=== PATIENT | male | born 1975 | race Caucasian/White ===

== ENCOUNTER 2022-02-09 14:11 | Outpatient (CLI) | payer OTHER, SELFPAY ==
[2022-02-09 11:20] LABS: Albumin* 4.3 g/dL (3.3-5.0); Chloride* 101 mmol/L (96-114)
[2022-02-09 11:21] LABS: Potassium* 4.8 mmol/L (3.6-5.1); Sodium* 135 mmol/L (135-149)
[2022-02-09 11:23] LABS: Alkaline Phosphatase* 75 U/L (40-150); Aspartate Amino Transferase* 30 U/L (12-35); Bilirubin Total* 1.2 mg/dL (0.1-1.5); Blood Urea Nitrogen* 16 mg/dL (5-24); Carbon Dioxide* 27 mmol/L (20-32); Cholesterol* 175 mg/dL (90-199); Creatinine* 1.1 mg/dL (0.5-1.5); Estimated Glomerular Filt Rate 83 ml/min; Glucose* 92 mg/dL (60-115); Total Protein* 7.2 g/dL (6.0-8.3); Triglycerides* 161 mg/dL (40-149)
[2022-02-09 11:24] LABS: Alanine Aminotransferase* 29 U/L (4-50); Calcium* 9.2 mg/dL (8.4-10.6); HDL Cholesterol* 65 mg/dL (>=40); LDL Cholesterol Calculated 78 mg/dL (<100)
== END 2022-02-09 14:12 | disposition home or self-care (01) ==
PROVIDERS: PCP Family Medicine; Visit Provider Family Medicine
DX: E78.5 Hyperlipidemia, unspecified (principal)
CPT/HCPCS: 80053; 80061

== ENCOUNTER 2022-03-20 14:24 | Outpatient (CLI) | payer OTHER, SELFPAY ==
--- OUTSIDE RECORDS SUMMARY | 2022-03-20 14:28 | XMS_ITS | Encounter Summary ---
:1975 Author Organization [facility] Address [address] [place] [address]. [place] [address] Care Team Providers Name Role Phone No Ref-Primary, Physician Primary Care Provider [phone] Reason for Visit Reason Comments Physical fasting labs Encounter Details Date Type Department Care Team Description 04/10/2016 Office Visit [facility] Leeanna Farmer MD Encounter for routine adult medical exam with abnormal findings (Primary Dx); Clinic [address] Tobacco use; [address] [place] [address] Need for prophylactic vaccin ation and inoculation [place] [phone] Social History Tobacco Use Types Packs/Day Years Used Date Current Some Day Smoker Cigarettes 16 Smokeless Tobacco: Never Used Alcohol Use Standard Drinks/Week Comments Yes 0 (1 standard drink = 0.6 oz pure alcoho l) 2 beers a day Sex Assigned at Date Recorded Not on file documented as of this encounter Last Filed Vital Signs Vital Sign Reading Time Taken Comments Blood Pressure 132/85 04/10/2016 8:30 AM CDT Pulse 89 04/10/2016 8:30 AM CDT Temperature 36.7 ??C (98 ??F) 04/10/2016 8:30 AM CDT Respiratory Rate 16 04/10/2016 8:30 AM CDT Oxygen Saturation 98% 04/10/2016 8:30 AM CDT Inhaled Oxygen Concentration - - Weight 107 kg (236 lb) 04/10/2016 8:30 AM CDT Height 185.4 cm (6' 1) 04/10/2016 8:30 AM CDT Body Mass Index 31.14 04/10/2016 8:30 AM CDT documented in this encounter Patient Instructions Patient InstructionsBean Donohue CMA - 04/10/2016 8:23 AM CDT Preventive Health Recommendations Male Ages 40 to 49 Yearly exam: ?? See your health care provider every year in order to o Review health changes. o Discuss preventive care. o Review your medicines if your doctor has prescribed any. ??? You should be tested each year for STDs (sexually transmitted diseases) if you???re at risk. ??? Have a cholesterol test every 5 years. ??? Have a colonoscopy (test for colon cancer) if someone in your family has had colon cancer or polyps before age 50. ??? After age 45, have a diabetes test (fasting glucose). If you are at risk for diabetes, you should have this test every 3 years. ??? Talk with your health care provider about whether or not a prostate cancer screening test (PSA) is right for you. Shots: Get a flu shot each year. Get a tetanus shot every 10 years. Nutrition: ??? Eat at least 5 servings of fruits and vegetables daily. ??? Eat whole-grain bread, whole-wheat pasta and brown rice instead of white grains and rice. ??? Talk to your provider about Calcium and Vitamin D. Lifestyle ??? Exercise for at least 150 minutes a week (30 minutes a day, 5 days a week). This will help you control your weight and prevent disease. ??? Limit alcohol to one drink per day. ??? No smoking. ??? Wear sunscreen to prevent skin cancer. ??? See your dentist every six months for an exam and cleaning. documented in this encounter Progress Notes Bean Donohue CMA - 04/10/2016 10:52 AM CDT Injectable Influenza Immunization Documentation 1. Is the person to be vaccinated sick today? No 2. Does the person to be vaccinated have an allergy to eggs or to a component of the vaccine? No 3. Has the person to be vaccinated today ever had a serious reaction to influenza vaccine in the past? No 4. Has the person to be vaccinated ever had Guillain-Davenport syndrome? No Form completed by Bean Donohue CMA Leeanna Farmer MD - 04/10/2016 8:23 AM CDT SUBJECTIVE: CC: Antelmo Farias is an 40 year old male who presents for preventative health visit. Healthy Habits: Answers for HPI/ROS submitted by the patient on 04/04/2016 Annual Exam: Getting at least 3 servings of Calcium per day:: Yes Bi-annual eye exam:: Yes Dental care twice a year:: NO Sleep apnea or symptoms of sleep apnea:: Sleep apnea Diet:: Regular (no restrictions) Frequency of exercise:: 2-3 days/week Duration of exercise:: Less than 15 minutes Taking medications regularly:: Yes Medication side effects:: Not applicable Additional concerns today:: No PHQ-2 Depressed: Not at all, Not at all PHQ-2 Score: 0 Other concerns to address: Staying focused Today's PHQ-2 Score: 0 PHQ-2 (??1999 Pfizer) 04/04/2016 07/15/2014 Q1: Little interest or pleasure in doing things - 0 Q2: Feeling down, depressed or hopeless - 0 PHQ-2 Score - 0 Little interest or pleasure in doing things Not at all - Feeling down, depressed or hopeless Not at all - PHQ-2 Score 0 - Abuse: Current or Past(Physical, Sexual or Emotional)- No Do you feel safe in your environment - Yes Social History Substance Use Topics ??? Smoking status: Current Some Day Smoker -- 25.00 packs/day for 16 years Types: Cigarettes ??? Smokeless tobacco: Current User ??? Alcohol Use: Yes Comment: 2 beers a day Standardized Alcohol Screening Questionnaire AUDIT Questions 0 1 2 3 4 Score 1. How often do you have a drink containing alcohol? Never Monthly or less 2 to 4 times a month 2 to 3 times a week 4 or more times a week 3 2. How many drinks containing alcohol do you have on a typical day when you are drinking? 1 or 2 3 or 4 5 or 6 7 to 9 10 or more 2 3. How often do you have more than five or more drinks on one occasion? Never Less than monthly Monthly Weekly Daily or almost daily 3 4. How often during the last year have you found that you were not able to stop drinking once you had started? Never Less than monthly Monthly Weekly Daily or almost daily 0 5. How often during the last year have you failed to do what was normally expected of you because of drinking? Never Less than monthly Monthly Weekly Daily or almost daily 0 6. How often during the last year have you needed a first drink in the morning to get yourself going after a heavy drinking session? Never Less than monthly Monthly Weekly Daily or almost daily 0 7. How often during the last year have you had a feeling of guilt or remorse after drinking? Never Less than monthly Monthly Weekly Daily or almost daily 0 8. How often during the last year have you been unable to remember what happened the night before because of your drinking? Never Less than monthly Monthly Weekly Daily or almost daily 0 9. Have you or someone else been injured because of your drinking? No Yes, but not in the last year Yes, during the last year 0 10. Has a relative, friend, doctor or other health care worker been concerned about your drinking orsuggested you cut down? No Yes, but not in the last year Yes, during the last year 0 Total 8 Scoring: A score of 7 for adult men is an indication of hazardous drinking (risk for physical or physiological harm); a score of 8 or more is an indication of an alcohol use disorder. A score of 5 or more for adult women is an indication of hazardous drinking or an alcohol use disorder. Last PSA: PSA Date Value Ref Range Status 09/01/2008 0.63 0 - 4 ug/L Final Recent Labs Lab Test 01/20/13 0920 12/27/11 0858 CHOL 161 152 HDL 40 41 LDL 91 87 TRIG 156* 119 CHOLHDLRATIO 4.1 3.7 Reviewed orders with patient. Reviewed health maintenance and updated orders accordingly - Yes All Histories reviewed and updated in [facility]. Past Medical History Diagnosis Date ??? ANGELIKA (obstructive sleep apnea) 2005 CPAP at 5cm ??? Family hx-GI disorders 02/07/2011 oldest daughter dx with celiac sprue Past Surgical History Procedure Laterality Date ??? Hc explor maxill sinus,intranasal 04/2002 Dr. Shea ??? Laminectomy lumbar posterior microscopic one level 07/07/2013 Procedure: LAMINECTOMY LUMBAR POSTERIOR MICROSCOPIC ONE LEVEL; RIGHT L5-S1 MICRODISCECTOMY ; Surgeon: Jefferson Michelle MD; Location: [facility] OR Feeling pain in the triceps while he was working out, and the pain is getting better, mild burning in the Lt triceps said that he is having time focusing, easily distracted, and goes from thought to another, and wakes up with rushing thoughts in the head. He declined worrying about things in general, and does not feel depressed or down. ROS: C: NEGATIVE for fever, chills, change in weight INTEGUMENTARY/SKIN: mole on the flank area. E: NEGATIVE for vision changes or irritation ENT: NEGATIVE for ear, mouth and throat problems R: NEGATIVE for significant cough or SOB CV: NEGATIVE for chest pain, palpitations or peripheral edema GI: NEGATIVE for nausea, abdominal pain, heartburn, or change in bowel habits male: negative for dysuria, hematuria, decreased urinary stream, erectile dysfunction, urethral discharge M: NEGATIVE for significant arthralgias or myalgia N: NEGATIVE for weakness, dizziness or paresthesias P: NEGATIVE for changes in mood or affect Problem list, Medication list, Allergies, and Medical/Social/Surgical histories reviewed in [facility] andupdated as appropriate. Labs reviewed in [facility] OBJECTIVE: There were no vitals taken for this visit. EXAM: GENERAL: healthy, alert and no distress EYES: Eyes grossly normal to inspection, PERRL and conjunctivae and sclerae normal HENT: ear canals and TM's normal, nose and mouth without ulcers or lesions NECK: no adenopathy, no asymmetry, masses, or scars and thyroid normal to palpation RESP: lungs clear to auscultation - no rales, rhonchi or wheezes CV: regular rate and rhythm, normal S1 S2, no S3 or S4, no murmur, click or rub, no peripheral edemaand peripheral pulses strong ABDOMEN: soft, nontender, no hepatosplenomegaly, no masses and bowel sounds normal (male): normal male genitalia without lesions or urethral discharge, no hernia MS: no gross musculoskeletal defects noted, no edema SKIN: mole on the Lt upper thigh. NEURO: Normal strength and tone, mentation intact and speech normal PSYCH: mentation appears normal, affect normal/bright ASSESSMENT/PLAN: 1. Encounter for routine adult medical exam with abnormal findings - GLUCOSE - LIPID REFLEX TO DIRECT LDL PANEL - Hemoglobin A1c 2. Tobacco use Talked about smoking cessation - albuterol (PROAIR HFA, PROVENTIL HFA, VENTOLIN HFA) 108 (90 BASE) MCG/ACT inhaler; Inhale 2 puffs into the lungs every 4 hours as needed Dispense: 1 Inhaler; Refill: 3 COUNSELING: Reviewed preventive health counseling, as reflected in patient instructions Regular exercise Healthy diet/nutrition reports that he has been smoking Cigarettes. He has a 400 pack-year smoking history. He uses smokeless tobacco. Tobacco Cessation Action Plan: Information offered: Patient not interested at this time Estimated body mass index is 31.27 kg/(m^2) as calculated from the following: Height as of 05/06/14: 6' 0.99 (1.854 m). Weight as of 07/15/14: 237 lb (107.502 kg). Weight management plan: Discussed healthy diet and exercise guidelines and patient will follow up in12 months in clinic to re-evaluate. Counseling Resources: ATP IV Guidelines Pooled Cohorts Equation Calculator FRAX Risk Assessment ICSI Preventive Guidelines Dietary Guidelines for Americans, 2009 [employer] My[employer]ate ASA Prophylaxis Lung CA Screening Leeanna Farmer MD [facility] documented in this encounter Nursing Notes Bean Donohue CMA - 04/10/2016 8:32 AM CDT Chief Complaint Patient presents with ??? Physical fasting labs Initial BP 132/85 mmHg Pulse 89 Temp(Src) 98 ??F (36.7 ??C) (Oral) Resp 16 Ht 6' 1 (1.854 m) Wt 236 lb (107.049 kg) BMI 31.14 kg/m2 SpO2 98% Estimated body mass index is 31.14 kg/(m^2) as calculated from the following: Height as of this encounter: 6' 1 (1.854 m). Weight as of this encounter: 236 lb (107.049 kg).. BP completed using cuff size large Last Td:04/10/16 Last Colonoscopy:n/a Last PSA 09/01/08 - normal Bean Donohue CMA documented in this encounter Miscellaneous Notes Addendum Note - Bean Donohue CMA - 04/10/2016 10:54 AM CDT Addended by: BEAN DONOHUE on: 04/10/2016 10:54 AM Modules accepted: Orders, SmartSet documented in this encounter Plan of Treatment Not on filedocumented as of this encounter Procedures Procedure Name Priority Date/Time Associated Comments Diagnosis LIPID REFLEX TO Routine 04/10/2016 9:11 AM Encounter for Resul ts for this DIRECT LDL PANEL CDT routine adult procedure are in medical exam with the result s abnormal findings section. HEMOGLOBIN A1C Routine 04/10/2016 9:11 AM Encounter for Result s for this CDT routine adult procedure are in medical exam with the result s abnormal findings section. GLUCOSE Routine 04/10/2016 9:11 AM Encounter for Results for this CDT routine adult procedure are in medical exam with the result s abnormal findings section. documented in this encounter Results Hemoglobin A1c (04/10/2016 9:11 AM CDT) athologist Signature Hemoglobin A1C 5.1 4.3 - 6.0 [facility] Specimen Anatomical Collection Method Collection Time Receive d Time (Source) Location / / Volume Laterality Blood specimen 04/10/2016 9:11 AM 016 9:12 (specimen) CDT AM CDT Leeanna Farmer MD LAB - BLOOD ORDERABLES Performing Organization Address City/State/ZIP Code Phon e Number [facility] [address] [place] [address] (ABNORMAL) LIPID REFLEX TO DIRECT LDL PANEL (04/10/2016 9:11 AM CDT) Analysis Performed At Patho logist Time Signature Cholesterol 185 <200 mg/dL [facility] Triglycerides 200 (H) <150 mg/dL [facility] Comment: Borderline high: ??150-199 mg/dl High: ? 200-499 mg/dl Very high: ? >499 mg/dl Fasting specimen HDL Cholesterol 47 >39 mg/dL [facility] LDL Cholesterol Calculated 98 <100 mg/dL [facility] Comment: Desirable: <100 mg/dl Non HDL Cholesterol 138 (H) <130 mg/dL [facility] Comment: Above Desirable: ??130-159 mg/dl Borderline high: ??160-189 mg/dl High: ? 190-219 mg/dl Very high: ? >219 mg/dl Specimen Anatomical Collection Method Collection Time Receive d Time (Source) Location / / Volume Laterality Blood specimen 04/10/2016 9:11 AM 016 9:12 (specimen) CDT AM CDT Leeanna Farmer MD LAB - BLOOD ORDERABLES Performing Organization Address City/[facility]/ZIP Code Phon e Number [facility] [address] [place] [phone] (ABNORMAL) GLUCOSE (04/10/2016 9:11 AM CDT) athologist Signature Glucose 102 (H) 70 - 99 [facility] mg/dL [facility] Specimen Anatomical Collection Method Collection Time Receive d Time (Source) Location / / Volume Laterality Blood specimen 04/10/2016 9:11 AM 016 9:12 (specimen) CDT AM CDT Leeanna Farmer MD LAB - BLOOD ORDERABLES Performing Organization Address City/[facility]/ZIP Code Phon e Number 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
--- OUTSIDE RECORDS SUMMARY | 2022-03-20 14:28 | XMS_ITS | Encounter Summary ---
:1975 Author Organization [facility] Address [address] [place] [address]. [place] [address] Care Team Providers Name Role Phone Sloan Chen MD Primary Care Provider + Reason for Visit Reason Comments Sleep Apnea Encounter Details Date Type Department Care Team Description 05/10/2014 Care Coordination [facility] Edenilson Pitts MD [facility] [place] [address] [facility] [address] [address] [address] [place] [address] [place] [id number] [phone] Social History Tobacco Use Types Packs/Day Years Used Date Current Some Day Smoker Cigarettes 25 16 Smokeless Tobacco: Never Used Alcohol Use Standard Drinks/Week Comments Yes 0 (1 standard drink = 0.6 oz pure alcoho l) 2 beers a day Sex Assigned at Date Recorded Not on file documented as of this encounter Progress Notes Mojgan Irvin RRT - 05/10/2014 8:33 AM CST Faxed RX for new auto CPAP 715 to [facility] per pt request STRY ADVISER documented in this encounter Plan of Treatment Not on filedocumented as of this encounter Visit Diagnoses Not on filedocumented in this encounter 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
--- OUTSIDE RECORDS SUMMARY | 2022-03-20 14:28 | XMS_ITS | Encounter Summary ---
:1975 Author Organization [place] Address Formerly [facility]0 [facility] [place] [address] Care Team Providers Name Role Phone No Ref-Primary, Physician Primary Care Provider [phone] Encounter Details Date Type Department Care Team Description 02/07/2015 Hospital Encounter [facility] Geo Torres [facility] MD [facility] [address] [facility] [address] [facility] [address] [place] [address] [place] [phone] Social History Tobacco Use Types Packs/Day Years Used Date Current Some Day Smoker Cigarettes 25 16 Smokeless Tobacco: Current User Alcohol Use Standard Drinks/Week Comments Yes 0 (1 standard drink = 0.6 oz pure alcoho l) 2 beers a day Sex Assigned at Date Recorded Not on file documented as of this encounter Medications at Time of Discharge Medication Sig Dispensed Refills Start Date End Date albuterol (ALBUTEROL) 108 Inhale 1-2 puffs 1 Inhaler 3 05/1704/10/2016 (90 BASE) MCG/ACT into the lungs every inhalerIndications: 6 hours as needed Dyspnea for shortness of breath / dyspnea or wheezing zolpidem (AMBIEN) 10 MG Take 0.5-1 tablets 30 tablet 0 07/1904/10/2016 tabletIndications: Lumbar (5-10 mg) by mouth radiculopathy nightly as needed for sleep documented as of this encounter Progress Notes Emma Nugent - 02/08/2015 7:11 AM CDT Calcium score results sent to patient by certified mail. Patient does not have a PCP listed in [facility].Emma Nugent CV Construction Mgr documented in this encounter Plan of Treatment Not on filedocumented as of this encounter Procedures Procedure Name Priority Date/Time Associated Comments Diagnosis RADIOLOGIST CONSULT Routine 02/07/2015 9:18 AM Screening Re sults for this FOR CARDIOLOGY CDT procedure are in the results section. CT CALCIUM SCREENING Routine 02/07/2015 9:18 AM Screening R esults for this CDT procedure are i n the results section. documented in this encounter Results Radiologist Consult For Cardiology (02/07/2015 9:18 AM CDT) Anatomical Region Laterality Modality Computed Tomography Specimen (Source) Anatomical Location Collection Method / Collectio n Time Received Time / Laterality Volume Narrative 02/07/2015 9:48 AM CDT RADIOLOGIST CONSULT FOR CARDIOLOGY February 07, 2015 at 0918 hours HISTORY: 39-year-old male with screening examination. COMPARISON: March 09, 2013. TECHNIQUE: Axial and coronal noncontrast CT images obtained through the heart. FINDINGS: This report will focus only on soft tissue findings. Please see separate report for all cardiac and vascular findings. No abnormally enlarged mediastinal lymph nodes. The visible solid organs in the upper abdomen are unremark able. No acute osseous abnormality. No pulmonary masses. MAKSIM CONTRERAS MD Procedure Note Maksim Contreras MD - 02/07/2015 RADIOLOGIST CONSULT FOR CARDIOLOGY 2014 at 0918 hours HISTORY: 39-year-old male with screening examination. COMPARISON: March 09, 2013. TECHNIQUE: Axial and coronal noncontrast CT images obtained through the heart. FINDINGS: This report will focus only on soft tissue findings. Please see separate report for all cardiac and vascular findings. No abnormally enlarged mediastinal lymph nodes. The visible solid organs in the upper abdomen are unremark able. No acute osseous abnormality. No pulmonary masses. MAKSIM CONTRERAS MD Radiology Non-Fv Credentialed Provider IMG DIAGNOSTIC IMAGING ORDERABLES CT Coronary Calcium Scan (02/07/2015 9:18 AM CDT) Anatomical Region Laterality Modality Chest, SUBRAD IR PROCEDURE, UMP CT CTA C omputed Tomography Specimen (Source) Anatomical Location Collection Method / Collectio n Time Received Time / Laterality Volume Narrative 02/07/2015 2:09 PM CDT Procedure: CT CALCIUM SCREENING Examination Date: 02/07/2015 9:18 AM Clinical Information: Screening for unsp ecified condition Ordering Provider: Self PROCEDURE: High-resolution, ECG synchron ized multi-slice computed tomography was performed with a Siemens Dual Source Flash scanner without incident. Coronary calcification was analyzed using [employer] calcium scoring software. Scan protocol was optimized to minimize radiation exposure. The total radiation exposure was calculated to be 33 DLP and 0.5 mSv. FINDINGS: Overall quality of the study: Good. CORONARY ARTERY CALCIUM SCORES: Left main coronary artery: 0 Left anterior descending coronary artery : 0 Circumflex coronary artery: 0 Right coronary artery: 0 TOTAL CALCIUM SCORE: 0 The total Agatston calcium score is 0. Impressions No evidence of coronary artery calcifica tion. Please review Radiology report for incid ental noncardiac findings that will follow separately CALCIUM SCORE OF ZERO: A calcium score o f zero places this individual in the lowest quartile when compared to an age and gender matched control group. If the patient has more t nguyen one cardiac risk factor then the risk of coronary heart disease, or myocardial infarction is less than 0.4% per year (G socorro P. et al. JACC, 2007; 49:378-402). GENERAL RECOMMENDATIONS: Adoption and ma intenance of a healthy lifestyle is recommended for all people. This should include regular, appropriate exercise and observance of a proper diet, to ensure balanced nutrition and weight control. T obacco use should be avoided. Cholesterol has been linked to coronary atherosclerosis, and we strongly encourage adhering to the recom mendations of the National Cholesterol Education Panel (NCEP). For primary prevention, these include a target goal for total choleste rol of less than 200 mg/dl, HDL cholesterol of greater than 40 mg/dl , triglycerides of less than 150 mg/dl, and LDL cholesterol of less t nguyen 130 mg/dl. However note that these are general recommendations o nly, and as with all such matters, the personal physician should b e consulted regarding recommendations appropriate for the john vidual. GEO TORRES MD Procedure Note Geo Torres MD - 02/07/2015For matting of this note might be different from the original. Procedure: CT CALCIUM SCREENING Examination Date: 02/07/2015 9:18 AM Clinical Information: Screening for unsp ecified condition Ordering Provider: Self PROCEDURE: High-resolution, ECG synchron ized multi-slice computed tomography was performed with a Siemens Dual Source Flash scanner without incident. Coronary calcification was analyzed using [employer] calcium scoring software. Scan protocol was optimized to minimize radiation exposure. The total radiation exposure was calculated to be 33 DLP and 0.5 mSv. FINDINGS: Overall quality of the study: Good. CORONARY ARTERY CALCIUM SCORES: Left main coronary artery: 0 Left anterior descending coronary artery : 0 Circumflex coronary artery: 0 Right coronary artery: 0 TOTAL CALCIUM SCORE: 0 The total Agatston calcium score is 0. Impressions No evidence of coronary artery calcifica tion. Please review Radiology report for incid ental noncardiac findings that will follow separately CALCIUM SCORE OF ZERO: A calcium score o f zero places this individual in the lowest quartile when compared to an age and gender matched control group. If the patient has more t nguyen one cardiac risk factor then the risk of coronary heart disease, or myocardial infarction is less than 0.4% per year (Félix quintanilla P. et al. [facility], 2007; 49:378-402). GENERAL RECOMMENDATIONS: Adoption and ma intenance of a healthy lifestyle is recommended for all people. This should include regular, appropriate exercise and observance of a proper diet, to ensure balanced nutrition and weight control. T obacco use should be avoided. Cholesterol has been linked to coronary atherosclerosis, and we strongly encourage adhering to the recom mendations of the National Cholesterol Education Panel (NCEP). For primary prevention, these include a target goal for total choleste rol of less than 200 mg/dl, HDL cholesterol of greater than 40 mg/dl , triglycerides of less than 150 mg/dl, and LDL cholesterol of less t nguyen 130 mg/dl. However note that these are general recommendations o nly, and as with all such matters, the personal physician should b e consulted regarding recommendations appropriate for the john vidual. GEO TORRES MD Radiology Non-Fv Credentialed Provider IMG CT ORDERABL ES documented in this encounter Visit Diagnoses Diagnosis Screening Screening for unspecified condition documented in this encounter Care Teams Economics Faculty Member Relationship Specialty Start Date End Date No Ref-Primary, Physician PCP - General 02/01/15 documented as of this encounter
--- OUTSIDE RECORDS SUMMARY | 2022-03-20 14:28 | XMS_ITS | Encounter Summary ---
:1975 Author Organization [place] Address [address] [place] [address] Care Team Providers Name Role Phone [facility] Primary Care Provid er Sloan Chen MD Primary Care Provider + Encounter Details Date Type Department Care Team Description 03/09/2014 Orders Only [facility] [place] Herniate d nucleus Neurosurgery MD Eddie pulposus, lumbar 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
--- OUTSIDE RECORDS SUMMARY | 2022-03-20 14:28 | XMS_ITS | Encounter Summary ---
:1975 Author Organization [place] Address [address] [place] [address] Care Team Providers Name Role Phone No Ref-Primary, Physician Primary Care Provider Reason for Visit Reason Onset Date Comments Refill Request 04/03/2016 refills Encounter Details Date Type Department Care Team Description 04/03/2016 MyC Refill [facility] Sloan Chen efill Request [facility] Jono Paulino MD (refills) [id number] [place] [address] [place] [address] [address] [phone] [place], [place] [address] (Wo rk) Social History Tobacco Use Types Packs/Day Years Used Date Current Some Day Smoker Cigarettes 25 16 Smokeless Tobacco: Current User Alcohol Use Standard Drinks/Week Comments Yes 0 (1 standard drink = 0.6 oz pure alcoho l) 2 beers a day Sex Assigned at Date Recorded Not on file documented as of this encounter Miscellaneous Notes Telephone Encounter - Hyacinth Santiago RN - 04/04/2016 7:47 AM CDT Needs appointment, sent mychart response Hyacinth Santiago RN, BSN Message handled by Nurse Triage. documented in this encounter Plan of Treatment Not on filedocumented as of this encounter Visit Diagnoses Not on filedocumented in this encounter Care Teams Line Repairer Tower Relationship Specialty Start Date End Date No Ref-Primary, Physician PCP - General 02/01/15 documented as of this encounter
--- OUTSIDE RECORDS SUMMARY | 2022-03-20 14:28 | XMS_ITS | Encounter Summary ---
:1975 Author Organization [place] Address [address] [place] [address] Care Team Providers Name Role Phone Harvinder Michelle MD Primary Care Provider Encounter Details Date Type Department Care Team Description 10/15/[address] [facility] Ju Chen in joint [facility] involving ankle [place] MD [facility] and foot, left [id number] [place] [address] [place] [id number] [address] [phone] [place] [address] (Wo rk) Social History Tobacco Use Types [...] encounter Procedures Procedure Name Priority Date/Time Associated Diagnosis Comme nts XR ANKLE LEFT G/E 3 Routine 10/15/2013 8:13 AM Pain in joint R esults for this VIEWS CDT involving ankle and procedur e are in foot, left the results section. documented in this encounter Results XR Ankle Left G/E 3 Views (10/15/2013 8:13 AM CDT) Anatomical Region Laterality Modality Leg, Ankle, Foot Left Computed Radiography Specimen (Source) Anatomical Location Collection Method / Collectio n Time Received Time / Laterality Volume Narrative 10/15/2013 9:55 AM CDT LEFT ANKLE THREE OR MORE VIEWS 10/15/2013, 8:13 AM HISTORY: ??Left ankle pain. FINDINGS: Small posterior and plantar ca lcaneal spurs. Left ankle otherwise negative. BENEDICTO GANDARA MD Procedure Note Benedicto Gandara MD - 10/15/2013Formatti ng of this note might be different from the original. LEFT ANKLE THREE OR MORE VIEWS 10/15/2013, 8:13 AM HISTORY: Left ankle pain. FINDINGS: Small posterior and plantar ca lcaneal spurs. Left ankle otherwise negative. BENEDICTO GANDARA MD Sloan Chen MD IMG DIAGNOSTIC KOLE GING ORDERABLES documented in this encounter Visit Diagnoses Diagnosis Pain in joint involving ankle and foot, left documented in this encounter Care Teams Clinical Staff Rn Relationship Specialty Start Date End Date Harvinder Michelle MD PCP - General 12/26/01 11/16/13 [address] [address] documented as of this encounter
--- OUTSIDE RECORDS SUMMARY | 2022-03-20 14:28 | XMS_ITS | Encounter Summary ---
:1975 Author Organization [place] Address [address] [place] [address]. [place] [address] Care Team Providers Name Role Phone Sloan Chen MD Primary Care Provider + Reason for Visit Reason Comments Sleep Problem Rubens, would like a cpap machi ne - Closed Specialty Diagnoses / Procedures Referred By Contact Refer red To Contact Diagnoses RUBENS (obstructive sleep apnea) Sloan Chen MD [facility] [address] [place] [address] Referral ID Status Reason Start Date Expiration Date Visits Requ ested Visits Authorized [id number] Closed 04/22/2014 10/19/2014 1 1 Encounter Details Date Type Department Care Team Description 05/06/2014 Office Visit [facility] Brando Chen MD [facility] [address] [place], [place] [address] RUBENS (obstructive Sleep [facility] Edenilson Chang MD [address] [id number] sleep apnea) [address] [address] Social History Tobacco Use Types Packs/Day Years [...] Sign Reading Time Taken Comments Blood Pressure 130/92 05/06/2014 10:00 AM HELICOPTER ENGINEER R arm Pulse 57 05/06/2014 10:00 AM HELICOPTER ENGINEER Temperature - - Respiratory Rate 16 05/06/2014 10:00 AM HELICOPTER ENGINEER Oxygen Saturation 98% 05/06/2014 10:00 AM HELICOPTER ENGINEER Inhaled Oxygen Concentration - - Weight 108 kg (238 lb) 05/06/2014 10:00 AM HELICOPTER ENGINEER Height 185.4 cm (6' 0.99) 05/06/2014 10:00 AM HELICOPTER ENGINEER Body Mass Index 31.41 05/06/2014 10:00 AM HELICOPTER ENGINEER documented in this encounter Patient Instructions Patient InstructionsEdenilson Ruiz MD - 05/06/2014 11:21 AM CST Your BMI is Body mass index is 31.41 kg/(m^2). Weight management plan: Current exercise routine: bicycling, walking and weightlifting. Body mass index (BMI) is one way to tell whether you are at a healthy weight, overweight, or obese. It measures your weight in relation to your height. A BMI of 18.5 to 24.9 is in the healthy range. A person with a BMI of 25 to 29.9 is considered overweight, and someone with a BMI of 30 or greater is considered obese. Another way to find out if you are at risk for health problems caused by overweight and obesity is to measure your waist. If you are awoman and your waist is more than 35 inches, or if you are a man and your waist is more than 40 inches, your risk of disease may be higher. More than two-thirds of Turkmen adults are considered overweight or obese. Being overweight or obese increases the risk for further weight gain. Excess weight may lead to heart disease and diabetes. Creating and following plans for healthy eating and physical activity may help you improve your health. Methods for maintaining or losing weight. Weight control is part of healthy lifestyle and includes exercise, emotional health, and healthy eating habits. Careful eating habits lifelong is the mainstay of weight control. Though there are significant health benefits from weight loss, long-term weight loss with diet alone may be very difficult to achieve- studies show long-term success with dietary management in less than 10% of people. Attaining a healthy weight may be especially difficult to achieve in those with severe obesity. In some cases, medications, devices and surgical management might be considered. What can you do? If you are overweight or obese and are interested in methods for weight loss, you should discuss this with your provider. In addition, we recommend that you review healthy life styles and methods for weight loss available through the National Institutes of Health patient information sites: http://win.niddk.nih.gov/publications/index.htm COPTER ENGINEER documented in this encounter Progress Notes Edenilson Ruiz MD - 05/06/2014 11:50 AM CST [facility] CONSULTATION REFERRING PHYSICIAN: Sloan Chen MD REASON FOR REFERRAL: Management of obstructive sleep apnea. HISTORY OF PRESENT ILLNESS: Mr. Leatha Baker is currently on CPAP therapy for treatment of his obstructive sleep apnea. His diagnostic polysomnogram was performed on 07/16/2005 and showed mild obstructivesleep apnea. His apnea- hypopnea index was 11.5 per hour and RDI was 12.2 per hour. Minimum oxygen sat uration was 87%. The patient weighed 98 kilograms at the time of his sleep study. This was a split-night PSG and during the subsequent CPAP titration, CPAP at a pressure of 9 cm of water adequately treated his sleep apnea. His symptoms leading up to the sleep study were excessive daytime sleepiness. He was prescribed CPAP therapy, which effectively treated his sleep apnea and also improved his daytime alertness. He has since been on regular CPAP therapy. The patient did not bring his CPAP machine today. He has had some weight gain since his sleep study.He currently weighs 108 kilograms. He still has symptoms of snoring and sleepiness if he were to skip CPAP therapy. He usually sleeps from 10:00 p.m. and spontaneously wakes up around 5:00 a.m. feelingrefreshed if he has used CPAP. There is no history of restless legs. He rarely awakens during the night. There is no history of dream enactment behavior or other parasomnias. In the daytime, he has adequate alertness and rated his Mermentau Sleepiness Scale Score as 6/24. There is no history of drowsiness while driving. PAST MEDICAL HISTORY: 1. Back surgery. 2. Nasal turbinate reduction. FAMILY HISTORY: His father had symptoms of sleep apnea and at age 49 from a heart attack. 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 He has a 25-ggeb-deda history of smoking and has recently converted to e- cigarettes. He drinks about 2 or 3 alcoholic drinks aday. He has 2 cups of coffee daily. REVIEW OF SYSTEMS: A 10-point review of systems was negative except for shortness of breath with activity. PHYSICAL EXAMINATION: CONSTITUTIONAL: Awake, alert, cooperative, in no apparent distress. Mood is euthymic with a congruent affect. Attention and concentration are normal. EYES: No icterus. ENT: Oropharynx is Reyes class IV with narrow diameters. Overbite present. Mild nasal turbinate hypertrophy seen. CARDIOVASCULAR: Regular S1 and S2. PULMONARY: Chest symmetric. Lungs clear bilaterally. EXTREMITIES: No pedal edema. Gait normal. NEUROLOGIC: Alert and oriented x3. No focal neurological deficit. Cranial nerves are grossly normal. IMPRESSION: Obstructive sleep apnea. The patient has had therapeutic success with CPAP therapy for treatment of his sleep apnea. His machine, which is about 8 years old, is currently malfunctioning. Also, he has had about a 10 kilogram weight gain since his initial sleep study. I think converting to an auto-titrating CPAP device will be useful to account for any changes in pressure requirements. I have provided him a prescription for auto PAP therapy with the pressure range of 7-15 cm of water. Alternatives to CPAP therapy were discussed with the patient, but considering his success with CPAP therapy, I do not see any reason to change treatment modality. He has been counseled regarding weightloss. TREATMENT PLAN: 1. To obtain a new PAP device with auto-titrating settings from pressure range of 7-15 cm of water. 2. Follow up in a month to review progress. A total of 30 minutes were spent with this patient, with more than 50% counseling. EDENILSON RUIZ MD MT: carl Name: LEATHA BAKER Account: [id number] : 1975 Visit Date: 05/06/2014 Document: [id number] cc: Sloan Chen MD COPTER ENGINEER documented in this encounter Plan of Treatment Not on filedocumented as of this encounter Procedures Procedure Name Priority Date/Time Associated Diagnosis Comme nts OXIMETRY - HIM SCAN 06/27/2014 12:00 AM HELICOPTER ENGINEER documented in this encounter Results OXIMETRY - HIM SCAN (06/27/2014 12:00 AM HELICOPTER ENGINEER) Specimen (Source) Anatomical Location Collection Method / Collectio n Time Received Time / Laterality Volume 06/27/2014 Narrative This result has an attachment that is no t available. Provider Scan PFT ORDERABLES documented in this encounter Visit Diagnoses Diagnosis RUBENS (obstructive sleep apnea) Obstructive sleep apnea (adult) (pediatr ic) documented in this encounter Care Teams Tinner Automatic Relationship Specialty Start Date End Date Sloan Chen PCP - General Family Practice 01/31/15 documented as of this encounter
--- OUTSIDE RECORDS SUMMARY | 2022-03-20 14:28 | XMS_ITS | Encounter Summary ---
:1975 Author Organization [facility] Address [address] [place] [address] Care Team Providers Name Role Phone Sloan Chen MD Primary Care Provider + Reason for Referral - Closed Specialty Diagnoses / Procedures Referred By Contact Refer red To Contact Diagnoses Obesity (BMI 30-39.9) ANGELIKA (obstructive sleep apnea) Edenilson Ruiz MD [id number] Who@ [address] [place] [address] Referral ID Status Reason Start Date Expiration Date Visits Requ ested Visits Authorized [id number] Closed 07/15/2014 01/11/2015 1 1 Scheduling Instructions Your provider is recommending you to enr oll in CAN DO. There are five tracks to choose from to best meet your needs: 1) Manage Your Weight 2) Manage Your Stress, Build Resiliency 3) Explore Healthier Living 4) Living Well With A Chronic Condition 5) Become Tobacco Free, Reduce Stress Our CAN DO team will contact you regardi ng scheduling. If you have any questions in the meantime please call us at [phone]. We look forward to working with you! onsultation - Closed Specialty Diagnoses / Procedures Referred By Contact Refer red To Contact Diagnoses ANGELIKA (obstructive sleep apnea) Edenilson Ruiz MD [id number] Who@ [address] [place] [address] Referral ID Status Reason Start Date Expiration Date Visits Requ ested Visits Authorized [id number] Closed 07/15/2014 01/11/2015 1 1 H ASSEMBLER Reason for Visit Reason Comments RECHECK Encounter Details Date Type Department Care Team Description 07/15/2014 Office Visit [facility] Edenilson Ruiz MD ANGELIKA (obstructive sleep apnea) (Primary D x); [facility] [address] Obesity (BMI 30-39.9) [address] [place] [address] [place] [address] [place] [address] (Work) [phone] Social History Tobacco Use Types Packs/Day Years [...] Sign Reading Time Taken Comments Blood Pressure 131/91 07/15/2014 11:20 AM BENCH ASSEMBLER Pulse 81 07/15/2014 11:20 AM BENCH ASSEMBLER Temperature 36.6 ??C (97.8 ??F) 07/15/2014 11:20 AM BENCH ASSEMBLER Respiratory Rate - - Oxygen Saturation 95% 07/15/2014 11:20 AM BENCH ASSEMBLER Inhaled Oxygen Concentration - - Weight 107.5 kg (237 lb) 07/15/2014 11:20 AM BENCH ASSEMBLER Height - - Body Mass Index 31.28 05/06/2014 10:00 AM BENCH ASSEMBLER documented in this encounter Patient Instructions Patient InstructionsEdenilson Ruiz MD - 07/15/2014 11:34 AM CST Your BMI is Body mass index is 31.27 kg/(m^2). Weight management plan: Current exercise routine: bicycling and walking. can do referral Body mass index (BMI) is one way [...] may be higher. More than two-thirds of [place] adults are considered overweight or obese. Being [...] Institutes of Health patient information sites: http://win.niddk.nih.gov/publications/index.htm H ASSEMBLER documented in this encounter Progress Notes Edenilson Ruiz MD - 07/15/2014 11:46 AM CST DATE OF SERVICE: 07/15/2014 CHIEF COMPLAINT: Followup for obstructive sleep apnea. HISTORY OF PRESENT ILLNESS: Mr. Leatha Baker is currently on auto PAP therapy for treatment of his obstructive sleep apnea. He was seen for an initial consultation in April, when I had replaced his CPAP machine and switched to auto PAP therapy. The patient reports that the newer machine works better. He continues to experience positive benefits from CPAP use. His sleep is more consolidated and he has a significantly more alertness during the daytime. Snoring continues to be eliminated. Download from his device shows 100% compliance in the last 30 days and an average daily usage of 6 hours and 52 minutes. Auto PAP 90th percentile pressure is13.7 cm of water. Residual AHI is normal at 0.4 per hour. The patient was interested to know about a dental device alternative to CPAP. I have provided him a Dental Sleep Medicine referral and a list of dental specialists that he can consult. We also discussed weight management strategies. IMPRESSION: Obstructive sleep apnea, adequately treated on auto PAP therapy. TREATMENT PLAN: 1. Continue auto PAP therapy with a pressure range of 7-15 cm of water. 2. Follow up in a year. A total of 15 minutes were spent with this patient, with more than 50% spent in counseling. EDENILSON RUIZ MD MT: tano Name: LEATHA BAKER Account: [id number] : 1975 Visit Date: 07/15/2014 Document: [id number] cc: Sloan Chen MD H ASSEMBLER documented in this encounter Plan of Treatment Scheduled Referrals Name Type Priority Associated Diagnoses Order S chedule SLEEP DENTAL REFERRAL Referral Routine ANGELIKA (obstructive sl eep Ordered: 07/15/2014 apnea) CAN DO REFERRAL Referral Routine Obesity (BMI 30- 39.9) Ordered: 07/15/2014 ANGELIKA (obstructive sleep apnea) documented as of this encounter Visit Diagnoses Diagnosis ANGELIKA (obstructive sleep apnea) - Primary Obstructive sleep apnea (adult) (pediatr ic) Obesity (BMI 30-39.9) Obesity, unspecified documented in this encounter Care Teams Trimming Inspector Relationship Specialty Start Date End Date Sloan Chen PCP - General Family Practice 01/31/15 documented as of this encounter
--- OUTSIDE RECORDS SUMMARY | 2022-03-20 14:28 | XMS_ITS | Encounter Summary ---
:1975 Author Organization [facility] Address [address] [place] [address] Care Team Providers Name Role Phone Clinic - [facility] Primary Care Provid er Reason for Visit (Routine) - Closed Specialty Diagnoses / Procedures Referred By Contact Refer red To Contact Radiology / Radiology. Diagnoses R#NA,HP, Epic Order, Sh Mri Procedures MR LUMBAR SPINE WO [address] [place] [address] Phone: Referral ID Status Reason Start Date Expiration Date Visits Requ ested Visits Authorized [id number] Closed 03/09/2014 03/09/2015 1 1 Encounter Details Date Type Department Care Team Description 03/15/2014 Hospital Encounter [facility] Michelle Her niated nucleus [facility] MD Eddie pulposus, lumbar [address] XX RESIGNED XX [place] [address] [address] [place] [id number] Social History Tobacco Use Types Packs/Day Years [...] Name Priority Date/Time Associated Diagnosis Comme nts MR LUMBAR SPINE W/O Routine 04/20/2014 7:50 AM Herniated nucle us Results for this & W CONTRAST SUPERVISOR INDUSTRIAL GARMENT pulposus, lumbar procedure a re in the results section. documented in this encounter Results MR Lumbar Spine w/o & w Contrast (04/20/2014 7:50 AM SUPERVISOR INDUSTRIAL GARMENT) Anatomical Region Laterality Modality Spine, SUBRAD MR MSK, UMP MR SPINE Magne tic Resonance Specimen (Source) Anatomical Location Collection Method / Collectio n Time Received Time / Laterality Volume Impressions 04/20/2014 10:28 AM SUPERVISOR INDUSTRIAL GARMENT IMPRESSION: Postoperative and degenerative changes of the lumbar spine as described above. No evidence for resi dual or recurrent disc herniation at the L5-S1 level. No spinal canal or neural foraminal stenosis at any level of the lumbar spin e. MARIA M RAMIREZ MD Narrative 04/20/2014 10:28 AM SUPERVISOR INDUSTRIAL GARMENT MRI OF THE LUMBAR SPINE WITHOUT AND WITH CONTRAST April 20, 2014 7:50 AM HISTORY: Displacement of lumbar interver tebral disc without myelopathy TECHNIQUE: Multiplanar, multisequence MR I images of the lumbar spine were acquired without and with 10 mL Sukhjinder avist IV contrast. COMPARISON: Lumbar spine MRI 06/30/2013. FINDINGS: There are five lumbar-type gato tebrae for the purposes of this dictation. There has been an interval right sided l aminotomy of L5 for resection of the previously described right parace ntral L5-S1 disc herniation. There is signal change and enhancement i n the surgical tract extending from the skin down to the right L5 jerri otomy consistent with scar tissue. The descending S1 nerve root pas ses through the scar in the right lateral recess of the spinal canal at the L5-S1 level. There is no evidence for residual or recurrent di sc herniation at the L5-S1 level. There is normal alignment of the lumbar vertebrae. Vertebral body heights of the lumbar spine are normal. Marrow signal throughout the lumbar vertebra is normal. There is no e vidence for fracture or pathologic bony lesion of the lumbar spi ne. There is loss of disc height, disc desic cation and minimal posterior broad-based disc bulging of the L5-S1 di sc. Lumbar intervertebral discs are otherwise within normal limits in height, contour and signal intensity. The tip of the conus medullaris is again noted to be at the L1-L2 level which is within normal limits. The re is no evidence for intrathecal abnormality. There no findin gs to suggest arachnoiditis. Level by level: L1-L2: There is no spinal canal or neura l foraminal stenosis at this level. L2-L3: There is no spinal canal or neura l foraminal stenosis at this level.. L3-L4: There is no spinal canal or neura l foraminal stenosis at this level. L4-L5: There is mild facet arthropathy b ilaterally. There is no spinal canal or neural foraminal stenosis at th is level. L5-S1: There is a right L5 laminotomy. T here is a minimal posterior broad-based disc bulge. There is mild fa cet arthropathy bilaterally. There is enhancing scar tissue in the ri ght lateral recess of the spinal canal at the L5-S1 level through which the descending right S1 nerve root passes. There is no evidence for residual or recurrent disc herniation. There is no spinal canal or neural foraminal stenosis at this level. Procedure Note Maria M Ramirez MD - 04/20/2014Forma tting of this note might be different from the original. MRI OF THE LUMBAR SPINE WITHOUT AND WITH CONTRAST April 20, 2014 7:50 AM HISTORY: Displacement of lumbar interver tebral disc without myelopathy TECHNIQUE: Multiplanar, multisequence MR I images of the lumbar spine were acquired without and with 10 mL Sukhjinder avist IV contrast. COMPARISON: Lumbar spine MRI 06/30/2013. FINDINGS: There are five lumbar-type gato tebrae for the purposes of this dictation. There has been an interval right sided l aminotomy of L5 for resection of the previously described right parace ntral L5-S1 disc herniation. There is signal change and enhancement i n the surgical tract extending from the skin down to the right L5 jerri otomy consistent with scar tissue. The descending S1 nerve root pas ses through the scar in the right lateral recess of the spinal canal at the L5-S1 level. There is no evidence for residual or recurrent di sc herniation at the L5-S1 level. There is normal alignment of the lumbar vertebrae. Vertebral body heights of the lumbar spine are normal. Marrow signal throughout the lumbar vertebra is normal. There is no e vidence for fracture or pathologic bony lesion of the lumbar spi ne. There is loss of disc height, disc desic cation and minimal posterior broad-based disc bulging of the L5-S1 di sc. Lumbar intervertebral discs are otherwise within normal limits in height, contour and signal intensity. The tip of the conus medullaris is again noted to be at the L1-L2 level which is within normal limits. The re is no evidence for intrathecal abnormality. There no findin gs to suggest arachnoiditis. Level by level: L1-L2: There is no spinal canal or neura l foraminal stenosis at this level. L2-L3: There is no spinal canal or neura l foraminal stenosis at this level.. L3-L4: There is no spinal canal or neura l foraminal stenosis at this level. L4-L5: There is mild facet arthropathy b ilaterally. There is no spinal canal or neural foraminal stenosis at th is level. L5-S1: There is a right L5 laminotomy. T here is a minimal posterior broad-based disc bulge. There is mild fa cet arthropathy bilaterally. There is enhancing scar tissue in the ri ght lateral recess of the spinal canal at the L5-S1 level through which the descending right S1 nerve root passes. There is no evidence for residual or recurrent disc herniation. There is no spinal canal or neural foraminal stenosis at this level. IMPRESSION IMPRESSION: Postoperative and degenerati ve changes of the lumbar spine as described above. No evidence for resi dual or recurrent disc herniation at the L5-S1 level. No spinal canal or neural foraminal stenosis at any level of the lumbar spin e. MARIA M RAMIREZ MD Jefferson Michelle MD IMG MRI ORDERABLES documented in this encounter Visit Diagnoses Diagnosis Herniated nucleus pulposus, lumbar Displacement of lumbar intervertebral di sc without myelopathy documented in this encounter Care Teams Sorter Packer Relationship Specialty Start Date End Date Clinic - [facility] PCP - General 11/17/13 04/13/14 [address] [place] [address] documented as of this encounter
--- OUTSIDE RECORDS SUMMARY | 2022-03-20 14:28 | XMS_ITS | Encounter Summary ---
:1975 Author Organization [facility] Address [address] [place] [address]. [place] [address] Care Team Providers Name Role Phone Sloan Chen MD Primary Care Provider + Reason for Visit Reason Onset Date Comments Sleep Apnea 05/18/2014 dme order to [facility] Encounter Details Date Type Department Care Team Description 05/18/[address] [facility] Sleep Ra mahamed Pitts MD Sleep Apnea (dme order [address] to [facility] - [address] [place] [address]) [place] [address] [place] [address] [place] [address] (Work) [phone] Social History Tobacco Use Types Packs/Day Years Used Date Current Some Day Smoker Cigarettes 25 16 Smokeless Tobacco: Never Used Alcohol Use Standard Drinks/Week Comments Yes 0 (1 standard drink = 0.6 oz pure alcoho l) 2 beers a day Sex Assigned at Date Recorded Not on file documented as of this encounter Miscellaneous Notes Telephone Encounter - Toma Mckee - 05/18/2014 2:05 PM CST Spoke with pt, refaxed the DME order to [facility] per pt request - they ([facility]) stated no pressure settings were on order for DME - Pressure setting on order for autopap 7-15cm. ITAL INSURANCE REPRESENTATIVE documented in this encounter Plan of Treatment Not on filedocumented as of this encounter Visit Diagnoses Not on filedocumented in this encounter Care Teams Manager Fitness Relationship Specialty Start Date End Date Sloan Chen, PCP - General Family Practice 01/31/15 documented as of this encounter
--- OUTSIDE RECORDS SUMMARY | 2022-03-20 14:28 | XMS_ITS | Encounter Summary ---
:1975 Author Organization [facility] Address [address] [place] [address] Care Team Providers Name Role Phone Sloan Chen MD Primary Care Provider + Reason for Visit Reason Comments Neurologic Problem F/u MRI Encounter Details Date Type Department Care Team Description 05/17/2014 Office Visit [facility] Michelle (Primary Neurosurgery Clinic MD Eddie Dx) [place] XX RESIGNED XX [address] [address] [place] [address] [place] [address] (Work) [phone] Social History Tobacco Use Types Packs/Day Years [...] Sign Reading Time Taken Comments Blood Pressure 130/89 05/17/2014 9:25 AM TOOL TURRET LATHE SET UP OPERATOR Pulse 65 05/17/2014 9:25 AM TOOL TURRET LATHE SET UP OPERATOR Temperature - - Respiratory Rate - - Oxygen Saturation - - Inhaled Oxygen Concentration - - Weight - - Height - - Body Mass Index - - documented in this encounter Patient Instructions Patient InstructionsJefferson Michelle - 05/17/2014 4:05 PM CST -followup in neurosurgery clinic PRN TURRET LATHE SET UP OPERATOR documented in this encounter Progress Notes Jefferson Michelle - 05/17/2014 4:01 PM CST [facility] History and Physical Neurosurgery [facility] Michelle MD Antelmo Farias Date of : 1975 Age: [age] year old Chief Complaint: Continued minimal paresthesias History of Present Illness: Antelmo Farias is a 38 year old male who presented in Jun with RLE radiculopathy in Jun 2013 and underwent successful R L5-S1 microdiscectomy, now returns for followup because of persistent paresthesias and MRI results. When he presented in Jun 2013 he had 10 days of severe RLE radicular pain, /10, with HNP at L5-S1 on MRI. He underwent microdiscectomy and his radicular pain resolved completely. He had low level persistent paresthesias on his R medial calf over the next 6 months, so he underwent repeat MRI in 02/2014, and returns today for followup. He denies weakness, bowel/bladder incontinence, gait instability. Past Medical History: Past Medical History Diagnosis Date ??? ANGELIKA (obstructive sleep apnea) 2005 CPAP at 5cm ??? Family hx-GI disorders 02/07/2011 oldest daughter dx with celiac sprue Past Surgical History: Past Surgical History Procedure Laterality Date ??? Hc explor maxill sinus,intranasal 04/2002 Dr. Shea ??? Laminectomy lumbar posterior microscopic one level 07/07/2013 Procedure: LAMINECTOMY LUMBAR POSTERIOR MICROSCOPIC ONE LEVEL; RIGHT L5-S1 MICRODISCECTOMY ; Surgeon: Jefferson Michelle MD; Location: OR Home Medications: Prior to Admission medications Not on File Current Medications: Allergies: Allergies Allergen Reactions ??? No Known Drug Allergies Social History: Antelmo Farias reports that he has been smoking Cigarettes. He has a 400 pack-year smoking history. He has never used smokeless tobacco. He reports that he drinks alcohol. He reports that he does not use illicit drugs. Family History: Family History Problem Relation Age of Onset ??? Heart Father 47 [place] in 1997 ??? Family History Negative Mother ??? Family History Negative Brother Review of Systems: The 10 point Review of Systems is negative other than noted in the HPI. Physical Exam: , Blood pressure 130/89, pulse 65. 0 lbs 0 oz HEENT: Normocephalic, atraumatic. PERRLA. EOM???s intact. Nares are clear. Mouth without lesions. Neck: Supple, non-tender, without lymphadenopathy. Heart: Regular rate and rhythm without murmur, rub or gallop. Lungs: Clear to auscultation bilaterally. No wheezes, rhonchi or rales. Abdomen: Soft, non-tender, non-distended. Normal bowel sounds. Skin: Warm and dry, good capillary refill. Extremities: Good radial and dorsalis pedis pulses bilaterally, no edema, cyanosis or clubbing. NEUROLOGICAL EXAMINATION: Mental status: Alert and Oriented x 3, speech is fluent. Cranial nerves: II-XII intact. Motor: Strength is 5/5 throughout the upper and lower extremities Sensation: intact Reflexes: DTR are 2/4 throughout the upper and lower extremities. Negative Babinski. Negative Clonus. Negative Moser's. Coordination: Smooth finger to nose testing. Negative Romberg???s. Negative pronator drift. Smooth tandem walking Gait: Stable, no difficulty with heel or toe walking. Cervical examination reveals good range of motion. No tenderness to palpation of the cervical spine or paraspinous muscles bilaterally. Lumbar examination reveals no tenderness of the spine or paraspinous muscles. Hip height is symmetrical. Negative SI joint, sciatic notch or greater trochanteric tenderness to palpation bilaterally. Straight leg raise is negative bilaterally. Negative MELLISSA test bilaterally. Data: MRI Lspine: R L5-S1 hemilaminectomy is seen without any evidence of significant residual disc. Thereis scar tissue surrounding the S1 root.on the right. Assessment and Plan: 38 yo man with complete resolution of pain after R L5-S1 microdisc, with residual paresthesias on medial calf, which may be simply related to nerve damage from the disc herniation and/or scar tissue. He understands there is no active nerve compression or treatable lesion, so there is no indication for neurosurgical intervention. Plan to continue conservative mgmt. -followup in neurosurgery clinic CHRISSY Michelle MD TURRET LATHE SET UP OPERATOR Abdirizak Bach - 05/17/2014 11:05 AM CST Antelmo Farias is a 38 year old male who presents for: Chief Complaint Patient presents with ??? Neurologic Problem F/u MRI Initial Vitals: BP 130/89 Pulse 65 Estimated body mass index is 31.41 kg/(m^2) as calculated from the following: Height as of 05/06/14: 1.854 m (6' 0.99). Weight as of 05/06/14: 107.956 kg (238 lb).. There is no height or weight on file to calculate BSA.BP completed using cuff size: large Data Unavailable Do you feel safe in your environment? Yes Do you need any refills today? No Nursing Comments: F/u MRI 2 minutes nursing intake time Abdirizak Bach Discharge plan: Patient will f/u prn. 1 minute nursing discharge time Luis Bach [place] [employer] TURRET LATHE SET UP OPERATOR documented in this encounter Plan of Treatment Not on filedocumented as of this encounter Visit Diagnoses Diagnosis Paresthesias - Primary Disturbance of skin sensation documented in this encounter Care Teams Right Of Way Worker Relationship Specialty Start Date End Date Sloan Chen, PCP - General Family Practice 01/31/15 documented as of this encounter
--- OUTSIDE RECORDS SUMMARY | 2022-03-20 14:28 | XMS_ITS | Encounter Summary ---
:1975 Author Organization [facility] Address [address] [place] [address]. [place] [address] Care Team Providers Name Role Phone No Ref-Primary, Physician Primary Care Provider [phone] Leeanna Farmer MD Unavailable Leeanna Farmer MD Unavailable Reason for Visit Reason Comments Physical fasting labs Refill Request Encounter Details Date Type Department Care Team Description 10/08/2017 Office Visit [facility] Leeanna Farmer MD Encounter for routine adult medical exam with abnormal findings (Primary Dx); [facility] [id number] [place] [address] Tobacco use; [address] [place], [place] Mild intermittent asthma wit hout complication [place], [place] [phone] Social History Tobacco Use Types Packs/Day Years [...] Sign Reading Time Taken Comments Blood Pressure 131/86 10/08/2017 8:59 AM CDT Pulse 67 10/08/2017 8:59 AM CDT Temperature 36.7 ??C (98 ??F) 10/08/2017 8:59 AM CDT Respiratory Rate 16 10/08/2017 8:59 AM CDT Oxygen Saturation 97% 10/08/2017 8:59 AM CDT Inhaled Oxygen Concentration - - Weight 104.3 kg (230 lb) 10/08/2017 8:59 AM CDT Height 182.9 cm (6') 10/08/2017 8:59 AM CDT Body Mass Index 31.19 10/08/2017 8:59 AM CDT documented in this encounter Patient Instructions Patient InstructionsTri Donohue CMA - 10/08/2017 8:52 AM CDT Preventive Health Recommendations Male Ages [...] cleaning. documented in this encounter Progress Notes Leeanna Farmer MD - 10/08/2017 8:52 AM CDT SUBJECTIVE: CC: Antelmo Farias is an 42 year old male who presents for preventative health visit. Healthy Habits: Answers for HPI/ROS submitted by the patient on 10/06/2017 Annual Exam: Getting at least 3 servings of Calcium per day:: Yes Bi-annual eye exam:: Yes Dental care twice a year:: Yes Sleep apnea or symptoms of sleep apnea:: Sleep apnea Diet:: Regular (no restrictions) Frequency of exercise:: 2-3 days/week Taking medications regularly:: Not Applicable Medication side effects:: None Additional concerns today:: No PHQ-2 Score: 0 Duration of exercise:: 15-30 minutes Today's PHQ-2 Score: PHQ-2 (??1999 Pfizer) 10/06/2017 04/10/2016 Q1: Little interest or pleasure in doing things 0 0 Q2: Feeling down, depressed or hopeless 0 0 PHQ-2 Score 0 0 Q1: Little interest or pleasure in doing things Not at all - Q2: Feeling down, depressed or hopeless Not at all - PHQ-2 Score 0 - Abuse: Current or Past(Physical, Sexual or Emotional)- No Do you feel safe in your environment - Yes Social History Substance Use Topics ??? Smoking status: Current Some Day Smoker Years: 16.00 Types: Cigarettes ??? Smokeless tobacco: Never Used ??? Alcohol use 0.0 oz/week 0 Standard drinks or equivalent per week Comment: 2 beers a day If you drink alcohol do you typically have >3 drinks per day or >7 drinks per week? Yes - AUDIT SCORE: (P) 13 AUDIT - Alcohol Use Disorders Identification Test - Reproduced from the World Health Organization Audit 2001 (Second Edition) 10/06/2017 1. How often do you have a drink containing alcohol? 2 to 3 times a week 2. How many drinks containing alcohol do you have on a typical day when you are drinking? 7 to 9 3. How often do you have five or more drinks on one occasion? Weekly 4. How often during the last year have you found that you were not able to stop drinking once you had started? Monthly 5. How often during the last year have you failed to do what was normally expected of you because ofdrinking? Less than monthly 6. How often during the last year have you needed a first drink in the morning to get yourself goingafter a heavy drinking session? Never 7. How often during the last year have you had a feeling of guilt or remorse after drinking? Less than monthly 8. How often during the last year have you been unable to remember what happened the night before because of your drinking? Never 9. Have you or someone else been injured because of your drinking? No 10. Has a relative, friend, doctor or other health care worker been concerned about your drinking orsuggested you cut down? No TOTAL SCORE 13 Last PSA: PSA Date Value Ref Range Status 09/01/2008 0.63 0 - 4 ug/L Final Reviewed orders with patient. Reviewed health maintenance and updated orders accordingly - Yes Labs reviewed in [facility] BP Readings from Last 3 Encounters: 10/08/17 131/86 04/10/16 132/85 07/15/14 (!) 131/91 Wt Readings from Last 3 Encounters: 10/08/17 230 lb (104.3 kg) 04/10/16 236 lb (107 kg) 07/15/14 237 lb (107.5 kg) Patient Active Problem List Diagnosis ??? ANGELIKA (obstructive sleep apnea) ??? CARDIOVASCULAR SCREENING; LDL GOAL LESS THAN 160 ??? Family hx-GI disorders ??? Family history of ischemic heart disease ??? Tobacco use ??? Herniated disc ??? Intermittent asthma ??? Alcohol consumption binge drinking Past Surgical History: Procedure Laterality Date ??? HC EXPLOR MAXILL SINUS,INTRANASAL 04/2002 Dr. Shea ??? LAMINECTOMY LUMBAR POSTERIOR MICROSCOPIC ONE LEVEL 07/07/2013 Procedure: LAMINECTOMY LUMBAR POSTERIOR MICROSCOPIC ONE LEVEL; RIGHT L5-S1 MICRODISCECTOMY ; Surgeon: Jefferson Michelle MD; Location: OR Social History Substance Use Topics ??? Smoking status: Current Some Day Smoker Years: 16.00 Types: Cigarettes ??? Smokeless tobacco: Never Used ??? Alcohol use 0.0 oz/week 0 Standard drinks or equivalent per week Comment: 2 beers a day Family History Problem Relation Age of Onset ??? HEART DISEASE Father 47 DC in 1997 ??? Family History Negative Mother ??? Family History Negative Brother Current Outpatient Prescriptions Medication Sig Dispense Refill ??? albuterol (PROAIR HFA/PROVENTIL HFA/VENTOLIN HFA) 108 (90 Base) MCG/ACT Inhaler Inhale 2 puffs into the lungs every 4 hours as needed 1 Inhaler 3 ??? [DISCONTINUED] albuterol (PROAIR HFA, PROVENTIL HFA, VENTOLIN HFA) 108 (90 BASE) MCG/ACT inhalerInhale 2 puffs into the lungs every 4 hours as needed 1 Inhaler 3 Allergies Allergen Reactions ??? No Known Drug Allergies Reviewed and updated as needed this visit by clinical staff Tobacco Allergies Meds Med Hx Surg Hx Fam Hx Soc Hx Reviewed and updated as needed this visit by Provider Past Medical History: Diagnosis Date ??? Alcohol consumption binge drinking 10/08/2017 ??? Family hx-GI disorders 02/07/2011 oldest daughter dx with celiac sprue ??? Intermittent asthma 10/08/2017 ??? ANGELIKA (obstructive sleep apnea) 2005 CPAP at 5cm Past Surgical History: Procedure Laterality Date ??? HC EXPLOR MAXILL SINUS,INTRANASAL 04/2002 Dr. Shea ??? LAMINECTOMY LUMBAR POSTERIOR MICROSCOPIC ONE LEVEL 07/07/2013 Procedure: LAMINECTOMY LUMBAR POSTERIOR MICROSCOPIC ONE LEVEL; RIGHT L5-S1 MICRODISCECTOMY ; Surgeon: Jefferson Michelle MD; Location: [facility] ROS: C: NEGATIVE for fever, chills, change in weight I: NEGATIVE for worrisome rashes, moles or lesions E: NEGATIVE for vision changes or irritation ENT: NEGATIVE for ear, mouth and throat problems RESP:occasional wheezing. CV: NEGATIVE for chest pain, palpitations or peripheral edema GI: NEGATIVE for nausea, abdominal pain, heartburn, or change in bowel habits male: negative for dysuria, hematuria, decreased urinary stream, erectile dysfunction, urethral discharge MUSCULOSKELETAL:R leg pain radiating from the Rt lower back, occsaionally. N: NEGATIVE for weakness, dizziness Mild numbness in the Rt lower foot. P: NEGATIVE for changes in mood or affect OBJECTIVE: BP 131/86 (BP Location: Right arm, Patient Position: Chair, Cuff Size: Adult Large) Pulse 67 Temp 98 ??F (36.7 ??C) (Oral) Resp 16 Ht 6' (1.829 m) Wt 230 lb (104.3 kg) SpO2 97% BMI 31.19 kg/m2 EXAM: GENERAL: healthy, alert and no distress [...] hepatosplenomegaly, no masses and bowel sounds normal MS: spine exam shows no scoliosis and ROM is normal SL sign is negative on the right. SKIN: no suspicious lesions or rashes NEURO: Normal strength and tone, mentation intact and speech normal PSYCH: mentation appears normal, affect normal/bright ASSESSMENT/PLAN: 1. Encounter for routine adult medical exam with abnormal findings Today I counseled the patient about diet, regular exercise and weight loss planning. - GLUCOSE - Lipid panel reflex to direct LDL Fasting - Hepatic panel 2. Tobacco use Discussed the importance of stopping smoking, pt is thinking seriously about it. - albuterol (PROAIR HFA/PROVENTIL HFA/VENTOLIN HFA) 108 (90 Base) MCG/ACT Inhaler; Inhale 2 puffs into the lungs every 4 hours as needed Dispense: 1 Inhaler; Refill: 3 3. Mild intermittent asthma without complication Controlled. Stop smoking. COUNSELING: Reviewed preventive health counseling, as reflected in patient instructions Healthy diet/nutrition reports that he has been smoking Cigarettes. He has smoked for the past 16.00 years. He has never used smokeless tobacco. Tobacco Cessation Action Plan: Self help information given to patient Estimated body mass index is 31.19 kg/(m^2) as calculated from the following: Height as of this encounter: 6' (1.829 m). Weight as of this encounter: 230 lb (104.3 kg). Weight management plan: Discussed healthy diet and exercise guidelines and patient will follow up in12 months in clinic to re-evaluate. Counseling Resources: ATP IV Guidelines Pooled Cohorts Equation Calculator FRAX Risk Assessment ICSI Preventive Guidelines Dietary Guidelines for Americans, 2009 USDA's MyPlate ASA Prophylaxis Lung CA Screening Leeanna Farmer MD [facility] documented in this encounter Plan of Treatment Not on filedocumented as of this encounter Procedures Procedure Name Priority Date/Time Associated Diagnosis Comme nts ASTHMA ACTION PLAN Routine 10/08/2017 10:59 AM CDT LIPID REFLEX TO Routine 10/08/2017 9:28 AM Mild intermittent R esults for this DIRECT LDL PANEL CDT asthma without procedure are in complication the results section. HEPATIC FUNCTION Routine 10/08/2017 9:28 AM Encounter for rout ine Results for this PANEL CDT adult medical exam procedure are in with abnormal the results findings section. GLUCOSE Routine 10/08/2017 9:28 AM Mild intermittent Resu lts for this CDT asthma without procedure are in complication the results section. documented in this encounter Results Hepatic panel (10/08/2017 9:28 AM CDT) Analysis Performed At Patho logist Time Signature Bilirubin Direct 0.1 0.0 - 0.2 10/08/2017 [facility] mg/dL 6:33 PM CDT [facility] Bilirubin Total 0.4 0.2 - 1.3 10/08/2017 [facility] mg/dL 6:33 PM CDT [facility] Albumin 4.0 3.4 - 5.0 10/08/2017 [facility] g/dL 6:33 PM CDT [facility] Protein Total 7.7 6.8 - 8.8 10/08/2017 [facility] g/dL 6:33 PM CDT [facility] Alkaline 58 40 - 150 10/08/2017 [facility] Phosphatase U/L 6:33 PM CDT [facility] ALT 34 0 - 70 U/L 10/08/2017 [facility] 6:40 PM CDT [facility] AST 14 0 - 45 U/L 10/08/2017 [facility] 6:33 PM CDT [facility] Specimen Anatomical Collection Method Collection Time Receive d Time (Source) Location / / Volume Laterality Blood specimen 10/08/2017 9:28 AM 018 9:29 (specimen) CDT AM CDT Leeanna Farmer MD LAB - BLOOD ORDERABLES Performing Organization Address City/State/ZIP Code Phon e Number [facility] [address] [place] [address] Lipid panel reflex to direct LDL Fasting (10/08/2017 9:28 AM CDT) P athologist Signature Cholesterol 176 <200 mg/dL 10/08/2017 [facility] 6:33 PM CDT [facility] Triglycerides 126 <150 mg/dL 10/08/2017 [facility] 6:40 PM CDT [facility] Comment: Fasting specimen HDL Cholesterol 52 >39 mg/dL 10/08/2017 6:40 PM CDT F [facility] LDL Cholesterol 99 <100 mg/dL 10/08/2017 6:40 PM CDT [facility] Calculated [facility] Comment: Desirable: <100 mg/dl Non HDL Cholesterol 124 <130 mg/dL 10/08/2017 6:40 PM CDT [facility] Specimen Anatomical Collection Method Collection Time Receive d Time (Source) Location / / Volume Laterality Blood specimen 10/08/2017 9:28 AM 018 9:29 (specimen) CDT AM CDT Leeanna Farmer MD LAB - BLOOD ORDERABLES Performing Organization Address City/[facility]/ZIP Code Phon e Number [facility] [address] [place] [address] (ABNORMAL) GLUCOSE (10/08/2017 9:28 AM CDT) P athologist Signature Glucose 100 (H) 70 - 99 10/08/2017 [facility] mg/dL 6:33 PM CDT [facility] Comment: Fasting specimen Specimen Anatomical Collection Method Collection Time Receive d Time (Source) Location / / Volume Laterality Blood specimen 10/08/2017 9:28 AM 018 9:29 (specimen) CDT AM CDT Leeanna Farmer MD LAB - BLOOD ORDERABLES Performing Organization Address City/[facility]/ZIP Code Phon e Number [facility] [address] [place] [id number] documented in this encounter Visit Diagnoses Diagnosis Encounter for routine adult medical exam with abnormal findings - Primary Tobacco use Tobacco use disorder Mild intermittent asthma without complic ation Unspecified asthma documented in this encounter Care Teams Director Global Development Relationship Specialty Start Date End Date No Ref-Primary, Physician PCP - General 02/01/15 Leeanna Farmer MD PCP - Assigned PCP 04/15/16 08/19/18 [id number] [place] [address] Leeanna Farmer MD Assigned PCP 04/15/16 10/08/20 [address] [place] [address] documented as of this encounter
--- OUTSIDE RECORDS SUMMARY | 2022-03-20 14:28 | XMS_ITS | Encounter Summary ---
:1975 Author Organization [facility] Address [address] [place] [address] Care Team Providers Name Role Phone Harvinder Michelle MD Primary Care Provider [facility] Primary Care Provid er Sloan Chen MD Primary Care Provider + Reason for Visit Reason Comments Neurologic Problem Right foot numbness Encounter Details Date Type Department Care Team Description [facility] Neuro[facility] MD Eddie pulposus, L5-S1, [address] XX RESIGNED XX right (Primary Dx) [address] [address] [address] [place] [address] [phone] (Wo rk) Social History Tobacco Use Types Packs/Day Years Used Date Current Some Day Smoker Cigarettes 25 16 Smokeless Tobacco: Never Used Alcohol Use Standard Drinks/Week Comments Yes 0 (1 standard drink = 0.6 oz pure alcoho l) 2 beers a day Sex Assigned at Date Recorded Not on file documented as of this encounter Progress Notes Abdirizak Bach - 11/05/2013 9:23 AM CDT Antelmo Farias is a 38 year old male who presents for: Chief Complaint Patient presents with ??? Neurologic Problem Right foot numbness Initial Vitals: There were no vitals taken for this visit. Estimated body mass index is 30.88 kg/(m^2) as calculated from the following: Height as of 10/15/13: 1.854 m (6' 1). Weight as of 10/15/13: 106.142 kg (234 lb).. There is no height or weight on file to calculate BSA. BP completed using cuff size: NA (Not Taken) Data Unavailable Do you feel safe in your environment? Yes Do you need any refills today? No Nursing Comments: Right foot numbness 1 minutes nursing intake time Abdirizak Bach Discharge plan: Patient will have a lumbar MRI and RTC when complete. 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
--- OUTSIDE RECORDS SUMMARY | 2022-03-20 14:28 | XMS_ITS | Encounter Summary ---
:1975 Author Organization [place] Address [address] [place] [address] Care Team Providers Name Role Phone Clinic - [facility] Primary Care Provid er Reason for Visit Reason Comments Physical Blood Draw fasting Encounter Details Date Type Department Care Team Description 03/01/2014 Office Visit [facility] Sloan Chen general medical examination at a health care facility (Primary Dx); [facility] [place] Jono Paulino MD Family history of ischemic heart disease ; [address] [place] [address] AESTHETIC Tobacco use [place], [place] [address] [phone] [place], [place] [address] (Wo rk) Social History [...] Sign Reading Time Taken Comments Blood Pressure 110/79 03/01/2014 8:04 AM CDT Pulse 60 03/01/2014 8:04 AM CDT Temperature 36.8 ??C (98.2 ??F) 03/01/2014 8:04 AM CDT Respiratory Rate 16 03/01/2014 8:04 AM CDT Oxygen Saturation - - Inhaled Oxygen Concentration - - Weight 103.4 kg (228 lb) 03/01/2014 8:04 AM CDT Height - - Body Mass Index 30.08 10/15/2013 7:49 AM CDT documented in this encounter Patient Instructions Patient InstructionsVidhi Alexandre CMA - 03/01/2014 8:06 AM CDT Preventive Health Recommendations Male Ages 26 - 39 Yearly exam: ?? See your health care provider every year in order to o Review health changes. o Discuss preventive care. o Review your medicines if your doctor has prescribed any. ??? You should be tested each year for STDs (sexually transmitted diseases), if you???re at risk. ??? After age 35, talk to your provider about cholesterol testing. If you are at risk for heart disease, have your cholesterol tested at least every 5 years. ??? If you are at risk for diabetes, you should have a diabetes test (fasting glucose). Shots: Get a flu shot each year. Get a tetanus shot every 10 years. Nutrition: ??? Eat at least 5 servings of fruits and vegetables daily. ??? Eat whole-grain bread, whole-wheat pasta and brown rice instead of white grains and rice. ??? For bone health: Eat calcium-rich foods or take calcium pills (500 to 600 mg) twice a day with food. Also take vitamin D (1000 IU) each day. Lifestyle ??? Exercise for at least 150 minutes a week (30 minutes a day, 5 days a week). This will help you control your weight and prevent disease. ??? Limit alcohol to one drink per day. ??? No smoking. ??? Wear sunscreen to prevent skin cancer. ??? See your dentist every six months for an exam and cleaning. ??? documented in this encounter Progress Notes Sloan Chen MD - 03/01/2014 8:06 AM CDT SUBJECTIVE: CC: Antelmo Farias is an 38 year old male who presents for preventative health visit. Healthy Habits: ?? Do you get at least three servings of calcium containing foods daily (dairy, green leafy vegetables, etc.)? yes ?? Amount of exercise or daily activities, outside of work: 3 day(s) per week ?? Problems taking medications regularly not applicable ?? Medication side effects: No ?? Have you had an eye exam in the past two years? yes ?? Do you see a dentist twice per year? yes ?? Do you have sleep apnea, excessive snoring or daytime drowsiness?sleep Apnea - Yes Other concerns to address: Today's PHQ-2 Score: Abuse: Current or Past(Physical, Sexual or Emotional)- No Do you feel safe in your environment - Yes History Substance Use Topics ??? Smoking status: Current Some Day Smoker -- 25.00 packs/day for 16 years Types: Cigarettes ??? Smokeless tobacco: Never Used ??? Alcohol Use: Yes Comment: 2 beers a day The patient does not drink >3 drinks per day nor >7 drinks per week. Last PSA: PSA Date Value Range Status 09/01/2008 0.63 0 - 4 ug/L Final Recent Labs Lab Test 01/20/13 0920 12/27/11 0858 CHOL 161 152 HDL 40 41 LDL 91 87 TRIG 156* 119 CHOLHDLRATIO 4.1 3.7 Reviewed orders with patient. Reviewed health maintenance and updated orders accordingly - Yes All Histories reviewed and updated in [facility]. Past Medical History Diagnosis Date ??? [...] ; Surgeon: Jefferson Michelle MD; Location: OR ROS: C: NEGATIVE for fever, chills, change in weight I: NEGATIVE for worrisome rashes, moles or lesions E: NEGATIVE for vision changes or irritation EYES: POSITIVE for corrected vision ENT: NEGATIVE for ear, mouth and throat problems R: NEGATIVE for significant cough or SOB CV: NEGATIVE for chest pain, palpitations or peripheral edema GI: NEGATIVE for nausea, abdominal pain, heartburn, or change in bowel habits male: negative for dysuria, hematuria, decreased urinary stream, erectile dysfunction, urethral discharge M: NEGATIVE for significant arthralgias or myalgia N: NEGATIVE for weakness, dizziness or paresthesias H: NEGATIVE for bleeding problems P: NEGATIVE for changes in mood or affect BP Readings from Last 3 Encounters: 03/01/14 110/79 10/15/13 118/80 07/08/13 128/85 Wt Readings from Last 3 Encounters: 03/01/14 228 lb (103.42 kg) 10/15/13 234 lb (106.142 kg) 07/05/13 231 lb (104.781 kg) No current outpatient prescriptions on file. OBJECTIVE: BP 110/79 Pulse 60 Temp(Src) 98.2 ??F (36.8 ??C) (Oral) Resp 16 Wt 228 lb (103.42 kg) BMI 30.09 kg/m2 GENERAL APPEARANCE: healthy, alert and no distress EYES: Eyes grossly normal to inspection, PERRL and conjunctivae and sclerae normal HENT: ear canals and TM's normal, nose and mouth without ulcers or lesions, oropharynx clear and oral mucous membranes moist NECK: no adenopathy, no asymmetry, masses, or scars and thyroid normal to palpation RESP: lungs clear to auscultation - no rales, rhonchi or wheezes CV: regular rates and rhythm, normal S1 S2, no S3 or S4, no murmur, click or rub, no peripheral edema and peripheral pulses strong ABDOMEN: soft, nontender, no hepatosplenomegaly, no masses and bowel sounds normal (male): normal male genitalia without lesions or urethral discharge, no hernia MS: no musculoskeletal defects are noted and gait is age appropriate without ataxia SKIN: no suspicious lesions or rashes NEURO: Normal strength and tone, sensory exam grossly normal, mentation intact and speech normal PSYCH: mentation appears normal and affect normal/bright ASSESSMENT/PLAN: Counseling Resources: ATP IV Guidelines Pooled Cohorts Equation Calculator FRAX Risk Assessment ICSI Preventive Guidelines Dietary Guidelines for Americans, 2010 USDA's MyPlate regular exercise healthy diet/nutrition vision screening reports that he has been smoking Cigarettes. He has a 400 pack-year smoking history. He has never used smokeless tobacco. Tobacco Cessation Action Plan: Information offered: Patient not interested at this time Estimated body mass index is 30.88 kg/(m^2) as calculated from the following: Height as of 10/15/13: 6' 1 (1.854 m). Weight as of 10/15/13: 234 lb (106.142 kg). Weight management plan: Current exercise routine: cardiovascular workout on exercise equipment. Dietregimen was discussed and plan is self-directed dieting: reduce carbs. ASSESSMENT/PLAN: (V70.0) Routine general medical examination at a health care facility (primary encounter diagnosis) Plan: Comprehensive metabolic panel (BMP + Alb, Alk Phos, ALT, AST, Total. Bili, TP), TSH with free T4 reflex, CBC with platelets (V17.3) Family history of ischemic heart disease Plan: CRP cardiac risk, Lipoprotein Particle NMR Profile (305.1) Tobacco use Plan: advised to quit Sloan Chen MD, [facility] documented in this encounter Nursing Notes Vidhi Alexandre CMA - 03/01/2014 8:05 AM CDT Chief Complaint Patient presents with ??? Physical ??? Blood Draw fasting Initial BP 110/79 Pulse 60 Temp(Src) 98.2 ??F (36.8 ??C) (Oral) Resp 16 Wt 228 lb (103.42 kg) BMI 30.09 kg/m2 Estimated body mass index is 30.09 kg/(m^2) as calculated from the following: Height as of 10/15/14: 6' 1 (1.854 m). Weight as of this encounter: 228 lb (103.42 kg).. BP completed using cuff size large - RA. Vidhi Alexandre, Retail Shift Manager documented in this encounter Plan of Treatment Not on filedocumented as of this encounter Procedures Procedure Name Priority Date/Time Associated Comments Diagnosis LIPOPROTEIN PARTICLE Routine 03/01/2014 8:30 AM Family History Of Results for this NMR PROFILE CDT Ischemic Heart procedure are in Disease the results section. TSH WITH FREE T4 Routine 03/01/2014 8:30 AM Routine General Re sults for this REFLEX CDT Medical Examination procedur e are in [facility] the results Facility section. CRP CARDIAC RISK Routine 03/01/2014 8:30 AM Family History Of Results for this CDT Ischemic Heart procedure are in Disease the results section. COMPREHENSIVE Routine 03/01/2014 8:30 AM Routine General Resul ts for this METABOLIC PANEL CDT Medical Examination berkley sheppard are in [facility] the results Facility section. CBC WITH PLATELETS Routine 03/01/2014 8:30 AM Routine General Results for this CDT Medical Examination trisha celestin are in [facility] the results Facility section. documented in this encounter Results (ABNORMAL) Lipoprotein Particle NMR Profile (03/01/2014 8:30 AM CDT) Analysis Performed At [facility] Time Signature LDL Particle 1,184 (H) [facility] Comment: Reference range: <=999 Unit: nmol/L (Note) INTERPRETIVE DATA: LDL Particle Number b y NMR Reference Ranges (Percentiles)(F2) Low (<20th percentile) ? < 1000 Moderate (20th to 49th percentile) ? 1000 - 1299 Borderline High (50th to 79th percentile ) ?1300 - 1599 High (80th to 94th percentile) ? 1600 - 2000 Very High (>95th percentile) ? > 2000 Small LDL Particle number 380 [facility] Comment: Reference range: <=527 Unit: nmol/L (Note) INTERPRETIVE DATA: Small LDL Particle Nu mber Reference Ranges(F3) ?Low ? < 117 ?Moderate ?117 - 527 ?Borderline ?528 - 839 ?High ?>839 Total Cholesterol 187 [facility] Comment: Reference range: <=199 Unit: mg/dL LDL Particle Size 21.2 [facility] Comment: Reference range: >=20.6 Unit: nm Lge HDL Particle number 3.2 (L) [facility] Comment: Reference range: >=4.8 Unit: umol/L Lge VLDL Part number 2.3 [facility] Comment: Reference range: <=2.7 Unit: nmol/L Triglycerides 158 (H) [facility] Comment: Reference range: 30 to 149 Unit: mg/dL HDL Cholesterol 46 [facility] Comment: Reference range: 40 to 59 Unit: mg/dL LDL Cholesterol 109 [facility] [place] Comment: Reference range: <=129 Unit: mg/dL HDL Size 8.7 (L) [facility] Comment: Reference range: >=9.2 Unit: nm VLDL Size 44.6 [facility] Comment: Reference range: <=46.6 Unit: nm HDL Particle Number 38.4 [facility] [place] Comment: Reference range: >=30.5 Unit: umol/L LP Insulin Resist 53 (H) [facility] [place] Comment: Reference range: <=45 Unit: not reported (Note) Specimen analysis performed at [facility]. NMR LDL Particle Number and LDL Cholesterol calc ulation are interpreted by [facility]. All other NMR test components are interpreted by [employer] [place], [place]. Analysis of total cholesterol, HDL cholesterol, and triglycerides are performed using chemical methods. See Compliance Statement B: [employer]/ INTERPRETIVE DATA: LP Insulin Resistance Score (F1)Reference intervals shown are the 50 th percentile of the [employer] reference population com prising 4,588 men and women without known CVD or diabe alban and not on lipid medication. (F2) Reference population comprises 5,36 2 men and women not on lipid medication enrolled in the Mult i-Ethnic Study of Atherosclerosis (NARANOJ). Willis et al. Atherosclerosis 2007. (F3) Small LDL-P and LDL Size are associ ated with CVD risk, but not after LDL-P is taken into accoun t. Small LDL-P, LDL Particle Size, Large HD L-P, Large VLDL-P, VLDL Size, HDL Size, HDL Particle, and L PIR score have been validated by [employer] but n ot cleared by US FDA; the clinical utility of these test results has not been fully established. Specimen Anatomical Collection Method Collection Time Receive d Time (Source) Location / / Volume Laterality Blood specimen 03/01/2014 8:30 AM 014 8:33 (specimen) CDT AM CDT Sloan Chen MD LAB - BLOOD ORDERA BLES Performing Organization Address City/[facility]/ZIP Code Phon e Number [facility] [address] [place] [address] CRP cardiac risk (03/01/2014 8:30 AM CDT) athologist Signature CRP Cardiac 1.6 mg/L [facility] Comment: Reference Values: Low Risk: ? <1.0 mg/L Average Risk: ? 1.0-3.0 mg/L High Risk: ?>3.0 mg/L Acute Inflammation: >8.0 mg/L Specimen Anatomical Collection Method Collection Time Receive d Time (Source) Location / / Volume Laterality Blood specimen 03/01/2014 8:30 AM 014 8:33 (specimen) CDT AM CDT Sloan Chen MD LAB - BLOOD ORDERA BLES Performing Organization Address City/[facility]/ZIP Code Phon e Number [address] [address] [facility] CBC with platelets (03/01/2014 8:30 AM CDT) P athologist Signature WBC 6.2 4.0 - 11.0 [facility] 10e9/L [facility] RBC Count 4.89 4.4 - 5.9 [facility] 10e12/L [facility] Hemoglobin 15.1 13.3 - [facility] 17.7 g/dL [facility] Hematocrit 44.1 40.0 - [facility] 53.0 % [facility] MCV 90 78 - 100 [facility] fl [facility] MCH 30.9 26.5 - [facility] 33.0 pg [facility] MCHC 34.2 31.5 - [facility] 36.5 g/dL [facility] RDW 12.1 10.0 - [facility] 15.0 % [facility] Platelet Count 231 150 - 450 [facility] 10e9/L [facility] Specimen Anatomical Collection Method Collection Time Receive d Time (Source) Location / / Volume Laterality Blood specimen 03/01/2014 8:30 AM 014 8:33 (specimen) CDT AM CDT Sloan Chen MD LAB - BLOOD ORDERA BLES Performing Organization Address [facility]/ZIP [facility] Phon e Number [facility] [address] [place] [address] TSH with free T4 reflex (03/01/2014 8:30 AM CDT) athologist Signature TSH 2.53 0.40 - 4.00 [facility] mU/L [place] Comment: Effective 01/13/2014, the reference range for this assay has changed to reflect new instrumentation/methodology. Specimen Anatomical Collection Method Collection Time Receive d Time (Source) Location / / Volume Laterality Blood specimen 03/01/2014 8:30 AM 014 8:33 (specimen) CDT AM CDT Sloan Chen MD LAB - BLOOD ORDERA BLES Performing Organization Address City/[facility]/ZIP Code Phon e Number [facility] [address] [place] [address] [facility] [address] [place] [address] (ABNORMAL) Comprehensive metabolic panel (BMP + Alb, Alk Phos, ALT, AST, Total. Bili, TP) (03/01/2014 8:30 AM CDT) P athologist Signature Sodium 138 133 - 144 [facility] mmol/L [place] Potassium 4.0 3.4 - 5.3 [facility] mmol/L [place] Chloride 106 94 - 109 [facility] mmol/L [place] Carbon Dioxide 28 20 - 32 [facility] S mmol/L [place] Anion Gap 4 (L) 6 - 17 [facility] mmol/L [place] Glucose 96 70 - 99 [facility] mg/dL [place] Comment: Effective 01/13/2014, the reference range for this assay has changed to reflect new instrumentation/methodology. Urea Nitrogen 12 7 - 30 mg/dL [facility] [place] Comment: Effective 01/13/2014, the reference range for this assay has changed to reflect new instrumentation/methodology. Creatinine 1.04 0.66 - 1.25 mg/dL [facility] [place] GFR Estimate 79 >60 mL/min/1.7m2 [facility] Comment: Non GFR Calc GFR Estimate If >90 >60 mL/min/1.7m2 [facility] Black GFR Calc [place] [place] Calcium 8.9 8.5 - 10.1 mg/dL [facility] [place] Comment: Effective 01/13/2014, the reference range for this assay has changed to reflect new instrumentation/methodology. Bilirubin Total 0.4 0.2 - 1.3 mg/dL [facility] Albumin 4.0 3.9 - 5.1 g/dL [facility] Protein Total 7.6 6.8 - 8.8 g/dL [facility] Alkaline Phosphatase 68 40 - 150 U/L [facility] ALT 29 0 - 70 U/L [facility] AST 16 0 - 45 U/L [facility] Specimen Anatomical Collection Method Collection Time Receive d Time (Source) Location / / Volume Laterality Blood specimen 03/01/2014 8:30 AM 014 8:33 (specimen) CDT AM CDT Sloan Chen MD LAB - BLOOD ORDERA BLES Performing Organization Address City/State/ZIP Code Phon e Number [facility] [address] [place] [address] [facility] [address] [place] [phone] documented in this encounter Visit Diagnoses Diagnosis Routine general medical examination at a health care facility - Primary Family history of ischemic heart disease Tobacco use Tobacco use disorder documented in this encounter Care Teams Metal Buffer Relationship Specialty Start Date End Date Clinic - [facility] PCP - General 11/17/13 04/13/14 [address] [place] [address] documented as of this encounter
--- OUTSIDE RECORDS SUMMARY | 2022-03-20 14:28 | XMS_ITS | Encounter Summary ---
:1975 Author Organization [place] Address [address] [place] [address]. [place] [address] Care Team Providers Name Role Phone No Ref-Primary, Physician Primary Care Provider [phone] Leeanna Farmer MD Unavailable Leeanna Farmer MD Unavailable Reason for Visit Reason Onset Date Comments Panel Management 07/03/2018 Encounter Details Date Type Department Care Team Description 07/03/2018 Telephone [facility] Lisa Farmer MD Panel Management [address] [phone] Social History Tobacco Use Types Packs/Day Years Used Date Current Some Day Smoker Cigarettes 16 Smokeless Tobacco: Never Used Alcohol Use Standard Drinks/Week Comments Yes 0 (1 standard drink = 0.6 oz pure alcoho l) 2 beers a day Sex Assigned at Date Recorded Not on file documented as of this encounter Miscellaneous Notes Telephone Encounter - Tri Donohue, DROP WIRE STRINGER - 07/03/2018 10:43 AM CST Panel Management Review Patient has the following on his problem list: Asthma review No flowsheet data found. 1. Is Asthma diagnosis on the Problem List? Yes 2. Is Asthma listed on Health Maintenance? Yes 3. Patient is due for: ACT and AAP Composite cancer screening Chart review shows that this patient is due/due soon for the following None Summary: Patient is due/failing the following: AAP and ACT Action needed: Patient needs to do ACT. Type of outreach: Sent letter. Questions for provider review: None Tri Donohue CMA Chart routed to Care Team . E MAKER documented in this encounter Plan of Treatment Not on filedocumented as of this encounter Procedures Procedure Name Priority Date/Time Associated Diagnosis Comme nts ASTHMA ACTION PLAN Routine 07/03/2018 10:44 AM CABLE MAKER documented in this encounter Visit Diagnoses Not on filedocumented in this encounter Care Teams Wireless Field Technician Relationship Specialty Start Date End Date No Ref-Primary, Physician PCP - General 02/01/15 Leeanna Farmer MD PCP - Assigned PCP 04/15/16 08/19/18 [address] [place], [place] [id number] Leeanna Farmer MD Assigned PCP 04/15/16 10/08/20 [address] [place], [place] [phone] documented as of this encounter
--- OUTSIDE RECORDS SUMMARY | 2022-03-20 14:28 | XMS_ITS | Encounter Summary ---
:1975 Author Organization [place] Address [address] [place] [address] Care Team Providers Name Role Phone Sloan Chen MD Primary Care Provider + Reason for Visit (Routine) - Closed Specialty Diagnoses / Procedures Referred By Contact Refer red To Contact Radiology / Radiology. Diagnoses R#NA, HP, Epic Order Sh Mri Procedures MR LUMBAR SPINE WWO [address] [place] [phone] Phone: Referral ID Status Reason Start Date Expiration Date Visits Requ ested Visits Authorized [id number] Closed 04/16/2014 04/16/2015 1 1 Encounter Details Date Type Department Care Team Description 04/20/2014 Hospital Encounter [facility] MD Eddie [address] XX RESIGNED XX [place] [phone] [address] [phone] [place] [address] (Wo rk) Social History Tobacco Use Types [...] Sign Reading Time Taken Comments Blood Pressure - - Pulse - - Temperature - - Respiratory Rate - - Oxygen Saturation - - Inhaled Oxygen Concentration - - Weight 106.1 kg (234 lb) 04/20/2014 6:47 AM MANUSCRIPT READER Height - - Body Mass Index 30.87 10/15/2013 7:49 AM CDT documented in this encounter Plan of Treatment Not on filedocumented as of this encounter Procedures Procedure Name Priority Date/Time Associated Diagnosis Comme nts MR LUMBAR SPINE W/O Routine 04/20/2014 7:50 AM Herniated nucle us Results for this & W CONTRAST MANUSCRIPT READER pulposus, lumbar procedure a re in the results section. documented in this encounter Visit Diagnoses Not on filedocumented in this encounter Administered Medications Inactive Administered Medications - up to 3 most recent administrations Medication Order MAR Action Action Date Dose Rate Site gadobutrol (GADAVIST) Given 04/20/2014 7:32 AM MANUSCRIPT READER 10 mLs Right Arm injection 10 mL 10 mL, Intravenous, ONCE, On 04/20/14 at 0715, For 1 dose, Supplied by, and administered by MRI. documented in this encounter Care Teams Cold Working Inspector Relationship Specialty Start Date End Date Sloan Chen, PCP - General Family Practice 01/31/15 documented as of this encounter
--- OUTSIDE RECORDS SUMMARY | 2022-03-20 14:28 | XMS_ITS | Clinical Summary ---
:1975 Author Organization [facility] Address [address] [place] [address] Care Team Providers Name Role Phone No Ref-Primary, Physician Primary Care Provider [phone] Allergies Active Allergy Reactions Severity Noted Date Comments No Known Drug Allergies 11/26/2002 Medications Medication Sig Dispensed Refills Start Date End Date Status albuterol (PROAIR Inhale 2 puffs 1 Inhaler 3 10/08/2017 Active HFA/PROVENTIL into the lungs HFA/VENTOLIN HFA) 108 every 4 hours as (90 Base) MCG/ACT needed InhalerIndications: Tobacco use Active Problems Problem Noted Date Intermittent asthma 10/08/2017 Alcohol consumption binge drinking 10/08/2017 Herniated disc 07/05/2013 Tobacco use 01/20/2013 Family history of ischemic heart disease 12/27/2011 Family hx-GI disorders 02/07/2011 CARDIOVASCULAR SCREENING; LDL GOAL LESS THAN 160 04/16 ANGELIKA (obstructive sleep apnea) 04/14/2010 Resolved Problems Problem Noted Date Resolved Date Hypersomnia with sleep apnea 08/01/2005 04/14/2010 Overview: Problem list name updated by automated p rocess. Provider to review Family history of other cardiovascular diseases 08/01/2005 09/01/2008 Overview: Problem list name updated by automated p rocess. Provider to review and confirm Problem list name updated by automated p rocess. Provider to review Immunizations Name Administration Dates Next Due Influenza Vaccine IM > 6 months Valent IIV4 04/10/2016 (Alfuria,Fluzone) TD (ADULT, 7+) 06/12/2006 TDAP Vaccine (Adacel) 04/10/2016 Family History Medical History Relation Comments Family History Negative Brother 2 Heart Disease Father [place] in 1997 Family History Negative Mother Relation Status Comments Brother 1 Alive x1 Brother 2 Daughter 1 Alive Pito Daughter 2 Alive Pretty Father (Age 48) Maternal Grandfather Maternal Grandmother Mother Alive Paternal Grandfather Paternal Grandmother Social History Tobacco Use Types Packs/Day Years Used Date Current Some Day Smoker Cigarettes 16 Smokeless Tobacco: Never Used Alcohol Use Standard Drinks/Week Comments Yes 0 (1 standard drink = 0.6 oz pure alcoho l) 2 beers a day Sex Assigned at Date Recorded Not on file Last Filed Vital Signs Vital Sign Reading [...] Mass Index 31.19 10/08/2017 8:59 AM CDT Plan of Treatment Health Maintenance Due Date Last Done Comments ADVANCE CARE PLANNING 1975 ANNUAL REVIEW OF HM ORDERS [address] ASTH[address] COLONOGRAPHY 1974 FIT-DNA (Cologuard) 1974 FIT 1974 FLEX SIG 1974 COVID-19 Vaccine (#1) 02/04/1975 Pneumococcal Vaccine: 1980 Pediatrics (0 to 5 Years) and At-Risk Patients (6 to 64 Years) (1 - PCV) COLONOSCOPY 1984 COLORECTAL CANCER SCREENING 1984 HIV SCREENING 1989 HEPATITIS C SCREENING 1992 PREVENTIVE CARE VISIT 10/08/2018 10/08/2017, 04/10/2016, 03/01/2014, Additional history exists ASTHMA ACTION PLAN 07/03/2019 07/03/2018, 07/03/2018, 10/08/2017, Additional history exists PHQ-2 (once per calendar 06/17/2021 10/08/2017, 04/10/2016 year) INFLUENZA VACCINE (#1) 2022 04/10/2016 LIPID 10/08/2022 10/08/2017, 04/10/2016, 01/20/2013, Additional history exists DTAP/TDAP/TD IMMUNIZATION 04/10/2026 04/10/2016, 06/12/2006 (3 - Td or Tdap) HEPATITIS B IMMUNIZATION Aged Out No long er eligible based on patient 's age to complete this topic IPV IMMUNIZATION Aged Out No longer eligi ble based on patient 's age to complete this topic MENINGITIS IMMUNIZATION Aged Out No longe r eligible based on patient 's age to complete this topic Insurance Payer Benefit Plan / Subscriber ID Effective Phone Address T ype Group Dates [facility] [id number] 2015-Pres [phone] [address] O OPEN ACCESS ent [address] [place] [address] none (Work) [id number] Advance Directives For more information, please contact: [phone] Latest Code Status on File Code Status Date Activated Date Inactivated Comments Full Code 07/08/2013 10:41 AM Full Code 07/07/2013 11:01 AM 07/08/2013 10:41 AM Full Code 07/05/2013 2:13 PM 07/07/2013 11:01 AM Care Teams Generator Man Relationship Specialty Start Date End Date No Ref-Primary, Physician PCP - General 02/01/15
--- OUTSIDE RECORDS SUMMARY | 2022-03-20 14:28 | XMS_ITS | Encounter Summary ---
:1975 Author Organization [facility] Address [address] [place] [address] Care Team Providers Name Role Phone Sloan Chen MD Primary Care Provider + Reason for Visit Reason Comments URI Encounter Details Date Type Department Care Team Description 06/02/2014 Office Visit [facility] Sloan Chen yspnea (Primary Dx); [facility] [place] Jono Paulino MD Tobacco use [address] [place] [address] [place] [address] [address] [phone] [place], [place] [address] (Wo rk) Social History [...] Sign Reading Time Taken Comments Blood Pressure 127/88 06/02/2014 10:23 AM EQUITY DIRECTOR Pulse 80 06/02/2014 10:23 AM EQUITY DIRECTOR Temperature 36.6 ??C (97.9 ??F) 06/02/2014 10:23 AM EQUITY DIRECTOR Respiratory Rate 16 06/02/2014 10:23 AM EQUITY DIRECTOR Oxygen Saturation 97% 06/02/2014 10:23 AM EQUITY DIRECTOR Inhaled Oxygen Concentration - - Weight 107.5 kg (237 lb) 06/02/2014 10:23 AM EQUITY DIRECTOR Height - - Body Mass Index 31.28 05/06/2014 10:00 AM EQUITY DIRECTOR documented in this encounter Progress Notes Sloan Chen MD - 06/02/2014 10:10 AM CST SUBJECTIVE: Antelmo Farias is a 38 year old male who presents to clinic today for the following health issues: RESPIRATORY SYMPTOMS ?? Duration: x 1 yr - but getting worse. ?? Description cough and hard to catch breath or get enough air in ?? Severity: mild- moderate ?? Accompanying signs and symptoms: None ?? History (predisposing factors): tobacco abuse ?? Precipitating or alleviating factors: pt went to lung doctor last yr ?? Therapies tried and outcome: none He can exercise well. He denies wheezing. Had a normal CT lung last year. Problem list and histories reviewed & adjusted, as indicated. Additional history: as documented No current outpatient prescriptions on file. BP Readings from Last 3 Encounters: 06/02/14 127/88 05/17/14 130/89 05/06/14 130/92 Wt Readings from Last 3 Encounters: 06/02/14 237 lb (107.502 kg) 05/06/14 238 lb (107.956 kg) 04/20/14 234 lb (106.142 kg) ROS: Constitutional, HEENT, cardiovascular, pulmonary, gi and gu systems are negative, except as otherwise noted. OBJECTIVE: BP 127/88 Pulse 80 Temp(Src) 97.9 ??F (36.6 ??C) (Oral) Resp 16 Wt 237 lb (107.502 kg) SpO2 97% Body mass index is 31.27 kg/(m^2). GENERAL APPEARANCE: healthy, alert, no distress and cooperative HENT: ear canals and TM's normal, nasal mucosa edematous without rhinorrhea and oropharynx clear NECK: no adenopathy, no asymmetry, masses, or scars and thyroid normal to palpation RESP: lungs clear to auscultation - no rales, rhonchi or wheezes CV: regular rates and rhythm, normal S1 S2, no S3 or S4 and no murmur, click or rub Diagnostic test results: Results for orders placed during the hospital encounter of 03/15/14 MR LUMBAR SPINE W/O & W CONTRAST Narrative: MRI OF THE LUMBAR SPINE WITHOUT AND WITH CONTRAST April 20, 2014 7:50 AM HISTORY: Displacement of lumbar intervertebral disc without myelopathy TECHNIQUE: Multiplanar, multisequence MRI images of the lumbar spine were acquired without and with 10 mL Gadavist IV contrast. COMPARISON: Lumbar spine MRI 06/30/2013. FINDINGS: There are five lumbar-type vertebrae for the purposes of this dictation. There has been an interval right sided laminotomy of L5 for resection of the previously described right paracentral L5-S1 disc herniation. There is signal change and enhancement in the surgical tract extending from the skin down to the right L5 laminotomy consistent with scar tissue. The descending S1 nerve root passes through the scar in the right lateral recess of the spinal canal at the L5-S1 level. There is no evidence for residual or recurrent disc herniation at the L5-S1 level. There is normal alignment of the lumbar vertebrae. Vertebral body heights of the lumbar spine are normal. Marrow signal throughout the lumbar vertebra is normal. There is no evidence for fracture or pathologic bony lesion of the lumbar spine. There is loss of disc height, disc desiccation and minimal posterior broad-based disc bulging of the L5-S1 disc. Lumbar intervertebral discs are otherwise within normal limits in height, contour and signal intensity. The tip of the conus medullaris is again noted to be at the L1-L2 level which is within normal limits. There is no evidence for intrathecal abnormality. There no findings to suggest arachnoiditis. Level by level: L1-L2: There is no spinal canal or neural foraminal stenosis at this level. L2-L3: There is no spinal canal or neural foraminal stenosis at this level.. L3-L4: There is no spinal canal or neural foraminal stenosis at this level. L4-L5: There is mild facet arthropathy bilaterally. There is no spinal canal or neural foraminal stenosis at this level. L5-S1: There is a right L5 laminotomy. There is a minimal posterior broad-based disc bulge. There is mild facet arthropathy bilaterally. There is enhancing scar tissue in the right lateral recess of the spinal canal at the L5-S1 level through which the descending right S1 nerve root passes. There is no evidence for residual or recurrent disc herniation. There is no spinal canal or neural foraminal stenosis at this level. Impression: IMPRESSION: Postoperative and degenerative changes of the lumbar spine as described above. No evidence for residual or recurrent disc herniation at the L5-S1 level. No spinal canal or neural foraminal stenosis at any level of the lumbar spine. MARIA M VILLATORO MD ASSESSMENT/PLAN: 1. Dyspnea Subjective Consider albuterol inhaler 2. Tobacco use Uses e-cigarette Sloan Chen MD, [facility] TY DIRECTOR documented in this encounter Nursing Notes Liane Reyes CMA - 06/02/2014 10:28 AM CST Chief Complaint Patient presents with ??? URI Initial BP 127/88 Pulse 80 Temp(Src) 97.9 ??F (36.6 ??C) (Oral) Resp 16 Wt 237 lb (107.502 kg) Estimated body mass index is 31.27 kg/(m^2) as calculated from the following: Height as of 05/06/14: 6' 0.99 (1.854 m). Weight as of this encounter: 237 lb (107.502 kg).. BP completed using cuff size wrist cuff HEALTH MAINTENANCE REVIEWED. Liane Reyes CMA TY DIRECTOR documented in this encounter Plan of Treatment Not on filedocumented as of this encounter Visit Diagnoses Diagnosis Dyspnea - Primary Other dyspnea and respiratory abnormalit y Tobacco use Tobacco use disorder documented in this encounter Care Teams Cream Separator Operator Relationship Specialty Start Date End Date Sloan Chen, PCP - General Family Practice 01/31/15 documented as of this encounter
--- OUTSIDE RECORDS SUMMARY | 2022-03-20 14:28 | XMS_ITS | Encounter Summary ---
:1975 Author Organization [facility] Address [address] [place] [address]. [place] [address] Care Team Providers Name Role Phone No Ref-Primary, Physician Primary Care Provider [phone] Leeanna Farmer MD Unavailable Leeanna Farmer MD Unavailable Reason for Visit Reason Onset Date Comments Panel Management 01/28/2018 asthma Encounter Details Date Type Department Care Team Description 01/28/2018 Telephone [facility] Leeanna Farmer MD Panel Management Clinic [address] (asthma) [address] [place] [address] [id number] [phone] Social History Tobacco Use Types Packs/Day Years Used Date Current Some Day Smoker Cigarettes 16 Smokeless Tobacco: Never Used Alcohol Use Standard Drinks/Week Comments Yes 0 (1 standard drink = 0.6 oz pure alcoho l) 2 beers a day Sex Assigned at Date Recorded Not on file documented as of this encounter Miscellaneous Notes Telephone Encounter - Tri Donohue CMA - 02/05/2018 11:31 AM CDT Type of outreach: Sent letter. Tri Donohue CMA Telephone Encounter - Gracie Piña CMA - 01/28/2018 2:31 PM CDT Panel Management Review Patient has the following on his problem list: Asthma review No flowsheet data found. 1. Is Asthma diagnosis on the Problem List? Yes 2. Is Asthma listed on Health Maintenance? Yes 3. Patient is due for: ACT Composite cancer screening Chart review shows that this patient is due/due soon for the following None Summary: Patient is due/failing the following: ACT Action needed: Patient needs to do ACT. Type of outreach: Sent Jusp message. Questions for provider review: None Gracie Piña CMA Chart routed to Care Team . documented in this encounter Plan of Treatment Not on filedocumented as of this encounter Visit Diagnoses Not on filedocumented in this encounter Care Teams Plant Scientist Relationship Specialty Start Date End Date No Ref-Primary, Physician PCP - General 02/01/15 Leeanna Farmer MD PCP - Assigned PCP 04/15/16 08/19/18 [address] [place], [place] [id number] Leeanna Farmer MD Assigned PCP 04/15/16 10/08/20 [address] [place], [place] [phone] documented as of this encounter
--- OUTSIDE RECORDS SUMMARY | 2022-03-20 14:28 | XMS_ITS | Encounter Summary ---
:1975 Author Organization [facility] Address [address] [place] [address]. [place] [address] Care Team Providers Name Role Phone No Ref-Primary, Physician Primary Care Provider [phone] Leeanna Farmer MD Unavailable Reason for Visit Reason Onset Date Comments Panel Management 09/16/2018 asthma Encounter Details Date Type Department Care Team Description 09/16/2018 Telephone [facility] Leeanna Farmer MD Panel Management Clinic [address] (asthma) [address] [place] [phone] Social History Tobacco Use Types Packs/Day Years Used Date Current Some Day Smoker Cigarettes 16 Smokeless Tobacco: Never Used Alcohol Use Standard Drinks/Week Comments Yes 0 (1 standard drink = 0.6 oz pure alcoho l) 2 beers a day Sex Assigned at Date Recorded Not on file documented as of this encounter Miscellaneous Notes Telephone Encounter - Tri Donohue CMA - 09/18/2018 1:40 PM CDT Type of outreach: Phone, left message for patient to call back. Tri Donohue CMA Telephone Encounter - Sanchez Wilkes - 09/18/2018 1:40 PM CDT Type of outreach: Phone, spoke to patient. Patient will call back when ready to schedule Telephone Encounter - Gracie Piña CMA - 09/16/2018 10:18 AM CDT Panel Management Review Patient has the [...] Summary: Patient is due/failing the following: ACT and PHYSICAL Action needed: Patient needs office visit for physical after 10/08/2018 and asthma follow up. Type of outreach: routed to panel pool for outreach Questions for provider review: None Gracie Piña Chart routed to Care Team . documented in this encounter Plan of Treatment Not on filedocumented as of this encounter Visit Diagnoses Not on filedocumented in this encounter Care Teams Survey Interviewer Relationship Specialty Start Date End Date No Ref-Primary, Physician PCP - General 02/01/15 Leeanna Farmer MD Assigned PCP 04/15/16 10/08/20 [address] [place] [address] documented as of this encounter
--- OUTSIDE RECORDS SUMMARY | 2022-03-20 14:28 | XMS_ITS | Encounter Summary ---
:1975 Author Organization [facility] Address [address] [place] [address] Care Team Providers Name Role Phone No Ref-Primary, Physician Primary Care Provider [phone] Leeanna Farmer MD Unavailable Leeanna Farmer MD Unavailable Reason for Visit Reason Onset Date Comments Panel Management 11/26/2017 pt failing at asthma Encounter Details Date Type Department Care Team Description 11/26/2017 Telephone [facility] No Ref-Primary, Panel M anagement (pt Clinic [place] Physician failing at asthma) [address] [facility] [phone] [place], [place] (Fax) [phone] Social History Tobacco Use Types Packs/Day Years Used Date Current Some Day Smoker Cigarettes 16 Smokeless Tobacco: Never Used Alcohol Use Standard Drinks/Week Comments Yes 0 (1 standard drink = 0.6 oz pure alcoho l) 2 beers a day Sex Assigned at Date Recorded Not on file documented as of this encounter Miscellaneous Notes Telephone Encounter - Jose De Jesus Babcock - 12/03/2017 3:50 PM CDT Patient returned call, advised due for ACT, stated he will complete it when it arrives in the mail and mail back JoseD e Jesus Babcock MA Telephone Encounter - Liane Reyes CMA - 12/03/2017 3:43 PM CDT Type of outreach: Phone, left message for patient to call back. Liane Reyes CMA Telephone Encounter - Fouzia Rebolledo CMA - 11/26/2017 4:34 PM CDT Panel Management Review Patient has [...] needs to do ACT. Type of outreach: Copy of ACT mailed to patient, will reach out in 5 days. Questions for provider review: None Fouzia Rebolledo/AGUILAR [facility] Chart routed to Care Team . documented in this encounter Plan of Treatment Not on filedocumented as of this encounter Visit Diagnoses Not on filedocumented in this encounter Care Teams Dope Sprayer Relationship Specialty Start Date End Date No Ref-Primary, Physician PCP - General 02/01/15 Leeanna Farmer MD PCP - Assigned PCP 04/15/16 08/19/18 [address] [place] [address] Leeanna Farmer MD Assigned PCP 04/15/16 10/08/20 [address] [place], [place] [phone] documented as of this encounter
--- OUTSIDE RECORDS SUMMARY | 2022-03-20 14:29 | XMS_ITS | Encounter Summary ---
:1975 Author Organization [facility] Address [address] [place] [address] Care Team Providers Name Role Phone Harvinder Michelle MD Primary Care Provider Reason for Visit Reason Onset Date Comments Refill Request 07/03/2013 pain Encounter Details Date Type Department Care Team Description 07/03/[address] [facility] Leslie Michelle MD Refill Request (pain) [address] [phone] (W ork) [address] [phone] Social History Tobacco Use Types Packs/Day Years Used Date Current Some Day Smoker Cigarettes 25 16 Smokeless Tobacco: Never Used Alcohol Use Standard Drinks/Week Comments Yes 0 (1 standard drink = 0.6 oz pure alcoho l) 2 beers a day Sex Assigned at Date Recorded Not on file documented as of this encounter Miscellaneous Notes Telephone Encounter - Candelaria Cleveland - 07/04/2013 11:47 AM CST Pt picked up RX. ALTHEA Jaimes Y LEVEL ACCOUNTANT Telephone Encounter - Candelaria Cleveland - 07/03/2013 3:38 PM CST RX at front end mechanic for hand picker. .ALTHEA Jaimes Y LEVEL ACCOUNTANT Telephone Encounter - Harvinder Michelle MD - 07/03/2013 3:37 PM CST printed Y LEVEL ACCOUNTANT Telephone Encounter - Sherin Pena - 07/03/2013 3:00 PM CST Called patient to discuss, he is not inpatient. He was at the hospital for a procedure. Patient reports he has 2 Dilaudid left and he come by the clinic tomorrow. Please order script. Thanks, Sherin Pena CMA Y LEVEL ACCOUNTANT Telephone Encounter - Harvinder Michelle MD - 07/03/2013 2:54 PM CST He is not hospitalized now,. Is he? It seems he has surgery set for next week??? Please calrify. If not in hospiital, I'm ok with scripting but dilaudid requires him to physcially get the script from us Y LEVEL ACCOUNTANT Telephone Encounter - Michael Lew RN - 07/03/2013 2:03 PM CST Antelmo calls, current inpatient at [facility]. Out of pain medication, he reports his nurse advised him to call PCP for refill. We recommended Antelmo to discuss pain control with his hospitalist/orthopedic physician(s). VINCE Lew, TIERRA Y LEVEL ACCOUNTANT documented in this encounter Plan of Treatment Not on filedocumented as of this encounter Visit Diagnoses Diagnosis Lumbar radiculopathy - Primary Thoracic or lumbosacral neuritis or radi culitis, unspecified documented in this encounter Care Teams Air Chief Marshal Relationship Specialty Start Date End Date Harvinder Michelle MD PCP - General 12/26/01 11/16/13 [address] [place] [address] documented as of this encounter
--- OUTSIDE RECORDS SUMMARY | 2022-03-20 14:29 | XMS_ITS | Encounter Summary ---
:1975 Author Organization [facility] Address [address] [place] [address]. [place] [address] Care Team Providers Name Role Phone Harvinder Michelle MD Primary Care Provider Reason for Referral [facility] - Closed Specialty Diagnoses / Procedures Referred By Contact Refer red To Contact Diagnoses Pain in joint involving ankle and foot, left Sloan Chen FOR ATHLETIC Jono Paulino MD [address] [facility] [place] [address] [place] [address] Phone: [phone] Referral ID Status Reason Start Date Expiration Date Visits Requ ested Visits Authorized [id number] Closed 10/15/2013 04/13/2014 1 1 Reason for Visit Reason Comments Musculoskeletal Problem Left ankle joint pain Encounter Details Date Type Department Care Team Description 10/15/2013 Office Visit [facility] Sloan Chen in joint [facility] [place] Jono Paulino MD involving ankle and [address] [place] [address] [facility] foot, left (Primary [place], [place]) [phone] [address] [phone] [place], [place] [address] (Wo rk) Social History [...] Sign Reading Time Taken Comments Blood Pressure 118/80 10/15/2013 7:49 AM CDT Pulse 60 10/15/2013 7:49 AM CDT Temperature 36.8 ??C (98.3 ??F) 10/15/2013 7:49 AM CDT Respiratory Rate - - Oxygen Saturation 97% 10/15/2013 7:49 AM CDT Inhaled Oxygen Concentration - - Weight 106.1 kg (234 lb) 10/15/2013 7:49 AM CDT Height 185.4 cm (6' 1) 10/15/2013 7:49 AM CDT Body Mass Index 30.87 10/15/2013 7:49 AM CDT documented in this encounter Patient Instructions Patient InstructionsSloan Chen MD - 10/15/2013 8:15 AM CDT Images from the original note were not included. Ankle Sprain Rehabilitation Exercises As soon as you can tolerate pressure on the ball of your foot, begin stretching your ankle using thetowel stretch. When this stretch is too easy, try the standing calf stretch and soleus stretch. ?? Towel stretch: Sit on a hard surface with your injured leg stretched out in front of you. Loop a towel around the ball of your foot and pull the towel toward your body keeping your knee straight. Hold this position for 15 to 30 seconds then relax. Repeat 3 times. ?? Standing calf stretch: Facing a wall, put your hands against the wall at about eye level. Keep the injured leg back, the uninjured leg forward, and the heel of your injured leg on the floor. Turn your injured foot slightly inward (as if you were pigeon-toed) as you slowly lean into the wall until you feel a stretch in the back of your calf. Hold for 15 to 30 seconds. Repeat 3 times. Do this exercise several times each day. ?? Standing soleus stretch: Stand facing a wall with your hands at about chest level. With both knees slightly bent and the injured foot back, gently lean into the wall until you feel a stretch in yourlower calf. Once again, angle the toes of your injured foot slightly inward and keep your heel down on the floor. Hold this for 15 to 30 seconds. Return to the starting position. Repeat 3 times. You can do the next 5 exercises when your ankle swelling has stopped increasing. ?? Ankle range of motion: Sitting or lying down with your legs straight and your knee toward the ceiling, move your ankle up and down, in and out, and in circles. Only move your ankle. Don't move your leg. Repeat 10 times in each direction. Push hard in all directions. ?? Resisted dorsiflexion: Sit with your injured leg out straight and your foot facing a doorway. Tiea loop in one end of the tubing. Put your foot through the loop so that the tubing goes around the arch of your foot. Tie a knot in the other end of the tubing and shut the knot in the door. Move backward until there is tension in the tubing. Keeping your knee straight, pull your foot toward your body, stretching the tubing. Slowly return to the starting position. Do 3 sets of 10. ?? Resisted plantar flexion: Sit with your leg outstretched and loop the middle section of the tubing around the ball of your foot. Hold the ends of the tubing in both hands. Gently press the ball of your foot down and point your toes, stretching the tubing. Return to the starting position. Do 3 sets of 10. ?? Resisted inversion: Sit with your legs out straight and cross your uninjured leg over your injured ankle. Wrap the tubing around the ball of your injured foot and then loop it around your uninjured foot so that the tubing is anchored there at one end. Hold the other end of the tubing in your hand. Turn your injured foot inward and upward. This will stretch the tubing. Return to the starting position. Do 3 sets of 10. ?? Resisted eversion: Sit with both legs stretched out in front of you, with your feet about a shoulder's width apart. Tie a loop in one end of the tubing. Put your injured foot through the loop so that the tubing goes around the arch of that foot and wraps around the outside of the uninjured foot. Hold onto the other end of the tubing with your hand to provide tension. Turn your injured foot up and out. Make sure you keep your uninjured foot still so that it will allow the tubing to stretch as you move your injured foot. Return to the starting position. Do 3 sets of 10. You may do the rest of the exercises when you can stand on your injured ankle without pain. ?? Heel raises: Balance yourself while standing behind a chair or counter. Raise your body up onto your toes and hold it for 5 seconds, then slowly lower yourself down. Repeat 10 times. Do 3 sets of 10. ?? Step-up: Stand with the foot of your injured leg on a support (like a block of wood) 3 to 5 inches high. Keep your other foot flat on the floor. Shift your weight onto the injured leg and straightenthe knee as the uninjured leg comes off the floor. Lower your uninjured leg to the floor slowly. Do 3 sets of 10. ?? Static and dynamic balance exercises A. Place a chair next to your non-injured leg and stand upright. (This will provide you with balanceif needed.) Stand on your injured foot. Try to raise the arch of your foot while keeping your toes on the floor. Try to maintain this position and balance on your injured side for 30 seconds. This exercise can be made more difficult by doing it on a piece of foam or a pillow, or with your eyes closed. B. guard rail installer the same position as above. Keep your foot in this position and reach forward in front of you with your injured side's hand, allowing your knee to bend. Repeat this 10 times while maintaining the arch height. This exercise can be made more difficult by reaching farther in front of you. Do 2 sets. C. guard rail installer the same position as above. While maintaining your arch height, reach the injured side'xenia across your body toward the chair. The farther you reach, the more challenging the exercise. Do2 sets of 10. ?? Jump rope: Jump rope landing on both legs for 5 minutes, then on only the injured leg for 5 minutes. Written by Dayana Lua M.S., P.T., for [employer]. Published by [employer]. This content is reviewed periodically and is subject to change as new health information becomes available. The information is intended to inform and educate and is not a replacement for medical evaluation, advice, diagnosis or treatment by a healthcare professional. Sports Medicine Advisor 2003.1 Index Sports Medicine Advisor 2002.1 Credits Copyright ?? 2002 [employer]. All rights reserved. Page footer image documented in this encounter Progress Notes Sloan Chen MD - 10/15/2013 7:46 AM CDT SUBJECTIVE: Antelmo Farias is a 38 year old male who presents to clinic today for the following health issues: Joint Pain ?? Onset: 2 months- has increased ?? Description: Location: left ankle Character: Sharp and Dull ache ?? Intensity: 3/10 ?? Progression of Symptoms: worse ?? Accompanying Signs & Symptoms: Other symptoms: radiation of pain to the left [place] and loss of ROM ?? History: Previous similar pain: YES- for the last 18 years ?? Precipitating factors: Trauma or overuse: YES- twisted ankle 18 years ago, nothing recent ?? Alleviating factors: Improved by: rest/inactivity ?? Therapies Tried and outcome: none Problem list and histories reviewed & adjusted, as indicated. Additional history: as documented No current outpatient prescriptions on file. BP Readings from Last 3 Encounters: 10/15/13 118/80 07/08/13 128/85 07/08/13 128/85 Wt Readings from Last 3 Encounters: 10/15/13 234 lb (106.142 kg) 07/05/13 231 lb (104.781 kg) 07/05/13 231 lb (104.781 kg) ROS: Constitutional, HEENT, cardiovascular, pulmonary, gi and gu systems are negative, except as otherwise noted. OBJECTIVE: BP 118/80 Pulse 60 Temp(Src) 98.3 ??F (36.8 ??C) (Oral) Ht 6' 1 (1.854 m) Wt 234 lb (106.142 kg) BMI 30.88 kg/m2 SpO2 97% Body mass index is 30.88 kg/(m^2). GENERAL APPEARANCE: healthy, alert, no distress and cooperative MS: extremities normal- no gross deformities noted ORTHO: Ankle Exam: Knee:not done Lower leg:normal appearance, normal on palpation ANKLE Inspection:Swelling:none Tender: none Non-tender:ATFL, CFL, PTFL, lateral malleolus, medial malleolus, deltoid ligament, achilles tendon Range of Motion:dorsiflexion: full, plantarflexion: full, inversion: full, eversion: full, painful Strength:dorsiflexion: 5/5, plantarflexion: 5/5, inversion: 5/5, eversion:5/5 Special tests:negative anterior drawer ASSESSMENT/PLAN: (719.47) Pain in joint involving ankle and foot, left (primary encounter diagnosis) Comment: normal x-ray Plan: [facility] PT, HAND, AND CHIROPRACTIC REFERRAL and rehab Sloan Chen MD, MD [facility] documented in this encounter Nursing Notes Mojgan De La Torre - 10/15/2013 7:50 AM CDT Chief Complaint Patient presents with ??? Musculoskeletal Problem Left ankle joint pain Initial BP 118/80 Pulse 60 Temp(Src) 98.3 ??F (36.8 ??C) (Oral) Ht 6' 1 (1.854 m) Wt 234 lb(106.142 kg) BMI 30.88 kg/m2 SpO2 97% Estimated body mass index is 30.88 kg/(m^2) as calculated from the following: Height as of this encounter: 6' 1 (1.854 m). Weight as of this encounter: 234 lb (106.142 kg). BP completed using cuff size large Right Arm Health Maintenance reviewed - Yes: (utd) Tobacco Verified: Yes Family History Updated: Yes Immunizations Up to Date: Yes Salina De La Torre CMA documented in this encounter Plan of Treatment Scheduled Referrals Name Type Priority Associated Diagnoses Order S chedule [facility] PT, HAND, AND Referral Routine Pain in joint Ordered: 10/15/2013 CHIROPRACTIC REFERRAL involving ankle and foot, left documented as of this encounter Visit Diagnoses Diagnosis Pain in joint involving ankle and foot, left - Primary documented in this encounter Care Teams Cattyman Relationship Specialty Start Date End Date Harvinder Michelle MD PCP - General 12/26/01 11/16/13 [address] [place] [address] documented as of this encounter
--- OUTSIDE RECORDS SUMMARY | 2022-03-20 14:29 | XMS_ITS | Encounter Summary ---
:1975 Author Organization [facility] Address [address] [place] [address] Care Team Providers Name Role Phone Harvinder Michelle MD Primary Care Provider Reason for Visit Reason Onset Date Comments Medication Question 07/01/2013 Encounter Details Date Type Department Care Team Description 07/01/2013 Telephone [facility] Leslie Michelle MD Medication Question [address] [place] [id number] [phone] Social History Tobacco Use Types Packs/Day Years Used Date Current Some Day Smoker Cigarettes 25 16 Smokeless Tobacco: Never Used Alcohol Use Standard Drinks/Week Comments Yes 0 (1 standard drink = 0.6 oz pure alcoho l) 2 beers a day Sex Assigned at Date Recorded Not on file documented as of this encounter Miscellaneous Notes Telephone Encounter - Em Blackmon RN - 07/02/2013 4:[address] Michelle informed- Saw surgeon today and has appt for cortisone injection tomorrow am, and will have surgery next if not resolved. If feeling better will cancel surg and have him do PT. Pt informed of message below. Em Blackmon RN FICIAL INTELLIGENCE SPECIALIST Telephone Encounter - Harvinder Michelle MD - 07/02/2013 9:10 AM CST He ma, it would be aggressive to dose q4 hours. He needs not only to stay hydrated, but I would tellhim to take some senna/pericolace to make sure he doesn't get constipated FICIAL INTELLIGENCE SPECIALIST Telephone Encounter - Em Chavez - 07/01/2013 10:59 PM CST call center associate provider contacted to respond, Antelmo was in ED 1-14, Pian not managed well on Hydromorphone 2-4 mg q 6 hours, and wonders if he can take every 4 hours. He has apointment tomorrow with surgeion. FICIAL INTELLIGENCE SPECIALIST documented in this encounter Plan of Treatment Not on filedocumented as of this encounter Visit Diagnoses Not on filedocumented in this encounter Care Teams Vice President Corporate Communications Relationship Specialty Start Date End Date Harvinder Michelle MD PCP - General 12/26/01 11/16/13 [address] [address] documented as of this encounter
--- OUTSIDE RECORDS SUMMARY | 2022-03-20 14:29 | XMS_ITS | Encounter Summary ---
:1975 Author Organization [facility] Address [address] [place] [address] Care Team Providers Name Role Phone Harvinder Michelle MD Primary Care Provider [facility] Primary Care Provid er Sloan Chen MD Primary Care Provider + No Ref-Primary, Physician Primary Care Provider [phone] Encounter Details Date Type Department Care Team Description 03/09/2013 Historic Results [facility] Unknown, [facility] ider [address] [place] [address] Social History Tobacco Use Types Packs/Day Years [...] Name Priority Date/Time Associated Diagnosis Comme nts ECHO CARDIAC - HIM SCAN 03/09/2013 12:00 AM CDT - ARCHIVE documented in this encounter Results ECHO CARDIAC - HIM SCAN - ARCHIVE (03/09/2013 12:00 AM CDT) Specimen (Source) Anatomical Location Collection Method / Collectio n Time Received Time / Laterality Volume 03/09/2013 Narrative This result has an attachment that is no t available. Provider Scan CV ECHO ORDERABLES documented in this encounter Visit Diagnoses Not on filedocumented in this encounter Care Teams Potato Pancake Frier Relationship Specialty Start Date End Date Harvinder Michelle MD PCP - General 12/26/01 11/16/13 [address] [address] Clinic - [facility] PCP - General 11/17/13 04/13/14 [facility] [address] [place] [address] Sloan Chen PCP - General Family Practice 01/31/15 No Ref-Primary, Physician PCP - General 02/01/15 documented as of this encounter
--- OUTSIDE RECORDS SUMMARY | 2022-03-20 14:29 | XMS_ITS | Encounter Summary ---
:1975 Author Organization [facility] Address [address] [place] [address]. [place] [address] Care Team Providers Name Role Phone Harvinder Michelle MD Primary Care Provider Reason for Referral Referral not Required - Closed Specialty Diagnoses / Procedures Referred By Contact Refer red To Contact Diagnoses ANGELIKA (obstructive sleep apnea) Harvinder Michelle MD [facility] [address] [place] [address] [facility] [address] [place] [address] Phone: Fax: Referral ID Status Reason Start Date Expiration Date Visits Requ ested Visits Authorized [id number] Closed 12/27/2011 06/24/2012 1 1 Reason for Visit Reason Comments Physical fasting, Pre Visit Planning - Done 12/26/11-AB Wheezing requesting chest xray Encounter Details Date Type Department Care Team Description 12/27/2011 Office Visit [facility] Harvinder Michelle MD Routine general medical examination at a health care facility (Primary Dx); [facility] [place] [address] [place] [address] CARDIOVASCULAR SCREENING; LD L GOAL LESS THAN 160; [address] [facility] Tobacco use disorder; [place], [place] ANGELIKA (obst ructive sleep apnea); [id number] Family history of ischemic heart disease [phone] Social History Tobacco Use Types Packs/Day Years Used Date Current Some Day Smoker Cigarettes 0.5 16 Smokeless Tobacco: Never Used Alcohol Use Standard Drinks/Week Comments Yes 0 (1 standard drink = 0.6 oz pure alcoho l) 2 beers a day Sex Assigned at Date Recorded Not on file documented as of this encounter Last Filed Vital Signs Vital Sign Reading Time Taken Comments Blood Pressure 120/82 12/27/2011 8:15 AM CDT Pulse 62 12/27/2011 8:15 AM CDT Temperature 36.6 ??C (97.9 ??F) 12/27/2011 8:15 AM CDT Respiratory Rate 16 12/27/2011 8:15 AM CDT Oxygen Saturation - - Inhaled Oxygen Concentration - - Weight 104.8 kg (231 lb) 12/27/2011 8:15 AM CDT Height 181.6 cm (5' 11.5) 12/27/2011 8:15 AM CDT Body Mass Index 31.77 12/27/2011 8:15 AM CDT documented in this encounter Patient Instructions Patient InstructionsNorma Garcia - 12/26/2011 2:25 PM CDT PREVENTIVE HEALTH RECOMMENDATIONS: You should be tested each year for STDs (sexually transmitted diseases), if you???re at risk. Vaccines: Get a flu shot each year. Get a tetanus shot every 10 years. Eat at least 5 servings of fruits and vegetables daily. Eat whole-grain bread, whole-wheat pasta and brown rice instead of white grains and rice. For bone health: Eat calcium-rich foods or take calcium pills (500 to 600 mg) twice a day with food.Also take vitamin D (1000 IUs) each day. Exercise for at least 150 minutes a week (an average of 30 minutes a day, 5 days of the week). This will help you control your weight and prevent disease. Limit alcohol to one drink per day. No smoking. Wear sunscreen to prevent skin cancer. See your dentist twice a year for an exam and cleaning. Have a cholesterol test every 5 years. If you are at risk for diabetes, you should have a diabetes test (fasting glucose). documented in this encounter Progress Notes Norma Garcia - 12/26/2011 2:25 PM CDT SUBJECTIVE: CC: Antelmo Farias is an 36 year old male who presents for preventative health visit. Besides routine health maintenance, he would like to discuss wheezing. Healthy Habits: Do you get at least three servings of dairy daily (milk, cheese, yogurt, etc.)? yes Outside of work or daily activities, how many days per week do you exercise for 30 minutes or longer? 3 Dietary Guidelines for Americans, 2010 USDA's MyPlate Estimated Body mass index is 30.61 kg/(m^2) as calculated from the following: Height as of 05/07/11: 6' 1(1.854 m). Weight as of 05/07/11: 232 lb(105.235 kg). Have you had an eye exam in the past two years? yes Do you see a dentist twice per year? once Staff Signature Norma Torres MA Today's PHQ-2 Score: 0 Abuse: Current or Past(Physical, Sexual or Emotional)- No Do you feel safe in your environment - Yes History Substance Use Topics ??? Smoking status: Current Everyday Smoker -- 0.5 packs/day for 16 years Types: Cigarettes ??? Smokeless tobacco: Never Used ??? Alcohol Use: Yes 2 beers a day The patient does not drink >3 drinks per day nor >7 drinks per week. Last PSA: PSA Date Value Range Status 09/01/2008 0.63 0-4 (ug/L) Final Last lipid profile: Total Cholesterol: Cholesterol Date Value Range Status 02/07/2011 168 0-200 (mg/dL) Final LDL Cholesterol is the primary guide to therapy. The NCEP recommends further evaluation of: patients with cholesterol greater than 200 mg/dL if additional risk factors are present, cholesterol greater than 240 mg/dL, triglycerides greater than 150 mg/dL, or HDL less than 40 mg/dL. LDL Cholesterol: LDL Cholesterol Calculated Date Value Range Status 02/07/2011 93 0-129 (mg/dL) Final LDL Cholesterol is the primary guide to therapy: LDL-cholesterol goal in high risk patients is <100 mg/dL and in very high risk patients is <70 mg/dL. HDL Cholesterol: HDL Cholesterol Date Value Range Status 02/07/2011 46 40-110 (mg/dL) Final Reviewed orders with patient. Reviewed health maintenance and updated orders accordingly - Yes Staff Signature Norma Torres MA All Histories reviewed and updated in [facility]. Past Medical History Diagnosis Date ??? ANGELIKA (obstructive sleep apnea) 2004 CPAP at 5cm ??? Family hx-GI disorders 02/07/2011 oldest daughter dx with celiac sprue Past Surgical History Procedure Date ??? Hc explor maxill sinus,intranasal 04/2002 Dr. Shea ROS: C: NEGATIVE for fever, chills, change [...] changes in mood or affect OBJECTIVE: BP 120/82 Pulse 62 Temp(Src) 97.9 ??F (36.6 ??C) (Oral) Resp 16 Ht 5' 11.5 (1.816 m) Wt 231 lb (104.781 kg) BMI 31.77 kg/m2 GENERAL APPEARANCE: health, alert and no distress EYES: Eyes grossly [...] PSYCH: mentation appears normal and affect normal/bright ATP III Guidelines FRAX Risk Assessment ICSI Preventive Guidelines ASSESSMENT/PLAN: Routine general medical examination at a health care facility (primary encounter diagnosis) Comment: Plan: Comprehensive metabolic panel, Lipid Profile with reflex to direct LDL, CBC with platelets, TSH with free T4 reflex, CRP cardiac risk, Hemoglobin A1c CARDIOVASCULAR SCREENING; LDL GOAL LESS THAN 160 Comment: Plan: Lipid Profile with reflex to direct LDL Tobacco use disorder Comment: Plan: PULMONARY FUNCTION TEST PROCEDURE ANGELIKA (obstructive sleep apnea) Comment: Plan: SLEEP STUDY REFERRAL Family history of ischemic heart disease Comment: Plan: Would re-stress pt if indicated by labs as hx father had OH that led to at age 47yo Counseling: regular exercise reports that he has been smoking Cigarettes. He has a 8 pack-year smoking history. He has never used smokeless tobacco. Tobacco Cessation Action Plan: Information offered: Patient not interested at this time There is no height or weight on file to calculate BMI. Weight management plan: Current exercise routine: bicycling. Established an exercise regimen with the patient. and Diet regimen was discussed. self-directed dieting documented in this encounter Nursing Notes 12/27/2011 8:00 AM CDT >> BRUCE VALADEZ [facility] Dec 27, 2011 8:18 AM Patient presents with: Physical - fasting, Pre Visit Planning - Done - 12/26/11-AB Wheezing - requesting chest xray Initial BP 120/82 Pulse 62 Temp(Src) 97.9 ??F (36.6 ??C) (Oral) Resp 16 Ht 5' 11.5 (1.816 m) Wt 231 lb (104.781 kg) BMI 31.77 kg/m2 Estimated Body mass index is 31.77 kg/(m^2) as calculated from the following: Height as of this encounter: 5' 11.5(1.816 m). Weight as of this encounter: 231 lb(104.781 kg). BP completed using cuff size regular Right Arm Health Maintenance reviewed - Yes: (pt is up to date) Tobacco Verified: Yes Family History Updated: Yes MyChart Offered: Yes-active Immunizations Up to Date: Yes Bruce Valadez CMA documented in this encounter Plan of Treatment Scheduled Referrals Name Type Priority Associated Diagnoses Order S chedule SLEEP STUDY REFERRAL Referral Routine ANGELIKA (obstructive sle ep Ordered: 12/27/2011 apnea) documented as of this encounter Procedures Procedure Name Priority Date/Time Associated Comments Diagnosis TSH WITH FREE T4 Routine 12/27/2011 8:58 AM Routine general Re sults for this REFLEX CDT medical examination procedur e are in at a health care the results facility section. LIPID REFLEX TO DIRECT Routine 12/27/2011 8:58 AM Routine gene ral Results for this LDL PANEL CDT medical examination procedur e are in at a health care the results facility section. CARDIOVASCULAR SCREENING; LDL GOAL LESS THAN 160 HEMOGLOBIN A1C Routine 12/27/2011 8:58 AM Routine general Resu lts for this CDT medical examination procedur e are in at a health care the results facility section. CRP CARDIAC RISK Routine 12/27/2011 8:58 AM Routine general Re sults for this CDT medical examination procedur e are in at a health care the results facility section. COMPREHENSIVE Routine 12/27/2011 8:58 AM Routine general Resul ts for this METABOLIC PANEL CDT medical examination proce dure are in at a health care the results facility section. CBC WITH PLATELETS Routine 12/27/2011 8:58 AM Routine general Results for this CDT medical examination procedur e are in at a health care the results facility section. documented in this encounter Results Hemoglobin A1c (12/27/2011 8:58 AM CDT) athologist Signature Hemoglobin A1C 5.3 4.3 - 6.0 [facility] Specimen Anatomical Collection Method Collection Time Receive d Time (Source) Location / / Volume Laterality Blood specimen 12/27/2011 8:58 AM 012 8:59 (specimen) CDT AM CDT Harvinder Michelle MD LAB - BLOOD ORDERABLES Performing Organization Address City/State/ZIP Code Phon e Number [facility] [address] [place] [address] [facility] CRP cardiac risk (12/27/2011 8:58 AM CDT) athologist Signature CRP Cardiac 1.5 mg/L [facility] Comment: Reference Values: Low Risk: ? <1.0 mg/L Average Risk: ? 1.0-3.0 mg/L High Risk: ?>3.0 mg/L Acute Inflammation: >8.0 mg/L Specimen Anatomical Collection Method Collection Time Receive d Time (Source) Location / / Volume Laterality Blood specimen 12/27/2011 8:58 AM 012 8:59 (specimen) CDT AM CDT Harvinder Michelle MD LAB - BLOOD ORDERABLES Performing Organization Address City/State/ZIP Code Phon e Number [facility] [address] [place] [address] [facility] TSH with free T4 reflex (12/27/2011 8:58 AM CDT) athologist Signature TSH 2.11 0.4 - 5.0 [facility] mU/L CLINIC LAB Specimen Anatomical Collection Method Collection Time Receive d Time (Source) Location / / Volume Laterality Blood specimen 12/27/2011 8:58 AM 012 8:59 (specimen) CDT AM CDT Harvinder Michelle MD LAB - BLOOD ORDERABLES Performing Organization Address City/State/ZIP Code Phon e Number [facility] [address] [place] [address] [facility] CBC with platelets (12/27/2011 8:58 AM CDT) athologist Signature WBC 6.0 4.0 - 11.0 [place] 10e9/L [facility] RBC Count 5.02 4.4 - 5.9 [place] 10e12/L [facility] Hemoglobin 14.9 13.3 - [place] 17.7 g/dL [facility] Hematocrit 42.2 40.0 - [place] 53.0 % [facility] MCV 84 78 - 100 [place] fl [facility] MCH 29.7 26.5 - [place] 33.0 pg [facility] MCHC 35.3 31.5 - [place] 36.5 g/dL [facility] RDW 12.2 10.0 - [place] 15.0 % [facility] Platelet Count 221 150 - 450 [facility] 10e9/L [facility] Specimen Anatomical Collection Method Collection Time Receive d Time (Source) Location / / Volume Laterality Blood specimen 12/27/2011 8:58 AM 012 8:59 (specimen) CDT AM CDT Harvinder Michelle MD LAB - BLOOD ORDERABLES Performing Organization Address [facility]/ZIP Code Phon e Number [facility] [address] [place] [address] [facility] Lipid Profile with reflex to direct LDL (12/27/2011 8:58 AM CDT) athologist Signature Cholesterol 152 0 - 200 [facility] mg/dL CLINIC LAB Comment: LDL Cholesterol is the primary guide to therapy. The NCEP recommends further evaluation of: patients with cholesterol greater than 200 mg/dL if additional risk facto rs are present, cholesterol greater than 240 mg/dL, triglycerides greater than 1 50 mg/dL, or HDL less than 40 mg/dL. Triglycerides 119 0 - 150 mg/dL [facility] HDL Cholesterol 41 40 - 110 mg/dL [facility] LDL Cholesterol Calculated 87 0 - 129 mg/dL [facility] Comment: LDL Cholesterol is the primary guide to therapy: LDL-cholesterol goal in high risk patients is <100 mg/dL and in very high risk patients is <70 mg/dL. VLDL-Cholesterol 24 0 - 30 mg/dL [facility] Cholesterol/HDL Ratio 3.7 0.0 - 5.0 [facility] Specimen Anatomical Collection Method Collection Time Receive d Time (Source) Location / / Volume Laterality Blood specimen 12/27/2011 8:58 AM 012 8:59 (specimen) CDT AM CDT Harvinder Michelle MD LAB - BLOOD ORDERABLES Performing Organization Address City/[facility] Code Phon e Number [facility] [address] [place] [address] [facility] (ABNORMAL) Comprehensive metabolic panel (12/27/2011 8:58 AM CDT) athologist Signature Sodium 141 133 - 144 [place] mmol/L [facility] Potassium 4.5 3.4 - 5.3 [place] mmol/L [facility] Chloride 105 94 - 109 [place] mmol/L [facility] Carbon Dioxide 26 20 - 32 [place] mmol/L [facility] Anion Gap 10 6 - 17 [place] mmol/L [facility] Glucose 102 (H) 60 - 99 [place] mg/dL [facility] Urea Nitrogen 19 5 - 24 [place] mg/dL [facility] Creatinine 1.02 0.66 - [place] 1.25 mg/dL [facility] GFR Estimate 82 >60 [place] mL/min/1.7 [facility] m2 LAB GFR Estimate If >90 >60 [place] Black mL/min/1.7 [facility] m2 LAB Calcium 8.9 8.5 - 10.4 [place] mg/dL [facility] Bilirubin Total 0.7 0.2 - 1.3 [place] mg/dL [facility] Albumin 4.3 3.9 - 5.1 [place] g/dL [facility] Comment: Reference range changed on 02/16. Protein Total 7.5 6.8 - 8.8 g/dL [facility] Comment: As of 07, reference range reflects plasma specimen type. Alkaline Phosphatase 62 40 - 150 U/L [facility] ALT 42 0 - 70 U/L [facility] IC LAB AST 32 0 - 45 U/L [facility] LAB Specimen Anatomical Collection Method Collection Time Receive d Time (Source) Location / / Volume Laterality Blood specimen 12/27/2011 8:58 AM 012 8:59 (specimen) CDT AM CDT Harvinder Michelle MD LAB - BLOOD ORDERABLES Performing Organization Address City/State/ZIP Code Phon e Number [facility] [address] [place] [address] [facility] documented in this encounter Visit Diagnoses Diagnosis Routine general medical examination at a health care facility - Primary CARDIOVASCULAR SCREENING; LDL GOAL LESS THAN 160 Tobacco use disorder ANGELIKA (obstructive sleep apnea) Obstructive sleep apnea (adult) (pediatr ic) Family history of ischemic heart disease documented in this encounter Care Teams Health Policy Nurse Relationship Specialty Start Date End Date Harvinder Michelle MD PCP - General 12/26/01 11/16/13 [address] [place] [id number] documented as of this encounter
--- OUTSIDE RECORDS SUMMARY | 2022-03-20 14:29 | XMS_ITS | Encounter Summary ---
:1975 Author Organization [facility] Address [address] [place] [address] Care Team Providers Name Role Phone Harvinder Michelle MD Primary Care Provider Reason for Visit Reason Comments Rectal Problem noticed blood in stool after BM, has had 3 episodes since last week Encounter Details Date Type Department Care Team Description 05/07/2011 Office Visit [facility] Harvinder Michelle MD Internal bleeding Clinic [place] [address] [place] hemorrhoids (Primary [address] [facility]x) [place] [address] [phone] Social History Tobacco Use Types Packs/Day Years Used Date Current Every Day Smoker Cigarettes 0.5 16 Smokeless Tobacco: Never Used Alcohol Use Standard Drinks/Week Comments Yes 0 (1 standard drink = 0.6 oz pure alcoho l) 2 beers a day Sex Assigned at Date Recorded Not on file documented as of this encounter Last Filed Vital Signs Vital Sign Reading Time Taken Comments Blood Pressure 110/84 05/07/2011 1:31 PM SENIOR JAVA DATA ARCHITECT Pulse 76 05/07/2011 1:31 PM SENIOR J[employer] DATA ARCHITECT Temperature 36.7 ??C (98.1 ??F) 05/07/2011 1:31 PM SENIOR JAVA DATA ARCHITECT Respiratory Rate 12 05/07/2011 1:31 PM SENIOR JAVA DATA ARCHITECT Oxygen Saturation - - Inhaled Oxygen Concentration - - Weight 105.2 kg (232 lb) 05/07/2011 1:31 PM SENIOR JAVA DATA ARCHITECT Height 185.4 cm (6' 1) 05/07/2011 1:31 PM SENIOR JAVA DATA ARCHITECT Body Mass Index 30.61 05/07/2011 1:31 PM SENIOR JAVA DATA ARCHITECT documented in this encounter Progress Notes Harvinder Michelle MD - 05/07/2011 1:51 PM CST Pt here for three day spate over the weekend of bright red blood per rectum with BM.No pain. He had BM today without any blood. EXAM: Rectal: no masses. No inordinate pain with exam. A/P: 1- Internal bleeding hemorrhoids. Hydration and fiber advocated. NO excessive ssitting on commode orstraining. OR J[employer] DATA ARCHITECT documented in this encounter Nursing Notes 05/07/2011 1:15 PM CST >> KIARA POOLE Mon May 07, 2011 1:33 PM Patient presents with: Rectal Problem - noticed blood in stool after BM, has had 3 episodes since last week initial BP 110/84 Pulse 76 Temp(Src) 98.1 ??F (36.7 ??C) (Oral) Resp 12 Ht 6' 1 (1.854 m) Wt 232 lb (105.235 kg) BMI 30.61 kg/m2 Estimated Body mass index is 30.61 kg/(m^2) as calculated from the following: Height as of this encounter: 6' 1(1.854 m). Weight as of this encounter: 232 lb(105.235 kg).. bp completed using cuff size large Kiara Poole MA documented in this encounter Plan of Treatment Not on filedocumented as of this encounter Visit Diagnoses Diagnosis Internal bleeding hemorrhoids - Primary Internal hemorrhoids with other complica tion documented in this encounter Care Teams Elementary Spanish Teacher Relationship Specialty Start Date End Date Harvinder Michelle MD PCP - General 12/26/01 11/16/13 [address] [place] [id number] documented as of this encounter
--- OUTSIDE RECORDS SUMMARY | 2022-03-20 14:29 | XMS_ITS | Encounter Summary ---
:1975 Author Organization [facility] Address [address] [place] [id number] Care Team Providers Name Role Phone Harvinder Michelle MD Primary Care Provider Reason for Visit Auth/Cert - Closed Specialty Diagnoses / Procedures Referred By Contact Refer red To Contact Surgery Diagnoses LUMBAR HERNIATED DISC Sh Periop Services Procedures LAMINECTOMY LUMBAR POSTERIOR MICROSCOPIC ONE LEVEL [address] [place] [address] Phone: Referral ID Status Reason Start Date Expiration Date Visits Requ ested Visits Authorized [id number] Closed 1 1 Encounter Details Date Type Department Care Team Description 07/05/2013 - [facility] Viviana Jefferson Lumbar ra diculopathy (Primary Dx); 07/08/2013 Encounter Lake Morgan MD Herniated disc Neuroscience Unit XX RESIGNED XX [id number] [place] [id number] S [phone] [place] [id number] Social History Tobacco Use Types Packs/Day Years [...] Sign Reading Time Taken Comments Blood Pressure 128/85 07/08/2013 7:27 AM ON CALL PHARMACY TECHNICIAN Pulse 86 07/07/2013 8:20 PM ON CALL PHARMACY TECHNICIAN Temperature 36.8 ??C (98.3 ??F) 07/08/2013 7:27 AM ON CALL PHARMACY TECHNICIAN Respiratory Rate 18 07/08/2013 12:25 PM ON CALL PHARMACY TECHNICIAN Oxygen Saturation 97% 07/08/2013 7:27 AM ON CALL PHARMACY TECHNICIAN Inhaled Oxygen Concentration - - Weight 104.8 kg (231 lb) 07/05/2013 1:00 PM ON CALL PHARMACY TECHNICIAN Height 185.4 cm (6' 1) 07/05/2013 1:00 PM ON CALL PHARMACY TECHNICIAN Body Mass Index 30.48 07/05/2013 1:00 PM ON CALL PHARMACY TECHNICIAN documented in this encounter Discharge Summaries Jefferson Michelle - 07/08/2013 10:38 AM CST [facility] Discharge Summary Antelmo Farias Date of : 1975 Age: [age] year old Date of Admission: 07/05/2013 Date of Discharge: 07/08/2013 Admitting Physician: Jefferson Michelle MD Discharge Physician: Jefferson Michelle MD Discharging Service: Neurosurgery Primary Provider: Harvinder Michelle Primary Care Physician Discharge Diagnoses: Lumbar radiculopathy Herniated disc Problem Oriented Hospital Course (Providers): Antelmo Farias was admitted on 07/05/2013 by Jefferson Michelle MD and I would refer you to their history and physical. The following problems were addressed during his hospitalization: Herniated lumbar disc L5-S1 with radicular pain Code Status: Full Code Brief Hospital Stay Summary Sent Home With Patient in AVS: Patient was admitted 2 days preop for IV pain control, as he was unable to ambulate without severe pain. He underwent L5-S1 right microdiscectomy and had complete resolution of his symptoms, ready to d/c home on post op day 1 after ambulating, voiding, and taking PO's. Important Results: none Pending Results: Unresulted Labs Ordered in the Past 30 Days of this Admission No orders found from 06/06/2013 to 07/06/2013. Discharge Instructions and Follow-Up: Discharge Disposition: Discharged to home Discharge Medications: Current Discharge Medication List CONTINUE these medications which have CHANGED Details HYDROcodone-acetaminophen (NORCO) 5-325 MG per tablet Take 1 tablet by mouth every 6 hours as neededfor pain Qty: 60 tablet, Refills: 0 Associated Diagnoses: Herniated disc CONTINUE these medications which have NOT CHANGED Details zolpidem (AMBIEN) 10 MG tablet Take 0.5-1 tablets (5-10 mg) by mouth nightly as needed for sleep Qty: 30 tablet, Refills: 0 Associated Diagnoses: Lumbar radiculopathy STOP taking these medications HYDROmorphone (DILAUDID) 2 MG tablet Comments: Reason for Stopping: methylprednisoLONE (MEDROL DOSEPACK) 4 MG tablet Comments: Reason for Stopping: ibuprofen (ADVIL,MOTRIN) 200 MG tablet Comments: Reason for Stopping: ORDER FOR DME Comments: Reason for Stopping: Allergies: Allergies Allergen Reactions ??? No Known Drug Allergies Consultations This Hospital Stay: No consultations were requested during this admission Discharge Time: Greater than 30 minutes. Image Results From This Hospital Stay (For Non-[facility] Providers): Radiology results from 07/05/13 -XR LUMBAR SPINE PORT 1 VW Narrative: XR LUMBAR SPINE PORT 1 VW 07/07/2013 8:26 AM HISTORY: L5-S1 microdiscectomy. FLUOROSCOPY TIME: 3 seconds. FINDINGS: Single image obtained during surgery revealing a surgical instrument projected posterior to the L5-S1 interspace. MARIA M NUNN MD -XR SURGERY NAI LESS THAN 5 MIN FLUORO W STILLS Narrative: This exam was marked as non-reportable because it will not be read by a radiologist or a [facility] non-radiologist provider. Most Recent Lab Results In [facility] (For Non-[facility] Providers): Most Recent 3 CBC's: Recent Labs Lab Test 06/30/13 1645 01/20/13 0920 12/27/11 0858 WBC 8.0 6.0 6.0 HGB 15.2 14.6 14.9 MCV 84 86 84 PLT 245 227 221 Most Recent 3 BMP's: Recent Labs Lab Test 06/30/13 1645 01/20/13 0920 12/27/11 0858 NA 138 141 141 POTASSIUM 4.8 4.5 4.5 CHLORIDE 101 104 105 CO2 30 26 26 BUN 21 17 19 CR 0.93 0.93 1.02 ANIONGAP 8 10 10 MEHDI 9.4 8.9 8.9 GLC 102* 101* 102* Most Recent 3 Troponin's:No results found for this basename: TROPI:3,TROPONIN:3,TROP:3,TROPR:3,TROPONINIES:3 in the last 90830 hours Most Recent 3 INR's:No results found for this basename: INR:3 in the last 48572 hours Most Recent 2 LFT's: Recent Labs Lab Test 01/20/1391912/27/11857 AST 24 32 ALT 39 42 ALKPHOS 60 62 BILITOTAL 0.4 0.7 Most Recent Cholesterol Panel: Recent Labs Lab Test 01/20/13919 CHOL 161 LDL 91 HDL 40 TRIG 156* Most Recent 6 Bacteria Isolates From Any Culture (See EPIC Reports for Culture Details):No results found for this basename: CULT:6 in the last 69061 hours Most Recent TSH, T4 and HgbA1c: Recent Labs Lab Test 01/20/1391912/27/11857 TSH -- 2.11 T4 -- -- A1C 5.2 -- CALL PHARMACY TECHNICIAN documented in this encounter Discharge Instructions Discharge InstructionsWero Solomon RN - 07/08/2013 12:05 PM CST Ok to shower tomorrow. Leave steri strips on for 2 weeks. Followup in my clinic in 4 weeks. No bending, lifting more than 15 pounds, or twisting. Keep incision clean and dry. [facility] at [facility] [phone] Saturday-Saturday; 8am-4:00pm Care Instructions Following Spine Surgery In General: After you have had surgery on your spine, remember do not twist, or excessively flex or extend the area that you had surgery. These activities can prevent healing. Pain is normal and to be expected following surgery. Please call our office to schedule your appointment follow up appointment. Bowel Care: Many people have constipation (hard stools) after surgery. To help prevent constipation: Drink plenty of fluid (8-10 glasses/day); Eat more fiber, such as whole grain bread, bran cereal, and fruits andvegetables; Stay active by walking; Over the counter stool softener may also help. Medications: Spine surgery and pain management is unique to all patients. You will generally be given medicationsfor pain, muscle spasms or tightness, and for constipation during the immediate post op period. It is important that you use these as prescribed. Please remember to bring your pill bottles to all of your appointments. Avoid alcoholic beverages while taking narcotic pain medications. You can use ice to areas of pain as needed, 20 minutes at a time. Changing positions and walking will help loosen your muscles as well. Driving: No driving while on narcotic pain medications. It is state law not to drive while under the influence of a drug to a degree which renders you incapable of safely driving. The narcotic medication you will be taking after surgery falls under this category. If you have had a cervical fusion, the restricted movement from twisting the neck would prevent you from driving safely. Ask your provider at your first post op visit if it is ok to drive. Activity: After surgery, most people feel less pain than they have had in a long time. Walking and light activities will help you regain the use of your muscles. You are encouraged to walk: start with short walks 5-10 minutes at a time for 4-5 times per day and increase as tolerated. Stair climbing as tolerated, we recommend you use the railing. No lifting greater than 10 pounds: approximately equal to one gallon of milk. No twisting, bending in the area you have had surgery. No housework, vacuuming, laundry, leaf raking, lawn mowing, or snow removal. Wear your brace (if ordered) as directed. Sexual activity: we recommend you abstain from sexual intercourse activity for 1 month until you madi so without pain. Showers: If you have sutures or elvis you may shower two days after surgery. It is ok to let water run overyour incision but do not touch or scrub on the incision. Pat dry immediately after showering. If there is a dressing in place, you may remove it 2 days after surgery. If you were closed with Glazier villafana (glue), you may shower without covering the incision. No baths, hot tubs, or pool activity for at least 6 weeks. Nutrition: In general, your diet restrictions will not change with your surgery. You may need to eat small frequent meals initially until your appetite returns. Eat plenty of high fiber foods and drink plenty of fluids. If you do not have a fluid restriction from or prior to surgery, we recommend 6-8 (8oz) glasses of water per day. Other fluids are fine, but water is best. Nausea is not uncommon; it is a commonside effect to many pain medications. We recommend that you take the pain medications with food, if this does not improve your symptoms, please call us. Smoking: For proper healing it is required that you quit using all tobacco products. This includes smoking, chewing, nicotine gums, and nicotine patches. Call your Doctor if these occur: Drainage from your incision Increased pain, redness, or swelling Temperatures greater than 101.5 Increased leg pain or swelling Unrelieved headaches Go to the nearest Emergency Room if you experience: Chest pain, shortness of breath Neck swelling or swallowing problems CALL PHARMACY TECHNICIAN AttachmentsThe following attachments cannot be sent through Care Everywhere. Preventing Falls in the Homedocumented in this encounter Medications at Time of Discharge Medication Sig Dispensed Refills Start Date End Date HYDROcodone-acetaminophen Take 1 tablet by 60 tablet 0 06/1810/15/2013 (NORCO) 5-325 MG per mouth every 6 hours tabletIndications: as needed for pain Herniated disc zolpidem (AMBIEN) 10 MG Take 0.5-1 tablets 30 tablet 0 06/1710/15/2013 tabletIndications: Lumbar (5-10 mg) by mouth radiculopathy nightly as needed for sleep documented as of this encounter Progress Notes Tete Non-Provider - 07/14/2013 11:14 AM CST CALL PHARMACY TECHNICIAN Jenny Barragan, PT - 07/08/2013 11:11 AM CST 07/08/13 1103 Quick Adds Type of Visit Initial PT Evaluation Living Environment (R) Lives With child(karen), dependent;spouse Living Arrangements house (2 stories) Home Accessibility stairs within home Number of Stairs To Enter Home 0 Number of Stairs Within Home 12 Stair Railings At Home present on right side Self-Care Usual Activity Tolerance excellent Current Activity Tolerance good Regular Exercise yes Equipment Currently Used At Home none (R) Functional Level Prior (R) Ambulation 0-->independent (R) Transferring 0-->independent (R) Fall history within last six months no (R) Which of the above functional risks had a recent onset or change? none General Information Onset of Illness/Injury or Date of Surgery - Date 07/07/13 Referring Physician Jefferson Michelle MD Patient/Family Goals Statement return home Pertinent History of Current Problem s/p L5-S1 hemilaminectomy, foraminotomy, discectomy. Precautions/Limitations fall precautions Weight-Bearing Status - LLE full weight-bearing Weight-Bearing Status - RLE full weight-bearing General Observations Sitting EOB Cognitive Status Examination Orientation orientation to person, place and time Level of Consciousness alert Follows Commands and Answers Questions 100% of the time;able to follow multistep instructions Personal Safety and Judgment intact Memory intact Pain Assessment Patient Currently in Pain Yes, see Vital Sign flowsheet (09/24) Posture Posture Not impaired Range of Motion (ROM) ROM Comment B LEs WFL Strength Strength Comments B LEs WFL, states R LE feels much improved post-op. Bed Mobility Bed Mobility Comments Supine to sit independent Transfer Skills Transfer Comments Sit to stand independent Gait Gait Comments Pt amb 400 ft without AD independently Stairs Self Performance Independent Physical/Nonphysical Assist: Stairs No set-up Rails 1 rail Indicate number of stairs 20 Balance Balance no deficits were identified Sensory Examination Sensory Perception no deficits were identified Sensory Perception Comments Had numbness R LE prior to surgery but has not resolved. General Therapy Interventions Intervention Comments None needed Clinical Impression Criteria for Skilled Therapeutic Intervention no;evaluation only;no problems identified which require skilled intervention Predicted Duration of Therapy Intervention (days/wks) eval only Anticipated Discharge Disposition home w/ assist Risk & Benefits of therapy have been explained Yes Patient, Family & other staff in agreement with plan of care Yes Total Evaluation Time Total Evaluation Time (Minutes) 10 CALL PHARMACY TECHNICIAN Jefferson Michelle - 07/08/2013 10:37 AM CST [facility] Neurosurgery Progress Note Jefferson Michelle MD 07/08/2013 Interval History: Radicular pain completely resolved, doing well on PO pain meds for surgical pain Assessment and Plan: j37 yo doing well POD 1 after R L5-S1 discectomy, with complete resolution of symptoms -home today -continue [place] for pain x 2 weeks then dc -followup in clinic in 4 weeks Physical Exam: Heart Rate: 65 , Blood pressure 128/85, pulse 86, temperature 98.3 ??F (36.8 ??C), temperature source Oral, resp. rate 18, height 6' 1 (1.854 m), weight 231 lb (104.781 kg), SpO2 97.00%. Filed Vitals: 07/05/13 1300 Weight: 231 lb (104.781 kg) Vital Signs with Ranges Temp: [97.9 ??F (36.6 ??C)-98.9 ??F (37.2 ??C)] 98.3 ??F (36.8 ??C) Pulse: [86] 86 Heart Rate: [64-86] 65 Resp: [16-18] 18 BP: (112-167)/(60-91) 128/85 mmHg SpO2: [92 %-98 %] 97 % I/O's Last 24 hours I/O last 3 completed shifts: In: 2663 [P.O.:1260; I.V.:1403] Out: 1210 [Urine:1200; Blood:10] Alert and Oriented x 3 Attends Fluent Speech Follows Commands PERRL FS TM BUE 10/19 BLE 10/19 Medications: ??? sodium chloride (PF) 3 mL Intravenous Q8H PRN Meds: sodium chloride (PF), sodium chloride (PF), naloxone, [START ON 07/09/2013] bisacodyl, [START ON 07/09/2013] phosphate, HYDROmorphone, ondansetron, ondansetron, ondansetron, acetaminophen, HYDROcodone-acetaminophen, zolpidem Data: Results for orders placed during the hospital encounter of 07/05/13 (from the past 24 hour(s)) GLUCOSE BY METER Component Value Range Glucose 115 (*) 60 - 99 mg/dL CALL PHARMACY TECHNICIAN Jefferson Michelle - 07/07/2013 9:36 AM CST [facility] Neurosurgery Progress Note Jefferson Michelle MD 07/07/2013 Interval History: Preoperatively pain is controlled on LOOM CLEANER, 10/24 Assessment and Plan: 37 yo man with R L5-S1 disc planning for OR -NPO -OR today for L5-S1 microdiscectomy Physical Exam: Heart Rate: 55 , Blood pressure 133/85, pulse 52, temperature 97.8 ??F (36.6 ??C), temperature source Axillary, resp. rate 14, height 6' 1 (1.854 m), weight 231 lb (104.781 kg), SpO2 99.00%. Filed Vitals: 07/05/13 1300 Weight: 231 lb (104.781 kg) Vital Signs with Ranges Temp: [97.4 ??F (36.3 ??C)-98.6 ??F (37 ??C)] 97.8 ??F (36.6 ??C) Pulse: [52-81] 52 Heart Rate: [55] 55 Resp: [14-18] 14 BP: (129-137)/(78-95) 133/85 mmHg SpO2: [92 %-99 %] 99 % I/O's Last 24 hours I/O last 3 completed shifts: In: 1880 [P.O.:1280; I.V.:600] Out: - Alert and Oriented x 3 Attends Fluent Speech Follows Commands PERRL FS TM BUE 5/5 BLE 5/5 Medications: ??? [AUG HOLD] sodium chloride (PF) 3 mL Intravenous Q8H ??? [AUG HOLD] senna-docusate 1-2 tablet Oral BID ??? [AUG HOLD] HYDROmorphone Intravenous LOOM CLEANER ??? [AUG HOLD] gabapentin 300 mg Oral TID PRN Meds: fentaNYL, ondansetron, ondansetron, prochlorperazine, HYDROmorphone, labetalol, albuterol,ceFAZolin 1000 mg + gentamicin 120 mg + NaCl 0.9% 1000 mL Bottle, thrombin, bupivacaine 0.5 % - EPINEPHrine 1:200,000, ceFAZolin, [AUG HOLD] zolpidem, [AUG HOLD] sodium chloride (PF), - MEDICATION INSTRUCTIONS -, [AUG HOLD] acetaminophen, [AUG HOLD] acetaminophen, [AUG HOLD] acetaminophen, [AUG HOLD] naloxone, [AUG HOLD] bisacodyl, [AUG HOLD] diphenhydrAMINE [AUG HOLD] diphenhydrAMINE, [AUG HOLD] ondansetron, [AUG HOLD] ondansetron, [AUG HOLD] ondansetron Data: Results for orders placed during the hospital encounter of 07/05/13 (from the past 24 hour(s)) XR SURGERY NAI LESS THAN 5 MIN FLUORO W STILLS Narrative: This exam was marked as non-reportable because it will not be read by a radiologist or a [facility] non-radiologist provider. CALL PHARMACY TECHNICIAN Jefferson Michelle - 07/06/2013 10:01 AM CST [facility] Neurosurgery Progress Note Jefferson Michelle MD 07/06/2013 Interval History: Pain well controlled with LOOM CLEANER Assessment and Plan: 37 yo man with right L5-S1 herniated disc and RS1 radiculopathy -npo after midnight -plan for R L5-S1 microdiscectomy tomorrow -venodynes, ambulate Physical Exam: , Blood pressure 143/90, pulse 73, temperature 99.3 ??F (37.4 ??C), temperature source Oral, resp. rate 18, height 6' 1 (1.854 m), weight 231 lb (104.781 kg), SpO2 94.00%. Filed Vitals: 07/05/13 1300 Weight: 231 lb (104.781 kg) Vital Signs with Ranges Temp: [97 ??F (36.1 ??C)-99.3 ??F (37.4 ??C)] 99.3 ??F (37.4 ??C) Pulse: [62-76] 73 Resp: [14-20] 18 BP: (118-143)/(75-90) 143/90 mmHg SpO2: [90 %-95 %] 94 % I/O's Last 24 hours I/O last 3 completed shifts: In: 795 [P.O.:795] Out: - Alert and Oriented x 3 Attends Fluent Speech Follows Commands PERRL FS TM BUE 5/5 BLE 5/5 Medications: ??? sodium chloride (PF) 3 mL Intravenous Q8H ??? senna-docusate 1-2 tablet Oral BID ??? HYDROmorphone Intravenous LOOM CLEANER ??? gabapentin 300 mg Oral TID PRN Meds: zolpidem, sodium chloride (PF), - MEDICATION INSTRUCTIONS -, acetaminophen, acetaminophen,acetaminophen, naloxone, bisacodyl, diphenhydrAMINE, diphenhydrAMINE, ondansetron, ondansetron, ondansetron Data: No results found for this or any previous visit (from the past 24 hour(s)). CALL PHARMACY TECHNICIAN Grisel Waller RN - 07/05/2013 10:41 PM CST Pt states I don't need the Dilaudid overnight. when he was told that we would need to keep him on continuous pulse ox. O2 Sats are low 90s to high 80s with Cpap on. Pt refuses oxygen. CALL PHARMACY TECHNICIAN documented in this encounter H&P Notes Jefferson Michelle - 07/05/2013 2:18 PM CST [facility] History and Physical Neurosurgery Jefferson Michelle MD Antelmo Farias Date of : 1975 Age: [age] year old Chief Complaint: RLE radicular pain History of Present Illness: Antelmo Farias is a 37 year old male who has had 2 weeks of severe RLE radicular pain with a right L5-S1 herniated disc impinging the R S1 nerve, who was scheduled for surgery this Saturday if the pain continued to keep him bedbound despite epidural injection Saturday. He did improve slightly Saturday eveningafter the injection but the pain returned with a vengeance this morning, leaving him unable to getout of bed or walk. He therefore called and we decided to admit him directly for pain control prior to surgery. He ate already today. He denies new weakness, bowel;/bladder incontinence, sensory loss, or new distribution pain. Past Medical History: Past Medical History Diagnosis Date ??? ANGELIKA (obstructive sleep apnea) 2004 CPAP at 5cm ??? Family hx-GI disorders 02/07/2011 oldest daughter dx with celiac sprue Past Surgical History: Past Surgical History Procedure Date ??? Hc explor maxill sinus,intranasal 04/2002 Dr. Shea Home Medications: Prior to Admission medications Medication Sig Last Dose Taking? Auth Provider HYDROmorphone (DILAUDID) 2 MG tablet Take 1-2 tablets (2-4 mg) by mouth every 4 hours as needed for pain Harvinder Michelle MD methylprednisoLONE (MEDROL DOSEPACK) 4 MG tablet Take 1 tablet (4 mg) by mouth See Admin Instructions Valdez Nolan MD ibuprofen (ADVIL,MOTRIN) 200 MG tablet Take 4 tablets (800 mg) by mouth every 8 hours as needed for pain Valdez Nolan MD HYDROcodone-acetaminophen (NORCO) 5-325 MG per tablet Take 1 tablet by mouth every 6 hours as neededfor pain Harvinder Michelle MD zolpidem (AMBIEN) 10 MG tablet Take 0.5-1 tablets (5-10 mg) by mouth nightly as needed for sleep Harvinder Michelle MD ORDER FOR DME CPAP supplies Harvinder Michelle MD Current Medications: ??? sodium chloride (PF) 3 mL Intravenous Q8H ??? senna-docusate 1-2 tablet Oral BID ??? HYDROmorphone 0.2-0.3 mg Intravenous LOOM CLEANER LOADING DOSE ??? HYDROmorphone Intravenous LOOM CLEANER zolpidem, sodium chloride (PF), - MEDICATION INSTRUCTIONS -, acetaminophen, acetaminophen, acetaminophen, naloxone, bisacodyl, naloxone, diphenhydrAMINE, diphenhydrAMINE, ondansetron, ondansetron, ondansetron Allergies: Allergies Allergen Reactions ??? No Known Drug Allergies Social History: Antelmo Farias reports that he has been smoking Cigarettes. He has a 400 pack-year smoking history. He has never used smokeless tobacco. He reports that he drinks alcohol. He reports that he does not use illicit drugs. Family History: Family History Problem Relation Age of Onset ??? Heart Father [place] in [place] ??? Family History Negative Mother ??? Family History Negative Brother Review of Systems: The 10 point Review of Systems is negative other than noted in the HPI. Physical Exam: , Blood pressure 134/84, pulse 74, temperature 97 ??F (36.1 ??C), temperature source Oral, resp. rate 20, height 6' 1 (1.854 m), weight 231 lb (104.781 kg), SpO2 94.00%. 231 lbs 0 oz HEENT: Normocephalic, atraumatic. PERRLA. [...] bilaterally. Negative MELLISSA test bilaterally. Data: MRI Lspine as previously described Assessment and Plan: 37 yo man with R L5-S1 herniated disc and intractable, severe pain despite NSAIDS and injections (unable to make it to PT). -admit for IV LOOM CLEANER -NPO after midnight tomorrow -plan for R L5-S1 microdiscectomy on Saturday AM. Jefferson Michelle MD CALL PHARMACY TECHNICIAN Nirmala Beltran CNA - 07/03/2013 9:43 AM CST This note is for the purpose of making the H&P performed in the clinic within the last 30 days available in the hospital surgical encounter. CALL PHARMACY TECHNICIAN Source Note - Valdez Nolan MD - 06/30/2013 4:24 PM ON CALL PHARMACY TECHNICIAN History Chief Complaint: Back Pain HPI Antelmo Farias is a 37 year old male who presents to the emergency department today with back pain. Thepatient reports 4 days of lower right back pain which radiates down his right leg. He denies any bowel or bladder incontinence. He reports that the paint started while he was sitting at the table when he twisted his torso. He has been taking [place] without relief of his pain. Allergies: No known drug allergies Medications: [place] Ambien Past Medical History: ANGELIKA Past Surgical History: Intranasal exploratory surgery 2001 Family History: [place] - father GI disorders Marital Status: Social History: Tobacco: Current some day smoker - 2ppd for 16 years Alcohol: 2 beers/day Review of Systems Musculoskeletal: Positive for back pain. Neurological: Negative for bowel or bladder incontinence. 10 point review of systems performed and is negative except as above and in HPI. Physical Exam First Vitals: BP: 135/96 mmHg Heart Rate: 78 Temp: 98 ??F (36.7 ??C) Height: 185.4 cm (6' 1) Weight: 104.781 kg (231 lb) SpO2: 98 % Physical Exam Nursing note and vitals reviewed. Constitutional: He is oriented to person, place, and time. HENT: Right Ear: External ear normal. Left Ear: External ear normal. Nose: Nose normal. Mouth/Throat: Oropharynx is clear and moist. Eyes: Conjunctivae normal and EOM are normal. Pupils are equal, round, and reactive to light. Neck: Normal range of motion. Cardiovascular: Normal rate, regular rhythm, normal heart sounds and intact distal pulses. No murmur heard. Pulmonary/Chest: Effort normal and breath sounds normal. Abdominal: Soft. Bowel sounds are normal. He exhibits no distension and no mass. There is no tenderness. There is no rebound and no guarding. Genitourinary: No CVA or flank tenderness Musculoskeletal: Midline lumbar spinous process tenderness and left lateral lumbar spinal process tenderness. Lymphadenopathy: He has no cervical adenopathy. Neurological: He is alert and oriented to person, place, and time. No cranial nerve deficit. Coordination normal. Bilateral upper and lower extremity motor strength 5/5. Skin: Skin is warm and dry. No rash noted. Psychiatric: He has a normal mood and affect. His speech is normal and behavior is normal. Thought content normal. His mood appears not anxious. He does not exhibit a depressed mood. Imaging: Radiographic findings were communicated with the patient who voiced understanding of the findings. MR Lumbar spine w/o contrast per radiology: Moderate-sized right central disc protrusion L5-S1 displacing right S1 nerve root posteriorly. Laboratory: BMP: Cr 0.93 (wnl), Glucose 102 (high), All other values within normal limits. CBC: WBC 8.0 (wnl), HGB 15.2 (wnl), PLT 245 (wnl), All other values within normal limits. Interventions: Dilaudid 1 mg IV Decadron 10 mg IV Toradol 30 mg IV Emergency Department Course Nursing notes and vitals reviewed. I performed an exam of the patient as documented above. A peripheral IV was established. A blood workup and above MRI were obtained. The patient received the above interventions. Findings and plan explained to the patient. Patient discharged home, status improved, with instructions regarding supportive care, medications, and reasons to return as well as the importance of close follow-up was reviewed. Impression & Plan Medical Decision Making: The patient presents with low back pain radiating down his right leg. The concern for me was a herniated disc. I did consider epidural abscess much less likely as he has no fever, and his white count was normal. Please see MRI results, but it is consistent with a herniated disc. I contacted the sponge packer neurosurgeon. He will be able to be seen tomorrow. I did discuss with the patient having him admitted for pain control. He preferred not to. However, he did receive 1 mg Dilaudid, 30 mg Toradol, and 10 mg IV Decadron. At this time, the patient does not have motor weakness. He did prefer to be discharged home. He can be seen around 9 AM. Impression: 1. Low back pain with radiculopathy 2. Herniated L5-S1 disc with nerve root compression Plan: Dilaudid 2-4 mg every 6 hours given 20 of these. He???ll take ibuprofen 800 mg every 8 hours. He???ll take Medrol Dosepak. Lupe, Ariel Deutsch, am serving as a scribe on 06/30/2013 at 4:25 PM to personally document services performed by Dr. Nolan based on my observations and the provider's statements to me. EMERGENCY DEPARTMENT Valdez Nolan MD 06/30/13 2102 CALL PHARMACY TECHNICIAN Nirmala Beltran CNA - 07/03/2013 9:42 AM CST This note is for the purpose of making the H&P performed in the clinic within the last 30 days available in the hospital surgical encounter. CALL PHARMACY TECHNICIAN Source Note - Jefferson Michelle - 07/02/2013 3:54 PM ON CALL PHARMACY TECHNICIAN [facility] History and Physical Neurosurgery Jefferson Michelle MD Antelmo Farias Date of : 1975 Age: [age] year old Chief Complaint: Severe RLE radicular pain History of Present Illness: Antelmo Farias is a 37 year old male with history of RLE radicular pain 3 years ago that resolved with conservative mgmt, now presents with 10 days of severe RLE radicular pain. He says it began when twisting in a chair at home, sudden onset, severe, 10/10, shooting down his posterior buttock and thigh, occasionally to the foot (but mostly stopping at the knee), exacerbated by activity as well as sitting; the pain was responsive to dilaudid in the ER when he presented last week, but has been minimally responsive to ibuprofen and PO opioids at home. He has been unable to participate in phyhsical therapy because of pain severity, and has not yet obtained an injection. He also admits to paresthesias on his lateral right foot for the past week and a half but denies anyweakness or bowel.bladder incontinence. Past Medical History: Past Medical History Diagnosis Date ??? ANGELIKA (obstructive sleep apnea) 2004 CPAP at 5cm ??? Family hx-GI disorders 02/07/2011 oldest daughter dx with celiac sprue Past Surgical History: Past Surgical History Procedure Date ??? Hc explor maxill sinus,intranasal 04/2002 Dr. Shea Home Medications: Prior to Admission medications Medication Sig Last Dose Taking? Auth Provider methylprednisoLONE (MEDROL DOSEPACK) 4 MG tablet Take 1 tablet (4 mg) by mouth See Admin Instructions Valdez Nolan MD ibuprofen (ADVIL,MOTRIN) 200 MG tablet Take 4 tablets (800 mg) by mouth every 8 hours as needed for pain Valdez Nolan MD HYDROmorphone (DILAUDID) 2 MG tablet Take 1-2 tablets (2-4 mg) by mouth every 6 hours as needed for pain Valdez Nolan MD HYDROcodone-acetaminophen (NORCO) 5-325 MG per tablet Take 1 tablet by mouth every 6 hours as neededfor pain Harvinder Michelle MD zolpidem (AMBIEN) 10 MG tablet Take 0.5-1 tablets (5-10 mg) by mouth nightly as needed for sleep Harvinder Michelle MD ORDER FOR DME CPAP supplies Harvinder Michelle MD Current Medications: Allergies: Allergies Allergen Reactions ??? No Known Drug Allergies Social History: Antelmo Farias reports that he has been smoking Cigarettes. He has a 400 pack-year smoking history. He has never used smokeless tobacco. He reports that he drinks alcohol. He reports that he does not use illicit drugs. Family History: Family History Problem Relation Age of Onset ??? Heart Father [place] in 1997 ??? Family History Negative Mother ??? Family History Negative Brother Review of Systems: The 10 point Review of Systems is negative other than noted in the HPI. Physical Exam: @FLOWREFRESH([id number]::)@, Blood pressure 133/80, pulse 69, height 6' 1 (1.854 m), weight 231 lb (104.781 kg). 231 lbs 0 oz HEENT: Normocephalic, atraumatic. PERRLA. [...] Negative MELLISSA test bilaterally. Data: MRI Lspine: there is an L5-S1 disc bulge eccentric to the right with impingement/compression of theright S1 traversing nerve root. There is no significant central stenosis or canal compromise Assessment and Plan: 37 yo man with severe right S1 distribution radicular pain and L5-S1 right sided herniated disc. He has failed NSAIDs and opioids and cannot participate in PT because of the severity of pain; he also reports the pain is limiting his activity and he is unable to resume work or doing normal ADLs withoutintense discomfort. I therefore suggested one final attempt at conservative mgmt by undergoing SREE today. If that too fails, we agreed to proceed with microdiscectomy for unmanageable pain refractory to conservative measures. -SREE today -will plan for right L5-S1 microdiscectomy next week if SREE fails and he is still unable to functionbecause of pain We discussed the risks of surgery including but not limited to nerve root injury, cauda injury, paralysis, bowel/bladder incontinence, infection, CSF leak, meningitis, wound breakdown, [place], PE, pneumonia, , failure to improve, sensory loss. He elects to proceed. Jefferson Michelle MD CALL PHARMACY TECHNICIAN documented in this encounter Nursing Notes Lian Wylie RN - 07/07/2013 9:39 AM CST Ring returned to patient in pacu, Wearing left hand CALL PHARMACY TECHNICIAN Fouzia Nowak RN - 07/07/2013 7:28 AM CST Baseline right buttock numbness radiating down to foot. CALL PHARMACY TECHNICIAN documented in this encounter Miscellaneous Notes Plan of Care - Wero Solomon RN - 07/08/2013 1:01 PM CST Problem: IP GENERAL POC-ADULT,OB,BEHAVIORAL [facility]VCPM Goal: Individualization/Patient-Specific Goal (Adult,OB,Behavioral The patient and/or their commercial pest control representative will achieve their patient-specific goals related to the plan of care. The patient-specific goals include: home with after surgery Herniated disc L5/S1 Surgery scheduled for 07/07 at 1000 Right L5-S1 HEMILAMINECTOMY, FORAMINOTOMY, MICRODISSECTION, DISCECTOMY on 07/07 Outcome: Adequate for Discharge Date Met: 07/08/13 Alert and oriented. CMS intact. [place] given for pain. Up independently. Discharged to home. Instructions given and reviewed, no further questions. Dressing change, CDI. CALL PHARMACY TECHNICIAN Plan of Care - Jenny Barragan, PT - 07/08/2013 11:16 AM CST Problem: General Rehab Plan of Care Goal: Physical Therapy Goals The patient and/or their commercial pest control representative will achieve their patient-specific goals related to the plan of care by 07/08/13. The patient-specific goals include: 1. Patient will understand results of PT eval and agree with discharge recommendation of home with assist as needed. GOAL MET Frequency: eval only Outcome: Adequate for Discharge Date Met: 07/08/13 PT: Orders received, pt seen for eval only. Pt is s/p L5-S1 hemilaminectomy, foraminotomy and discectomy. Prior to admit pt was living with spouse and children in a 2 story home, no AD use and independent with all functional mobility. Currently is independent with bed mobility, transfers, gait of 400 ft without AD and ascending and descending 20 stairs with 1 rail with good safety. Pt does not have any skilled PT needs at this time, will discharge from PT. Recommend discharge to home with assist as needed. Physical Therapy Discharge Summary Reason for therapy discharge: All goals and outcomes met, no futher needs identified. Progress towards therapy goal(s): Goals met Therapy recommendation(s): No further therapy is recommended. Walk often for exercise CALL PHARMACY TECHNICIAN Plan of Care - Diana Bell RN - 07/08/2013 5:08 AM CST Problem: IP GENERAL POC-ADULT,OB,BEHAVIORAL [facility]CPM Goal: Individualization/Patient-Specific Goal (Adult,OB,Behavioral The patient and/or their commercial pest control representative will achieve their patient-specific goals related to the plan of care. The patient-specific goals include: home with after surgery Herniated disc L5/S1 Surgery scheduled for 07/07 at 1000 Right L5-S1 HEMILAMINECTOMY, FORAMINOTOMY, MICRODISSECTION, DISCECTOMY on 07/07 Outcome: Improving Pt alert and oriented x 4, VSS. CMS intact. Bowel sounds active. Tolerating regular diet. Dressing with small amount of dried drainage. Back pain medicated with prn [place] and cold pack. Up independently. Plan to discharge home today. CALL PHARMACY TECHNICIAN Plan of Care - Jeovany Quiles RN - 07/07/2013 10:29 PM CST Problem: IP GENERAL POC-ADULT,OB,BEHAVIORAL [facility]CPM Goal: Individualization/Patient-Specific Goal (Adult,OB,Behavioral The patient and/or their commercial pest control representative will achieve their patient-specific goals related to the plan of care. The patient-specific goals include: home with after surgery Herniated disc L5/S1 Surgery scheduled for 07/07 at 1000 Right L5-S1 HEMILAMINECTOMY, FORAMINOTOMY, MICRODISSECTION, DISCECTOMY on 07/07 Outcome: Improving Pt alert and oriented x4. VSS. CMS intact. Strength 5/5 x4 extremities. Tolerating regular diet. Dressing on back with sm amt of dry serosanguinous drainage. Ambulating independently. Tolerating regular diet. Incision pain well controlled with prn [place]. CALL PHARMACY TECHNICIAN Plan of Care - Wero Solomon RN - 07/07/2013 2:26 PM CST Problem: IP GENERAL POC-ADULT,OB,BEHAVIORAL FVCPM Goal: Individualization/Patient-Specific Goal (Adult,OB,Behavioral The patient and/or their commercial pest control representative will achieve their patient-specific goals related to the plan of care. The patient-specific goals include: home with after surgery Herniated disc L5/S1 Surgery scheduled for 07/07 at 1000 Right L5-S1 HEMILAMINECTOMY, FORAMINOTOMY, MICRODISSECTION, DISCECTOMY on 07/07 Outcome: Improving Alert and oriented. CMS intact. Dressing CDI. Voiding. Up with SBA. Dilaudid and [place] given for back pain. BPs slightly hypertensive. Tolerating full liquid diet. CALL PHARMACY TECHNICIAN Op Note - Jefferson Michelle - 07/07/2013 9:17 AM CST PREOPERATIVE DIAGNOSIS: Right L5-S1 herniated disc POSTOPERATIVE DIAGNOSIS: same OPERATIVE PROCEDURE: Right L5-S1 HEMILAMINECTOMY, FORAMINOTOMY, MICRODISSECTION, DISCECTOMY. SURGEON: Jefferson Michelle MD T37 yo man with severe, intractable RLE S1 distribution radicular pain and a herniated R L5-S1 disc impinging the R S1 nerve root. PROCEDURE: The patient was brought to the operating room where general endotracheal anesthesia was induced. The patient was rolled prone onto a Joshua frame. Fluoroscopy was used to localize an incision in the L5-S1 area. The lumbar region was prepped and draped in a sterile fashion, and after a complete time- out was infiltrated with 0.5% Marcaine with epinephrine 1:200,000. Skin was opened with a 10 blade and hemostasis achieved. Subcutaneous tissue was incised down to the level of the fascia, fascia incised in the midline. Paraspinous muscles were reflected laterally off of, L5, and S1 out past the level of the facet joints. An x-ray was obtained to verify the appropriate level. The operating microscope was brought into the field. The Midas Stanton with AM-8 was used to thin the lamina and create a hemilaminectomy of L5, and S1. Subarticular ligaments were removed with the Kerrison rongeur. The neural foramen was identified and further opened with the Kerrison rongeur. The thecal sac and passing nerve root were retracted medially and the bulging disc was seen. The posterior longitudinal ligament and disc were incised with a 15 blade and the free disc fragments removed. The wound was then copiously irrigated with antibiotic solution. Fascia was reapproximated with 0-Vicryl suture. Deep subcutaneous tissue was closed with 2- 0 Vicryl suture. The skin was closed with steri strips and a sterile dressing was applied. Findings: Significant R L5-S1 disc bulge EBL (Estimated Blood Loss) (ml): 20 ml Specimens Removed: none sent Patient transferred out of operating room in Stable condition. All surgical medications, procedures and x-rays performed in surgery-on the order of the operating physicians. ? Jefferson Michelle MD CALL PHARMACY TECHNICIAN Brief Op Note - Fouzia Nowak RN - 07/07/2013 7:27 AM ON CALL PHARMACY TECHNICIAN Baseline right buttock numbness radiating down to foot. CALL PHARMACY TECHNICIAN Plan of Care - Joselin Poe RN - 07/07/2013 6:23 AM CST Problem: IP GENERAL POC-ADULT,OB,BEHAVIORAL [facility]CPM Goal: Individualization/Patient-Specific Goal (Adult,OB,Behavioral The patient and/or their commercial pest control representative will achieve their patient-specific goals related to the plan of care. The patient-specific goals include: home with after surgery Herniated disc L5/S1 Surgery scheduled for 07/07 at 1000 Outcome: No Change A&Ox4. CMS intact except RLE and right lower back numbness. Pt c/o 5-6/10 pain in lower back andright buttock, under control with dilaudid LOOM CLEANER. Has been NPO since midnight. Showered on PM shift, and back was wiped with chlorhexidine cloths this AM at 0530 and sheets/gown were changed. Up in room independently, voiding adequately. IVF infusing. Pre-op checklist completed, consent signed and on chart. Awaiting call from OR to give report. Addendum: Called report to OR. Pt sent down with transportat [id number]. CALL PHARMACY TECHNICIAN Plan of Care - Florencio Chan RN - 07/06/2013 9:37 PM CST Problem: IP GENERAL POC-ADULT,OB,BEHAVIORAL FVCPM Goal: Individualization/Patient-Specific Goal (Adult,OB,Behavioral The patient and/or their commercial pest control representative will achieve their patient-specific goals related to the plan of care. The patient-specific goals include: home with after surgery Herniated disc L5/S1 Surgery scheduled for 07/07 at 1000 Outcome: No Change Pt A&O x4, VSS, CMS intact except for RLE numbness. Rt LE and buttock pain managed with LOOM CLEANER Dilaudid. Up Ind. Voiding adequately. Surgery scheduled tomorrow AM. Consent form signed. Pt showered. Nrsg will continue to monitor. CALL PHARMACY TECHNICIAN Plan of Care - Jillian Bryan, TIERRA - 07/06/2013 1:24 PM ON CALL PHARMACY TECHNICIAN Problem: IP GENERAL POC-ADULT,OB,BEHAVIORAL FVCPM Goal: Individualization/Patient-Specific Goal (Adult,OB,Behavioral The patient and/or their commercial pest control representative will achieve their patient-specific goals related to the plan of care. The patient-specific goals include: home with after surgery Herniated disc L5/S1 Surgery scheduled for 07/07 at 1000 Outcome: No Change Pt alert and oriented. CMS intact except right leg numbness. Up independent in room. Tolerating PO. Pain controlled to tolerable level with LOOM CLEANER. Plan for surgery tomorrow am. CALL PHARMACY TECHNICIAN Utilization Review - Beatriz Perez MD - 07/06/2013 10:39 AM ON CALL PHARMACY TECHNICIAN Admission Status; Secondary Review Determination Under the authority of the Utilization Management Committee, the utilization review process indicated a secondary review on the above patient. The review outcome is based on review of the medical records, discussions with staff, and applying clinical experience noted on the date of the review. (x) Inpatient Status Appropriate - This patient's medical care is consistent with medical managementfor inpatient care and reasonable inpatient medical practice. RATIONALE FOR DETERMINATION 37 year old male who has had 2 weeks of severe RLE radicular pain with a right L5-S1 herniated disc impinging the R S1 nerve, who was scheduled for surgery tomorrow if the pain continued to keep him bedbound despite epidural injection Saturday. He did improve slightly Saturday evening after the injection but the pain returned with a vengeance, leaving him unable to get out of bed or walk. He returned to the emergency room on 07/05/2013 and was admitted to the hospital for pain management and anticipated surgery. Patient has failed outpatient management his admission his for pain management and inability to ambulate. He is not be admitted for the elective surgery but rather for pain control with intravenous narcotic to a LOOM CLEANER. The expected length of stay at the time of admission was more than 2 midnights because of the severity of illness, intensity of service provided, and risk for adverse outcome.Inpatient admission is recommended. The information on this document is developed by the utilization review team in order for the business office to ensure compliance. This only denotes the appropriateness of proper admission status and does not reflect the quality of care rendered. The definitions of Inpatient Status and Observation Status used in making the determination above are those provided in the CMS Coverage Manual, Chapter 1 and Chapter 6, section 70.4. Sincerely, BEATRIZ PEREZ MD System Bulk Clerk Utilization Review/ Case Management [facility]. CALL PHARMACY TECHNICIAN Plan of Care - Lashell Sheppard RN - 07/06/2013 6:27 AM CST Problem: IP GENERAL POC-ADULT,OB,BEHAVIORAL [facility]CPM Goal: Individualization/Patient-Specific Goal (Adult,OB,Behavioral The patient and/or their commercial pest control representative will achieve their patient-specific goals related to the plan of care. The patient-specific goals include: home with after surgery Herniated disc L5/S1 Surgery scheduled for 07/07 at 1000 VSS. Bipap overnight. Buttocks pain 4/10, LOOM CLEANER dilaudid given. A&O. IVF infusing. Up Ind. RLE numbness, baseline since pain started. Plan is to manage pain until pt goes to surgery 07/07/13. CALL PHARMACY TECHNICIAN Plan of Care - Grisel Waller RN - 07/05/2013 10:45 PM CST Problem: IP GENERAL POC-ADULT,OB,BEHAVIORAL [facility]CPM Goal: Individualization/Patient-Specific Goal (Adult,OB,Behavioral The patient and/or their commercial pest control representative will achieve their patient-specific goals related to the plan of care. The patient-specific goals include: home with after surgery Herniated disc L5/S1 Surgery scheduled for 07/07 at 1000 Outcome: No Change A&Ox4. VSS except O2 sats in high 80s to low 90s. CMS intact. Pain controlled with Dilaudid LOOM CLEANER and gabapentin. Up independently in room. CALL PHARMACY TECHNICIAN Plan of Care - Gabriela Boss RN - 07/05/2013 7:08 PM CST Problem: IP GENERAL POC-ADULT,OB,BEHAVIORAL [facility]CPM Goal: Individualization/Patient-Specific Goal (Adult,OB,Behavioral The patient and/or their commercial pest control representative will achieve their patient-specific goals related to the plan of care. The patient-specific goals include: home with after surgery Herniated disc L5/S1 Surgery scheduled for 07/07 at 1000 Outcome: No Change Pt a/ox4 with VSS and CMS with RLE numbness and tingling when OOB. Slightly weaker flexion in RLE. Using dilaudid LOOM CLEANER for pain, see provider note regarding dosing. Up in room independently, pt has beenencouraged to stay in bed per MD and nursing. Tolerating reg diet. Plan for OR 07/07 CALL PHARMACY TECHNICIAN Provider Notification - Gabriela Boss RN - 07/05/2013 3:34 PM ON CALL PHARMACY TECHNICIAN MD called to clarify NPO status, pts or is 07/08 can have reg diet until 07/07 [place]. Call to MD regarding pain control issues, per MD ok to increase LOOM CLEANER up to 0.4- 0.8 q10m but start pt with 0.3 q10 and seehow it is tolerated prior to increasing dose. Order for TID neuronin rec'd. CALL PHARMACY TECHNICIAN documented in this encounter Plan of Treatment Not on filedocumented as of this encounter Procedures Procedure Name Priority Date/Time Associated Comments Diagnosis GLUCOSE BY METER Routine 07/08/2013 6:10 AM Resul ts for this ON CALL PHARMACY TECHNICIAN procedure are i n the results section. XR CROSSTABLE Routine 07/07/2013 8:26 AM Results for this LATERAL LUMBAR SPINE ON CALL PHARMACY TECHNICIAN procedu re are in PORTABLE the results section. XR SURGERY NAI Routine 07/07/2013 8:20 AM Result s for this FLUORO LESS THAN 5 ON CALL PHARMACY TECHNICIAN procedure are in MIN W STILLS the results section. LAMINECTOMY, SPINE, 07/07/2013 7:27 AM LUMBAR HERNIATE D LUMBAR, 1 LEVEL, ON CALL PHARMACY TECHNICIAN DISC POSTERIOR APPROACH, USING MICROSCOPE documented in this encounter Results (ABNORMAL) Glucose by meter (07/08/2013 6:10 AM ON CALL PHARMACY TECHNICIAN) P athologist Signature Glucose 115 (H) 60 - 99 POINT OF CARE mg/dL TEST, GLUCOSE Specimen Anatomical Collection Method Collection Time Receive d Time (Source) Location / / Volume Laterality 07/08/2013 6:10 AM 4 6:30 ON CALL PHARMACY TECHNICIAN AM ON CALL PHARMACY TECHNICIAN Jefferson Michelle MD [facility] POCT Performing Organization Address City/State/ZIP Code Phon e Number FV POINT OF CARE TEST, GLUCOSE POINT OF CARE TEST, GLUCOSE XR Lumbar Spine Port 1 View (07/07/2013 8:26 AM ON CALL PHARMACY TECHNICIAN) Anatomical Region Laterality Modality Spine Computed Radiography Specimen (Source) Anatomical Location Collection Method / Collectio n Time Received Time / Laterality Volume Narrative 07/07/2013 9:40 AM ON CALL PHARMACY TECHNICIAN XR LUMBAR SPINE PORT 1 VW ??07/07/2013 8:26 AM HISTORY: ??L5-S1 microdiscectomy. FLUOROSCOPY TIME: 3 seconds. FINDINGS: Single image obtained during s urgery revealing a surgical instrument projected posterior to the L5 -S1 interspace. MARIA M NUNN MD Procedure Note Maria M Nunn MD - 07/07/2013F ormatting of this note might be different from the original. XR LUMBAR SPINE PORT 1 VW 07/07/2013 8:26 AM HISTORY: L5-S1 microdiscectomy. FLUOROSCOPY TIME: 3 seconds. FINDINGS: Single image obtained during s urgery revealing a surgical instrument projected posterior to the L5 -S1 interspace. MARIA M NUNN MD Jefferson Michelle MD IMG DIAGNOSTIC IMAGING ORDER YAMILETH XR Surgery NAI L/T 5 Min Fluoro w Stills (07/07/2013 8:20 AM ON CALL PHARMACY TECHNICIAN) Anatomical Region Laterality Modality Abdomen/Pelvis Computed Radiography Specimen (Source) Anatomical Location Collection Method / Collectio n Time Received Time / Laterality Volume Narrative 07/07/2013 8:25 AM ON CALL PHARMACY TECHNICIAN This exam was marked as non-reportable because it will not be read by a radiologist or a [place] non-radiologis t provider. Procedure Note Kemi Diehl - 07/07/2013Formatt ing of this note might be different from the original. This exam was marked as non-reportable b ecause it will not be read by a radiologist or a [place] non-radiologist provider. Jefferson Michelle MD IMG DIAGNOSTIC IMAGING ORDER YAMILETH documented in this encounter Visit Diagnoses Diagnosis Lumbar radiculopathy - Primary Thoracic or lumbosacral neuritis or radi culitis, unspecified Herniated disc Displacement of intervertebral disc, sit e unspecified, without myelopathy documented in this encounter Administered Medications Inactive Administered Medications - up to 3 most recent administrations Medication Order MAR Action Action Date Dose Rate Site 0.9 % sodium chloride with Rate/Dose Change 07/07/2013 12:04 AM 75 mL/hr KCl 20 mEq/L IV infusion ON CALL PHARMACY TECHNICIAN at 75 mL/hr, Intravenous, CONTINUOUS, Starting on Sat07/07/13 at 0000, Until Sat07/07/13 at 1102 ceFAZolin (ANCEF) 1 g vial to attach to IVPB New Bag 07/07/2013 4:55 PM ON CALL PHARMACY TECHNICIAN 1 g Routine, 1 g, Intravenous, ONCE, On Sat07/07/13 at 1600, For 1 dose, Indications: Perioperative Pharmacoprophylaxis, Post-procedure fentaNYL (SUBLIMAZE) injection 25-50 mcg Given 07/07/2013 10:06 AM ON CALL PHARMACY TECHNICIAN 50 mcg 25-50 mcg, Intravenous, EVERY 2 MIN PRN, other, acute pain, Starting on Sat07/07/13 at 0932, MAX cumulative dose = 250 mcg. Use Fentanyl initially, as a short acting agent for acute pain control. If insufficient, or a longer acting agent is needed, begin Morphine or Hydromorphone if ordered., PACU Given 07/07/2013 9:57 AM ON CALL PHARMACY TECHNICIAN 50 mcg gabapentin (NEURONTIN) capsule 300 mg Given 07/06/2013 10:10 PM ON CALL PHARMACY TECHNICIAN 300 mg 300 mg, Oral, 3 TIMES DAILY, First dose on Sat07/05/13 at 1630 Given 07/06/2013 4:32 PM ON CALL PHARMACY TECHNICIAN 300 mg Given 07/06/2013 8:20 AM ON CALL PHARMACY TECHNICIAN 300 mg HYDROcodone-acetaminophen (NORCO) 5-325 MG Given 07/08 12:25 PM ON CALL PHARMACY TECHNICIAN 1 tablet per tablet 1-2 tablet 1-2 tablet, Oral, EVERY 4 HOURS PRN, moderate to severe pain, Starting on Sat07/07/13 at 1101, Hold while on LOOM CLEANER or with regular IV opioid dosing. Maximum acetaminophen dose from all sources= 75 mg/kg/day not to exceed 4 grams, Post-procedure Given 07/08/2013 8:26 AM ON CALL PHARMACY TECHNICIAN 1 tablet Given 07/08/2013 4:06 AM ON CALL PHARMACY TECHNICIAN 2 tablets HYDROmorphone (DILAUDID) Loading Dose Given 07/05/2013 2:[address] 0.3 mg administered from LOOM CLEANER 0.2-0.3 mg 0.2-0.3 mg, Intravenous, LOOM CLEANER LOADING DOSE, On Sat07/05/13 at 1415, For 1 dose, LOADING DOSE (bolus) with start of LOOM CLEANER. DO NOT GIVE IF A LOADING BOLUS DOSE HAS ALREADY BEEN GIVEN. (If loading dose not given from LOOM CLEANER, bar code scan must be overridden to chart dose). HYDROmorphone (DILAUDID) LOOM CLEANER 1 mg/mL Shift Total 07/07/2013 5:53 AM ON CALL PHARMACY TECHNICIAN LOOM CLEANER dose (mg): 0.2, Max LOOM CLEANER dose (mg): 0.3, Lockout Interval (min): 10 minutes, LOOM CLEANER Continuous Rate (mg/hr): CONTINUOUS RATE IS NOT RECOMMENDED FOR OPIOID NAIVE PATIENTS, Hour Limit (mg): 1.8, First dose on Sat07/05/13 at 1415, Do NOT give additional opioids orders unless requested by provider., Intravenous Rate/Dose Verify 07/07/2013 12:06 AM ON CALL PHARMACY TECHNICIAN Shift Total 07/06/2013 10:11 PM ON CALL PHARMACY TECHNICIAN 1.2 mg HYDROmorphone (PF) (DILAUDID) injection Given 07/07/2013 9:45 AM ON CALL PHARMACY TECHNICIAN 0.5 mg 0.3-0.5 mg 0.3-0.5 mg, Intravenous, EVERY 5 MIN PRN, moderate to severe pain, acute pain. May administer if RR is > 10 , Starting on Sat07/07/13 at 0932, If fentanyl is also ordered, use HYDROmorphone if pain control insufficient with fentanyl or a longer acting agent is needed. Max cumulative dose = 2 mg , PACU Given 07/07/2013 9:34 AM ON CALL PHARMACY TECHNICIAN 0.5 mg HYDROmorphone (PF) (DILAUDID) injection Given 07/07/2013 11:52 A M ON CALL PHARMACY TECHNICIAN 0.5 mg 0.3-0.5 mg 0.3-0.5 mg, Intravenous, EVERY 1 HOUR PRN, severe pain, or patient unable to take PO, Starting on Sat07/07/13 at 1101, Hold while on LOOM CLEANER., Post-procedure lactated ringers infusion New Bag 07/07/2013 7:05 AM ON CALL PHARMACY TECHNICIAN 1,000 mLs 100 mL/hr at 100 mL/hr, Intravenous, CONTINUOUS, Pre-procedure, Starting on Sat07/07/13 at 0715, Until Sat07/07/13 at 1022 senna-docusate (SENOKOT-S;PERICOLACE) Given 07/06/2013 10:10 PM ON CALL PHARMACY TECHNICIAN 2 tablets 8.6-50 MG per tablet 1-2 tablet 1-2 tablet, Oral, 2 TIMES DAILY, First dose on Sat07/05/13 at 2100, Start with 1 tablet PO BID, If no bowel movement in 24 hours, increase to 2 tablets po BID. Hold for loose stools. Preferred agent for constipation related to opioids. Given 07/06/2013 8:20 AM ON CALL PHARMACY TECHNICIAN 2 tablets Given 07/05/2013 8:36 PM ON CALL PHARMACY TECHNICIAN 2 tablets sodium chloride (PF) 0.9% PF flush 3 mL Given 07/06/2013 10:10 PM ON CALL PHARMACY TECHNICIAN 3 mLs 3 mL, Intravenous, EVERY 8 HOURS, First dose on Sat07/05/13 at 1415, And Q1H PRN, to lock peripheral IV dormant line. Given 07/06/2013 6:29 AM ON CALL PHARMACY TECHNICIAN 3 mLs Given 07/05/2013 10:27 PM ON CALL PHARMACY TECHNICIAN 3 mLs sodium chloride (PF) 0.9% PF flush 3 mL Given 07/08/2013 4:07 AM ON CALL PHARMACY TECHNICIAN 3 mLs 3 mL, Intravenous, EVERY 8 HOURS, First dose on Sat07/07/13 at 1400, to lock peripheral IV dormant line. Also Ordered Q1H PRN, Post-procedure Given 07/07/2013 8:26 PM ON CALL PHARMACY TECHNICIAN 3 mLs Given 07/07/2013 11:53 AM ON CALL PHARMACY TECHNICIAN 3 mLs documented in this encounter Active and Recently Administered Medications Times are shown in ON CALL PHARMACY TECHNICIAN. Scheduled Medication Order 07/06/2013 07/07/2013 07/08/2013 ceFAZolin (ANCEF) 1 g vial to attach to IVPB (COMPLETED) 2744 (New Bag - Provider: Jeovany Quiles, TIERRA) Routine, 1 g, Intravenous, ONCE, On Sat07/07/13 at 1600, For 1 dose, Indications: Perioperative Pharmacoprophylaxis, Post-procedure ceFAZolin (ANCEF) IVPB 2 g (pre-mix) (COMPLETED) 0722 (Handoff - Provider: Fouzia Nowka RN - Comment: sent to surgery)0747 (Given - Provider: Lisandra Scherer APRN CRNA) 2 g, Intravenous, PRE-OP/PRE-PROCEDURE, For 1 dose, Give first dose within 1 hour PRIOR to incision., Indications: Surgical Prophylaxis, Pre-procedure gabapentin (NEURONTIN) capsule 300 mg (CANCELED) 0820 (Given - Provider: Jillian Bryan, TIERRA)1632 (Given - Provider: Florencio Chan, TIERRA)2210 (Given - Provider: Florencio Chan RN) 0755 (Auto Hold - Provider: Orders Generic Provider - Reason: Transfer to a procedural area)0900 (Automatically Held - Provider: Orders Generic Provider)1041 (Unhold - Provider: Orders Generic Provider) 300 mg, Oral, 3 TIMES DAILY, First dose on Sat07/05/13 at 1630 HYDROmorphone (DILAUDID) LOOM CLEANER 1 mg/mL (CANCELED) 0101 ( New Syringe/Cartridge - Provider: Lashell Sheppard RN)0630 (New Syringe/Cartridge - Provider: Lashell Sheppard RN)0951 (Rate/Dose Verify - Provider: Jillian Bryan, TIERRA) 0006 (Rate/Dose Verify - Provider: Joselin Poe, RN)0150 (Canceled Entry - Provider: Joselin Poe RN - Comment: verified dose at beginning of shift)0553 (Shift Total - Provider: Joselin Poe RN) LOOM CLEANER dose (mg): 0.2, Max LOOM CLEANER dose (mg): 0 .3, Lockout Interval (min): 10 minutes, LOOM CLEANER Continuous Rate (mg/hr): CONTINUOUS RATE IS NOT RECOMMENDED FOR OPIOID NAIVE PATIENTS, Hour Limit (mg): 1.8, Starting 1422 (New Syringe/Cartridge - Provider: Jillian Bryan RN)1917 (Shift Total - Provider: Florencio Chan RN)2211 (Shift Total - Provider: Florencio Chan RN) 0755 (Auto Hold - Provider: Orders Generic Provider - Reason: Transfer to a procedural area)1000 (Automatically Held - Provider: Orders Generic Provider)1041 (Unhold - Provider: Orders Generic Provider) 07/05/13 at 1415, Do NOT give additio nal opioids orders unless requested by provider., Intravenous senna-docusate (SENOKOT-S;PERICOLACE) 8. 6-50 MG per tablet 1-2 tablet (CANCELED) 0820 (Given - Provider: Jillian Bryan RN)2210 (Given - Provider: Florencio Chan RN) 0755 (Auto Hold - Provider: Orders Gener ic Provider - Reason: Transfer to a procedural area)0900 (Automatically Held - Provider: Orders Generic Provider)1041 (Unhold - Provider: Orders Generic Provider) 1-2 tablet, Oral, 2 TIMES DAILY, First d ose on 07/05/13 at 2100, Start with 1 tablet PO BID, If no bowel movement in 24 hours, increase to 2 tablets po BID. Hold for loose stools. Preferred agent for constipation related to opioids. sodium chloride (PF) 0.9% PF flush 3 mL (CANCELED) 062 9 (Given - Provider: Lashell Sheppard RN)1424 (Not Given - Provider: Jillian Bryan RN - Reason: IV Infusing)2210 (Given - Provider: Florencio Chan, TIERRA) 0555 (Not Given - Provider: Joselin Poe, TIERRA - Reason: IV Infusing)0755 (Auto Hold - Provider: Orders Generic Provider - Reason: Transfer to a procedural area)1041 (Unhold - Provider: Orders Generic Provider) 3 mL, Intravenous, EVERY 8 HOURS, First dose on Sat07/05/13 at 1415, And Q1H PRN, to lock peripheral IV dormant line. sodium chloride (PF) 0.9% PF flush 3 mL (CANCELED) 1153 (Given - Provider: Wero Solomon, RN)2026 (Given - Provider: Jeovany Quiles, TIERRA) 0407 (Given - Provider: Diana Bell, TIERRA)1200 (Canceled Entry - Provider: Orders Generic Provider - Comment: Automatically canceled at discontinue of medication order) 3 mL, Intravenous, EVERY 8 HOURS, First dose on Sat07/07/13 at 1400, to lock peripheral IV dormant line. Also Ordered Q1H PRN, Post-procedure Continuous Medication Order 07/06/2013 07/07/2013 07/08/2013 0.9 % sodium chloride with KCl 20 mEq/L IV infusion (CANCELE D) 0004 (Rate/Dose Change - Provider: Joselin Poe RN) at 75 mL/hr, Intravenous, CONTINUOUS lactated ringers infusion (CANCELED) 070 5 (New Bag - Provider: Fouzia Nowak RN) at 100 mL/hr, Intravenous, CONTINUOUS, Pre-procedure PRN Medication Order 07/06/2013 07/07/2013 07/08/2013 bupivacaine 0.5 % - EPINEPHrine 1:200,000 injection (CANCELE D) 0905 (Given - Provider: Jefferson Michelle) PRN, Starting Sat07/07/13 at 0905, Intra-procedure ceFAZolin 1000 mg + gentamicin 120 mg + NaCl 0.9% 1000 mL Richard ttle (CANCELED) 0809 (Given - Provider: Jefferson Michelle) PRN, Starting Sat07/07/13 at 0809, Intra-procedure fentaNYL (SUBLIMAZE) injection 25-50 mcg (CANCELED) 0957 (Given - Provider: Lian Wylie, TIERRA)1006 (Given - Provider: Lian Wylie RN) 25-50 mcg, Intravenous, EVERY 2 MIN PRN, Starting Sat07/07/13 at 0932, other, acute pain, MAX cumulative dose = 250 mcg. Use Fentanyl initially, as a short acting agent for acute pain control. If insuff icient, or a longer acting agent is need ed, begin Morphine or Hydromorphone if ordered., PACU HYDROcodone-acetaminophen (NORCO) 5-325 MG per tablet 1-2 ta blet 1415 (Given - Provider: Wero Solomon RN)1811 (Given - Provider: Jeovany Quiles, RN)2305 (Given - Provider: Jeovany Quiles, RN) 0406 (Given - Provider: Diana soni RN)0826 (Given - Provider: Wero Solomon RN)1225 (Given - Provider: Wero Solomon RN) 1-2 tablet, Oral, EVERY 4 HOURS PRN, mod erate to severe pain, Starting Sat07/07/13 at 1101, Hold while on LOOM CLEANER or with regular IV opioid dosing. Maximum acetaminophen dose from all sources= 75 mg/kg/day not to exceed 4 grams, Post-procedure HYDROmorphone (PF) (DILAUDID) injection 0.3-0.5 mg (CANCELED ) 0934 (Given - Provider: Lian Wylie RN)0945 (Given - Provider: Lian Wylie RN) 0.3-0.5 mg, Intravenous, EVERY 5 MIN PRN , Starting Sat07/07/13 at 0932, Until Sat07/07/13 at 1041, moderate to severe pain, acute pain. May administer if RR is > 10 , PACU, If fentanyl is also ordere d, use HYDROmorphone if pain control ins ufficient with fentanyl or a longer acting agent is needed. Max cumulative dose = 2 mg HYDROmorphone (PF) (DILAUDID) injection 0.3-0.5 mg (CANCELED ) 1152 (Given - Provider: Wero Solomon RN) 0.3-0.5 mg, Intravenous, EVERY 1 HOUR OR N, Starting Sat07/07/13 at 1101, Until 1/22/14 at 1437, severe pain, or patient unable to take PO, Post-procedure, Hold while on LOOM CLEANER. thrombin 5000 UNITS vial (CANCELED) 0809 (Given - Provider: Jefferson Michelle) PRN, Starting Sat07/07/13 at 0809, Apply to , Intra-procedure documented in this encounter Care Teams Corporate Services Manager Relationship Specialty Start Date End Date Harvinder Michelle MD PCP - General 12/26/01 11/16/13 [address] [id number] documented as of this encounter
--- OUTSIDE RECORDS SUMMARY | 2022-03-20 14:29 | XMS_ITS | Encounter Summary ---
:1975 Author Organization [facility] Address [address] [place] [address] Care Team Providers Name Role Phone Harvinder Michelle MD Primary Care Provider Reason for Visit Reason Onset Date Comments ER F/U 07/01/2013 ER-06/30/13-Lbp(Low Back Pain), Displacement of Lumbar Intervertebral Disc Without Myelopathy-1 visit Encounter Details Date Type Department Care Team Description 07/01/2013 Telephone [facility] Harvinder Michelle MD ER F/U Clinic [place] [address] (ER-06/30/13-Lbp(Low Back [address] [facility]), Displacement of [place], [place], [place] Lumbar In tervertebral [id number] Disc Without Myelopathy-9 [phone] visit) (Work) Social History Tobacco Use Types Packs/Day Years Used Date Current Some Day Smoker Cigarettes 25 16 Smokeless Tobacco: Never Used Alcohol Use Standard Drinks/Week Comments Yes 0 (1 standard drink = 0.6 oz pure alcoho l) 2 beers a day Sex Assigned at Date Recorded Not on file documented as of this encounter Miscellaneous Notes Telephone Encounter - Florinda Allan RN - 07/01/2013 2:21 PM CST Has appointment 116/14. Florinda Allan RN ERENCE PRODUCER Telephone Encounter - Hina Griffiths - 07/01/2013 9:22 AM CST Please call pt for ER follow up. ERENCE PRODUCER documented in this encounter Plan of Treatment Not on filedocumented as of this encounter Visit Diagnoses Not on filedocumented in this encounter Care Teams Piling Setter Relationship Specialty Start Date End Date Harvinder Michelle MD PCP - General 12/26/01 11/16/13 [address] [id number] documented as of this encounter
--- OUTSIDE RECORDS SUMMARY | 2022-03-20 14:29 | XMS_ITS | Encounter Summary ---
:1975 Author Organization [facility] Address [address] [place] [address] Care Team Providers Name Role Phone Harvinder Michelle MD Primary Care Provider Reason for Visit Reason Onset Date Comments ER F/U 07/02/2013 ER f/u 06/30/13 Low Back Pain Encounter Details Date Type Department Care Team Description 07/02/2013 Telephone [facility] Harvinder Michelle MD ER F/U (ER f/u 06/30/[address] Low Back Pain) [address] [place] [phone] (Wo rk) Social History Tobacco Use Types [...] Telephone Encounter - Florinda Allan RN - 07/02/2013 3:16 PM CST Had recheck with Neurosurgery today and has surgery scheduled for 07/07/13. Florinda Allan RN ET SEWER Telephone Encounter - Molly Rojas - 07/02/2013 2:28 PM CST Please call patient for ER f/u 06/30/13. Low Back Pain. Molly Rojas. Cutter Operator Brick. ET SEWER documented in this encounter Plan of Treatment Not on filedocumented as of this encounter Visit Diagnoses Not on filedocumented in this encounter Care Teams Printing Plate Clerk Relationship Specialty Start Date End Date Harvinder Michelle MD PCP - General 12/26/01 11/16/13 [address] [id number] documented as of this encounter
--- OUTSIDE RECORDS SUMMARY | 2022-03-20 14:29 | XMS_ITS | Encounter Summary ---
:1975 Author Organization [facility] Address [address] [place] [address]. [place] [address] Care Team Providers Name Role Phone Harvinder Michelle MD Primary Care Provider Reason for Visit Reason Comments Neurologic Problem Lumbar HNP Encounter Details Date Type Department Care Team Description 07/02/2013 Office Visit [facility] [place] MichelleJefferson HNP (her niated Neurosurgery MD Eddie nucleus pulposus), [address] XX RESIGNED XX lumbar (Primary Dx) [address] [place] [address] [place] [address] [phone] (Wo rk) Social History Tobacco Use Types [...] Sign Reading Time Taken Comments Blood Pressure 133/80 07/02/2013 1:48 PM LAYER OFF Pulse 69 07/02/2013 1:48 PM LAYER OFF Temperature - - Respiratory Rate - - Oxygen Saturation - - Inhaled Oxygen Concentration - - Weight 104.8 kg (231 lb) 07/02/2013 1:48 PM LAYER OFF Height 185.4 cm (6' 1) 07/02/2013 1:48 PM LAYER OFF Body Mass Index 30.48 07/02/2013 1:48 PM LAYER OFF documented in this encounter Patient Instructions Patient InstructionsJefferson Michelle - 07/02/2013 4:04 PM CST Obtain SREE Return for surgeyr if SREE fails R OFF documented in this encounter Progress Notes Jefferson Michelle - 07/02/2013 3:54 PM CST [facility] History and Physical Neurosurgery Jefferson [...] Relation Age of Onset ??? Heart Father CA in 1997 ??? Family History Negative Mother ??? Family History Negative Brother Review of Systems: The 10 point Review of Systems is negative other than noted in the HPI. Physical Exam: @FLOWREFRESH([id number]::)@, Blood pressure 133/80, pulse 69, height 6' [...] incontinence, infection, CSF leak, meningitis, wound breakdown, CA, PE, pneumonia, , failure to improve, sensory loss. He elects to proceed. Jefferson Michelle MD R OFF Aviva Valdez Gavino - 07/02/2013 1:47 PM CST Antelmo Farias is a 37 year old male who presents for: Chief Complaint Patient presents with ??? Neurologic Problem Lumbar HNP Initial Vitals: There were no vitals taken for this visit. Estimated Body mass index is 30.48 kg/(m^2) as calculated from the following: Height as of 06/30/13: 6' 1(1.854 m). Weight as of 06/30/13: 231 lb(104.781 kg).. There is no height or weight on file to calculate BSA. BP completed using cuff size: regular Data Unavailable Do you feel safe in your environment? Yes Do you need any refills today? No Nursing Comments: Lumbar HNP. [facility] ER f/u. 5minutes nursing intake time Aviva Valdez Discharge plan: Patient scheduled for surgery. Lumbar injection was also ordered. 4minutes nursing discharge time Aviva Valdez signature R OFF documented in this encounter Plan of Treatment Not on filedocumented as of this encounter Visit Diagnoses Diagnosis HNP (herniated nucleus pulposus), lumbar - Primary Displacement of lumbar intervertebral di sc without myelopathy documented in this encounter Care Teams Circular Head Saw Operator Relationship Specialty Start Date End Date Harvinder Michelle MD PCP - General 12/26/01 11/16/13 [address] [id number] documented as of this encounter
--- OUTSIDE RECORDS SUMMARY | 2022-03-20 14:29 | XMS_ITS | Encounter Summary ---
:1975 Author Organization [facility] Address [address] [place] [address] Care Team Providers Name Role Phone Harvinder Michelle MD Primary Care Provider Reason for Visit Reason Onset Date Comments ER F/U 07/09/2013 Inpatient Discharge 07/08/13 Lumbar Herniated Disc Encounter Details Date Type Department Care Team Description 07/09/[address] [facility] Harvinder Michelle MD ER F/U (Inpatient Clinic [place] [address] [address] Discharge 07/08/[address] [place] [address] Lumbar Herniated [place] [phone] (Wo rk) Social History Tobacco Use Types [...] Telephone Encounter - Florinda Allan RN - 07/09/2013 2:44 PM CST Will follow with surgeon. Florinda Allan RN R BLOCK MECHANIC Telephone Encounter - Molly Rojas - 07/09/2013 12:54 PM CST Please call patient for Inpatient Discharge f/u 01//22/14. Lumbar Herniated Disc. Molly Rojas. TeamCoordinator. R BLOCK MECHANIC documented in this encounter Plan of Treatment Not on filedocumented as of this encounter Visit Diagnoses Not on filedocumented in this encounter Care Teams Saddle And Side Wire Stitcher Relationship Specialty Start Date End Date Harvinder Michelle MD PCP - General 12/26/01 11/16/13 [address] [id number] documented as of this encounter
--- OUTSIDE RECORDS SUMMARY | 2022-03-20 14:29 | XMS_ITS | Encounter Summary ---
:1975 Author Organization [facility] Address [address] [place] [id number] Care Team Providers Name Role Phone Harvinder Michelle MD Primary Care Provider Reason for Visit Reason Comments Pre Visit Planning - Done pvp completed - Physical fasting labs, would like to be tested for celiac - daughter recently diagnosed Encounter Details Date Type Department Care Team Description 02/07/2011 Office Visit [facility] Harvinder Michelle MD Routine general medical examination at a health care facility (Primary Dx); Clinic [address] ANGELIKA (obstructive sleep apnea ); [address] [place] [address] CARDIOVASCULAR SCREENING; LDL GOAL LESS THAN 160[facility] -GI disorders [id number] Social History Tobacco Use Types Packs/Day Years [...] Sign Reading Time Taken Comments Blood Pressure 124/75 02/07/2011 10:18 AM CDT Pulse 54 02/07/2011 10:18 AM CDT Temperature 36.8 ??C (98.3 ??F) 02/07/2011 10:18 AM CDT Respiratory Rate 12 02/07/2011 10:18 AM CDT Oxygen Saturation 98% 02/07/2011 10:21 AM CDT Inhaled Oxygen Concentration - - Weight 99.3 kg (219 lb) 02/07/2011 10:18 AM CDT Height 181 cm (5' 11.25) 02/07/2011 10:18 AM CDT Body Mass Index 30.33 02/07/2011 10:18 AM CDT documented in this encounter Progress Notes Pinky Haines - 02/06/2011 2:11 PM CDT CC: Antelmo Farias is an 35 year old male who presents for preventative health visit. Besides routine health maintenance, hard to breath on humid days, spot on scalp that pt would like checked, also testing for celiacs disease. Healthy Habits: Do you get at least three servings of calcium containing foods daily (dairy, green leafy vegetables,etc.)? yes Outside of work or daily activities, how many days per week do you exercise for 30 minutes or longer? 1-2 Dietary Guidelines for Americans, 2010 USDA's MyPlate Estimated Body mass index is 31.24 kg/(m^2) as calculated from the following: Height as of 04/14/10: 5' 11(1.803 m). Weight as of 04/14/10: 224 lb(101.606 kg). Have you had an eye exam in the past two years? yes Do you see a dentist twice per year? Staff Signature Pinky Haines CMA PHQ-2 Over the last two weeks- Have you been bothered by little interest or pleasure in doing things? No Over the last two weeks- Have you been feeling down, depressed, or hopeless? No ABUSE: Current or Past(Physical, Sexual or Emotional)- No Do you feel safe in your environment - Yes History Substance Use Topics ??? Smoking status: Current Everyday Smoker -- 0.5 packs/day for 16 years Types: Cigarettes ??? Smokeless tobacco: Not on file ??? Alcohol Use: Yes 2 beers a day Reviewed orders with patient. Reviewed health maintenance and updated orders accordingly - No Staff Signature Liane Reyes CMA All Histories reviewed and updated in [facility]. Past Medical History Diagnosis Date ??? ANGELIKA (obstructive sleep apnea) 2005 CPAP at 5cm ??? Family hx-GI disorders 02/07/2011 oldest daughter dx with celiac sprue Past Surgical History Procedure Date ??? Hc explor maxill sinus,intranasal 04/2002 Dr. Shea Allergies Allergen Reactions ??? No Known Drug Allergies ROS: C: NEGATIVE for fever, chills, change [...] for changes in mood or affect OBJECTIVE: There were no vitals taken for this visit. GENERAL APPEARANCE: health, alert and no distress [...] no masses and bowel sounds normal MS: no musculoskeletal defects are noted and gait is age appropriate without ataxia SKIN: no suspicious lesions or rashes NEURO: Normal strength and tone, sensory exam grossly normal, mentation intact and speech normal PSYCH: mentation appears normal and affect normal/bright COUNSELING: regular exercise weight management ATP III Guidelines FRAX Risk Assessment ICSI Preventive Guidelines ASSESSMENT/PLAN: 1. Routine general medical examination at a health care facility (V70.0) CBC with platelets, Comprehensive metabolic panel, Lipid panel reflex to direct LDL, TSH with free T4 reflex 2. ANGELIKA (obstructive sleep apnea) (327.23H) 3. CARDIOVASCULAR SCREENING; LDL GOAL LESS THAN 160 (V81.2LR) Lipid panel reflex to direct LDL, CRP cardiac risk 4. Family hx-GI disorders (V18.59A) Tissue transglutaminase marisol IgA and IgG, Deamidated Giladin Peptide Marisol IgA IgG, IgA HPI ROS Physical Exam documented in this encounter Nursing Notes 02/07/2011 10:15 AM CDT >> LIANE REYES SatFeb 07, 2011 10:21 AM Patient presents with: Pre Visit Planning - Done - pvp completed - Physical - fasting labs, would like to be tested for celiac - daughter recently diagnosed Initial BP 124/75 Pulse 54 Temp(Src) 98.3 ??F (36.8 ??C) (Oral) Resp 12 Ht 5' 11.25 (1.81 m) Wt 219 lb (99.338 kg) BMI 30.33 kg/m2 Estimated Body mass index is 30.33 kg/(m^2) as calculatedfrom the following: Height as of this encounter: 5' 11.25(1.81 m). Weight as of this encounter: 219 lb(99.338 kg).. BP completed using cuff size regular HEALTH MAINTENANCE REVIEWED. Liane Reyes CMA documented in this encounter Plan of Treatment Not on filedocumented as of this encounter Procedures Procedure Name Priority Date/Time Associated Diagnosis Comme nts DEAMIDATED GLIADIN Routine 02/07/2011 10:54 Family hx-GI Resul ts for this PEPTIDE AB IGA AND IGG AM CDT disorders proce dure are in the results section. TSH WITH FREE T4 REFLEX Routine 02/07/2011 10:54 Routine gener al Results for this AM CDT medical examination procedur e are in at a health care the results facility section. TISSUE TRANSGLUTAMINASE Routine 02/07/2011 10:54 Family hx-GI Results for this MARISOL IGA AND IGG AM CDT disorders procedure ar e in the results section. LIPID REFLEX TO DIRECT Routine 02/07/2011 10:54 Routine genera l Results for this LDL PANEL AM CDT medical examination procedur e are in at a health care the results facility section. CARDIOVASCULAR SCREENING; LDL GOAL LESS THAN 160 IGA Routine 02/07/2011 10:54 Family hx-GI Results for this AM CDT disorders procedure are i n the results section. CRP CARDIAC RISK Routine 02/07/2011 10:54 CARDIOVASCULAR Resul ts for this AM CDT SCREENING; LDL GOAL procedur e are in LESS THAN 160 the results section. COMPREHENSIVE METABOLIC Routine 02/07/2011 10:54 Routine gener al Results for this PANEL AM CDT medical examination procedur e are in at a health care the results facility section. CBC WITH PLATELETS Routine 02/07/2011 10:54 Routine general Re sults for this AM CDT medical examination procedur e are in at a health care the results facility section. documented in this encounter Results IgA (02/07/2011 10:54 AM CDT) P athologist Signature IGA 231 70 - 380 [facility] mg/dL CAMPUS LABS Specimen Anatomical Collection Method Collection Time Receive d Time (Source) Location / / Volume Laterality Blood specimen 02/07/2011 10:54 1 (specimen) AM CDT 10:55 AM CDT Harvinder Michelle MD LAB - BLOOD ORDERABLES Performing Organization Address City/[facility]/ZIP Code Phon e Number [address] LABS Deamidated Giladin Peptide Marisol IgA IgG (02/07/2011 10:54 AM CDT) athologist Signature Deamidated 7 0 - 20 [facility] Gliadin Ab, IgA Units CAMPUS LABS Comment: Interpretation: Negative Deamidated Gliadin Ab, IgG 7 0 - 20 Units [facility] LABS Comment: Interpretation: Negative Specimen Anatomical Collection Method Collection Time Receive d Time (Source) Location / / Volume Laterality Blood specimen 02/07/2011 10:54 1 (specimen) AM CDT 10:55 AM CDT Harvinder Michelle MD LAB - BLOOD ORDERABLES Performing Organization Address City/[facility]/ZIP Code Phon e Number [address] LABS Tissue transglutaminase marisol IgA and IgG (02/07/2011 10:54 AM CDT) Patholo gist Method Time Signature Tissue <1.0 0 - 3.9 [facility] Transglutaminase Interpretation: ??Negative U/mL [facility] Antibody IgA CAMPUS LABS Tissue 2.7 0 - 5.9 [facility] Transglutaminase Marisol U/mL [facility] Y IgG C[facility] LABS Comment: Interpretation: Negative Specimen Anatomical Collection Method Collection Time Receive d Time (Source) Location / / Volume Laterality Blood specimen 02/07/2011 10:54 1 (specimen) AM CDT 10:55 AM CDT Harvinder Michelle MD LAB - BLOOD ORDERABLES Performing Organization Address City/[facility]/ZIP Code Phon e Number [facility] [address] LABS CRP cardiac risk (02/07/2011 10:54 AM CDT) athologist Signature CRP Cardiac 1.1 mg/L [facility] LABS Comment: Reference Values: Low Risk: ? <1.0 mg/L Average Risk: ? 1.0-3.0 mg/L High Risk: ?>3.0 mg/L Acute Inflammation: >8.0 mg/L Specimen Anatomical Collection Method Collection Time Receive d Time (Source) Location / / Volume Laterality Blood specimen 02/07/2011 10:54 1 (specimen) AM CDT 10:55 AM CDT Harvinder Michelle MD LAB - BLOOD ORDERABLES Performing Organization Address City/State/ZIP Code Phon e Number [facility] [address] LABS TSH with free T4 reflex (02/07/2011 10:54 AM CDT) athologist Signature TSH 3.36 0.4 - 5.0 [facility] Specimen Anatomical Collection Method Collection Time Receive d Time (Source) Location / / Volume Laterality Blood specimen 02/07/2011 10:54 1 (specimen) AM CDT 10:55 AM CDT Harvinder Michelle MD LAB - BLOOD ORDERABLES Performing Organization Address City/State/ZIP Code Phon e Number [facility] [address] [place] [address] [facility] LAB Lipid panel reflex to direct LDL (02/07/2011 10:54 AM CDT) athologist Signature Cholesterol 168 0 - 200 [facility] mg/dL CLINIC LAB Comment: LDL Cholesterol is the primary guide to therapy. The NCEP recommends further evaluation of: patients with cholesterol greater than 200 mg/dL if additional risk facto rs are present, cholesterol greater than 240 mg/dL, triglycerides greater than 1 50 mg/dL, or HDL less than 40 mg/dL. Triglycerides 149 0 - 150 mg/dL [facility] LAB HDL Cholesterol 46 40 - 110 mg/dL [facility] LAB LDL Cholesterol Calculated 93 0 - 129 mg/dL [facility] LAB Comment: LDL Cholesterol is the primary guide to therapy: LDL-cholesterol goal in high risk patients is <100 mg/dL and in very high risk patients is <70 mg/dL. VLDL-Cholesterol 30 0 - 30 mg/dL [facility] LAB Cholesterol/HDL Ratio 3.7 0.0 - 5.0 [facility] LAB Specimen Anatomical Collection Method Collection Time Receive d Time (Source) Location / / Volume Laterality Blood specimen 02/07/2011 10:54 1 (specimen) AM CDT 10:55 AM CDT Harvinder Michelle MD LAB - BLOOD ORDERABLES Performing Organization Address City/State/ZIP Code Phon e Number [facility] [address] [place] [address] [facility] Comprehensive metabolic panel (02/07/2011 10:54 AM CDT) athologist Signature Sodium 141 133 - 144 [facility] mmol/L [facility] Potassium 4.6 3.4 - 5.3 [facility] mmol/L [facility] Chloride 106 94 - 109 [facility] mmol/L [facility] Carbon Dioxide 25 20 - 32 [facility] mmol/L [facility] Anion Gap 11 6 - 17 [facility] mmol/L [facility] Glucose 99 60 - 99 [facility] mg/dL CLINIC LAB Urea Nitrogen 16 5 - 24 [facility] mg/dL [facility]IN[facility] LAB Creatinine 1.03 0.66 - [facility] 1.25 mg/dL CLINIC LAB GFR Estimate 82 >60 [facility] mL/min/1.7 CLINIC LAB m2 GFR Estimate If >90 >60 [facility] Black mL/min/1.7 CLINIC LAB m2 Calcium 9.4 8.5 - 10.4 [facility] mg/dL [facility] LAB Bilirubin Total 0.5 0.2 - 1.3 [facility] mg/dL [facility] LAB Albumin 4.2 3.9 - 5.1 [facility] g/dL CLIN[facility] LAB Comment: Reference range changed on 02/16. Protein Total 7.5 6.8 - 8.8 g/dL [facility] IGNAC[facility] LAB Comment: As of 07, reference range reflects plasma specimen type. Alkaline Phosphatase 55 40 - 150 U/L [facility] LAB ALT 27 0 - 70 U/L [facility] IC LAB AST 20 0 - 55 U/L [facility] CLIN IC LAB Specimen Anatomical Collection Method Collection Time Receive d Time (Source) Location / / Volume Laterality Blood specimen 02/07/2011 10:54 1 (specimen) AM CDT 10:55 AM CDT Harvinder Michelle MD LAB - BLOOD ORDERABLES Performing Organization Address City/[facility]/ZIP Code Phon e Number [facility] [address] [place] [id number] [facility] CBC with platelets (02/07/2011 10:54 AM CDT) P athologist Signature WBC 6.8 4.0 - 11.0 [facility] 10e9/L [facility] RBC Count 5.12 4.4 - 5.9 [facility] 10e12/L [facility] Hemoglobin 15.2 13.3 - [facility] 17.7 g/dL [facility] Hematocrit 43.4 40.0 - [facility] 53.0 % [facility] MCV 85 78 - 100 [facility] fl [facility] MCH 29.7 26.5 - [facility] 33.0 pg [facility] MCHC 35.0 31.5 - [facility] 36.5 g/dL [facility] RDW 12.3 10.0 - [facility] 15.0 % [facility] Platelet Count 242 150 - 450 [facility] 10e9/L [facility] Specimen Anatomical Collection Method Collection Time Receive d Time (Source) Location / / Volume Laterality Blood specimen 02/07/2011 10:54 1 (specimen) AM CDT 10:55 AM CDT Harvinder Michelle MD LAB - BLOOD ORDERABLES Performing Organization Address City/State/ZIP Code Phon e Number [facility] [id number] [place] [id number] [facility] documented in this encounter Visit Diagnoses Diagnosis Routine general medical examination at a health care facility - Primary ANGELIKA (obstructive sleep apnea) Obstructive sleep apnea (adult) (pediatr ic) CARDIOVASCULAR SCREENING; LDL GOAL LESS THAN 160 Family hx-GI disorders Family history of other digestive disord ers documented in this encounter Care Teams Software Verification Engineer Relationship Specialty Start Date End Date Harvinder Michelle MD PCP - General 12/26/01 11/16/13 [id number] [place] [address] documented as of this encounter
--- OUTSIDE RECORDS SUMMARY | 2022-03-20 14:29 | XMS_ITS | Encounter Summary ---
:1975 Author Organization [place] Address [facility] [place] [address] Care Team Providers Name Role Phone Harvinder Michelle MD Primary Care Provider Reason for Visit Auth/Cert - Closed Specialty Diagnoses / Procedures Referred By Contact Refer red To Contact Surgery Diagnoses LUMBAR HERNIATED DISC Sh Periop Services Procedures LAMINECTOMY LUMBAR POSTERIOR MICROSCOPIC ONE LEVEL [address] [place] [address] Phone: Referral ID Status Reason Start Date Expiration Date Visits Requ ested Visits Authorized [id number] Closed 1 1 Encounter Details Date Type Department Care Team Description 07/07/2013 Surgery [facility] Jefferson Michelle RIGHT L5- S1 [place] PeriOP MD Eddie MICRODISCECTOMY Services XX RESIGNED XX [address] [place] [address] [place] [address] [phone] Surgery Details Date/Time Status Location OR Service Patient Case Class Case Tr auma Class Type Case? 07/07/13 7:30 Posted OR OR M Spine Same Day Outpatient in AM 32 Surgery Bed Panel 1 Procedure LRB Anes Op Region Wound Class Commen ts RIGHT L5-S1 Right General Spine I-Clean RIGHT L5-S1 MICRODISCECTOMY MICRODISC ECTOMY Surgeon Surgeon Role Service Panel Jefferson Michelle MD Primary Spine 1 documented in this encounter Social History Tobacco Use Types Packs/Day Years [...] Sign Reading Time Taken Comments Blood Pressure 137/90 07/07/2013 9:40 AM COMPUTATIONAL THEORY SCIENTIST Pulse 52 07/07/2013 4:07 AM COMPUTATIONAL THEORY SCIENTIST Temperature 36.6 ??C (97.8 ??F) 07/07/2013 9:20 AM COMPUTATIONAL THEORY SCIENTIST Respiratory Rate 19 07/07/2013 9:40 AM COMPUTATIONAL THEORY SCIENTIST Oxygen Saturation 96% 07/07/2013 9:40 AM COMPUTATIONAL THEORY SCIENTIST Inhaled Oxygen Concentration - - Weight 104.8 kg (231 lb) 07/05/2013 1:00 PM COMPUTATIONAL THEORY SCIENTIST Height 185.4 cm (6' 1) 07/05/2013 1:00 PM COMPUTATIONAL THEORY SCIENTIST Body Mass Index 30.48 07/05/2013 1:00 PM COMPUTATIONAL THEORY SCIENTIST documented in this encounter Discharge Summaries Jefferson Michelle - 07/08/2013 10:38 AM CST [facility] Discharge Summary Antelmo Farias Date of : [...] Image Results From This Hospital Stay (For Non-[facility] Providers): Radiology results from 07/05/13 [...] be read by a radiologist or a [facility] non-radiologist provider. Most Recent Lab Results In [facility] (For Non-[facility] Providers): Most Recent 3 CBC's: [...] for this basename: TROPI:3,TROPONIN:3,TROP:3,TROPR:3,TROPONINIES:3 in the last 56045 hours Most Recent 3 INR's:No results found for this basename: INR:3 in the last 08335 hours Most Recent 2 LFT's: Recent Labs Lab Test 01/20/1391912/27/11 0858 AST 24 32 ALT 39 42 ALKPHOS 60 62 BILITOTAL 0.4 0.7 Most Recent Cholesterol Panel: Recent Labs Lab Test 01/20/13 09 CHOL 161 LDL 91 HDL 40 TRIG 156* Most Recent 6 Bacteria Isolates From Any Culture (See EPIC Reports for Culture Details):No results found for this basename: CULT:6 in the last 88887 hours Most Recent TSH, T4 and HgbA1c: Recent Labs Lab Test 01/20/1391912/27/11 0858 TSH -- 2.11 T4 -- -- A1C 5.2 -- UTATIONAL THEORY SCIENTIST documented in this encounter Discharge Instructions Discharge InstructionsWero Solomon RN - 07/08/2013 12:05 PM CST Ok to shower tomorrow. Leave steri strips on for 2 weeks. Followup in my clinic in 4 weeks. No bending, lifting more than 15 pounds, or twisting. Keep incision clean and dry. [facility] [phone] Saturday-Saturday; 8am-4:00pm Care Instructions Following Spine Surgery [...] after surgery. If you were closed with Mio villafana (glue), you may shower without covering [...] of breath Neck swelling or swallowing problems UTATIONAL THEORY SCIENTIST AttachmentsThe following attachments cannot be sent through [...] Tete Non-Provider - 07/14/2013 11:14 AM CST UTATIONAL THEORY SCIENTIST Jenny Barragan PT - 07/08/2013 11:11 AM CST 07/08/13 [...] Evaluation Time Total Evaluation Time (Minutes) 10 UTATIONAL THEORY SCIENTIST Jefferson Michelle - 07/08/2013 10:37 AM CST [facility] Neurosurgery Progress Note Jefferson Michelle MD 07/08/2013 Interval History: Radicular pain completely resolved, doing well on PO pain meds for surgical pain Assessment and Plan: j37 yo doing well POD 1 after R L5-S1 discectomy, with complete resolution of symptoms -home today -continue Benton for pain x 2 weeks then dc [...] Glucose 115 (*) 60 - 99 mg/dL UTATIONAL THEORY SCIENTIST Jefferson Michelle - 07/07/2013 9:36 AM CST [facility] Neurosurgery Progress Note Jefferson Michelle MD 07/07/2013 Interval History: Preoperatively pain is controlled on MARKETING COMMUNICATIONS SPECIALIST, 10/24 Assessment and Plan: 37 yo man [...] TM BUE 5/5 BLE 5/5 Medications: ??? [Aug] sodium chloride (PF) 3 mL Intravenous Q8H ??? [AUG HOLD] senna-docusate 1-2 tablet Oral BID ??? [AUG HOLD] HYDROmorphone Intravenous MARKETING COMMUNICATIONS SPECIALIST ??? [AUG HOLD] gabapentin 300 mg Oral TID PRN Meds: fentaNYL, ondansetron, ondansetron, prochlorperazine, HYDROmorphone, labetalol, albuterol,ceFAZolin 1000 mg + gentamicin 120 mg + NaCl 0.9% 1000 mL Bottle, thrombin, bupivacaine 0.5 % - EPINEPHrine 1:200,000, ceFAZolin, [AUG HOLD] zolpidem, [AUG HOLD] sodium chloride (PF), - MEDICATION INSTRUCTIONS -, [AUG HOLD] acetaminophen, [MAR HOLD] acetaminophen, [MAR HOLD] acetaminophen, [MAR HOLD] naloxone, [MAR HOLD] bisacodyl, [AUG HOLD] diphenhydrAMINE [AUG HOLD] diphenhydrAMINE, [AUG HOLD] ondansetron, [MAR HOLD] ondansetron, [MAR HOLD] ondansetron Data: Results for orders placed during the hospital encounter of 07/05/13 (from the past 24 hour(s)) XR SURGERY NAI LESS THAN 5 MIN FLUORO W STILLS Narrative: This exam was marked as non-reportable because it will not be read by a radiologist or a [facility] non-radiologist provider. UTATIONAL THEORY SCIENTIST Jefferson Michelle - 07/06/2013 10:01 AM CST [facility] Neurosurgery Progress Note Jefferson Michelle MD 07/06/2013 Interval History: Pain well controlled with MARKETING COMMUNICATIONS SPECIALIST Assessment and Plan: 37 yo man with [...] 1-2 tablet Oral BID ??? HYDROmorphone Intravenous MARKETING COMMUNICATIONS SPECIALIST ??? gabapentin 300 mg Oral TID PRN Meds: zolpidem, sodium chloride (PF), - MEDICATION INSTRUCTIONS -, acetaminophen, acetaminophen,acetaminophen, naloxone, bisacodyl, diphenhydrAMINE, diphenhydrAMINE, ondansetron, ondansetron, ondansetron Data: No results found for this or any previous visit (from the past 24 hour(s)). UTATIONAL THEORY SCIENTIST Grisel Waller RN - 07/05/2013 10:41 PM CST Pt states I don't need the Dilaudid overnight. when he was told that we would need to keep him on continuous pulse ox. O2 Sats are low 90s to high 80s with Cpap on. Pt refuses oxygen. UTATIONAL THEORY SCIENTIST documented in this encounter H&P Notes Jefferson Michelle - 07/05/2013 2:18 PM CST [facility] History and Physical Neurosurgery Jefferson Michelle MD [...] Oral BID ??? HYDROmorphone 0.2-0.3 mg Intravenous MARKETING COMMUNICATIONS SPECIALIST LOADING DOSE ??? HYDROmorphone Intravenous MARKETING COMMUNICATIONS SPECIALIST zolpidem, sodium chloride (PF), - MEDICATION INSTRUCTIONS [...] Relation Age of Onset ??? Heart Father [place] in 1997 ??? Family History Negative Mother [...] make it to PT). -admit for IV MARKETING COMMUNICATIONS SPECIALIST -NPO after midnight tomorrow -plan for R L5-S1 microdiscectomy on Saturday AM. Jefferson Michelle MD UTATIONAL THEORY SCIENTIST Nirmala Beltran CNA - 07/03/2013 9:43 AM CST This note is for the purpose of making the H&P performed in the clinic within the last 30 days available in the hospital surgical encounter. UTATIONAL THEORY SCIENTIST Source Note - Valdez Nolan MD - 06/30/2013 4:24 PM COMPUTATIONAL THEORY SCIENTIST History Chief Complaint: Back Pain HPI Antelmo [...] twisted his torso. He has been taking Benton without relief of his pain. Allergies: No known drug allergies Medications: Benton Ambien Past Medical History: ANGELIKA Past Surgical History: Intranasal exploratory surgery 2001 Family History: [place] - father GI disorders Marital Status: Social [...] with a herniated disc. I contacted the correctional officer captain neurosurgeon. He will be able to be [...] every 8 hours. He???ll take Medrol Dosepak. I, Ariel Deutsch, am serving as a scribe on 06/30/2013 at 4:25 PM to personally document services performed by Dr. Nolan based on my observations and the provider's statements to me. EMERGENCY DEPARTMENT Valdez Nolan MD 06/30/132101 UTATIONAL THEORY SCIENTIST Nirmala Beltran CNA - 07/03/2013 9:42 AM CST This note is for the purpose of making the H&P performed in the clinic within the last 30 days available in the hospital surgical encounter. UTATIONAL THEORY SCIENTIST Source Note - Jefferson Michelle - 07/02/2013 3:54 PM COMPUTATIONAL THEORY SCIENTIST [facility] History and Physical Neurosurgery Jefferson Michelle MD [...] Relation Age of Onset ??? Heart Father [place] in 1997 ??? Family History Negative Mother ??? Family History Negative Brother Review of Systems: The 10 point Review of Systems is negative other than noted in the HPI. Physical Exam: @FLOWREFRESH([id number]::)@, Blood pressure 133/80, pulse 69, height 6' [...] incontinence, infection, CSF leak, meningitis, wound breakdown, [place], PE, pneumonia, , failure to improve, sensory loss. He elects to proceed. Jefferson Michelle MD UTATIONAL THEORY SCIENTIST documented in this encounter Nursing Notes Lian Wylie RN - 07/07/2013 9:39 AM CST Ring returned to patient in pacu, Wearing left hand UTATIONAL THEORY SCIENTIST Fouzia Nowak RN - 07/07/2013 7:28 AM CST Baseline right buttock numbness radiating down to foot. UTATIONAL THEORY SCIENTIST documented in this encounter Miscellaneous Notes Plan of Care - Wero Solomon RN - 07/08/2013 1:01 PM CST Problem: IP GENERAL POC-ADULT,OB,BEHAVIORAL FVCPM Goal: Individualization/Patient-Specific Goal (Adult,OB,Behavioral The patient and/or their insurance account representative will achieve their patient-specific goals related to the plan of care. The patient-specific goals include: home with after surgery Herniated disc L5/S1 Surgery scheduled for 07/07 at 1000 Right L5-S1 HEMILAMINECTOMY, FORAMINOTOMY, MICRODISSECTION, DISCECTOMY on 07/07 Outcome: Adequate for Discharge Date Met: 07/08/13 Alert and oriented. CMS intact. Benton given for pain. Up independently. Discharged to home. Instructions given and reviewed, no further questions. Dressing change, CDI. UTATIONAL THEORY SCIENTIST Plan of Care - Jenny Barragan, PT - 07/08/2013 11:16 AM CST Problem: General Rehab Plan of Care Goal: Physical Therapy Goals The patient and/or their insurance account representative will achieve their patient-specific goals related [...] therapy is recommended. Walk often for exercise UTATIONAL THEORY SCIENTIST Plan of Care - Diana Bell RN - 07/08/2013 5:08 AM CST Problem: IP GENERAL POC-ADULT,OB,BEHAVIORAL FVCPM Goal: Individualization/Patient-Specific Goal (Adult,OB,Behavioral The patient and/or their insurance account representative will achieve their patient-specific goals related [...] dried drainage. Back pain medicated with prn Benton and cold pack. Up independently. Plan to discharge home today. UTATIONAL THEORY SCIENTIST Plan of Care - Jeovany Quiles RN - 07/07/2013 10:29 PM CST Problem: IP GENERAL POC-ADULT,OB,BEHAVIORAL FVCPM Goal: Individualization/Patient-Specific Goal (Adult,OB,Behavioral The patient and/or their insurance account representative will achieve their patient-specific goals related [...] diet. Incision pain well controlled with prn Benton. UTATIONAL THEORY SCIENTIST Plan of Care - Wero Solomon RN - 07/07/2013 2:26 PM CST Problem: IP GENERAL POC-ADULT,OB,BEHAVIORAL FVCPM Goal: Individualization/Patient-Specific Goal (Adult,OB,Behavioral The patient and/or their insurance account representative will achieve their patient-specific goals related to the plan of care. The patient-specific goals include: home with after surgery Herniated disc L5/S1 Surgery scheduled for 07/07 at 1000 Right L5-S1 HEMILAMINECTOMY, FORAMINOTOMY, MICRODISSECTION, DISCECTOMY on 07/07 Outcome: Improving Alert and oriented. CMS intact. Dressing CDI. Voiding. Up with SBA. Dilaudid and Benton given for back pain. BPs slightly hypertensive. Tolerating full liquid diet. UTATIONAL THEORY SCIENTIST Op Note - Jefferson Michelle - 07/07/2013 [...] the operating physicians. ? Jefferson Michelle MD UTATIONAL THEORY SCIENTIST Brief Op Note - oFuzia Nowak RN - 07/07/2013 7:27 AM COMPUTATIONAL THEORY SCIENTIST Baseline right buttock numbness radiating down to foot. UTATIONAL THEORY SCIENTIST Plan of Care - Joselin Poe RN - 07/07/2013 6:23 AM CST Problem: IP GENERAL POC-ADULT,OB,BEHAVIORAL FVCPM Goal: Individualization/Patient-Specific Goal (Adult,OB,Behavioral The patient and/or their insurance account representative will achieve their patient-specific goals related to the plan of care. The patient-specific goals include: home with after surgery Herniated disc L5/S1 Surgery scheduled for 07/07 at 1000 Outcome: No Change A&Ox4. CMS intact except RLE and right lower back numbness. Pt c/o 5-6/10 pain in lower back andright buttock, under control with dilaudid MARKETING COMMUNICATIONS SPECIALIST. Has been NPO since midnight. Showered on PM shift, and back was wiped with chlorhexidine cloths this AM at 0530 and sheets/gown were changed. Up in room independently, voiding adequately. IVF infusing. Pre-op checklist completed, consent signed and on chart. Awaiting call from OR to give report. Addendum: Called report to OR. Pt sent down with transportat 0645. UTATIONAL THEORY SCIENTIST Plan of Care - Florencio Chan RN - 07/06/2013 9:37 PM CST Problem: IP GENERAL POC-ADULT,OB,BEHAVIORAL FVCPM Goal: Individualization/Patient-Specific Goal (Adult,OB,Behavioral The patient and/or their insurance account representative will achieve their patient-specific goals related to the plan of care. The patient-specific goals include: home with after surgery Herniated disc L5/S1 Surgery scheduled for 07/07 at 1000 Outcome: No Change Pt A&O x4, VSS, CMS intact except for RLE numbness. Rt LE and buttock pain managed with MARKETING COMMUNICATIONS SPECIALIST Dilaudid. Up Ind. Voiding adequately. Surgery scheduled tomorrow AM. Consent form signed. Pt showered. Nrsg will continue to monitor. UTATIONAL THEORY SCIENTIST Plan of Care - Jillian Bryan RN - 07/06/2013 1:24 PM COMPUTATIONAL THEORY SCIENTIST Problem: IP GENERAL POC-ADULT,OB,BEHAVIORAL FVCPM Goal: Individualization/Patient-Specific Goal (Adult,OB,Behavioral The patient and/or their insurance account representative will achieve their patient-specific goals related to the plan of care. The patient-specific goals include: home with after surgery Herniated disc L5/S1 Surgery scheduled for 07/07 at 1000 Outcome: No Change Pt alert and oriented. CMS intact except right leg numbness. Up independent in room. Tolerating PO. Pain controlled to tolerable level with MARKETING COMMUNICATIONS SPECIALIST. Plan for surgery tomorrow am. UTATIONAL THEORY SCIENTIST Utilization Review - Beatriz Perez MD - 07/06/2013 10:39 AM COMPUTATIONAL THEORY SCIENTIST Admission Status; Secondary Review Determination Under the [...] pain control with intravenous narcotic to a MARKETING COMMUNICATIONS SPECIALIST. The expected length of stay at the [...] section 70.4. Sincerely, BEATRIZ PEREZ MD System Stuffing Machine Operator Utilization Review/ Case Management [facility]. UTATIONAL THEORY SCIENTIST Plan of Care - Lashell Sheppard RN - 07/06/2013 6:27 AM CST Problem: IP GENERAL POC-ADULT,OB,BEHAVIORAL FVCPM Goal: Individualization/Patient-Specific Goal (Adult,OB,Behavioral The patient and/or their insurance account representative will achieve their patient-specific goals related to the plan of care. The patient-specific goals include: home with after surgery Herniated disc L5/S1 Surgery scheduled for 07/07 at 1000 VSS. Bipap overnight. Buttocks pain 10, MARKETING COMMUNICATIONS SPECIALIST dilaudid given. A&O. IVF infusing. Up Ind. RLE numbness, baseline since pain started. Plan is to manage pain until pt goes to surgery 07/07/13. UTATIONAL THEORY SCIENTIST Plan of Care - Grisel Waller RN - 07/05/2013 10:45 PM CST Problem: IP GENERAL POC-ADULT,OB,BEHAVIORAL FVCPM Goal: Individualization/Patient-Specific Goal (Adult,OB,Behavioral The patient and/or their insurance account representative will achieve their patient-specific goals related to the plan of care. The patient-specific goals include: home with after surgery Herniated disc L5/S1 Surgery scheduled for 07/07 at 1000 Outcome: No Change A&Ox4. VSS except O2 sats in high 80s to low 90s. CMS intact. Pain controlled with Dilaudid MARKETING COMMUNICATIONS SPECIALIST and gabapentin. Up independently in room. UTATIONAL THEORY SCIENTIST Plan of Care - Gabriela Boss RN - 07/05/2013 7:08 PM CST Problem: IP GENERAL POC-ADULT,OB,BEHAVIORAL FVCPM Goal: Individualization/Patient-Specific Goal (Adult,OB,Behavioral The patient and/or their insurance account representative will achieve their patient-specific goals related to the plan of care. The patient-specific goals include: home with after surgery Herniated disc L5/S1 Surgery scheduled for 07/07 at 1000 Outcome: No Change Pt a/ox4 with VSS and CMS with RLE numbness and tingling when OOB. Slightly weaker flexion in RLE. Using dilaudid MARKETING COMMUNICATIONS SPECIALIST for pain, see provider note regarding dosing. Up in room independently, pt has beenencouraged to stay in bed per MD and nursing. Tolerating reg diet. Plan for OR 07/07 UTATIONAL THEORY SCIENTIST Provider Notification - Gabriela Boss RN - 07/05/2013 3:34 PM COMPUTATIONAL THEORY SCIENTIST MD called to clarify NPO status, pts or is 07/08 can have reg diet until 07/07 [place]. Call to MD regarding pain control issues, per MD ok to increase MARKETING COMMUNICATIONS SPECIALIST up to 0.4- 0.8 q10m but start pt with 0.3 q10 and seehow it is tolerated prior to increasing dose. Order for TID neuronin rec'd. UTATIONAL THEORY SCIENTIST documented in this encounter Plan of Treatment Not on filedocumented as of this encounter Procedures Procedure Name Priority Date/Time Associated Comments Diagnosis GLUCOSE BY METER Routine 07/08/2013 6:10 AM Resul ts for this COMPUTATIONAL THEORY SCIENTIST procedure are i n the results section. XR CROSSTABLE Routine 07/07/2013 8:26 AM Results for this LATERAL LUMBAR SPINE COMPUTATIONAL THEORY SCIENTIST procedu re are in PORTABLE the results section. XR SURGERY NAI Routine 07/07/2013 8:20 AM Result s for this FLUORO LESS THAN 5 COMPUTATIONAL THEORY SCIENTIST procedure are in MIN W STILLS the results section. LAMINECTOMY, SPINE, 07/07/2013 7:27 AM LUMBAR HERNIATE D LUMBAR, 1 LEVEL, COMPUTATIONAL THEORY SCIENTIST DISC POSTERIOR APPROACH, USING MICROSCOPE documented in this encounter Results (ABNORMAL) Glucose by meter (07/08/2013 6:10 AM COMPUTATIONAL THEORY SCIENTIST) P athologist Signature Glucose 115 (H) 60 - 99 POINT OF CARE mg/dL TEST, GLUCOSE Specimen Anatomical Collection Method Collection Time Receive d Time (Source) Location / / Volume Laterality 07/08/2013 6:10 AM 4 6:30 COMPUTATIONAL THEORY SCIENTIST AM COMPUTATIONAL THEORY SCIENTIST Jefferson LIGHT POCT Performing Organization Address City/State/ZIP Code Phon e Number FV POINT OF CARE TEST, GLUCOSE POINT OF CARE TEST, GLUCOSE XR Lumbar Spine Port 1 View (07/07/2013 8:26 AM COMPUTATIONAL THEORY SCIENTIST) Anatomical Region Laterality Modality Spine Computed Radiography Specimen (Source) Anatomical Location Collection Method / Collectio n Time Received Time / Laterality Volume Narrative 07/07/2013 9:40 AM COMPUTATIONAL THEORY SCIENTIST XR LUMBAR SPINE PORT 1 VW ??07/07/2013 [...] MARIA M NUNN MD Jefferson Michelle MD [facility] DIAGNOSTIC IMAGING ORDER YAMILETH XR Surgery NAI L/T 5 Min Fluoro w Stills (07/07/2013 8:20 AM COMPUTATIONAL THEORY SCIENTIST) Anatomical Region Laterality Modality Abdomen/Pelvis Computed Radiography Specimen (Source) Anatomical Location Collection Method / Collectio n Time Received Time / Laterality Volume Narrative 07/07/2013 8:25 AM COMPUTATIONAL THEORY SCIENTIST This exam was marked as non-reportable because it will not be read by a radiologist or a [facility] non-radiologis t provider. Procedure Note Kemi Diehl - 07/07/2013Formatt ing of this note might be different from the original. This exam was marked as non-reportable b ecause it will not be read by a radiologist or a [facility] non-radiologist provider. Jefferson Michelle MD [facility] DIAGNOSTIC IMAGING ORDER YAMILETH documented in this encounter Visit Diagnoses Not on filedocumented in this encounter Administered Medications Inactive Administered Medications - up to 3 most recent administrations Medication Order MAR Action Action Date Dose Rate Site bupivacaine 0.5 % - Given 07/07/2013 9:05 AM 10 mLs Operative EPINEPHrine 1:200,000 COMPUTATIONAL THEORY SCIENTIST Sit e/Surgical Site injection PRN, Starting on Sat07/07/13 at 0905, Intra-procedure ceFAZolin 1000 mg + Given 07/07/2013 8:09 AM 1,000 mLs Operative gentamicin 120 mg + NaCl COMPUTATIONAL THEORY SCIENTIST Site/Surgical Site 0.9% 1000 mL Bottle PRN, Starting on 1/21/14 at 0809, Intra-procedure thrombin 5000 UNITS vial Given 07/07/2013 8:09 AM 5,000 Units Operative PRN, Starting on Sat COMPUTATIONAL THEORY SCIENTIST Site /Surgical Site 07/07/13 at 0809, Apply to , Intra-procedure documented in this encounter Active and Recently Administered Medications Times are shown in COMPUTATIONAL THEORY SCIENTIST. Scheduled Medication Order 07/06/2013 07/07/2013 07/08/2013 ceFAZolin (ANCEF) 1 g vial to attach to IVPB (COMPLETED) 1655 (New Bag - Provider: Jeovany Quiles, TIERRA) Routine, 1 g, Intravenous, ONCE, On Sat07/07/13 at 1600, For 1 dose, Indications: Perioperative Pharmacoprophylaxis, Post-procedure ceFAZolin (ANCEF) IVPB 2 g (pre-mix) (COMPLETED) 0722 (Handoff - Provider: Fouzia Nowak RN - Comment: sent to surgery)0747 (Given - Provider: Lisandra Scherer APRN [employer]ALYST PLANT SUPERVISOR) 2 g, Intravenous, PRE-OP/PRE-PROCEDURE, For 1 dose, Give first dose within 1 hour PRIOR to incision., Indications: Surgical Prophylaxis, Pre-procedure gabapentin (NEURONTIN) capsule 300 mg (CANCELED) 0820 (Given - Provider: Jillian Bryan, TIERRA)1632 (Given - Provider: Florencio Chan RN)2210 (Given - Provider: Florencio Chan RN) 0755 (Auto Hold - Provider: Orders Generic Provider - Reason: Transfer to a procedural area)0900 (Automatically Held - Provider: Orders Generic Provider)1041 (Unhold - Provider: Orders Generic Provider) 300 mg, Oral, 3 TIMES DAILY, First dose on Sat07/05/13 at 1630 HYDROmorphone (DILAUDID) MARKETING COMMUNICATIONS SPECIALIST 1 mg/mL (CANCELED) 0101 ( New Syringe/Cartridge - Provider: Lashell Sheppard, TIERRA)0630 (New Syringe/Cartridge - Provider: Lashell Sheppard RN)0951 (Rate/Dose Verify - Provider: Jillian Bryan RN) 0006 (Rate/Dose Verify - Provider: Joselin Poe, RN)0150 (Canceled Entry - Provider: Joselin Poe, TIERRA - Comment: verified dose at beginning of shift)0553 (Shift Total - Provider: Joslein Poe, RN) MARKETING COMMUNICATIONS SPECIALIST dose (mg): 0.2, Max MARKETING COMMUNICATIONS SPECIALIST dose (mg): 0 .3, Lockout Interval (min): 10 minutes, MARKETING COMMUNICATIONS SPECIALIST Continuous Rate (mg/hr): CONTINUOUS RATE IS NOT RECOMMENDED FOR OPIOID NAIVE PATIENTS, Hour Limit (mg): 1.8, Starting 1422 (New Syringe/Cartridge - Provider: Jillian Bryan, RN)1917 (Shift Total - Provider: Florencio Chan [...] Reason: IV Infusing)2210 (Given - Provider: Florencio Chan RN) 0555 (Not Given - Provider: Joselin Poe RN - Reason: IV Infusing)0755 (Auto Hold - Provider: Orders Generic Provider - Reason: Transfer to a procedural area)1041 (Unhold - Provider: Orders Generic Provider) 3 mL, Intravenous, EVERY 8 HOURS, First dose on 07/05/14 at 1415, And Q1H PRN, to lock peripheral IV dormant line. sodium chloride (PF) 0.9% PF flush 3 mL (CANCELED) 1153 (Given - Provider: Wero Solomon, RN)2026 (Given - Provider: Jeovany Quiles, RN) 0407 (Given - Provider: Diana Bell, TIERRA)1200 [...] D) 0004 (Rate/Dose Change - Provider: Joselin Poe, TIERRA) at 75 mL/hr, Intravenous, CONTINUOUS lactated ringers [...] Starting Sat07/07/13 at 1101, Hold while on MARKETING COMMUNICATIONS SPECIALIST or with regular IV opioid dosing. Maximum [...] RN) 0.3-0.5 mg, Intravenous, EVERY 1 HOUR VA N, Starting Sat07/07/13 at 1101, Until Sat07/08/13 at 1437, severe pain, or patient unable to take PO, Post-procedure, Hold while on MARKETING COMMUNICATIONS SPECIALIST. thrombin 5000 UNITS vial (CANCELED) 0809 (Given - Provider: Jefferson Michelle) PRN, Starting Sat07/07/13 at 0809, Apply to , Intra-procedure documented in this encounter Care Teams Medical Auditor Relationship Specialty Start Date End Date Harvinder Michelle MD PCP - General 12/26/01 11/16/13 [address] [id number] documented as of this encounter
--- OUTSIDE RECORDS SUMMARY | 2022-03-20 14:29 | XMS_ITS | Encounter Summary ---
:1975 Author Organization [facility] Address [address] [place] [address] Care Team Providers Name Role Phone Harvinder Michelle MD Primary Care Provider Reason for Visit Reason Comments Back Pain Right lumbar back pain, radi ates down right leg, started 3 days ago. Has been taking [place] from PMD w [facility] relief. 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); [facility] Emergency MD Sanchez LBP (low back pain) Dept XXX MOVED OUT OF [address] [place] [address] [place] [id number] [place], [place] [phone] [id number] Social History Tobacco Use Types Packs/Day Years [...] Sign Reading Time Taken Comments Blood Pressure 127/84 06/30/2013 7:50 PM SPOOLER Pulse 81 06/30/2013 7:50 PM SPOOLER Temperature 36.6 ??C (97.8 ??F) 06/30/2013 7:50 PM SPOOLER Respiratory Rate 16 06/30/2013 7:50 PM SPOOLER Oxygen Saturation 97% 06/30/2013 7:50 PM SPOOLER Inhaled Oxygen Concentration - - Weight 104.8 kg (231 lb) 06/30/2013 4:15 PM SPOOLER Height 185.4 cm (6' 1) 06/30/2013 4:15 PM SPOOLER Body Mass Index 30.48 06/30/2013 4:15 PM SPOOLER documented in this encounter Discharge Instructions Discharge InstructionsValdez Nolan MD - 06/30/2013 7:23 PM SPOOLER Discharge Instructions Back Pain You were seen today for back pain. Back pain can have many causes, but most will get better without surgery or other specific treatment. Sometimes there is a herniated (???slipped?? ) disc. We don???t usually do MRI scans to look for these right away, since most herniated discs will get better on their own with time. Today, we did not find any evidence that your back pain was caused by a serious condition, such as an infection, fracture, or tumor. However, sometimes symptoms develop over time and cannot be found during an emergency visit, so it is very important that you follow up with your primarydoctor. Return to the Emergency Department if: You develop a fever with your back pain. You have weakness or change in sensation in one or both legs. You lose control of your bowels or bladder, or can???t empty your bladder. Your pain gets much worse. Follow-up with your doctor: Unless your pain has completely gone away, please make an appointment with your doctor within one week. You may need further management of your back pain, such as more pain medication, imaging such asan X-ray or MRI, or physical therapy. What can I do to help myself? Remain active -- People are often afraid that they will hurt their back further or delay recovery by remaining active, but this is one of the best things you can do for your back. In fact, prolonged bed rest is not recommended. Studies have shown that people with low back pain recover faster when they remain active. Movement helps to bring blood flow to the muscles and relieve muscle spasms as well as preventing loss of muscle strength. Heat -- Using a heating pad can help with low back pain during the first few weeks. Do not sleep with a heating pad, as you can be burned. Pain medications -- Take a pain medication such as, acetaminophen (Tylenol??), ibuprofen (Advil??, Nuprin ??) or naproxen (Aleve??). If you have been given a narcotic (such as codeine, hydrocodone, oroxycodone) or a muscle relaxant (such as Flexeril ?? or Soma ??), do not drive for four hours after you have taken it. If the narcotic contains acetaminophen (Tylenol), do not take Tylenol with it. Allnarcotics will cause constipation, so eat a high fiber diet. Remember that you can always come back to the Emergency Department if you are not able to see your regular doctor in the amount of time listed above, if you get any new symptoms, or if there is anything that worries you. LER documented in this encounter Medications at Time of Discharge Medication Sig Dispensed Refills Start Date End Date HYDROcodone-acetaminophen Take 1 tablet by 42 tablet 0 06/1707/08/2013 (NORCO) 5-325 MG per mouth every 6 hours tabletIndications: LBP as needed for pain (low back pain), Sciatica, unspecified laterality, Lumbar radiculopathy HYDROmorphone (DILAUDID) 2 Take 1-2 tablets 20 tablet 0 07/03/2013 MG tablet (2-4 mg) by mouth every 6 hours as needed for pain ibuprofen (ADVIL,MOTRIN) Take 4 tablets (800 1 tablet 0 07/08/2013 200 MG tablet mg) by mouth every 8 hours as needed for pain methylprednisoLONE (MEDROL Take 1 tablet (4 1 tablet 0 07/08/2013 DOSEPACK) 4 MG tablet mg) by mouth See Admin Instructions ORDER FOR DMEIndications: CPAP supplies 1 Device 0 010 07/08/2013 Sleep apnea zolpidem (AMBIEN) 10 MG Take 0.5-1 tablets 30 tablet 0 06/1710/15/2013 tabletIndications: Lumbar (5-10 mg) by mouth radiculopathy nightly as needed for sleep documented as of this encounter ED Notes Hyacinth Woods RN - 07/05/2013 9:01 AM CST I received a phone call from Dr Michelle stating he took a phone call from a pt who told him he was advised via [facility] Line to call his MD to be directly admitted to hospital for pain control. Icalled the nurse line and was told the notes in this pt's chart only directed the pt to call his MD,there was no mention of informing the pt that he could or would be directly admitted for pain control. RN stated he was never told as such. She also reiterated that the nurse line never advises or states anything regarding direct admits, only to call their MD or come to the ED if needed. LER Gerald Russ - 06/30/2013 5:08 PM CST Pt to MRI LER Gerald Russ - 06/30/2013 4:50 PM CST Pt to MRI LER Valdez Nolan MD - 06/30/2013 4:24 PM CST History Chief Complaint: Back Pain HPI Antelmo [...] twisted his torso. He has been taking [place] without relief of his pain. Allergies: No known drug allergies Medications: L[place]field Ambien Past Medical History: ANGELIKA Past Surgical History: Intranasal exploratory surgery 2002 Family History: [place] - father GI disorders Marital Status: Social [...] with a herniated disc. I contacted the [facility] neurosurgeon. He will be able to be [...] me. EMERGENCY DEPARTMENT Valdez Nolan MD 06/30/132101 LER documented in this encounter Miscellaneous Notes Initial Assessments - Tete Non-Provider - 07/07/2013 12:00 PM CST LER documented in this encounter Plan of Treatment Not on filedocumented as of this encounter Procedures Procedure Name Priority Date/Time Associated Comments Diagnosis MR LUMBAR SPINE W/O STAT 06/30/2013 5:54 PM Re sults for this CONTRAST SPOOLER procedure are i n the results section. CBC WITH PLATELETS & STAT 06/30/2013 4:45 PM R esults for this DIFFERENTIAL SPOOLER procedure are i n the results section. BASIC METABOLIC PANEL STAT 06/30/2013 4:45 PM Results for this SPOOLER procedure are i n the results section. documented in this encounter Results MR Lumbar Spine w/o Contrast (06/30/2013 5:54 PM SPOOLER) Anatomical Region Laterality Modality Spine, SUBRAD MR MSK, UMP MR SPINE Magne tic Resonance Specimen (Source) Anatomical Location Collection Method / Collectio n Time Received Time / Laterality Volume Impressions 06/30/2013 5:59 PM SPOOLER IMPRESSION: Moderate-sized right central disc protrusion L5-S1 displacing right S1 nerve root posterior ly. GRISELDA HEREDIA MD Narrative 06/30/2013 5:59 PM SPOOLER MR LUMBAR SPINE W/O CONTRAST 06/30/2013 5:54 PM HISTORY: ??Low back and right leg pain. COMPARISON: None. TECHNIQUE: Routine MR lumbar spine T12-S 2. FINDINGS: Alignment is normal from T12 t hrough the upper sacrum. Conus lies at mid L1 and appears normal. No pa raspinous soft tissue abnormality. Findings by level as follow s: L3-4: Minimal annular bulge. No focal di sc protrusion. No central or lateral stenosis. 045: Minimal annular bulge. No focal dis c protrusion. No central or lateral stenosis. L5-S1: Mild disc space narrowing and deh ydration the disc material. Moderate sized broad-based right central disc protrusion displacing the right S1 nerve root posteriorly. No lateral stenosis. Procedure Note Griselda Heredia MD - 06/30/2013Forma tting of this note might be different from the original. MR LUMBAR SPINE W/O CONTRAST 06/30/2013 5 :54 PM HISTORY: Low back and right leg pain. COMPARISON: None. TECHNIQUE: Routine MR lumbar spine T12-S 2. FINDINGS: Alignment is normal from T12 t hrough the upper sacrum. Conus lies at mid L1 and appears normal. No pa raspinous soft tissue abnormality. Findings by level as follow s: L3-4: Minimal annular bulge. No focal di sc protrusion. No central or lateral stenosis. 045: Minimal annular bulge. No focal dis c protrusion. No central or lateral stenosis. L5-S1: Mild disc space narrowing and deh ydration the disc material. Moderate sized broad-based right central disc protrusion displacing the right S1 nerve root posteriorly. No lateral stenosis. IMPRESSION IMPRESSION: Moderate-sized right central disc protrusion L5-S1 displacing right S1 nerve root posterior ly. GRISELDA HEREDIA MD Valdez Nolan MD IMG MRI ORDERABLES (ABNORMAL) Basic metabolic panel (06/30/2013 4:45 PM SPOOLER) P athologist Signature Sodium 138 133 - 144 [place] mmol/L [facility] Potassium 4.8 3.4 - 5.3 [place] mmol/L [facility] Chloride 101 94 - 109 [place] mmol/L [facility] Carbon Dioxide 30 20 - 32 [place] mmol/L [facility] Anion Gap 8 6 - 17 [place] mmol/L [facility] Glucose 102 (H) 60 - 99 [place] mg/dL [facility] Urea Nitrogen 21 5 - 24 [place] mg/dL [facility] Creatinine 0.93 0.66 - [place] 1.25 mg/dL [facility] GFR Estimate >90 >60 [place] mL/min/1.[address] LAB GFR Estimate If >90 >60 [place] Black mL/min/1.[address] LAB Calcium 9.4 8.5 - 10.4 [place] mg/dL [facility] Specimen Anatomical Collection Method Collection Time Receive d Time (Source) Location / / Volume Laterality Blood specimen 06/30/2013 4:45 PM 014 4:54 (specimen) SPOOLER PM SPOOLER Valdez Nolan MD LAB - BLOOD ORDERABLES Performing Organization Address City/State/ZIP Code Phon e Number [facility] [address] [place] [address] [facility] CBC with platelets differential (06/30/2013 4:45 PM SPOOLER) Patholo gist Method Time Signature WBC 8.0 4.0 - [place] 11.0 [facility] 10e9/L [facility] RBC Count 5.03 4.4 - 5.9 [place] 10e12/L [facility] Hemoglobin 15.2 13.3 - [facility] 17.7 g/dL [facility] Hematocrit 42.2 40.0 - [facility] 53.0 % [facility] MCV 84 78 - 100 [facility] MCH 30.2 26.5 - [place] 33.0 pg [facility] MCHC 36.0 31.5 - [place] 36.5 g/dL [facility] RDW 11.7 10.0 - [place] 15.0 % [facility] Platelet Count 245 150 - 450 [place] 10e9/L [facility] Diff Method Automated [place] Method [facility] % Neutrophils 61.2 % [facility] % Lymphocytes 25.1 % [facility] % Monocytes 9.4 % [facility] % Eosinophils 3.6 % [facility] % Basophils 0.4 % [facility] % Immature 0.3 % [place] Granulocytes [facility] Absolute 4.9 1.6 - 8.3 [place] Neutrophil 10e9/L [facility] Absolute 2.0 0.8 - 5.3 [place] Lymphocytes 10e9/L [facility] Absolute 0.8 0.0 - 1.3 [place] Monocytes 10e9/L [facility] Absolute 0.3 0.0 - 0.7 [place] Eosinophils 10e9/L [facility] Absolute 0.0 0.0 - 0.2 [place] Basophils 10e9/L [facility] Abs Immature 0.0 0 - 0.4 [place] Granulocytes 10e9/L [facility] Specimen Anatomical Collection Method Collection Time Receive d Time (Source) Location / / Volume Laterality Blood specimen 06/30/2013 4:45 PM 014 4:54 (specimen) SPOOLER PM SPOOLER Valdez Nolan MD LAB - BLOOD ORDERABLES Performing Organization Address City/State/ZIP Code [facility] e Number [facility] [address] [address] [facility] documented in this encounter Visit Diagnoses Diagnosis Displacement of lumbar intervertebral di sc without myelopathy - Primary LBP (low back pain) Lumbago documented in this encounter Administered Medications Inactive Administered Medications - up to 3 most recent administrations Medication Order MAR Action Action Date Dose Rate Site dexamethasone (DECADRON) injection Given 06/30/2013 6:59 PM SPOOLER 10 mg 10 mg 10 mg, Intravenous, ONCE, On Sat06/30/13 at 1845, For 1 dose HYDROmorphone (PF) (DILAUDID) injection 1 mg Given 06/30/2013 4:43 PM SPOOLER 1 mg 1 mg, Intravenous, EVERY 15 MIN PRN, moderate to severe pain, Starting on Sat06/30/13 at 1626, For 3 doses ketorolac (TORADOL) injection 30 mg Given 06/30/2013 4:43 PM SPOOLER 30 mg 30 mg, Intravenous, ONCE, On Sat06/30/13 at 1630, For 1 dose documented in this encounter Active and Recently Administered Medications Times are shown in SPOOLER. Scheduled Medication Order 06/28/2013 06/29/2013 06/30/2013 dexamethasone (DECADRON) injection 10 mg (COMPLETED) 185 (Given - Provider: Nupur Ball, TIERRA) 10 mg, Intravenous, ONCE, 06/30/13 at 1845, For 1 dose ketorolac (TORADOL) injection 30 mg (COMPLETED) 164 (Given - Provider: Nupur Ball, TIERRA) 30 mg, Intravenous, ONCE, Sat06/30/13 at 1630, For 1 dose PRN Medication Order 06/28/2013 06/29/2013 06/30/2013 HYDROmorphone (PF) (DILAUDID) injection 1 mg (CANCELED) 164 (Given - Provider: Nupur Ball, TIERRA) 1 mg, Intravenous, EVERY 15 MIN PRN, 3 d oses, Starting Sat06/30/13 at 1626, Until Sat06/30/13 at 2153, moderate to severe pain documented in this encounter Care Teams Customer Service Supervisor Relationship Specialty Start Date End Date Harvinder Michelle MD PCP - General 12/26/01 11/16/13 [address] [id number] documented as of this encounter
--- OUTSIDE RECORDS SUMMARY | 2022-03-20 14:29 | XMS_ITS | Encounter Summary ---
:1975 Author Organization [facility] Address [address] [place] [address]. [place] [address] Care Team Providers Name Role Phone Harvinder Michelle MD Primary Care Provider Reason for Visit (Routine) - Closed Specialty Diagnoses / Procedures Referred By Contact Refer red To Contact Cardiology Diagnoses ECHOCARDIOGRAPHY COMPLETE W/O CONTRAST* Procedure Notes: shortness of breath Zz Sh Cardiology Img Procedures RADIOLOGY [address] [place] [address] Phone: Referral ID Status Reason Start Date Expiration Date Visits Requ ested Visits Authorized [id number] Closed 02/26/2013 02/26/2014 1 1 Encounter Details Date Type Department Care Team Description 03/09/2013 Hospital Encounter [facility], Radiology - P Heart MD Imaging [place] [facility] [address] [place] [facility] [address] [place] [address] [address] [place] [address] (Wo rk) Social History Tobacco Use Types [...] Sig Dispensed Refills Start Date End Date ORDER FOR DMEIndications: Sleep CPAP supplies 1 Device 0 1 07/08/2013 apnea documented as of this encounter Plan of Treatment Not on filedocumented as of this encounter Procedures Procedure Name Priority Date/Time Associated Diagnosis Comme nts ECHO COMPLETE Routine 03/09/2013 7:29 AM Results for this CDT procedure are i n the results section . documented in this encounter Results Echocardiogram (03/09/2013 7:29 AM CDT) [facility] Method Time Signature [facility] Interpretation Summary RESULTS This was essentially a normal study. The visual ejection fraction is estimated at 55-60%. N ormal left ventricular diastolic function The right ventricle is normal in si ze and function. Right ventricle systolic pressure estimate normal Ther e is no pericardial effusion. The rhythm was normal sinus. The IVC is normal in size and r eactivity with respiration, suggesting normal central venous pr essure. Normal chamber sizes. Normal valvular structure and function. PatientHeight: 73 in PatientWeight: 222 lbs SystolicPressure: 120 mmHg DiastolicPressure: 88 mmHg HeartRate: 56 bpm BSA 2.2 m^2 Left Ventricle The left ventricle is normal in size. There is normal left ventricular wall thickness. The visual ejection fraction is estimated at 55-60%. E by E prime ratio is less than 8, that likely suggests norm al left ventricular filling pressures. Normal left ventricular diastolic function. Normal left ventricular wall motion. Right Ventricle The right ventricle is normal in size and function. Atria Normal left atrial size. Right atrial size is normal. There is no color Doppler evidence of an atrial shunt. Mitral Valve The mitral valve is normal in structure and function. There is physiologic mitral regurgitation. Tricuspid Valve The tricuspid valve is normal in structure and function. There is physiologic tricuspid regurgitation. The right ventricular systolic pressure is approximated at 18 mmHg plus the right atrial pressure. Normal IVC (1.5-2.5cm) with >50% respiratory collapse; right atrial pressure is estimated at 5-10mmHg. Right ventricle systolic pressure estimate normal. Aortic Valve The aortic valve is normal in structure and function. There is physiologic aortic regurgitation. Pulmonic Valve The pulmonic valve is not well seen, but is grossly normal. There is no pulmonic valvular regurgitation. Normal pulmonic valve velocity. Vessels The aortic root is normal size. Normal size ascending aorta. The IVC is normal in size and reactivity with respirat ion, suggesting normal central venous pressure. Pericardium There is no pericardial effusion. Rhythm The rhythm was normal sinus. Procedure Complete Echo Adult. MMode 2D Measurements & Calculations IVSd: 1.1 cm LVIDd: 4.0 cm LVIDs: 3.4 cm LVPWd: 0.96 cm FS: 15 % LV mass(C)d: 132 grams Ao root diam: 3.0 cm LA dimension: 4.1 cm LA/Ao: 1.4 Doppler Measurements & Calculations TR Max lex: 211 cm/sec TR Max P mmHg Interpreting Physician: ??Sanchez Elaine MD electronically signed on 03-09-2013 09:05:24 Anatomical Region Laterality Modality Echocardiography Specimen (Source) Anatomical Collection Method Collection Time Re ceived Time Location / / Volume Laterality 03/09/2013 7:29 AM CDT Claus Ro MD CV ECHO ORDERABLES documented in this encounter Visit Diagnoses Not on filedocumented in this encounter Care Teams Java Xml Developer Relationship Specialty Start Date End Date Harvinder Michelle MD PCP - General 12/26/01 11/16/13 [address] [id number] documented as of this encounter
--- OUTSIDE RECORDS SUMMARY | 2022-03-20 14:29 | XMS_ITS | Encounter Summary ---
:1975 Author Organization [facility] Address [address] [place] [address] Care Team Providers Name Role Phone Harvinder Michelle MD Primary Care Provider Reason for Visit Auth/Cert - Closed Specialty Diagnoses / Procedures Referred By Contact Refer red To Contact Surgery Diagnoses LUMBAR HERNIATED DISC Sh Periop Services Procedures LAMINECTOMY LUMBAR POSTERIOR MICROSCOPIC ONE LEVEL [address] [place] [address] Phone: Referral ID Status Reason Start Date Expiration Date Visits Requ ested Visits Authorized [id number] Closed 1 1 Encounter Details Date Type Department Care Team Description 07/07/2013 Anesthesia Event M [facility] Florencio Maddox PeriOP Ser vicemendy Boyle DO [address] ANESTHESIA [facility] [address] [place] [address] [place] [address] [phone] (Wo rk) Anesthesia Record Procedure Summary Procedure Name Responsible Anesthesia Start Anesthesia Stop Anesthesiologist Time Time RIGHT L5-S1 Florencio Maddox, 07/07/13 0727 0920 MICRODISCECTOMY (Right DO Spine) Events Date Time Event Comment 07/07/2013 0727 An Start 0730 An Start Data 0737 An Induction 0738 AN START SEVO 0739 An Intubation 0804 AN INCISION 0812 0909 AN END SEVO 0911 An Emergence 0912 AN Extubation 0915 an stop data 0920 An Stop Electronically s igned by Lisandra Scherer on July 07, 2013 9:20 AM Name Total dexamethasone 4 mg/mL 4 mg fentaNYL 50 mcg/mL 150 mcg glycopyrrolate 0.2 mg/mL 0.4 mg lidocaine 2% 80 mg midazolam 1 mg/mL 2 mg neostigmine 1mg/mL 4 mg ondansetron 2 mg/mL 4 mg propofol 10 mg/mL 200 mg rocuronium 10 mg/mL 50 mg vecuronium 1 mg/mL 3 mg ceFAZolin (ANCEF) IVPB 2 g (pre-mix) 2 g LR 1,400 mL Agents Name O2 N2O Exp Sevoflurane Ins Sevoflurane Blood No blood administrations on file. Lines, Drains, and Airways Type Details Placement Removal Peripheral IV 07/05/13; 1433; 20 G, 1 07/05/13 1433 by 4 0720 by 1/4 inch; Left; Lower Prudence Stephens RN Albrech t-Greco, forearm; Cephalic vein; Fouzia kemp RN Chlorhexidine; None; Tolerated well Peripheral IV 07/07/13; 0720; 18 G, 1 07/07/13 0720 by 4 1100 by 1/4 inch; Left; Hand; Neha Nowak Bri nn, RN Chlorhexidine; None; Fouzia Lopez RN Tolerated well RETIRED ETT 07/07/13; 0739; Airway 07/07/13 0739 by 07/08/13 1259 by Size: 8; Cuffed; Oral Lisandra Scherer Nitti, Brinn, RN endotracheal tube; Blade AUTO ACCESSORIES INSTALLER MITOCHONDRIAL DISORDERS COUNSELOR Type: Marilu; Blade Size: 3; Place by: [email or web address]; Insertion Attempts: 1; Secured at (cm)to lip: 22 cm; Breath Sounds: Equal, clear and bilateral; End Tidal CO2: Present; Dentition: Intact; Grade View of Cords: 2 Incision/Surgical Site 07/07/13; 0859; Lower; 07/07/13 0859 by 0 07/08/13 1259 by Back; 07/08/13; 1259 Bonifacio Garces RN Nitti, Brinn, RN RETIRED ETT 07/07/13; 0912 07/07/13 0912 by 07/08/13 1607 b y Lisandra Scherer Nitti, Brinn, RN AUTO ACCESSORIES INSTALLER MITOCHONDRIAL DISORDERS COUNSELOR documented in this encounter Social History Tobacco Use Types Packs/Day Years Used Date Current Some Day Smoker Cigarettes 25 16 Smokeless Tobacco: Never Used Alcohol Use Standard Drinks/Week Comments Yes 0 (1 standard drink = 0.6 oz pure alcoho l) 2 beers a day Sex Assigned at Date Recorded Not on file documented as of this encounter OR Notes Anesthesia Postprocedure Evaluation - Florencio Maddox DO - 07/07/2013 12:28 PM CST Anesthesia Post-Evaluation Note Patient: Antelmo Farias Patient location: PACU Procedure(s) Performed: Procedure(s) with comments: LAMINECTOMY LUMBAR POSTERIOR MICROSCOPIC ONE LEVEL - RIGHT L5-S1 MICRODISCECTOMY Anesthesia type: General, ETT Post Op Diagnosis: * No post-op diagnosis entered *. Post Op Diagnosis Additional Comments:No value filed. Patient Condition Respiratory Function (RR / SpO2 / Airway Patency): Satisfactory Cardiac Function (HR / Rhythm / BP): Satisfactory Mental Status: Satisfactory Temperature: Satisfactory Pain Control: Satisfactory PONV: None Beta-Jyoti Therapy: None indicated Hydration Status: Satisfactory Last Vitals: Filed Vitals: 07/07/13 1125 07/07/13 1145 07/07/13 1152 BP: 143/89 145/86 Pulse: Temp: 37 ??C (98.6 ??F) Resp: 16 16 16 SpO2: 94% 92% Additional Comments: ATRIC NEPHROLOGIST Anesthesia Preprocedure Evaluation - Florencio Maddox DO - 07/07/2013 6:27 AM CST ANESTHESIA PREOP EVALUATION NPO Status: Procedure: Right L5 S1 microdiscectomy laminectomy HPI: 37yoM male with S1 radiculopathy. PMHx/PSHx/ROS: PAST MEDICAL HISTORY: Past Medical History Diagnosis Date ??? ANGELIKA (obstructive sleep apnea) 2005 CPAP at 5cm ??? Family hx-GI disorders 02/07/2011 oldest daughter dx with celiac sprue PAST SURGICAL HISTORY: Past Surgical History Procedure Date ??? Hc explor maxill sinus,intranasal 04/2002 Dr. Shea FAMILY HISTORY: Family History Problem Relation Age of Onset ??? Heart Father [place] in 1997 ??? Family History Negative Mother ??? Family History Negative Brother Past Anes Hx: No personal or family h/o anesthesia problems Soc Hx: Tobacco: current EtOH: occ Allergies: Allergies Allergen Reactions ??? No Known Drug Allergies Meds: Prescriptions prior to admission Medication Sig Dispense Refill ??? HYDROmorphone (DILAUDID) 2 MG tablet Take 1-2 tablets (2-4 mg) by mouth every 4 hours as needed for pain 40 tablet 0 ??? ibuprofen (ADVIL,MOTRIN) 200 MG tablet Take 4 tablets (800 mg) by mouth every 8 hours as needed for pain 1 tablet 0 ??? HYDROcodone-acetaminophen (NORCO) 5-325 MG per tablet Take 1 tablet by mouth every 6 hours as needed for pain 42 tablet 0 ??? methylprednisoLONE (MEDROL DOSEPACK) 4 MG tablet Take 1 tablet (4 mg) by mouth See Admin Instructions 1 tablet 0 ??? zolpidem (AMBIEN) 10 MG tablet Take 0.5-1 tablets (5-10 mg) by mouth nightly as needed for sleep30 tablet 0 ??? ORDER FOR DME CPAP supplies 1 Device 0 No current facility-administered medications for this visit. No current outpatient prescriptions on file. Facility-Administered Medications Ordered in Other Visits Medication ??? ceFAZolin (ANCEF) IVPB 2 g (pre-mix) ??? ceFAZolin (ANCEF) 1 g vial to attach to IVPB ??? zolpidem (AMBIEN) tablet 5-10 mg ??? sodium chloride (PF) 0.9% PF flush 1-5 mL ??? sodium chloride (PF) 0.9% PF flush 3 mL ??? Medication Instruction ??? acetaminophen (TYLENOL) tablet 650 mg Or ??? acetaminophen (TYLENOL) oral liquid 650 mg Or ??? acetaminophen (TYLENOL) suppository 650 mg ??? naloxone (NARCAN) injection 0.1-0.4 mg ??? 0.9 % sodium chloride with KCl 20 mEq/L IV infusion ??? senna-docusate (SENOKOT-S;PERICOLACE) 8.6-50 MG per tablet 1-2 tablet ??? bisacodyl (DULCOLAX) EC tablet 5-15 mg ??? diphenhydrAMINE (BENADRYL) capsule 25 mg Or ??? diphenhydrAMINE (BENADRYL) injection 25 mg ??? ondansetron (ZOFRAN) tablet 4 mg Or ??? ondansetron (ZOFRAN-ODT) disintegrating tablet 4 mg Or ??? ondansetron (ZOFRAN) injection 4 mg ??? HYDROmorphone (DILAUDID) THRESHING DEPARTMENT SUPERVISOR 1 mg/mL ??? gabapentin (NEURONTIN) capsule 300 mg Physical Exam: VS: T Data Unavailable, P Data Unavailable, BP Data Unavailable, R Data Unavailable, SpO2 Airway: MP 2, TM>3FB, Neck full ROM Dentition: no loose teeth Heart: RRR Lungs: CTAB BMP: NA 138 06/30/2013 POTASSIUM 4.8 06/30/2013 CHLORIDE 101 06/30/2013 MEHDI 9.4 06/30/2013 CO2 30 06/30/2013 BUN 21 06/30/2013 CR 0.93 06/30/2013 GLC 102 06/30/2013 CBC: WBC 8.0 06/30/2013 HGB 15.2 06/30/2013 HCT 42.2 06/30/2013 PLT 245 06/30/2013 Coags/Type and Screen No results found for this basename: INR No results found for this basename: PT Type and Screen: Assessment/Plan: - ASA 2 - GETA with standard ASA monitors, IV induction, balanced anesthetic - PIV1 - Antibiotics per surgery - PONV prophylaxis Florencio Maddox DO 07/07/2013 6:28 AM Anesthesia Plan ASA Score: 2 . Plan for General and ETT - with Intravenous induction.Maintenance will be Balanced. Routine analgesia and antiemetics to be used for post-operative care. Anesthetic plan, risks, benefits and alternatives discussed with: patient or customer retention representative. History & Physical Review History and physical reviewed; no interval change. . ATRIC NEPHROLOGIST documented in this encounter Miscellaneous Notes Anesthesia Care Transfer Note - Lisandra Scherer APRN CRNA - 07/07/2013 9:20 AM CST Anesthesia Care Transfer Note Patient: Antelmo Farias Transferred to: PACU Patient vital signs: stable Airway: none ATRIC NEPHROLOGIST documented in this encounter Plan of Treatment Not on filedocumented as of this encounter Visit Diagnoses Not on filedocumented in this encounter Administered Medications Inactive Administered Medications - up to 3 most recent administrations Medication Order MAR Action Action Date Dose Rate Site ceFAZolin (ANCEF) IVPB 2 g (pre-mix) Given 07/07/2013 7:47 AM PEDIATRIC NEPHROLOGIST 2 g Routine, 2 g, Intravenous, PRE-OP/PRE-PROCEDURE, Starting on Sat07/06/13 at 2024, For 1 dose, Give first dose within 1 hour PRIOR to incision., Indications: Perioperative Pharmacoprophylaxis, Pre-procedure dexamethasone (DECADRON) injection Given 07/07/2013 8:53 AM PEDIATRIC NEPHROLOGIST 4 mg PRN, Administer over 1-4 Minutes, Starting on Sat07/07/13 at 0853, Anesthesia Intra-op fentaNYL (SUBLIMAZE) injection Given 07/07/2013 8:51 AM PEDIATRIC NEPHROLOGIST 50 mcg PRN, moderate to severe pain, Starting on Sat07/07/13 at 0737, Anesthesia Intra-op Given 07/07/2013 7:37 AM PEDIATRIC NEPHROLOGIST 100 mcg glycopyrrolate (ROBINUL) injection Given 07/07/2013 9:02 AM PEDIATRIC NEPHROLOGIST 0.4 mg PRN, Starting on Sat07/07/13 at 0902, Anesthesia Intra-op lactated ringers infusion New Bag 07/07/2013 8:37 AM PEDIATRIC NEPHROLOGIST mL Intravenous, CONTINUOUS PRN, Anesthesia Intra-op, Starting on Sat07/07/13 at 0727, Until Sat07/07/13 at 0920 New Bag 07/07/2013 7:27 AM PEDIATRIC NEPHROLOGIST mL lidocaine 2% Given 07/07/2013 7:38 AM PEDIATRIC NEPHROLOGIST 80 mg PRN, Starting on Sat07/07/13 at 0738, Anesthesia Intra-op midazolam (VERSED) injection Given 07/07/2013 7:28 AM PEDIATRIC NEPHROLOGIST 2 mg PRN, anxiety, Starting on Sat07/07/13 at 0728, Anesthesia Intra-op neostigmine (PROSTIGMINE) injection Given 07/07/2013 9:01 AM PEDIATRIC NEPHROLOGIST 4 mg Intravenous, PRN, Starting on Sat07/07/13 at 0901, Anesthesia Intra-op ondansetron (ZOFRAN) injection Given 07/07/2013 8:56 AM PEDIATRIC NEPHROLOGIST 4 mg PRN, nausea, vomiting, Administer over 2-5 Minutes, Starting on Sat07/07/13 at 0856, Anesthesia Intra-op propofol (DIPRIVAN) injection Given 07/07/2013 7:37 AM PEDIATRIC NEPHROLOGIST 200 mg PRN, Starting on Sat07/07/13 at 0737, Anesthesia Intra-op rocuronium (ZEMURON) injection Given 07/07/2013 7:37 AM PEDIATRIC NEPHROLOGIST 50 mg PRN, Starting on Sat07/07/13 at 0737, Anesthesia Intra-op vecuronium (NORCURON) injection Given 07/07/2013 8:01 AM PEDIATRIC NEPHROLOGIST 3 mg PRN, Starting on Sat07/07/13 at 0801, Anesthesia Intra-op documented in this encounter Care Teams Ged Tutor Relationship Specialty Start Date End Date Harvinder Michelle MD PCP - General 12/26/01 11/16/13 [address] [place] [id number] documented as of this encounter
--- OUTSIDE RECORDS SUMMARY | 2022-03-20 14:29 | XMS_ITS | Encounter Summary ---
:1975 Author Organization [facility] Address [address] [place] [address]. [place] [address] Care Team Providers Name Role Phone Harvinder Michelle MD Primary Care Provider Encounter Details Date Type Department Care Team Description 07/03[facility]2013 [facility] [address] MD [place] [address] [place] [id number] [phone] [place] [id number] (Wo rk) Social History Tobacco Use Types [...] Sign Reading Time Taken Comments Blood Pressure 147/84 07/03/2013 11:30 AM SPACE AND MISSILE OPERATIONS SPACELIFT Pulse 61 07/03/2013 11:30 AM SPACE AND MISSILE OPERATIONS SPACELIFT Temperature 36.6 ??C (97.8 ??F) 07/03/2013 11:30 AM SPACE AND MISSILE OPERATIONS SPACELIFT Respiratory Rate 16 07/03/2013 11:30 AM SPACE AND MISSILE OPERATIONS SPACELIFT Oxygen Saturation 97% 07/03/2013 9:49 AM SPACE AND MISSILE OPERATIONS SPACELIFT Inhaled Oxygen Concentration - - Weight 104.8 kg (231 lb) 07/03/2013 9:49 AM SPACE AND MISSILE OPERATIONS SPACELIFT Height 185.4 cm (6' 1) 07/03/2013 9:49 AM SPACE AND MISSILE OPERATIONS SPACELIFT Body Mass Index 30.48 07/03/2013 9:49 AM SPACE AND MISSILE OPERATIONS SPACELIFT documented in this encounter Medications at Time of Discharge Medication Sig Dispensed Refills Start Date End Date HYDROcodone-acetaminophen Take 1 tablet by 60 tablet 0 06/1810/15/2013 (NORCO) 5-325 MG per mouth every 6 hours tabletIndications: as needed for pain Herniated disc HYDROcodone-acetaminophen Take 1 tablet by 42 tablet 0 06/1707/08/2013 (NORCO) 5-325 MG per mouth every 6 hours tabletIndications: LBP as needed for pain (low back pain), Sciatica, unspecified laterality, Lumbar radiculopathy ibuprofen (ADVIL,MOTRIN) Take 4 tablets (800 1 [...] documented as of this encounter Progress Notes Geneva Stewart RN - 07/03/2013 2:15 PM CST Patient instructed to call primary care physician regarding pain medication per Dr. Michelle via TIERRA Conte in operating room. Discharge instructions reviewed with patient and . Questions answered. Discharged ambulatory to in medically stable condition. [employer] AND MISSILE OPERATIONS SPACELIFT Geneva Stewart RN - 07/03/2013 1:30 PM CST Second call place to Dr. Michelle regarding pain control. Await discharge until pain addressed by physician. Shamika Kessler RN - 07/03/2013 10:39 AM CST Pt has pain rate high that pt moves postion constant to Get relief of pain. Pt pain been up since Saturday When seen in er [employer] AND MISSILE OPERATIONS SPACELIFT documented in this encounter Miscellaneous Notes Provider Notification - Shamika Rankin RN - 07/03/2013 11:43 AM CST Notified physician of pt pain and await word. Physician Is present in OR. E AND MISSILE OPERATIONS SPACELIFT documented in this encounter Plan of Treatment Not on filedocumented as of this encounter Visit Diagnoses Not on filedocumented in this encounter Care Teams Physician Support Coordinator Relationship Specialty Start Date End Date Harvinder Michelle MD PCP - General 12/26/01 11/16/13 [address] [place] [id number] documented as of this encounter
--- OUTSIDE RECORDS SUMMARY | 2022-03-20 14:29 | XMS_ITS | Encounter Summary ---
:1975 Author Organization [facility] Address [address] [place] [address]. [place] [address] Care Team Providers Name Role Phone Harvinder Michelle MD Primary Care Provider Encounter Details Date Type Department Care Team Description 07/01/2013 Telephone [facility] Juan Landry MD [place] [address] [address] [address] [place] [address] [phone] Social History Tobacco Use Types Packs/Day Years Used Date Current Some Day Smoker Cigarettes 25 16 Smokeless Tobacco: Never Used Alcohol Use Standard Drinks/Week Comments Yes 0 (1 standard drink = 0.6 oz pure alcoho l) 2 beers a day Sex Assigned at Date Recorded Not on file documented as of this encounter Miscellaneous Notes Telephone Encounter - Juan Landry MD - 07/01/2013 11:05 PM SECURITY PATROL OFFICER Asking about increasing frequncy for dilauded for back pain. Currently taking 2x2mg q6h, wondering about using more or more often. OK to use q4h prn. Also advised that he can use 800mg ibuprofen q8h alternating q4h with 1000mg acetaminophen q8h. Has appt with ortho tomorrow. Juan Landry MD RITY PATROL OFFICER documented in this encounter Plan of Treatment Not on filedocumented as of this encounter Visit Diagnoses Not on filedocumented in this encounter Care Teams Key Punch Teacher Relationship Specialty Start Date End Date Harvinder Michelle MD PCP - General 12/26/01 11/16/13 [address] [place] [id number] documented as of this encounter
--- OUTSIDE RECORDS SUMMARY | 2022-03-20 14:29 | XMS_ITS | Encounter Summary ---
:1975 Author Organization [facility] Address [address] [place] [address]. [place] [address] Care Team Providers Name Role Phone Harvinder Michelle MD Primary Care Provider Reason for Visit (Routine) - Closed Specialty Diagnoses / Procedures Referred By Contact Refer red To Contact Cardiology / Radiology Diagnoses CT THORAX (CHEST) WITHOUT CONTRAST Procedure Notes: shortness of breath Sh Cv Ct Mri Procedures RADIOLOGY [address] [place] [phone] Phone: Referral ID Status Reason Start Date Expiration Date Visits Requ ested Visits Authorized [id number] Closed 02/26/2013 02/26/2014 1 1 Encounter Details Date Type Department Care Team Description 03/09/[address] [facility] CV CT Ra Jayjay sugey [place], MRI [address] [facility] [address] [place] [address] [facility] [phone] [address] [place] [address] (Wo rk) Social History Tobacco [...] on filedocumented in this encounter Care Teams Mathematics Education Professor Relationship Specialty Start Date End Date Harvinder Michelle MD PCP - General 12/26/01 11/16/13 [address] [place] [id number] documented as of this encounter
--- OUTSIDE RECORDS SUMMARY | 2022-03-20 14:29 | XMS_ITS | Encounter Summary ---
:1975 Author Organization [place] Address [address] [place] [address] Care Team Providers Name Role Phone Harvinder Michelle MD Primary Care Provider Reason for Visit Reason Comments Physical Blood Draw fasting Encounter Details Date Type Department Care Team Description 01/20/2013 Office Visit [facility] Harvinder Michelle MD Routine general medical examination at a health care facility (Primary Dx); Clinic [address] CARDIOVASCULAR SCREENING; LD L GOAL LESS THAN 160; [address] [facility] Family history of ischemic heart disease ; [place], [place] Tobacco u se; [id number] ANGELIKA (obstructive sleep apnea) [phone] Social History Tobacco Use Types Packs/Day Years [...] Sign Reading Time Taken Comments Blood Pressure 112/79 01/20/2013 8:53 AM CDT Pulse 56 01/20/2013 8:53 AM CDT Temperature 36.7 ??C (98 ??F) 01/20/2013 8:53 AM CDT Respiratory Rate 16 01/20/2013 8:53 AM CDT Oxygen Saturation 97% 01/20/2013 8:53 AM CDT Inhaled Oxygen Concentration - - Weight 104.3 kg (230 lb) 01/20/2013 8:53 AM CDT Height 182.9 cm (6') 01/20/2013 8:53 AM CDT Body Mass Index 31.19 01/20/2013 8:53 AM CDT documented in this encounter Patient Instructions Patient InstructionsSammy Alexandre - 01/20/2013 8:58 AM CDT Preventive Health Recommendations Male Ages 26 - 39 Yearly exam: ?? See your health care provider every year in order to o Review health changes. o Discuss preventive care. o Review your medicines if your doctor has prescribed any. You should be tested each year for STDs (sexually transmitted diseases), if you???re at risk. After age 35, talk to your provider about cholesterol testing. If you are at risk for heart disease, have your cholesterol tested at least every 5 years. If you are at risk for diabetes, you should have a diabetes test (fasting glucose). Shots: Get a flu shot each year. Get a tetanus shot every 10 years. Nutrition: Eat at least 5 servings of fruits and vegetables daily. Eat whole-grain bread, whole-wheat pasta and brown rice instead of white grains and rice. For bone health: Eat calcium-rich foods or take calcium pills (500 to 600 mg) twice a day with food. Also take vitamin D (1000 IU) each day. Lifestyle Exercise for at least 150 minutes a week (30 minutes a day, 5 days a week). This will help you control your weight and prevent disease. Limit alcohol to one drink per day. No smoking. Wear sunscreen to prevent skin cancer. See your dentist every six months for an exam and cleaning. documented in this encounter Progress Notes Harvinder Michelle MD - 01/20/2013 8:58 AM CDT SUBJECTIVE: CC: Antelmo Farias is an 37 year old male who presents for preventative health visit. Healthy Habits: ?? Do you get at least three servings of calcium containing foods daily (dairy, green leafy vegetables, etc.)? yes ?? Amount of exercise or daily activities, outside of work: 2 day(s) per week ?? Problems taking medications regularly not applicable ?? Medication side effects: No ?? Have you had an eye exam in the past two years? yes ?? Do you see a dentist twice per year? Once a year ?? Do you have sleep apnea, excessive snoring or daytime drowsiness? Sleep Apnea and uses a Cpap machine Other concerns to address: Today's PHQ-2 Score: 0 Abuse: Current or Past(Physical, Sexual or Emotional)- No Do you feel safe in your environment - Yes History Substance Use Topics ??? Smoking status: Current Some Day Smoker -- 0.5 packs/day for 16 years Types: Cigarettes ??? Smokeless tobacco: Never Used ??? Alcohol Use: Yes 2 beers a day The patient does not drink >3 drinks per day nor >7 drinks per week. Last PSA: PSA Date Value Range Status 09/01/2008 0.63 0 - 4 ug/L Final Recent Labs Lab Test 12/27/11 0858 02/07/11 1054 CHOL 152 168 HDL 41 46 LDL 87 93 TRIG 119 149 CHOLHDLRATIO 3.7 3.7 Reviewed orders with patient. Reviewed health maintenance and updated orders accordingly - Yes All Histories reviewed and updated in [facility]. Past Medical History Diagnosis Date ??? [...] list, Allergies, and Medical/Social/Surgical histories reviewed in [facility] andupdated as appropriate. OBJECTIVE: BP 112/79 Pulse 56 Temp 98 ??F (36.7 ??C) (Oral) Resp 16 Ht 6' (1.829 m) Wt 230 lb (104.327 kg) BMI 31.19 kg/m2 SpO2 97% Estimated Body mass index is 31.77 kg/(m^2) as calculated from thefollowing: Height as of 12/27/11: 5' 11.5(1.816 m). Weight as of 12/27/11: 231 lb(104.781 kg). GENERAL APPEARANCE: healthy, alert and no distress [...] FRAX Risk Assessment ICSI Preventive Guidelines ASSESSMENT/PLAN: V70.0 Routine general medical examination at a health care facility (primary encounter diagnosis) Comment: Plan: Comprehensive metabolic panel, Lipid Profile with reflex to direct LDL, Hemoglobin A1c, CBC with platelets, Vitamin D Deficiency, CRP cardiac risk V81.2 CARDIOVASCULAR SCREENING; LDL GOAL LESS THAN 160 Comment: Plan: Lipid Profile with reflex to direct LDL V17.3 Family history of ischemic heart disease Comment: Plan: CRP cardiac risk 305.1 Tobacco use Comment: Only when drinking alcohol Plan: Quit soon. Defers assistance. The smoking may be already having mild COPD- like effects as he inconsistently notes minimal dyspnea, sometimes with exertion, though he can bike miles to work without chest pain or dyspnea 327.23 ANGELIKA (obstructive sleep apnea) Comment: Doing better since he is using the mask more Plan: Has improved significantly. May repeat sleep study in 1 year Counseling: Dietary Guidelines for Americans, 2010 USDA's MyPlate regular exercise healthy diet/nutrition reports that he has been smoking Cigarettes. He has a 8 pack-year smoking history. He has never used smokeless tobacco. Tobacco Cessation Action Plan: Information offered: Patient not interested at this time Estimated Body mass index is 31.77 kg/(m^2) as calculated from the following: Height as of 12/27/11: 5' 11.5(1.816 m). Weight as of 12/27/11: 231 lb(104.781 kg). Weight management plan: Current exercise routine: bicycling and weightlifting. Diet regimen was discussed and plan is self-directed dieting: reduce carbs.will try to go hard for two months and hopefully reinforced by results Harvinder Michelle MD [facility] documented in this encounter Nursing Notes 01/20/2013 9:00 AM CDT >> SAMMY Roland Jan 20, 2013 8:58 AM Patient presents with: Physical Blood Draw - fasting Initial BP 112/79 Pulse 56 Temp 98 ??F (36.7 ??C) (Oral) Resp 16 Ht 6' (1.829 m) Wt 230 lb(104.327 kg) BMI 31.19 kg/m2 SpO2 97% Estimated Body mass index is 31.19 kg/(m^2) as calculated from the following: Height as of this encounter: 6' 0(1.829 m). Weight as of this encounter: 230 lb(104.327 kg).. BP completed using cuff size large - RA. Sammy Alexandre, [employer] Auto Body Repairer documented in this encounter Plan of Treatment Not on filedocumented as of this encounter Procedures Procedure Name Priority Date/Time Associated Comments Diagnosis VITAMIN D DEFICIENCY Routine 01/20/2013 9:20 AM Routine genera l Results for this SCREENING CDT medical examination procedur e are in at a health care the results facility section. LIPID REFLEX TO DIRECT Routine 01/20/2013 9:20 AM Routine gene ral Results for this LDL PANEL CDT medical examination procedur e are in at a health care the results facility section. CARDIOVASCULAR SCREENING; LDL GOAL LESS THAN 160 HEMOGLOBIN A1C Routine 01/20/2013 9:20 AM Routine general Resu lts for this CDT medical examination procedur e are in at a health care the results facility section. CRP CARDIAC RISK Routine 01/20/2013 9:20 AM Routine general Re sults for this CDT medical examination procedmary celestin are in at a health care the results facility section. Family history of ischemic heart disease COMPREHENSIVE Routine 01/20/2013 9:20 AM Routine general Resul ts for this METABOLIC PANEL CDT medical examination berkley sheppard are in at a health care the results facility section. CBC WITH PLATELETS Routine 01/20/2013 9:20 AM Routine general Results for this CDT medical examination procedmary celestin are in at a health care the results facility section. documented in this encounter Results CRP cardiac risk (01/20/2013 9:20 AM CDT) athologist Signature CRP Cardiac 2.1 mg/L [facility] LABS Comment: Reference Values: Low Risk: ? <1.0 mg/L Average Risk: ? 1.0-3.0 mg/L High Risk: ?>3.0 mg/L Acute Inflammation: >8.0 mg/L Specimen Anatomical Collection Method Collection Time Receive d Time (Source) Location / / Volume Laterality Blood specimen 01/20/2013 9:20 AM 013 9:21 (specimen) CDT AM CDT Harvinder Michelle MD LAB - BLOOD ORDERABLES Performing Organization Address City/State/ZIP Code Phon e Number [id number] [place] [address] LABS Vitamin D Deficiency (01/20/2013 9:20 AM CDT) athologist Signature Vitamin D 32 30 - 75 [facility] Deficiency ug/L [place] LABS screening Comment: Season, race, dietary intake, and treatm ent affect the concentration of 56-[id number] D. Values may decrea se during winter months and increase during summer months. Values less than 30 ug/L may indicate Vitamin D deficiency. Vitamin D determiniation is routinely p erformed by an immunoassay specific for 25 hydroxyvitamin D3. ??If an individua l is on vitamin D2 (ergocalciferol) supplementation, please specify 25 [place] v itamin D2 and D3 level determination by LCMSMS test VITD23. ??For questions, pl ease contact the laboratory at [phone]. Specimen Anatomical Collection Method Collection Time Receive d Time (Source) Location / / Volume Laterality Blood specimen 01/20/2013 9:20 AM 013 9:21 (specimen) CDT AM CDT Harvinder Michelle MD LAB - BLOOD ORDERABLES Performing Organization Address City/State/ZIP Code Phon e Number [facility] [address] [place] [address] [facility] LABS CBC with platelets (01/20/2013 9:20 AM CDT) athologist Signature WBC 6.0 4.0 - 11.0 [place] 10e9/L [facility] RBC Count 4.76 4.4 - 5.9 [place] 10e12/L [facility] Hemoglobin 14.6 13.3 - [place] 17.7 g/dL [facility] Hematocrit 40.7 40.0 - [place] 53.0 % [facility] MCV 86 78 - 100 [place] fl [facility] MCH 30.7 26.5 - [place] 33.0 pg [facility] MCHC 35.9 31.5 - [place] 36.5 g/dL [facility] RDW 12.1 10.0 - [place] 15.0 % [facility] Platelet Count 227 150 - 450 [place] 10e9/L [facility] Specimen Anatomical Collection Method Collection Time Receive d Time (Source) Location / / Volume Laterality Blood specimen 01/20/2013 9:20 AM 013 9:21 (specimen) CDT AM CDT Harvinder Michelle MD LAB - BLOOD ORDERABLES Performing Organization Address City/State/ZIP Code Phon e Number [facility] [address] [place] [address] [facility] [address] [place] [address] Hemoglobin A1c (01/20/2013 9:20 AM CDT) athologist Signature Hemoglobin A1C 5.2 4.3 - 6.0 [place] % [facility] Specimen Anatomical Collection Method Collection Time Receive d Time (Source) Location / / Volume Laterality Blood specimen 01/20/2013 9:20 AM 013 9:21 (specimen) CDT AM CDT Harvinder Michelle MD LAB - BLOOD ORDERABLES Performing Organization Address City/[facility] Code Phon e Number [facility] [address] [place] [address] [facility] [address] [place] [address] (ABNORMAL) Lipid Profile with reflex to direct LDL (01/20/2013 9:20 AM CDT) athologist Signature Cholesterol 161 0 - 200 [facility] mg/dL CLINIC LAB Comment: LDL Cholesterol is the primary guide to therapy. The NCEP recommends further evaluation of: patients with cholesterol greater than 200 mg/dL if additional risk facto rs are present, cholesterol greater than 240 mg/dL, triglycerides greater than 1 50 mg/dL, or HDL less than 40 mg/dL. Triglycerides 156 (H) 0 - 150 mg/dL [facility] HDL Cholesterol 40 40 - 110 mg/dL [facility] LDL Cholesterol Calculated 91 0 - 129 mg/dL [facility] LAB Comment: LDL Cholesterol is the primary guide to therapy: LDL-cholesterol goal in high risk patients is <100 mg/dL and in very high risk patients is <70 mg/dL. VLDL-Cholesterol 31 (H) 0 - 30 mg/dL [facility] Cholesterol/HDL Ratio 4.1 0.0 - 5.0 [facility] Specimen Anatomical Collection Method Collection Time Receive d Time (Source) Location / / Volume Laterality Blood specimen 01/20/2013 9:20 AM 013 9:21 (specimen) CDT AM CDT Harvinder Michelle MD LAB - BLOOD ORDERABLES Performing Organization Address City/[facility]/ZIP Code Phon e Number [facility] [address] [place] [address] [facility] [address] [place] [address] (ABNORMAL) Comprehensive metabolic panel (01/20/2013 9:20 AM CDT) athologist Signature Sodium 141 133 - 144 [facility] mmol/L CLINIC LAB Potassium 4.5 3.4 - 5.3 [facility] mmol/L [facility] LAB Chloride 104 94 - 109 [facility] Carbon Dioxide 26 20 - 32 [facility] mmol/L [facility] LAB Anion Gap 10 6 - 17 [facility] mmol/L [facility] LAB Glucose 101 (H) 60 - 99 [facility] mg/dL CLINIC LAB Comment: Fasting specimen Urea Nitrogen 17 5 - 24 mg/dL [facility] Creatinine 0.93 0.66 - 1.25 mg/dL [facility] GFR Estimate >90 >60 mL/min/1.7m2 [facility] GFR Estimate If Black >90 >60 mL/min/1.7m2 F [facility] Calcium 8.9 8.5 - 10.4 mg/dL [facility] N [facility] Bilirubin Total 0.4 0.2 - 1.3 mg/dL [facility] Albumin 4.2 3.9 - 5.1 g/dL [facility] Comment: Reference range changed on 02/16. Protein Total 7.6 6.8 - 8.8 g/dL [facility] Comment: As of 07, reference range reflects plasma specimen type. Alkaline Phosphatase 60 40 - 150 U/L [facility] ALT 39 0 - 70 U/L [facility] CLIN IC LAB AST 24 0 - 45 U/L [facility] CLIN IC LAB Specimen Anatomical Collection Method Collection Time Receive d Time (Source) Location / / Volume Laterality Blood specimen 01/20/2013 9:20 AM 013 9:21 (specimen) CDT AM CDT Harvinder Michelle MD LAB - BLOOD ORDERABLES Performing Organization Address City/State/ZIP Code Phon e Number [facility] [address] [place] [address] [phone] [facility] [address] [place] [address] documented in this encounter Visit Diagnoses Diagnosis Routine general medical examination at a health care facility - Primary CARDIOVASCULAR SCREENING; LDL GOAL LESS THAN 160 Family history of ischemic heart disease Tobacco use Tobacco use disorder ANGELIKA (obstructive sleep apnea) Obstructive sleep apnea (adult) (pediatr ic) documented in this encounter Care Teams Tool And Fixture Repairer Relationship Specialty Start Date End Date Harvinder Michelle MD PCP - General 12/26/01 11/16/13 [address] [id number] documented as of this encounter
--- OUTSIDE RECORDS SUMMARY | 2022-03-20 14:29 | XMS_ITS | Encounter Summary ---
:1975 Author Organization [place] Address [address] [place] [address] Care Team Providers Name Role Phone Harvinder Michelle MD Primary Care Provider Reason for Visit (Routine) - Closed Specialty Diagnoses / Procedures Referred By Contact Refer red To Contact Radiology / Radiology. Diagnoses Epic Order Sh Xray Procedures XR LUMBAR TRANSFOR INJ SINGLE [address] [place] [phone] Phone: Referral ID Status Reason Start Date Expiration Date Visits Requ ested Visits Authorized [id number] Closed 07/02/2013 07/02/2014 1 1 Encounter Details Date Type Department Care Team Description 07/03/2013 Hospital Encounter [facility] Michelle HNP (herniated [facility] MD Eddie nucleus pulposus), [address] XX RESIGNED XX lumbar (Primary Dx) [place] [address] [phone] [place] [id number] Social History Tobacco Use Types Packs/Day Years [...] radiculopathy HYDROmorphone (DILAUDID) 2 Take 1-2 tablets 40 tablet 0 07/08/2013 MG tabletIndications: (2-4 mg) by mouth Lumbar radiculopathy every 4 hours as needed for pain ibuprofen (ADVIL,MOTRIN) [...] for sleep documented as of this encounter Plan of Treatment Not on filedocumented as of this encounter Procedures Procedure Name Priority Date/Time Associated Diagnosis Comme nts XR EPIDURAL Routine 07/03/2013 11:29 AM HNP (herniated Result s for this INJECTION CAUDAL SPEECH PATHOLOGIST ASSISTANT nucleus pulposus), proce dure are in INCL IMAGING lumbar the results section. documented in this encounter Results XR Epidural Injection Caudal (07/03/2013 11:29 AM SPEECH PATHOLOGIST ASSISTANT) Anatomical Region Laterality Modality Spine Computed Radiography Specimen (Source) Anatomical Location Collection Method / Collectio n Time Received Time / Laterality Volume Impressions 07/03/2013 12:02 PM SPEECH PATHOLOGIST ASSISTANT IMPRESSION: ??Technically successful lumbosacral caudal epidural steroid injection. ??Long-term results a re pending. MUNDO DUCKWORTH PA-C Narrative 07/03/2013 12:02 PM SPEECH PATHOLOGIST ASSISTANT XR EPIDURAL INJECTION CAUDAL ? 07/03/2013 11:29 AM ?? History: ??pain,Displacement of lumbar i ntervertebral disc without myelopathy. PROCEDURE: ??The procedure, indications, risks (including the risk of infection, bleeding, and reaction to con trast material and medications), and alternative therapies were discussed with the patient and informed consent was obtaine d before the procedure. ??The low back was prepped and draped in the u sual sterile fashion. Lidocaine 1% was used for local anesthes ia. ??Under fluoroscopic guidance a #22 gauge spinal needle was a dvanced into the mid-sacral epidural space using a caudal approach t hrough the sacral hiatus. Needle tip position was confirmed by inj ection of a small amount of contrast. ??Subsequently a mixture of 20 mg dexamethasone, 4 mL lidocaine 1%, and 4mL preservative free saline were injected. ??The needle was removed. ??The patient tolera clayton the procedure well and there were no immediate complications. ? ? Fluoro time: 0.3 minutes Medications: 3 mm lidocaine 1% to skin The patient's pain levels (1-10 scale) a re as follows: ?? PRE INJECTION ?? Low back ? 5 ?? Right leg ?8-9 ?? Left leg ? 0 ?? POST INJECTION Low back ? 5 ?? Right leg ?9-10 ?? Left leg ? 0 ?? Procedure Note Mundo Duckworth PA-C - 07/03 XR EPIDURAL INJECTION CAUDAL 07/03/2013 1 1:29 AM History: pain,Displacement of lumbar int ervertebral disc without myelopathy. PROCEDURE: The procedure, indications, r isks (including the risk of infection, bleeding, and reaction to con trast material and medications), and alternative therapies were discussed with the patient and informed consent was obtaine d before the procedure. The low back was prepped and draped in the u sual sterile fashion. Lidocaine 1% was used for local anesthes ia. Under fluoroscopic guidance a #22 gauge spinal needle was a dvanced into the mid-sacral epidural space using a caudal approach t hrough the sacral hiatus. Needle tip position was confirmed by inj ection of a small amount of contrast. Subsequently a mixture of 20 m g dexamethasone, 4 mL lidocaine 1%, and 4mL preservative free saline were injected. The needle was removed. The patient tolerate d the procedure well and there were no immediate complications. Fluoro time: 0.3 minutes Medications: 3 mm lidocaine 1% to skin The patient's pain levels (1-10 scale) a re as follows: PRE INJECTION Low back 5 Right leg 8-9 Left leg 0 POST INJECTION Low back 5 Right leg 9-10 Left leg 0 IMPRESSION IMPRESSION: Technically successful lumbo sacral caudal epidural steroid injection. Long-term results are pending. MUNDO DUCKWORTH PA-C [facility] MD IMG DIAGNOSTIC IMAGING ORDER YAMILETH documented in this encounter Visit Diagnoses Diagnosis HNP (herniated nucleus pulposus), lumbar - Primary Displacement of lumbar intervertebral di sc without myelopathy documented in this encounter Administered Medications Inactive Administered Medications - up to 3 most recent administrations Medication Order MAR Action Action Date Dose Rate Site dexamethasone (DECADRON) injection Given 07/03/2013 11:18 AM SPEECH PATHOLOGIST ASSISTANT 20 mg 20 mg 20 mg, EPIDURAL, ONCE, On Sat07/03/13 at 1115, For 1 dose iopamidol ([id number]) 41% solution 10 mL Given 07/03/2013 11:12 AM SPEECH PATHOLOGIST ASSISTANT 5 mLs 10 mL, EPIDURAL, ONCE, On Sat07/03/13 at 1115, For 1 dose Lidocaine 1 % injection 30 mL Given 07/03/2013 11:19 AM SPEECH PATHOLOGIST ASSISTANT 4 mLs 30 mL, EPIDURAL, ONCE, On Sat07/03/13 at 1115, For 1 dose Lidocaine 1 % injection 5 mL Given 07/03/2013 11:11 AM SPEECH PATHOLOGIST ASSISTANT 3 mLs 5 mL, Injection, ONCE, On Sat07/03/13 at 1115, For 1 dose sodium chloride (PF) 0.9% PF flush 20 mL Given 07/03/2013 11:18 AM SPEECH PATHOLOGIST ASSISTANT 4 mLs 20 mL, EPIDURAL, ONCE, On Sat07/03/13 at 1115, For 1 dose documented in this encounter Care Teams Nutrition Consultant Relationship Specialty Start Date End Date Harvinder Michelle MD PCP - General 12/26/01 11/16/13 [address] [address] documented as of this encounter
--- OUTSIDE RECORDS SUMMARY | 2022-03-20 14:29 | XMS_ITS | Encounter Summary ---
:1975 Author Organization [place] Address [address] [place] [address] Care Team Providers Name Role Phone Harvinder Michelle MD Primary Care Provider Reason for Visit Reason Comments Foot Injury L foot pain from injury when log fell on top of his foot yesterday while chopping wood. Encounter Details Date Type Department Care Team Description 02/17/2013 Office Visit [facility] Harvinder Michelle MD Foot injury (Primary Clinic [place] [address]) [address] [place] [address] [phone] Social History Tobacco Use Types Packs/Day Years [...] Sign Reading Time Taken Comments Blood Pressure 118/86 02/17/2013 10:28 AM CDT Pulse 80 02/17/2013 10:28 AM CDT Temperature 36.7 ??C (98.1 ??F) 02/17/2013 10:28 AM CDT Respiratory Rate 12 02/17/2013 10:28 AM CDT Oxygen Saturation 98% 02/17/2013 10:28 AM CDT Inhaled Oxygen Concentration - - Weight 104.3 kg (229 lb 14.4 oz) 02/17/2013 10:28 AM CDT Height - - Body Mass Index 31.18 01/20/2013 8:53 AM CDT documented in this encounter Progress Notes Harvinder Michelle MD - 02/17/2013 11:41 AM CDT SUBJECTIVE: Antelmo Farias is a 37 year old male who sustained a left foot injury 2 days ago. Mechanism of injury: log fell onto foot (he was cleaving it). Immediate symptoms: immediate pain, delayed swelling. Symptoms have been unchanged since that time. Prior history of related problems: no prior problems with this area in the past. OBJECTIVE: Vital signs as noted above. Appearance: in no apparent distress and well developed and well nourished. Foot/ankle exam: soft tissue swelling and tenderness at the dorsum of the left foot. X-ray: no fracture or dislocation noted. ASSESSMENT: Left foot contusion PLAN: NSAID, ice suggested See orders in [facility]. documented in this encounter Nursing Notes 02/17/2013 10:15 AM CDT >> RAN Roland Feb 17, 2013 10:30 AM Patient presents with: Foot Injury - L foot pain from injury when log fell on top of his foot yesterday while chopping wood. Initial BP 118/86 Pulse 80 Temp 98.1 ??F (36.7 ??C) (Oral) Resp 12 Wt 229 lb 14.4 oz (104.282 kg) SpO2 98% Estimated Body mass index is 31.18 kg/(m^2) as calculated from the following: Height as of 01/20/13: 6' 0(1.829 m). Weight as of this encounter: 229 lb 14.4 oz(104.282 kg). BP completed using cuff size: large. Ran Fernandez CMA documented in this encounter Plan of Treatment Not on filedocumented as of this encounter Procedures Procedure Name Priority Date/Time Associated Diagnosis Comme nts XR FOOT LEFT G/E 3 Routine 02/17/2013 10:46 AM Foot injury Re sults for this VIEWS CDT procedure are i n the results section. documented in this encounter Results XR Foot Left G/E 3 Views (02/17/2013 10:46 AM CDT) Anatomical Region Laterality Modality Foot, Ankle Left Other Specimen (Source) Anatomical Collection Method Collection Time Re ceived Time Location / / Volume Laterality 02/17/2013 10:46 AM CDT Impressions 02/17/2013 10:50 AM CDT IMPRESSION: Negative. VAUGHN SEGOVIA MD Narrative 02/17/2013 10:50 AM CDT FOOT G/E 3 VIEWS LEFT* 02/17/2013 10:46 AM HISTORY: ??Injury, other and unspecified , knee, leg, ankle, and foot, Procedure Note Vaughn Segovia MD - 02/17/2013Formatt ing of this note might be different from the original. FOOT G/E 3 VIEWS LEFT* 02/17/2013 10:46 AM HISTORY: Injury, other and unspecified, knee, leg, ankle, and foot, IMPRESSION IMPRESSION: Negative. VAUGHN SEGOVIA MD Harvinder Michelle MD IMG DIAGNOSTIC IMAGING ORDER YAMILETH documented in this encounter Visit Diagnoses Diagnosis Foot injury - Primary Injury, other and unspecified, knee, leg , ankle, and foot documented in this encounter Care Teams Correspondence School Teacher Relationship Specialty Start Date End Date Harvinder Michelle MD PCP - General 12/26/01 11/16/13 [address] [id number] documented as of this encounter
--- OUTSIDE RECORDS SUMMARY | 2022-03-20 14:29 | XMS_ITS | Encounter Summary ---
:1975 Author Organization [place] Address [address] [place] [address]. [place] [address] Care Team Providers Name Role Phone Harvinder Michelle MD Primary Care Provider Encounter Details Date Type Department Care Team Description 03/09/2013 Results Only [facility] Claus Ro MD [facility] [address] [facility] [address] [place] [address] [place], [place] [phone] (Wo rk) Social History Tobacco Use [...] Name Priority Date/Time Associated Diagnosis Comme nts CT CHEST W/O 03/09/2013 8:51 AM Results f or this CONTRAST CDT procedure are i n the results section. documented in this encounter Results CT Chest w/o Contrast (03/09/2013 8:51 AM CDT) Anatomical Region Laterality Modality Chest, SUBRAD CT BODY, UMP CT CHEST Comp uted Tomography Specimen (Source) Anatomical Collection Method Collection Time Re ceived Time Location / / Volume Laterality 03/09/2013 8:51 AM CDT Impressions 03/10/2013 8:32 AM CDT Impression: Unremarkable chest CT. FLOWER MARKS MD Narrative 03/10/2013 8:32 AM CDT Study: CT of the chest dated 03/09/2013 Comparison: None Technique: CT of the chest was performed without intravenous contrast. High-resolution inspiration an d expiration views of the chest were also obtained. History: Shortness of breath Findings: The lungs are clear. No defini te nodules or areas of consolidation are identified. No evidenc e for significant air trapping on the high-resolution images. No pathologic mediastinal or axillary lymphadenopathy. Procedure Note Flower Marks MD - 03/10/2013F ormatting of this note might be different from the original. Study: CT of the chest dated 03/09/2013 Comparison: None Technique: CT of the chest was performed without intravenous contrast. High-resolution inspiration an d expiration views of the chest were also obtained. History: Shortness of breath Findings: The lungs are clear. No defini te nodules or areas of consolidation are identified. No evidenc e for significant air trapping on the high-resolution images. No pathologic mediastinal or axillary lymphadenopathy. IMPRESSION Impression: Unremarkable chest CT. FLOWER MARKS MD Claus Arvin Ro MD IMG CT ORDERABLES documented in this encounter Visit Diagnoses Not on filedocumented in this encounter Care Teams Plush Cutter Relationship Specialty Start Date End Date Harvinder Michelle MD PCP - General 12/26/01 11/16/13 [address] [id number] documented as of this encounter
--- OUTSIDE RECORDS SUMMARY | 2022-03-20 14:30 | XMS_ITS | Encounter Summary ---
:1975 Author Organization [place] Address [address] [place] [address] Care Team Providers Name Role Phone Harvinder Michelle MD Primary Care Provider Reason for Visit Reason Onset Date Comments Forms 09/29/2010 [facility] Encounter Details Date Type Department Care Team Description 09/29/2010 Telephone [facility] Harvinder Michelle MD Forms ([facility]) Clinic [address] [address] [phone] (Wo rk) Social History Tobacco Use Types Packs/Day Years Used Date Current Every Day Smoker Cigarettes 0.5 16 Alcohol Use Standard Drinks/Week Comments Yes 0 (1 standard drink = 0.6 oz pure alcoho l) 2 beers a day Sex Assigned at Date Recorded Not on file documented as of this encounter Miscellaneous Notes Telephone Encounter - Luisana Del Valle - 09/29/2010 10:54 AM CDT Faxed - sent to abstracting Luisana Del Valle Telephone Encounter - Luisana Del Valle - 09/29/2010 10:18 AM CDT geoff cardenas Put on Dr Michelle's desk to sign Luisana Del Valle documented in this encounter Plan of Treatment Not on filedocumented as of this encounter Visit Diagnoses Not on filedocumented in this encounter Care Teams Mining Machinery Assembler Relationship Specialty Start Date End Date Harvinder Michelle MD PCP - General 12/26/01 11/16/13 [address] [id number] documented as of this encounter
--- OUTSIDE RECORDS SUMMARY | 2022-03-20 14:30 | XMS_ITS | Encounter Summary ---
:1975 Author Organization [place] Address [address] [place] [address] Care Team Providers Name Role Phone Harvinder Michelle MD Primary Care Provider Reason for Visit Reason Comments Physical pt is fasting for labs- also allergy issues Smoking Cessation pt is trying to stop smoking Encounter Details Date Type Department Care Team Description 11/07/[address] [facility] Harvinder Michelle MD ALLERGIC RHINITIS NOS; Clinic [address] TOBACCO USE DISORDER; [address] [place] [address] [facility] CARDIOVAS DIS NEC; [id number] HYPERSOMNI W SLEEP APNEA [phone] Social History Tobacco Use Types Packs/Day Years Used Date Current Every Day Smoker Cigarettes 0.5 16 Alcohol Use Standard Drinks/Week Comments Yes 0 (1 standard drink = 0.6 oz pure alcoho l) 2 beers a day Sex Assigned at Date Recorded Not on file documented as of this encounter Last Filed Vital Signs Vital Sign Reading Time Taken Comments Blood Pressure 118/78 11/07/2006 10:15 AM CDT Pulse - - Temperature - - Respiratory Rate - - Oxygen Saturation - - Inhaled Oxygen Concentration - - Weight 96.6 kg (213 lb) 11/07/2006 10:15 AM CDT Height 185.4 cm (6' 1) 11/07/2006 10:15 AM CDT Body Mass Index 28.1 11/07/2006 10:15 AM CDT documented in this encounter Progress Notes Harvinder Michelle - 11/07/2006 5:25 PM CDT SUBJECTIVE: Antelmo Farias 31 year old male presents for CPE and fasting labs. He is also interested insmoking cessation having failed zyban, lozenges,and patches. Histories Updated through 11.07.2006: Past Medical History Diagnosis Date ??? HYPERSOMNI W SLEEP APNEA 2004 cpap AT 5CM Past Surgical History Procedure Date ??? Explor maxill sinus,intranasal 04/2002 Dr. Shea Family History Problem Relation ??? Heart Father MA in 1997 ??? Family History Negative Mother ??? Family History Negative Brother History Social History ??? Marital Status: Single Spouse Name: N/A Number of Children: N/A ??? Years of Education: N/A Occupational History ??? Not on file. Social History Main Topics ??? Tobacco Use: Yes -- 0.5 packs/day for 16 years ??? Alcohol Use: Yes 2 beers a day ??? Drug Use: Not on file ??? Sexually Active: Yes -- Female partner(s) Other Topics Concern ??? Not on file Social History Narrative ??? No narrative on file Current Outpatient Rx Name Route Sig Dispense Refill ? ? CHANTIX STARTING MONTH NAI 0.5 MG X 11 & 1 MG X 14 OR MISC Oral 1 tab PO BID 60 11 ??? NASACORT AQ 55 MCG/ACT NA AERS Nasal INHALE 2 SPRAYS IN EACH NOSTRIL ONE DAILY Sat 1 YEAR ??? NO ACTIVE MEDICATIONS . ??? ASPIRIN 81 MG OR TABS Oral 1 tab po QD (Once per day) 100 3 Allergies Allergen Reactions ??? No Known Drug Allergies ROS: TRAUMA: Denies any recent history of trauma PULMONARY: Denies dyspnea. Denies waking up feeling fatigued. Denies daytime somnolence CV: Denies angina. Denies chest pain. Vascular: Denies claudication GI: Denies dysphagia. Denies dyspepsia. Denies postprandial abdominal pain. Denies changes in bowel movements or quality of stool from regular daily well- formed baseline. NEURO: Denies any change of vision. Denies paresthesia. Denies any back pain. Denies any sciatic pain to either lower extremity. Denies bowel or bladder incontinence. : Denies polyuria, nocturia, gross hematuria, or dysuria ENDOC: Denies excessive weight gain, inappropriate weight loss, heat intolerance, or cold intolerance SKIN: Denies any rash, ulceration or change in color, size or symmetry of a known mole PSYCH: Denies any mood swings. Denies anhedonia. Denies insomnia. Denies violent ideation. HEME: Denies any bleeding tendancies LYMPH: Denies any palpable lymph nodes ID: Denies any illness exposures or recent travel history OBJECTIVE: HEENT: Normocephalic & atraumatic. PERRLA with EOMI. Optic discs sharp. Tympanic membranes with well-defined light reflexes bilaterally. Nasal turbinates within normal limits. Posterior oropharynx is clear and widely patent. No visible tonsils. Thyroid minimally palpable when pt asked to swallow. LYMPH: No adenopathy noted of the neck. In addition, there is no supraclavicular, infraclavicular oraxillary adenopathy. LUNGS: Clear to auscultation bilaterally. No derangement in the inspiratory to expiratory ratio. No wheezes or rales. No egophony. CV: NSR. No murmur. No rub. No gallop. Normal s1 and S2 heart sounds without appreciable S3 or S4. No jugular venous distension. ABD: Abdomen is soft, nontender and nondistended. No hepatosplenomegaly. No rebound tenderness. No costavetebral angle tenderness. No suprapubic fullness/discomfort. SKIN: No rash or unusual lesions. NEURO: Aware + Oriented x 3. senior mobile developer II-XII grossly intact. Nonfocal exam. EXTREMITIES: No clubbing, cyanosis, or edema. Capillary refill excellent at less than 2 seconds throughout. PSYCH: Euthymic. No delusions or hallucinations. Normal speech. Denies any suicidal or homicidal ideation. ASSESSMENT/PLAN: 1- Normal CPE. Fasting labs per HS orders. 2- Tobacco use Disorder. After d/w pt regarding risks and benefits as well as possible side effects,drug interactions and adverse reactions, pt accepts prescription for Chantix per HS orders. 3- Alelrgic Rhinitis. Good control. After d/w pt regarding risks and benefits as well as possible side effects, drug interactions and adverse reactions, pt accepts prescription for Nasacort ACQ Q per HS orders. 4- Obst Sleep Apnea. Doing well on CPAP. 5- Family hx of ASCVD. documented in this encounter Nursing Notes 11/07/2006 10:15 AM CDT >> PINKY HAINES 11/07/2006 10:27 am Last PE=08/2005 Last colonoscopy or Flex Sig=none Last [id number] Last PSA Patient presents with: Physical - pt is fasting for labs- also allergy issues Smoking Cessation - pt is trying to stop smoking Initial BP 118/78 Ht 6' 1 (1.85m) Wt 213 lbs (96.6kg) Body mass index is 28.11 kg/(m^2).. BP completed using cuff size regular Pinky Haines CMA documented in this encounter Plan of Treatment Not on filedocumented as of this encounter Procedures Procedure Name Priority Date/Time Associated Comments Diagnosis HCL CRP, CARDIAC Routine 11/07/2006 11:07 AM Allergic Rhinitis Results for this RISK CDT Nos procedure are in Tobacco Use the results Disorder section. Routine Medical Exam Family Hx Cardiovas Dis Nec Hypersomni W Sleep Apnea CL AFF CBC WITH Routine 11/07/2006 11:07 AM Allergic Rhinitis Results for this PLATELETS CDT Nos procedure are in Tobacco Use the results Disorder section. Routine Medical Exam Family Hx Cardiovas Dis Nec Hypersomni W Sleep Apnea HCL BASIC METABOLIC Routine 11/07/2006 11:07 AM Allergic Rhini tis Results for this PANEL CDT Nos procedure are in Tobacco Use the results Disorder section. Routine Medical Exam Family Hx Cardiovas Dis Nec Hypersomni W Sleep Apnea HCL TSH W/FREE T4 Routine 11/07/2006 11:07 AM Allergic Rhiniti s Results for this REFLEX CDT Nos procedure are in Tobacco Use the results Disorder section. Routine Medical Exam Family Hx Cardiovas Dis Nec Hypersomni W Sleep Apnea HCL GLYCATED Routine 11/07/2006 11:07 AM Allergic Rhinitis Res ults for this HEMOGLOBIN CDT Nos procedure are in Tobacco Use the results Disorder section. Routine Medical Exam Family Hx Cardiovas Dis Nec Hypersomni W Sleep Apnea HCL ALT Routine 11/07/2006 11:07 AM Allergic Rhinitis Res ults for this CDT Nos procedure are in Tobacco Use the results Disorder section. Routine Medical Exam Family Hx Cardiovas Dis Nec Hypersomni W Sleep Apnea HCL AST Routine 11/07/2006 11:07 AM Allergic Rhinitis Res ults for this CDT Nos procedure are in Tobacco Use the results Disorder section. Routine Medical Exam Family Hx Cardiovas Dis Nec Hypersomni W Sleep Apnea CL AFF A.M.A. LIPID Routine 11/07/2006 11:07 AM Allergic Rhini tis Results for this PANEL CDT Nos procedure are in Tobacco Use the results Disorder section. Routine Medical Exam Family Hx Cardiovas Dis Nec Hypersomni W Sleep Apnea documented in this encounter Results CRP, CARDIAC RISK (11/07/2006 11:07 AM CDT) athologist Signature CRP Cardiac 1.5 mg/L [facility] Comment: Reference Values: Low Risk: ? <1.0 mg/L Average Risk: ? 1.0-3.0 mg/L High Risk: ?>3.0 mg/L Acute Inflammation: >8.0 mg/L Specimen Anatomical Collection Method Collection Time Receive d Time (Source) Location / / Volume Laterality 11/07/2006 11:07 11/07/2006 AM CDT 11:12 AM CDT Harvinder Michelle MD LABORATORY Performing Organization Address City/State/[facility] Code Phon e Number [facility] [address] LABS CBC WITH PLATELETS (11/07/2006 11:07 AM CDT) athologist Signature WBC 6.8 4.0 - 11.0 [place] 10e9/L [facility] RBC Count 4.96 4.4 - 5.9 [place] 10e12/L [facility] Hemoglobin 15.5 13.3 - [place] 17.7 g/dL [facility] Hematocrit 43.4 40.0 - [place] 53.0 % [facility] MCV 88 78 - 100 [place] fl [facility] MCH 31.3 26.5 - [place] 33.0 pg [facility] MCHC 35.7 31.5 - [place] 36.5 g/dL [facility] RDW 12.3 10.0 - [place] 15.0 % [facility] Platelet Count 274 150 - 450 [place] 10e9/L [facility] Specimen Anatomical Collection Method Collection Time Receive d Time (Source) Location / / Volume Laterality 11/07/2006 11:07 11/07/2006 AM CDT 11:12 AM CDT Harvinder Michelle MD LABORATORY Performing Organization Address City/State/ZIP Code Phon e Number [facility] [address] [place] [address] [facility] TSH W/FREE T4 REFLEX (11/07/2006 11:07 AM CDT) P athologist Signature TSH 2.00 0.4 - 5.0 [facility] m[facility]/L [facility] LAB Specimen Anatomical Collection Method Collection Time Receive d Time (Source) Location / / Volume Laterality 11/07/2006 11:07 11/07/2006 AM CDT 11:12 AM CDT Harvinder Michelle MD LABORATORY Performing Organization Address City/State/ZIP Code Phon e Number [facility][1] [address] [place] [address] [facility] HEMOGLOBIN A1C (11/07/2006 11:07 AM CDT) P athologist Signature Hemoglobin A1C 5.1 4.3 - 6.0 [facility] LAB Specimen Anatomical Collection Method Collection Time Receive d Time (Source) Location / / Volume Laterality 11/07/2006 11:07 11/07/2006 AM CDT 11:12 AM CDT Harvinder Michelle MD LABORATORY Performing Organization Address City/State/ZIP Code Phon e Number [facility] [place] [address] DIAGNOSTIC LABORATORY, [address] [facility] [address] [facility] AST (11/07/2006 11:07 AM CDT) P athologist Signature AST 26 0 - 55 U/L [facility] Specimen Anatomical Collection Method Collection Time Receive d Time (Source) Location / / Volume Laterality 11/07/2006 11:07 11/07/2006 AM CDT 11:12 AM CDT Harvinder Michelle MD LABORATORY Performing Organization Address City/State/ZIP Code Phon e Number [facility] [address] [place] [address] [facility] A.M.A. LIPID PANEL (11/07/2006 11:07 AM CDT) athologist Signature Cholesterol 176 0 - 200 [facility] mg/dL CLINIC LAB Comment: LDL Cholesterol is the primary guide to therapy: LDL-cholesterol goal in high risk patients is <100 mg/dL and in very high risk patients is <70 mg/dL. The NCEP recommends further evaluation of: patients with cholesterol <200 mg/dL if additional risk factors are present, cholesterol >240 mg/dL, triglycerides >150 mg/dL, or HDL <40 mg/dL. Triglycerides 115 0 - 150 mg/dL [facility] HDL Cholesterol 47 40 - 110 mg/dL [facility] LDL Cholesterol Calculated 106 0 - 129 mg/dL [facility] Comment: LDL Cholesterol is the primary guide to therapy: LDL-cholesterol goal in high risk patients is <100 mg/dL and in very high risk patients is <70 mg/dL. VLDL-Cholesterol 23 0 - 30 mg/dL [facility] LAB Cholesterol/HDL Ratio 3.8 0.0 - 5.0 [facility] LAB Specimen Anatomical Collection Method Collection Time Receive d Time (Source) Location / / Volume Laterality 11/07/2006 11:07 11/07/2006 AM CDT 11:12 AM CDT Harvinder Michelle MD LABORATORY Performing Organization Address City/[facility] Phon e Number [address] [address] [phone] [facility] ALANINE AMINO (ALT) (SGPT) (11/07/2006 11:07 AM CDT) athologist Signature ALT 35 0 - 70 U/L [facility] Specimen Anatomical Collection Method Collection Time Receive d Time (Source) Location / / Volume Laterality 11/07/2006 11:07 11/07/2006 AM CDT 11:12 AM CDT Harvinder Michelle MD LABORATORY Performing Organization Address [facility] Phon e Number [address] [address] [phone] [facility] A.M.A. BASIC METABOLIC PANEL (11/07/2006 11:07 AM CDT) P athologist Signature Sodium 142 133 - 144 [place] mmol/L CLINIC LAB Potassium 4.4 3.4 - 5.3 [place] [place] mmol/L [facility] LAB Chloride 105 94 - 109 [place] mmol/L [facility]IC LAB Carbon Dioxide 27 20 - 32 [place] mmol/L [facility] LAB Anion Gap 10 6 - 17 [place] mmol/L [facility] LAB Glucose 89 60 - 99 [place] mg/dL CLINIC LAB Urea Nitrogen 11 5 - 24 [place] mg/dL CLINIC LAB Creatinine 1.10 0.80 - [place] 1.50 mg/dL CLINIC LAB GFR Estimate 82 >60 [place] mL/min/1.7 CLINIC LAB m2 GFR Estimate If >90 >60 [facility] [place] Black mL/min/1.7 CLINIC LAB m2 Calcium 9.1 8.5 - 10.4 [place] mg/dL CLINIC LAB Specimen Anatomical Collection Method Collection Time Receive d Time (Source) Location / / Volume Laterality 11/07/2006 11:07 11/07/2006 AM CDT 11:12 AM CDT Harvinder Michelle MD LABORATORY Performing Organization Address City/State/ZIP Code Phon e Number [facility] [address] [facility] [place] [address] [facility] documented in this encounter Visit Diagnoses Diagnosis Allergic rhinitis, cause unspecified Tobacco use disorder Routine general medical examination at a health care facility Fam hx-cardiovas dis NEC Family history of other cardiovascular d iseases Hypersomnia with sleep apnea, unspecifie d documented in this encounter Care Teams Airport Representative Relationship Specialty Start Date End Date Harvinder Michelle MD PCP - General 12/26/01 11/16/13 [address] [id number] documented as of this encounter
--- OUTSIDE RECORDS SUMMARY | 2022-03-20 14:30 | XMS_ITS | Encounter Summary ---
:1975 Author Organization [facility] Address [address] [place] [id number] Care Team Providers Name Role Phone Harvinder Michelle MD Primary Care Provider Reason for Visit Reason Comments Eye Problem R eye pain with blurred visi on x 2 days Encounter Details Date Type Department Care Team Description 04/29/2007 Office Visit [facility] Jack Messina VISUAL DISTURBANCE NOS [facility] [place] MD Sloan (Primary Dx) [address] [place] [phone] [address] [place], [place] [id number] Social History Tobacco Use Types Packs/Day Years Used Date Current Every Day Smoker Cigarettes 0.5 16 Alcohol Use Standard Drinks/Week Comments Yes 0 (1 standard drink = 0.6 oz pure alcoho l) 2 beers a day Sex Assigned at Date Recorded Not on file documented as of this encounter Last Filed Vital Signs Vital Sign Reading Time Taken Comments Blood Pressure 124/82 04/29/2007 2:45 PM PREVENTIVE MEDICINE PHYSICIAN Pulse - - Temperature 36.3 ??C (97.4 ??F) 04/29/2007 2:45 PM PREVENTIVE MEDICINE PHYSICIAN Respiratory Rate - - Oxygen Saturation - - Inhaled Oxygen Concentration - - Weight 99.3 kg (219 lb) 04/29/2007 2:45 PM PREVENTIVE MEDICINE PHYSICIAN Height 185.4 cm (6' 1) 04/29/2007 2:45 PM PREVENTIVE MEDICINE PHYSICIAN Body Mass Index 28.89 04/29/2007 2:45 PM PREVENTIVE MEDICINE PHYSICIAN documented in this encounter Progress Notes Jack Messina W - 05/06/2007 10:00 PM CST SUBJECTIVE: 31 year old patient presents with chief complaint of: right eye feels itchy and somewhat photophobic. Uncertain whether he had a foreign body entered. OBJECTIVE: EXAM: BP 124/82 Temp (Src) 97.4 (Oral) Ht 6' 1 (1.85m) Wt 219 lbs (99.3kg) Fluorescein stain looks normal. HEENT otherwise normal ASSESSMENT/PLAN 368.9 VISUAL DISTURBANCE NOS (primary encounter diagnosis) Note: neg fluorescien stain exam, to opthal if not beete 48 hr Plan: ENTIVE MEDICINE PHYSICIAN documented in this encounter Nursing Notes 04/29/2007 2:45 PM CST >> RAVEN PATINO 04/29/2007 2:58 pm Patient presents with: Eye Problem - R eye pain with blurred vision x 2 days Initial BP 124/82 Temp (Src) 97.4 (Oral) Ht 6' 1 (1.85m) Wt 219 lbs (99.3kg) Body mass index is 28.90 kg/(m^2).. BP completed using cuff size: large Raven Patino CMA documented in this encounter Plan of Treatment Not on filedocumented as of this encounter Visit Diagnoses Diagnosis Unspecified visual disturbance - Primary documented in this encounter Care Teams Financial Agent Relationship Specialty Start Date End Date Harvinder Michelle MD PCP - General 12/26/01 11/16/13 [address] [id number] documented as of this encounter
--- OUTSIDE RECORDS SUMMARY | 2022-03-20 14:30 | XMS_ITS | Encounter Summary ---
:1975 Author Organization [facility] Address [address] [place] [address]. [place] [address] Care Team Providers Name Role Phone Harvinder Michelle MD Primary Care Provider Encounter Details Date Type Department Care Team Description 04/21/2010 Operative Report [facility] Charles Childers MD (Buzzsaw Operator Helper) [facility] ENT SPECIALTY [place] RE Results [address] [place] [phone] (Wo rk) Social History Tobacco Use Types Packs/Day Years Used Date Current Every Day Smoker Cigarettes 0.5 16 Alcohol Use Standard Drinks/Week Comments Yes 0 (1 standard drink = 0.6 oz pure alcoho l) 2 beers a day Sex Assigned at Date Recorded Not on file documented as of this encounter Progress Notes Charles Childers MD - 04/27/2010 7:27 AM PRESCHOOL PRINCIPAL FINAL PREOPERATIVE DIAGNOSES: Deviated nasal septum with hypertrophic inferior turbinates and nasal obstruction. POSTOPERATIVE DIAGNOSES: Deviated nasal septum with hypertrophic inferior turbinates and nasal obstruction. PROCEDURE: Nasal septoplasty with bilateral inferior turbinoplasty, therapeutic lateralization fracturing. SURGEON: Charles Childers MD, FACS INFECTION CLASSIFICATION: 2. COMPLICATIONS: None. ESTIMATED BLOOD LOSS: 10 mL DESCRIPTION OF PROCEDURE: Leatha Baker was brought to the operating room, placed in a supine position and administered adequate general endotracheal anesthesia. He was positioned and draped with his backand head slightly elevated. Externally, the nose and face area was prepped with alcohol pads. Internally, the nose was prepped with 4 mL of 4% cocaine solution on cottonoid sponges. The nasal hairs were trimmed. The cottonoids removed. The doc-septal tissues were infiltrated with 11 mL of 1% lidocaine, 0.25% Marcaine and 1:50,000 epinephrine solution. The cocaine cottonoids were replaced. Final draping and equipment setup was done. This gave adequate time for the hemostatic effect of the epinephrine and cocaine solutions. The cocaine cottonoids were accounted for throughout the procedure. They were removed first from the right side. An anterior inferior right septal incision was made. A mucoperichondrial and periosteal flap was elevated. This gave good observation. The cartilaginous septum was disarticulated from the bony septum and posterior and inferior flaps were completed bilaterally. The posterior and inferior deviated bone was chiseled and removed, which gave good realignment of the restof the quadrangular septal cartilage, improving the airways nicely and maintaining excellent dorsal and tip support. Having optimized the septoplasty, the inferior turbinoplasty lateralization fracturing was done on each side with a Sarpy elevator. The incision was closed with interrupted 4-0 Vicryl sutures. The nose was packed inferiorly with Merocel tampons with a breathing cannula in the center and they were coated with bacitracin and hydrated with the local anesthetic solution. The oropharynx was suctioned clear. He was awakened in the operating room. He was extubated without difficulty and taken to the recovery room with stable vital signs in good condition. He will be discharged as an outpatient surgery if recovery is satisfactory. This note will be electronically signed but not read. Electronically signed on 04/27/2010 07:27 by CHARLES CHILDERS MD MT: PP Name: LEATHA BAKER MRN: [id number] Account: [id number] : 1975 Procedure Date: 04/21/2010 Document: [id number] cc: Harvinder Michelle MD CHOOL PRINCIPAL documented in this encounter Plan of Treatment Not on filedocumented as of this encounter Visit Diagnoses Not on filedocumented in this encounter Care Teams Amusement Park Worker Relationship Specialty Start Date End Date Harvinder Michelle MD PCP - General 12/26/01 11/16/13 [address] [id number] documented as of this encounter
--- OUTSIDE RECORDS SUMMARY | 2022-03-20 14:30 | XMS_ITS | Encounter Summary ---
:1975 Author Organization [facility] Address [address] [place] [address] Care Team Providers Name Role Phone Harvinder Michelle MD Primary Care Provider Reason for Visit Reason Comments Back Pain x 3 days- was taking a tire off his his car- felt sharp going down right leg- is taking ibupro for pa in Encounter Details Date Type Department Care Team Description 01/31/2009 Office Visit [facility] Harvinder Michelle MD Back Muscle Spasm [facility] [place] [address] [place] [address] (Primary Dx) [address] [facility] [place] [id number] [phone] Social History Tobacco Use Types Packs/Day Years Used Date Current Every Day Smoker Cigarettes 0.5 16 Alcohol Use Standard Drinks/Week Comments Yes 0 (1 standard drink = 0.6 oz pure alcoho l) 2 beers a day Sex Assigned at Date Recorded Not on file documented as of this encounter Last Filed Vital Signs Vital Sign Reading Time Taken Comments Blood Pressure 120/80 01/31/2009 4:11 PM CDT Pulse - - Temperature - - Respiratory Rate - - Oxygen Saturation - - Inhaled Oxygen Concentration - - Weight 104.3 kg (230 lb) 01/31/2009 4:11 PM CDT Height 185.4 cm (6' 1) 01/31/2009 4:11 PM CDT Body Mass Index 30.34 01/31/2009 4:11 PM CDT documented in this encounter Progress Notes Harvinder Michelle - 01/31/2009 4:45 PM CDT SUBJECTIVE: Antelmo Farias is a 33 year old male who complains of low back pain for 3 days, positional with bendingor lifting, without radiation down the legs. Precipitating factors: twisting while changing tire. Prior history of back problems: no prior back problems. There is no numbness in the legs. OBJECTIVE: BP 120/80 Ht 6' 1 (1.854 m) Wt 230 lb (104.327 kg) Patient appears to be in mild to moderate pain, antalgic gait noted. Lumbosacral spine area reveals no local tenderness or mass. Painful and reduced LS ROM noted. Straight leg raise is negative}. DTR's, motor strength and sensation normal, including heel and toe gait. Peripheral pulses are palpable. X-Ray: not indicated. ASSESSMENT: lumbar strain and muscle spasm PLAN: For acute pain, rest, intermittent application of heat (do not sleep on heating pad), analgesics andmuscle relaxants are recommended. Discussed longer term treatment plan of prn NSAID's and discussed a home back care exercise program with flexion exercise routine. Proper lifting with avoidance of heavy lifting discussed. Consider Physical Therapy and XRay studies if not improving. Call or return to clinic prn if these symptoms worsen or fail to improve as anticipated. documented in this encounter Nursing Notes 01/31/2009 3:45 PM CDT >> PINKY HAINES Mon Jan 31, 2009 4:22 PM Patient presents with: Back Pain - x 3 days- was taking a tire off his his car- felt sharp going down right leg- is takingibupro for pain Initial BP 120/80 Ht 6' 1 (1.854 m) Wt 230 lb (104.327 kg) Body mass index is 30.34 kg/(m^2).. BP completed using cuff size large Health Maintenance Updated with Patient: Yes Tobacco Verified: Yes Payor/Verify RX Benefits/Reconcile Disp Completed if allowed: Yes Family History Updated: Yes Immunizations Up to Date: Yes Mychart Offered: Yes Pinky Haines CMA documented in this encounter Plan of Treatment Not on filedocumented as of this encounter Visit Diagnoses Diagnosis Back muscle spasm - Primary Other symptoms referable to back documented in this encounter Care Teams Dental Equipment Technician Relationship Specialty Start Date End Date Harvinder Michelle MD PCP - General 12/26/01 11/16/13 [address] [id number] documented as of this encounter
--- OUTSIDE RECORDS SUMMARY | 2022-03-20 14:30 | XMS_ITS | Encounter Summary ---
:1975 Author Organization [facility] Address [address] [place] [address] Care Team Providers Name Role Phone Harvinder Michelle MD Primary Care Provider Reason for Visit Reason Comments Abdominal Pain generalized abdominal pain a nd gas - pt began working out x 2 weeks ago Smoking Cessation looking for Chantix Rx 2 wee ks ago Encounter Details Date Type Department Care Team Description 09/13/2008 Office Visit [facility] Harvinder Michelle MD Tobacco Abuse; Clinic [place] [address] [address] Injury of Abdominal Wall [id number] [place], [place] [address] [address] [phone] Social History Tobacco Use Types Packs/Day Years Used Date Current Every Day Smoker Cigarettes 0.5 16 Alcohol Use Standard Drinks/Week Comments Yes 0 (1 standard drink = 0.6 oz pure alcoho l) 2 beers a day Sex Assigned at Date Recorded Not on file documented as of this encounter Last Filed Vital Signs Vital Sign Reading Time Taken Comments Blood Pressure 118/92 09/13/2008 9:06 AM CDT Pulse 64 09/13/2008 9:06 AM CDT Temperature 36.7 ??C (98 ??F) 09/13/2008 9:06 AM CDT Respiratory Rate 16 09/13/2008 9:06 AM CDT Oxygen Saturation - - Inhaled Oxygen Concentration - - Weight 98.9 kg (218 lb) 09/13/2008 9:06 AM CDT Height - - Body Mass Index 28.76 09/01/2008 11:15 AM CDT documented in this encounter Progress Notes Harvinder Michelle - 09/13/2008 10:12 AM CDT Pt here today for two weeks of genrealized intermittent abdomenal wall pain. Of note, he started working out about two weeks ago in an attempt to lose weight He also wishes to get his script for chantix. EXAM: LUNGS: CAT CV: NSR ABD: S/NT/ND. No rebound. A/P: 1- Abdominal wall strain, benign. 2- Tobacco Abuse. After d/w pt regarding risks and benefits as well as possible side effects, drug interactions and adverse reactions, pt accepts prescription for chantix per hs orders. documented in this encounter Nursing Notes 09/13/2008 9:00 AM CDT >> MICHAEL Brink Sep 13, 2008 9:12 AM Patient presents with: Abdominal Pain - generalized abdominal pain and gas - pt began working out x 2 weeks ago Smoking Cessation - looking for Chantix Rx 2 weeks ago Initial BP 118/92 Pulse 64 Temp (Src) 98 ??F (36.7 ??C) (Oral) Resp 16 Wt 218 lb (98.884 kg)Estimated Body mass index is 28.76 kg/(m^2) as calculated from: Height of 6' 1 (1.854 m) as of 09/01/08 Weight of 218 lb (98.884 kg) as of this encounter BP completed using cuff size large, right arm Michael Hameed LPN documented in this encounter Plan of Treatment Not on filedocumented as of this encounter Visit Diagnoses Diagnosis Tobacco abuse Tobacco use disorder Injury of abdominal wall Other injury of abdomen documented in this encounter Care Teams Joint Supervisor Relationship Specialty Start Date End Date Harvinder Michelle MD PCP - General 12/26/01 11/16/13 [address] [id number] documented as of this encounter
--- OUTSIDE RECORDS SUMMARY | 2022-03-20 14:30 | XMS_ITS | Encounter Summary ---
:1975 Author Organization [facility] Address [address] [place] [id number] Care Team Providers Name Role Phone Harvinder Michelle MD Primary Care Provider Reason for Visit Reason Comments Physical yearly physical Blood Draw fasting for labs Medication Request med request for smoking Encounter Details Date Type Department Care Team Description 09/01/2008 Office Visit [facility] Harvinder Michelle MD Routine Medical Exam; Clinic [address] Family History of Ischemic H eart Disease [id number] [place] [id number] [phone] Social History Tobacco Use Types Packs/Day Years Used Date Current Every Day Smoker Cigarettes 0.5 16 Alcohol Use Standard Drinks/Week Comments Yes 0 (1 standard drink = 0.6 oz pure alcoho l) 2 beers a day Sex Assigned at Date Recorded Not on file documented as of this encounter Last Filed Vital Signs Vital Sign Reading Time Taken Comments Blood Pressure 110/78 09/01/2008 11:15 AM CDT Pulse 60 09/01/2008 11:15 AM CDT Temperature 36.9 ??C (98.4 ??F) 09/01/2008 11:15 AM CDT Respiratory Rate - - Oxygen Saturation - - Inhaled Oxygen Concentration - - Weight 98.4 kg (217 lb) 09/01/2008 11:15 AM CDT Height 185.4 cm (6' 1) 09/01/2008 11:15 AM CDT Body Mass Index 28.63 09/01/2008 11:15 AM CDT documented in this encounter Progress Notes Harvinder Michelle - 09/01/2008 12:33 PM CDT SUBJECTIVE: Antelmo Farias 33 year old male presentsfor CPE. He has no concerns, he would like to lose weight. He otherwise has no complaints. Histories UPdated through 09-01-2008: Past Medical History Diagnosis Date ??? Hypersomnia with Sleep Apnea, Unspecified 2004 cpap AT 5CM Past Surgical History Procedure Date ??? Explor maxill sinus,intranasal 04/2002 Dr. Shea Family History Problem Relation ??? Heart Father DC in 1997 ??? Family History Negative [...] Outpatient Rx Name Route Sig Dispense Refill ??? ASPIRIN 81 MG OR TABS Oral [...] lesions. NEURO: Aware + Oriented x 3. 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 Nonfocal exam. EXTREMITIES: No clubbing, cyanosis, or edema. Capillary refill excellent at less than 2 seconds throughout. PSYCH: Euthymic. No delusions or hallucinations. Normal speech. Denies any suicidal or homicidal ideation. ASSESSMENT/PLAN: 1- Normal CPE. Fasting labs today. 2- Fam hx of ischemic heart diseae. 3- documented in this encounter Nursing Notes 09/01/2008 11:15 AM CDT >> SAMMY LOTT SatSep 01, 2008 11:19 AM Patient presents with: Physical - yearly physical Blood Draw - fasting for labs Medication Request - med request for smoking Initial BP 110/78 Pulse 60 Temp (Src) 98.4 ??F (36.9 ??C) (Oral) Ht 6' 1 (1.854 m) Wt 217 lb (98.431 kg) Body mass index is 28.63 kg/(m^2).. BP completed using cuff size large - RA. Sammy Lott, Song And Dance Performer documented in this encounter Plan of Treatment Not on filedocumented as of this encounter Procedures Procedure Name Priority Date/Time Associated Diagnosis Comme nts HCL CRP, CARDIAC Routine 09/01/2008 11:43 AM Family History of Results for this RISK CDT Ischemic Heart procedure are in Disease the results Routine Medical Exam section . CL AFF CBC WITH Routine 09/01/2008 11:43 AM Family History of Results for this PLATELETS, DIFF CDT Ischemic Heart procedure are in Disease the results Routine Medical Exam section . HCL PROSTATE SPEC Routine 09/01/2008 11:43 AM Family History o f Results for this ANTIGEN,SCREEN CDT Ischemic Heart procedure a re in Disease the results Routine Medical Exam section . HCL BASIC METABOLIC Routine 09/01/2008 11:43 AM Family History of Results for this PANEL CDT Ischemic Heart procedure are in Disease the results Routine Medical Exam section . HCL TSH W/FREE T4 Routine 09/01/2008 11:43 AM Family History o f Results for this REFLEX CDT Ischemic Heart procedure are in Disease the results Routine Medical Exam section . HCL ALT Routine 09/01/2008 11:43 AM Family History of Res ults for this CDT Ischemic Heart procedure are in Disease the results Routine Medical Exam section . HCL AST Routine 09/01/2008 11:43 AM Family History of Res ults for this CDT Ischemic Heart procedure are in Disease the results Routine Medical Exam section . CL AFF A.M.A. LIPID Routine 09/01/2008 11:43 AM Family History of Results for this PANEL CDT Ischemic Heart procedure are in Disease the results Routine Medical Exam section . documented in this encounter Results PROSTATE SPEC ANTIGEN,SCREEN (09/01/2008 11:43 AM CDT) athologist Signature PSA 0.63 0 - 4 ug/L [facility] Specimen Anatomical Collection Method Collection Time Receive d Time (Source) Location / / Volume Laterality 09/01/2008 11:43 09/01/2008 AM CDT 11:48 AM CDT Harvinder Michelle MD LABORATORY Performing Organization Address City/State/ZIP Code Phon e Number [facility] [address] [place] [address] [facility] CRP, CARDIAC RISK (09/01/2008 11:43 AM CDT) P athologist Signature CRP Cardiac 1.0 mg/L [facility] Comment: Reference Values: Low Risk: ? <1.0 mg/L Average Risk: ? 1.0-3.0 mg/L High Risk: ?>3.0 mg/L Acute Inflammation: >8.0 mg/L Specimen Anatomical Collection Method Collection Time Receive d Time (Source) Location / / Volume Laterality 09/01/2008 11:43 09/01/2008 AM CDT 11:48 AM CDT Harvinder Michelle MD LABORATORY Performing Organization Address City/State/ZIP Code Phon e Number [facility] [address] LABS CBC WITH PLATELETS, DIFF (09/01/2008 11:43 AM CDT) Patholo gist Method Time Signature WBC 6.1 4.0 - [facility] 11.0 [facility] 10e9/L CLINIC LAB RBC Count 5.14 4.4 - 5.9 [place] 10e12/L [facility] Hemoglobin 15.3 13.3 - [facility] 17.7 g/dL [facility] Hematocrit 42.9 40.0 - [facility] 53.0 % [facility] MCV 84 78 - 100 [place] fl [facility] MCH 29.8 26.5 - [facility] 33.0 pg [facility] MCHC 35.7 31.5 [facility] 36.[facility] g/dL [facility] RDW 12.3 10.0 - [facility] 15.0 % [facility] Platelet Count 247 150 - 450 [place] 10e9/L [facility] Diff Method Automated [place] Method [facility] % Neutrophils 55 40 - 75 % [facility] % Lymphocytes 32 20 - 48 % [facility] % Monocytes 10 0 - 12 % [facility] % Eosinophils 3 0 - 6 % [facility] % Basophils 0 0 - 2 % [facility] Absolute 3.3 1.6 - 8.3 [place] Neutrophil 10e9/L [facility] Absolute 1.9 0.8 - 5.3 [place] Lymphocytes 10e9/L [facility] Absolute 0.6 0.0 - 1.3 [place] Monocytes 10e9/L [facility] Absolute 0.2 0.0 - 0.7 [facility] Eosinophils 10e9/L [facility] Absolute 0.0 0.0 - 0.2 [place] Basophils 10e9/L [facility] Specimen Anatomical Collection Method Collection Time Receive d Time (Source) Location / / Volume Laterality 09/01/2008 11:43 09/01/2008 AM CDT 11:48 AM CDT Harvinder Michelle MD LABORATORY Performing Organization Address City/[facility]/ZIP Code Phon e Number [facility] [address] [place] [address] [facility] TSH W/FREE T4 REFLEX (09/01/2008 11:43 AM CDT) athologist Signature TSH 2.63 0.4 - 5.0 [place] [facility] m[facility]/L [facility] Specimen Anatomical Collection Method Collection Time Receive d Time (Source) Location / / Volume Laterality 09/01/2008 11:43 09/01/2008 AM CDT 11:48 AM CDT Harvinder Michelle MD LABORATORY Performing Organization Address City/[facility]/ZIP Code Phon e Number [facility] [address] [place] [address] [facility] AST (09/01/2008 11:43 AM CDT) athologist Signature AST 45 0 - 55 U/L [facility] Specimen Anatomical Collection Method Collection Time Receive d Time (Source) Location / / Volume Laterality 09/01/2008 11:43 09/01/2008 AM CDT 11:48 AM CDT Harvinder Michelle MD LABORATORY Performing Organization Address City/[facility]/ZIP Code Phon e Number [facility] [address] [place] [address] [facility] (ABNORMAL) A.M.A. LIPID PANEL (09/01/2008 11:43 AM CDT) athologist Signature Cholesterol 167 0 - 200 [facility] mg/dL CLINIC LAB Comment: LDL Cholesterol is the primary guide to therapy: LDL-cholesterol goal in high risk patients is <100 mg/dL and in very high risk patients is <70 mg/dL. The NCEP recommends further evaluation of: patients with cholesterol <200 mg/dL if additional risk factors are present, cholesterol >240 mg/dL, triglycerides >150 mg/dL, or HDL <40 mg/dL. Triglycerides 104 0 - 150 mg/dL [facility] HDL Cholesterol 39 (L) 40 - 110 mg/dL [facility] LDL Cholesterol Calculated 107 0 - 129 mg/dL [facility] Comment: LDL Cholesterol is the primary guide to therapy: LDL-cholesterol goal in high risk patients is <100 mg/dL and in very high risk patients is <70 mg/dL. VLDL-Cholesterol 21 0 - 30 mg/dL [facility] Cholesterol/HDL Ratio 4.3 0.0 - 5.0 [facility] Specimen Anatomical Collection Method Collection Time Receive d Time (Source) Location / / Volume Laterality 09/01/2008 11:43 09/01/2008 AM CDT 11:48 AM CDT Harvinder Michelle MD LABORATORY Performing Organization Address City/[facility]/ZIP Code Phon e Number [address] [address] [phone] [facility] ALANINE AMINO (ALT) (SGPT) (09/01/2008 11:43 AM CDT) athologist Signature ALT 28 0 - 70 U/L [facility] Specimen Anatomical Collection Method Collection Time Receive d Time (Source) Location / / Volume Laterality 09/01/2008 11:43 09/01/2008 AM CDT 11:48 AM CDT Harvinder Michelle MD LABORATORY Performing Organization Address City/[facility] Phon e Number [facility] [address] [place] [phone] [facility] A.M.A. BASIC METABOLIC PANEL (09/01/2008 11:43 AM CDT) athologist Signature Sodium 140 133 - 144 [facility] [place] mmol/L [facility]IN[facility] LAB Potassium 4.4 3.4 - 5.3 [place] mmol/L [facility] Chloride 103 94 - 109 [place] mmol/L [facility] Carbon Dioxide 25 20 - 32 [place] mmol/L [facility] Anion Gap 11 6 - 17 [place] mmol/L [facility] Glucose 92 60 - 99 [place] mg/dL [facility] Urea Nitrogen 15 5 - 24 [place] mg/dL [facility] Creatinine 0.98 0.66 - [place] 1.25 mg/dL CLINIC LAB Comment: New IDMS-traceable calibration beginning 10/16/07 GFR Estimate 88 >60 mL/min/1.7m2 [place] E AGAN [facility] GFR Estimate If Black >90 >60 mL/min/1.7m2 [facility] Calcium 9.0 8.5 - 10.4 mg/dL [place] EAGA N [facility] Specimen Anatomical Collection Method Collection Time Receive d Time (Source) Location / / Volume Laterality 09/01/2008 11:43 09/01/2008 AM CDT 11:48 AM CDT Harvinder Michelle MD LABORATORY Performing Organization Address City/State/ZIP Code Phon e Number [facility] [place] [address] [place] [address] [facility] documented in this encounter Visit Diagnoses Diagnosis Routine medical exam Routine general medical examination at a health care facility Family history of ischemic heart disease documented in this encounter Care Teams Lav Crewman Relationship Specialty Start Date End Date Harvinder Michelle MD PCP - General 12/26/01 11/16/13 [id number] [phone] documented as of this encounter
--- OUTSIDE RECORDS SUMMARY | 2022-03-20 14:30 | XMS_ITS | Encounter Summary ---
:1975 Author Organization [place] Address [address] [place] [address] Care Team Providers Name Role Phone Harvinder Michelle MD Primary Care Provider Reason for Visit Reason Comments Physical fasting labs Pain left testicle - pain radiate s down leg and up into abdominal area x 5 days Encounter Details Date Type Department Care Team Description 01/25/2010 Office Visit [facility] Harvinder Michelle MD Routine Medical Exam; Clinic [place] [address] [place] Abdominal Pain, Other Specif ied Site [address] [place] [id number] [phone] Social History Tobacco Use Types Packs/Day Years Used Date Current Every Day Smoker Cigarettes 0.5 16 Alcohol Use Standard Drinks/Week Comments Yes 0 (1 standard drink = 0.6 oz pure alcoho l) 2 beers a day Sex Assigned at Date Recorded Not on file documented as of this encounter Last Filed Vital Signs Vital Sign Reading Time Taken Comments Blood Pressure 124/71 01/25/2010 1:25 PM CDT Pulse 47 01/25/2010 1:25 PM CDT Temperature 37 ??C (98.6 ??F) 01/25/2010 1:25 PM CDT Respiratory Rate - - Oxygen Saturation - - Inhaled Oxygen Concentration - - Weight 98.4 kg (217 lb) 01/25/2010 1:25 PM CDT Height 180.3 cm (5' 11) 01/25/2010 1:25 PM CDT Body Mass Index 30.27 01/25/2010 1:25 PM CDT documented in this encounter Progress Notes Deb, Sofia - 01/25/2010 3:37 PM CDT Addended by: SOFIA BOYD on: 01/25/2010 Modules accepted: Orders Harvinder Michelle - 01/25/2010 1:47 PM CDT SUBJECTIVE: Antelmo Farias 34 year old male presents for CPE and groin pain along the left inclusive ofthe testcile and down medial left thigh. Histories Updated through 01-25-2010: Past Medical History Diagnosis Date ??? Hypersomnia with Sleep Apnea, Unspecified 2004 cpap AT 5CM Past Surgical History Procedure Date ??? Explor maxill sinus,intranasal 04/2002 Dr. Shea Family History Problem Relation Age of Onset [...] MG X 11 & 1 MG X 42 PO TABS Oral 0.5mg daily for 3 days, then0.5mg twice daily for 4 days, then 1mg twice daily. Take with food and stop smoking 7 days after treatment begins. qs 0 Allergies Allergen Reactions ??? No Known Drug [...] No costavetebral angle tenderness. No suprapubic fullness/discomfort. : Normal. No palpable masses in scrotum which transilluminates normally. No testicular masses or tenderness. SKIN: No rash or unusual lesions. NEURO: Aware + Oriented x 3. 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 Nonfocal exam. EXTREMITIES: No clubbing, cyanosis, or edema. Capillary refill excellent at less than 2 seconds throughout. PSYCH: Euthymic. No delusions or hallucinations. Normal speech. Denies any suicidal or homicidal ideation. ASSESSMENT/PLAN: 1- Normal exam. Fasting labs 2- Groin pain. Will get sono of scrotum. documented in this encounter Nursing Notes 01/25/2010 1:15 PM CDT >> LIANE REYES SatJan 25, 2010 1:26 PM Patient presents with: Physical - fasting labs Pain - left testicle - pain radiates down leg and up into abdominal area x 5 days Initial BP 124/71 Pulse 47 Temp(Src) 98.6 ??F (37 ??C) (Oral) Ht 5' 11 (1.803 m) Wt 217 lb (98.431 kg) Estimated Body mass index is 30.27 kg/(m^2) as calculated from the following: Height as of this encounter: 5' 11(1.803 m). Weight as of this encounter: 217 lb(98.431 kg).. BP completed using cuff size regular HEALTH MAINTENANCE REVIEWED. last Td:06/12/06 last PSA:09/01/08 Liane Reyes CMA documented in this encounter Plan of Treatment Not on filedocumented as of this encounter Procedures Procedure Name Priority Date/Time Associated Diagnosis Comme nts HC US SCROTUM AND Routine 01/30/2010 8:27 AM Abdominal pain, R esults for this CONTENTS CDT other specified site procedu re are in the results section. HC DUPLEX Routine 01/25/2010 3:36 PM Abdominal Pain, ABDOMEN/PELVIS CDT Other Specified Site VASCULAR STUDY, LIMITED HCL CRP, CARDIAC Routine 01/25/2010 1:44 PM Routine Medical Ex am Results for this RISK CDT procedure are i n the results section. CL AFF CBC WITH Routine 01/25/2010 1:44 PM Routine Medical Exa m Results for this PLATELETS CDT procedure are i n the results section. HCL BASIC METABOLIC Routine 01/25/2010 1:44 PM Routine Medical Exam Results for this PANEL CDT procedure are i n the results section. HCL TSH W/FREE T4 Routine 01/25/2010 1:44 PM Routine Medical E xam Results for this REFLEX CDT procedure are i n the results section. HCL ALT Routine 01/25/2010 1:44 PM Routine Medical Exam R esults for this CDT procedure are i n the results section. HCL AST Routine 01/25/2010 1:44 PM Routine Medical Exam R esults for this CDT procedure are i n the results section. CL AFF A.M.A. LIPID Routine 01/25/2010 1:44 PM Routine Medical Exam Results for this PANEL CDT procedure are i n the results section. documented in this encounter Results SONO SCROTUM (01/30/2010 8:27 AM CDT) Anatomical Region Laterality Modality Other Specimen (Source) Anatomical Collection Method Collection Time Re ceived Time Location / / Volume Laterality 01/30/2010 8:27 AM CDT Impressions 02/01/2010 9:34 AM CDT ULTRASOUND TESTICULAR January 30, 2010 8: 27:00 AM INDICATION: Left groin discomfort. ? FINDINGS: Scrotal ultrasound demonstrate s no testicular masses. Doppler color and waveform analysis demo nstrates normal blood flow to both testes. ??No evidence of testicular torsion. There are multiple tiny echogenic foci i n both testicles compatible with tiny calcifications. The epididymi are normal bilaterally. Small right hydrocele. Moderate left-sided tu icocele. IMPRESSION: 1. Moderate left-sided varicocele. 2. No testicular masses. 3. 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 This could be related to old infection/inflammatory disease. There ma y be an association with testicular neoplasm. Recommend clinical followup and consideration of sonographic followup/surveillance. Harvinder Michelle MD SPECIAL IMAGING STUDIES CRP, CARDIAC RISK (01/25/2010 1:44 PM CDT) athologist Signature CRP Cardiac 2.3 mg/L [facility] LABS Comment: Reference Values: Low Risk: ? <1.0 mg/L Average Risk: ? 1.0-3.0 mg/L High Risk: ?>3.0 mg/L Acute Inflammation: >8.0 mg/L Specimen Anatomical Collection Method Collection Time Receive d Time (Source) Location / / Volume Laterality 01/25/2010 1:44 PM 0 1:45 CDT PM CDT Harvinder Michelle MD LABORATORY Performing Organization Address City/State/ZIP Code Phon e Number [facility] [address] [place] [address] [facility] CBC WITH PLATELETS (01/25/2010 1:44 PM CDT) athologist Signature WBC 6.7 4.0 - 11.0 [facility] 10e9/L [facility] RBC Count 4.95 4.4 - 5.9 [facility] 10e12/L [facility] Hemoglobin 14.8 13.3 - [facility] 17.7 g/dL [facility] Hematocrit 42.2 40.0 - [facility] 53.0 % [facility] MCV 85 78 - 100 [facility] MCH 29.9 26.5 - [facility] 33.0 pg [facility] MCHC 35.1 31.5 - [facility] 36.5 g/dL [facility] RDW 12.3 10.0 - [facility] 15.0 % [facility] Platelet Count 255 150 - 450 [facility] 10e9/L [facility] Specimen Anatomical Collection Method Collection Time Receive d Time (Source) Location / / Volume Laterality 01/25/2010 1:44 PM 0 1:45 CDT PM CDT Harvinder Michelle MD LABORATORY Performing Organization Address City/[facility]/ZIP Code Phon e Number [facility] [address] [place] [address] [facility] TSH W/FREE T4 REFLEX (01/25/2010 1:44 PM CDT) athologist Signature TSH 3.80 0.4 - 5.0 [facility] mU/L [facility] Specimen Anatomical Collection Method Collection Time Receive d Time (Source) Location / / Volume Laterality 01/25/2010 1:44 PM 0 1:45 CDT PM CDT Harvinder Michelle MD LABORATORY Performing Organization Address City/State/ZIP Code Phon e Number [facility] [address] [place] [address] [facility] AST (01/25/2010 1:44 PM CDT) P athologist Signature AST 21 0 - 55 U/L [facility] Specimen Anatomical Collection Method Collection Time Receive d Time (Source) Location / / Volume Laterality 01/25/2010 1:44 PM 0 1:45 CDT PM CDT Harvinder Michelle MD LABORATORY Performing Organization Address City/[facility]/ZIP Code Phon e Number [facility] [address] [place] [address] [phone] [facility] A.M.A. LIPID PANEL (01/25/2010 1:44 PM CDT) P athologist Signature Cholesterol 175 0 - 200 [facility] mg/dL CLINIC LAB Comment: LDL Cholesterol is the primary guide to therapy. The NCEP recommends further evaluation of: patients with cholesterol <200 mg/dL if additional risk factors are present, cholesterol >240 mg/dL, triglycerides >150 mg/dL, or HDL <40 mg/dL. Triglycerides 119 0 - 150 mg/dL [facility] HDL Cholesterol 52 40 - 110 mg/dL [facility] LDL Cholesterol Calculated 99 0 - 129 mg/dL [facility] Comment: LDL Cholesterol is the primary guide to therapy: LDL-cholesterol goal in high risk patients is <100 mg/dL and in very high risk patients is <70 mg/dL. VLDL-Cholesterol 24 0 - 30 mg/dL [facility] Cholesterol/HDL Ratio 3.3 0.0 - 5.0 [facility] Specimen Anatomical Collection Method Collection Time Receive d Time (Source) Location / / Volume Laterality 01/25/2010 1:44 PM 0 1:45 CDT PM CDT Harvinder Michelle MD LABORATORY Performing Organization Address City/[facility]/ZIP Code Phon e Number [facility] [address] [place] [address] [phone] [facility] ALANINE AMINO (ALT) (SGPT) (01/25/2010 1:44 PM CDT) P athologist Signature ALT 21 0 - 70 U/L [facility] Specimen Anatomical Collection Method Collection Time Receive d Time (Source) Location / / Volume Laterality 01/25/2010 1:44 PM 0 1:45 CDT PM CDT Harvinder Michelle MD LABORATORY Performing Organization Address City/[facility]/ZIP Code Phon e Number [facility] [address] [place] [address] [facility] A.M.A. BASIC METABOLIC PANEL (01/25/2010 1:44 PM CDT) P athologist Signature Sodium 140 133 - 144 [facility] mmol/L CLINIC LAB Potassium 4.2 3.4 - 5.3 [facility] mmol/L [facility] Chloride 101 94 - 109 [facility] mmol/L CLINIC LAB Carbon Dioxide 26 20 - 32 [facility] mmol/L CLINIC LAB Anion Gap 14 6 - 17 [facility] mmol/L CL[facility]IC LAB Glucose 96 60 - 99 [facility] mg/dL CLINIC LAB Urea Nitrogen 14 5 - 24 [facility] mg/dL CLINIC LAB Creatinine 1.03 0.66 - [facility] 1.25 mg/dL CLINIC LAB Comment: New IDMS-traceable calibration beginning 10/16/07 GFR Estimate 82 >60 mL/min/1.7m2 [facility] GFR Estimate If Black >90 >60 mL/min/1.7m2 F [facility] Calcium 9.1 8.5 - 10.4 mg/dL [facility] Specimen Anatomical Collection Method Collection Time Receive d Time (Source) Location / / Volume Laterality 01/25/2010 1:44 PM 0 1:45 CDT PM CDT Harvinder Michelle MD LABORATORY Performing Organization Address City/State/ZIP Code Phon e Number [facility] [address] [place] [address] [facility] documented in this encounter Visit Diagnoses Diagnosis Routine medical exam Routine general medical examination at a health care facility Abdominal pain, other specified site documented in this encounter Care Teams Cooper Apprentice Relationship Specialty Start Date End Date Harvinder Michelle MD PCP - General 12/26/01 11/16/13 [address] [id number] documented as of this encounter
--- OUTSIDE RECORDS SUMMARY | 2022-03-20 14:30 | XMS_ITS | Encounter Summary ---
:1975 Author Organization [place] Address [address] [place] [address] Care Team Providers Name Role Phone Harvinder Michelle MD Primary Care Provider Reason for Visit Reason Comments Pre-Op Exam pre-op, surgery 04/21/2010 Pre Visit Planning - Done PVP completed 04/13/2010 lf Encounter Details Date Type Department Care Team Description 04/14/2010 Office Visit [facility] Harvindre Michelle MD Preop general physical exam (Primary Dx) ; Clinic [address] ANGELIKA (obstructive sleep apnea ) [address] [place] [id number] Social History Tobacco Use Types Packs/Day Years Used Date Current Every Day Smoker Cigarettes 0.5 16 Alcohol Use Standard Drinks/Week Comments Yes 0 (1 standard drink = 0.6 oz pure alcoho l) 2 beers a day Sex Assigned at Date Recorded Not on file documented as of this encounter Last Filed Vital Signs Vital Sign Reading Time Taken Comments Blood Pressure 137/96 04/14/2010 8:16 AM CDT Pulse 62 04/14/2010 8:16 AM CDT Temperature 36.9 ??C (98.4 ??F) 04/14/2010 8:16 AM CDT Respiratory Rate 14 04/14/2010 8:16 AM CDT Oxygen Saturation - - Inhaled Oxygen Concentration - - Weight 101.6 kg (224 lb) 04/14/2010 8:16 AM CDT Height 180.3 cm (5' 11) 04/14/2010 8:16 AM CDT Body Mass Index 31.24 04/14/2010 8:16 AM CDT documented in this encounter Progress Notes Harvinder Michelle - 04/14/2010 8:41 AM CDT Addended by: HARVINDER MICHELLE on: 04/14/2010 Modules accepted: Orders Fouzia Rebolledo - 04/13/2010 10:35 AM CDT [address] [address] PRE-OP EVALUATION: Today's date: 04/14/2010 Antelmo Farias (: 1975) presents for pre-operative evaluation assessment as requested by Dr. Charles Raphael. He requires evaluation and anesthesia risk assessment prior to undergoing surgery/procedure for treatment of deviated septum . Proposed procedure: deviated septum repair, revision for obst sleep apnea Date of Surgery/ Procedure: 04/21/2010 Time of Surgery/ Procedure: 12:30 Hospital/Surgical Facility: [facility] Fax number for surgical facility: [phone] Primary Physician: HARVINDER MICHELLE M.D. Type of Anesthesia Anticipated: General History of anesthesia complications: NONE History of abnormal bleeding: NONE History of blood transfusions: NO Patient has a Health Care Directive or Living Will: NO 1- NO - Do you ever have any pain or discomfort in your chest? 2- NO - Have you ever had a severe pain across the front of your chest lasting for half an hour or more? 3- NO - Do you have swelling in your feet or ankles at times? 4- NO - Are you troubled by shortness of breath when: walking on the level/ up a slight hill/ at night? 5- NO - Does your chest ever sound wheezy or whistling? 6- NO - Do you currently have a cold, bronchitis or other respiratory infection? 7- YES - Have you had a cold, bronchitis or other respiratory infection within the last 2 weeks? 8- NO - Do you usually have a cough? 9- NO - Do you sometimes get pains in the calves of your legs when you walk? 10-NO - Do you or anyone in your family have previous history of blood clots? 11-NO - Do you or does anyone in your family have serious bleeding problem such as prolonged bleeding following surgeries or cuts? 12-NO - Have you ever had problems with anemia or been told to take iron pills? 13-NO - Have you had any abnormal blood loss such as black, tarry or bloody stools, or abnormal vaginal bleeding? 14-NO - Have you or any of your relatives ever had problems with anesthesia? 15-yes - Do you snore or stop breathing at night? 16-NO - Do you have any prosthetic heart valves or joints? 17-NO - Is there any chance that you may be ? HPI: See problem list for active medical problems. Problems all longstanding and stable, except as noted/documented. See ROS for pertinent symptoms related to these conditions. . Patient Active Problem List Diagnoses Date Noted ??? HYPERSOMNI W SLEEP APNEA [780.53] 08/01/2005 Past Medical History Diagnosis Date ??? Hypersomnia with sleep apnea, unspecified 2004 cpap AT 5CM Past Surgical History Procedure Date ??? C explor maxill sinus,intranasal 04/2002 Dr. Shea Current outpatient prescriptions Medication Sig ??? ORDER FOR DME CPAP supplies OTC products: None, except as noted above Allergies Allergen Reactions ??? No Known Drug Allergies Latex Allergy: NO History Substance Use Topics ??? Tobacco Use: Yes -- 0.5 packs/day for 16 years ??? Alcohol Use: Yes 2 beers a day History Drug Use No REVIEW OF SYSTEMS: C: NEGATIVE for fever, chills, change in weight E/M: NEGATIVE for ear, mouth and throat problems R: NEGATIVE for significant cough or SOB CV: NEGATIVE for chest pain, palpitations or peripheral edema EXAM: There were no vitals taken for this visit. GENERAL APPEARANCE: healthy, alert and no distress HENT: ear canals and TM's normal and nose and mouth without ulcers or lesions.OP narrowed (uses CPAP) RESP: lungs clear to auscultation - no rales, rhonchi or wheezes CV: regular rate and rhythm, normal S1 S2, no S3 or S4 and no murmur, click or rub ABDOMEN: soft, nontender, no HSM or masses and bowel sounds normal NEURO: Normal strength and tone, sensory exam grossly normal, mentation intact and speech normal DIAGNOSTICS: Preop Testing EKG: Not indicated Labs: see FCIS IMPRESSION: Reason for surgery/procedure: Obstructive sleep apnea Diagnosis/reason for consult: reoperative assessment and consultation The proposed surgical procedure is considered LOW risk. For above listed surgery and anesthesia: Patient is at LOW risk for surgery/procedure and perioperative/procedure complications. RECOMMENDATIONS: --Approval given to proceed with proposed procedure, without further diagnostic evaluation. Signed Electronically by: Harvinder Michelle M.D. Copy of this evaluation report is provided to requesting physician. Preop Guidelines HPI ROS Physical Exam documented in this encounter Nursing Notes 04/14/2010 8:15 AM CDT >> LIANE REYES Fri Apr 14, 2010 8:19 AM Patient presents with: Pre-Op Exam - pre-op, surgery 04/21/2010 Pre Visit Planning - Done - PVP completed 04/13/2010 lf Initial BP 137/96 Pulse 62 Temp(Src) 98.4 ??F (36.9 ??C) (Oral) Resp 14 Ht 1.803 m (5' 11) Wt 101.606 kg (224 lb) Estimated Body mass index is 31.24 kg/(m^2) as calculated from the following: Height as of this encounter: 5' 11(1.803 m). Weight as of this encounter: 224 lb(101.606 kg).. BP completed using cuff size regular HEALTH MAINTENANCE REVIEWED. Liane Reyes CMA documented in this encounter Plan of Treatment Not on filedocumented as of this encounter Procedures Procedure Name Priority Date/Time Associated Diagnosis Comme nts HEMOGLOBIN Routine 04/14/2010 8:38 AM Preop general Results for this CDT physical exam procedure are in the ANGELIKA (obstructive results sec tion. sleep apnea) documented in this encounter Results Hemoglobin (04/14/2010 8:38 AM CDT) P athologist Signature Hemoglobin 15.9 13.3 - 17.7 [facility] g/dL [facility] Specimen Anatomical Collection Method Collection Time Receive d Time (Source) Location / / Volume Laterality Blood specimen 04/14/2010 8:38 AM 010 8:42 (specimen) CDT AM CDT Harvinder Michelle MD LAB - BLOOD ORDERABLES Performing Organization Address City/State/ZIP Code Phon e Number [facility] [address] [place] [address] [facility] documented in this encounter Visit Diagnoses Diagnosis Preop general physical exam - Primary Other specified pre-operative examinatio n ANGELIKA (obstructive sleep apnea) Obstructive sleep apnea (adult) (pediatr ic) documented in this encounter Care Teams Ordained Minister Relationship Specialty Start Date End Date Harvinder Michelle MD PCP - General 12/26/01 11/16/13 [address] [place], [place] [id number] documented as of this encounter
--- OUTSIDE RECORDS SUMMARY | 2022-03-20 14:30 | XMS_ITS | Encounter Summary ---
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 Encounter Details Date Type Department Care Team Description 08/06/2007 Office Visit [facility] Harvinder Michelle MD ACUTE BRONCHITIS [facility] [place] [address] [place] [address] (Primary Dx) [address] [place] [address] [phone] Social History Tobacco Use Types Packs/Day Years Used Date Current Every Day Smoker Cigarettes 0.5 16 Alcohol Use Standard Drinks/Week Comments Yes 0 (1 standard drink = 0.6 oz pure alcoho l) 2 beers a day Sex Assigned at Date Recorded Not on file documented as of this encounter Last Filed Vital Signs Vital Sign Reading Time Taken Comments Blood Pressure 122/70 08/06/2007 3:30 PM CRM SYSTEM ADMINISTRATOR Pulse - - Temperature 36.7 ??C (98.1 ??F) 08/06/2007 3:30 PM CRM SYSTEM ADMINISTRATOR Respiratory Rate - - Oxygen Saturation - - Inhaled Oxygen Concentration - - Weight 99.3 kg (219 lb) 08/06/2007 3:30 PM CRM SYSTEM ADMINISTRATOR Height 185.4 cm (6' 1) 08/06/2007 3:30 PM CRM SYSTEM ADMINISTRATOR Body Mass Index 28.89 08/06/2007 3:30 PM CRM SYSTEM ADMINISTRATOR documented in this encounter Progress Notes Harvinder Michelle - 08/06/2007 3:41 PM CST SUBJECTIVE: Antelmo Farias is a 31 year old male who complains of coryza, post nasal drip, dry cough, chest congestion and chest tightness for 5 days. He denies a history of no other unusual symptoms and denies a history of asthma. Patient doessmoke cigarettes. OBJECTIVE: He appears well, vital signs are as noted by the nurse. Ears normal. Throat and pharynx normal. Necksupple. No adenopathy in the neck. Nose is congested. Sinuses non tender. The chest is diminshed, without wheezes or rales. ASSESSMENT: Bronchitis PLAN: After d/w pt regarding risks and benefits as well as possible side effects, drug interactions and adverse reactions, pt accepts prescription for zithromax per hs orders. Symptomatic therapy suggested: push fluids, rest and use vaporizer or mist needed . Call or return to clinic prn if these symptoms worsen or fail to improve as anticipated. 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 BP completed using cuff size regular Pinky Haines CMA documented in this encounter Plan of Treatment Not on filedocumented as of this encounter Visit Diagnoses Diagnosis Acute bronchitis - Primary documented in this encounter Care Teams Clinical Data Coordinator Relationship Specialty Start Date End Date Harvinder Michelle MD PCP - General 12/26/01 11/16/13 [address] [address] documented as of this encounter
--- OUTSIDE RECORDS SUMMARY | 2022-03-20 14:30 | XMS_ITS | Encounter Summary ---
:1975 Author Organization [place] Address [address] [place] [address] Care Team Providers Name Role Phone Harvinder Michelle MD Primary Care Provider Reason for Visit Reason Comments Urgent Care Laceration laceration to left thumb-cut it on a tin gutter yeasterday at ~ 3:00 pm- last Td was ~ 10 yrs ago Encounter Details Date Type Department Care Team Description 06/12/2006 Office Visit [facility] Sloan Mauricio, OPEN WOUND OF FINGER Urgent Care Sergio DIAMOND (Primary Dx) [address] [id number] Social History Tobacco Use Types Packs/Day Years Used Date Current Every Day Smoker Cigarettes 0.5 16 Alcohol Use Standard Drinks/Week Comments Yes 0 (1 standard drink = 0.6 oz pure alcoho l) 2 beers a day Sex Assigned at Date Recorded Not on file documented as of this encounter Last Filed Vital Signs Vital Sign Reading Time Taken Comments Blood Pressure 108/72 06/12/2006 9:15 AM LUNCHROOM OPERATOR Pulse 64 06/12/2006 9:15 AM LUNCHROOM OPERATOR Temperature - - Respiratory Rate - - Oxygen Saturation - - Inhaled Oxygen Concentration - - Weight 101.7 kg (224 lb 4.8 oz) 06/12/2006 9:15 AM LUNCHROOM OPERATOR Height - - Body Mass Index 29.59 08/01/2005 10:00 AM LUNCHROOM OPERATOR documented in this encounter Progress Notes Sloan Mauricio - 06/12/2006 11:55 AM CST SUBJECTIVE: Chief Complaint Patient presents with ??? Urgent Care ??? Laceration laceration to left thumb-cut it on a tin gutter er at ~ 3:00 pm- last Td was ~ 10 yrs ago Antelmo Farias is a 30 year old male who presents to the clinic with a laceration on the left thumb sustained 19 hours(s) ago. This is a non-work related injury. Mechanism of injury: cut finger on a gutter. Associated symptoms: Denies numbness, weakness, or loss of function Last tetanus booster within 10 years: no EXAM: The patient appears today in alert,no apparent distress distress VITALS: BP 108/72 Pulse 64 Wt 224 lbs 4.8 oz (101.7kg) Size of laceration: 1.5 centimeters Characteristics of the laceration: clean and straight Tendon function intact: yes Sensation to light touch intact: yes Pulses intact: yes Picture included in patient's chart: no Assessment: OPEN WOUND OF FINGER PLAN: 1) Laceration is too old to close with sutures- observe- signs of infection given 2) Td booster given HROOM OPERATOR documented in this encounter Nursing Notes 06/12/2006 9:15 AM CST >> JESSICA GARNER 06/12/2006 9:30 am Patient presents with: Urgent Care Laceration - laceration to left thumb-cut it on a tin gutter er at ~ 3:00 pm- last Td was ~10 yrs ago Initial BP 108/72 Pulse 64 Wt 224 lbs 4.8 oz (101.7kg) Estimated Body mass index is 29.60 kg/(m^2) as calculated from: Height of 6' 1 (1.854 m) as of 08/01/05 Weight of 224 lbs 4.8 oz (101.742 kg) as of this encounter. BP completed using cuff size: large Ernestina Garner LPN documented in this encounter Plan of Treatment Not on filedocumented as of this encounter Visit Diagnoses Diagnosis Open wound of finger(s) , without mentio n of complication - Primary documented in this encounter Care Teams Linderman Operator Relationship Specialty Start Date End Date Harvinder Michelle MD PCP - General 12/26/01 11/16/13 [address] [id number] documented as of this encounter
--- OUTSIDE RECORDS SUMMARY | 2022-03-20 14:30 | XMS_ITS | Encounter Summary ---
:1975 Author Organization [place] Address [address] [place] [address] Care Team Providers Name Role Phone Harvinder Michelle MD Primary Care Provider Reason for Visit Reason Comments Trauma Pt injured his L 2nd finger with a hammer today. Urgent Care Encounter Details Date Type Department Care Team Description 01/29/2008 Office Visit [facility] Hyacinth Venegas Pain in Joint, Hand Urgent Care Sergio Valente APRN (Primary Dx) [address] [facility] [address] [place], [place] [phone] Social History Tobacco Use Types Packs/Day Years Used Date Current Every Day Smoker Cigarettes 0.5 16 Alcohol Use Standard Drinks/Week Comments Yes 0 (1 standard drink = 0.6 oz pure alcoho l) 2 beers a day Sex Assigned at Date Recorded Not on file documented as of this encounter Last Filed Vital Signs Vital Sign Reading Time Taken Comments Blood Pressure 120/80 01/29/2008 6:45 PM CDT Pulse 68 01/29/2008 6:45 PM CDT Temperature - - Respiratory Rate - - Oxygen Saturation - - Inhaled Oxygen Concentration - - Weight 95.3 kg (210 lb) 01/29/2008 6:45 PM CDT Height - - Body Mass Index 27.71 08/06/2007 3:30 PM SALES PROMOTION DIRECTOR documented in this encounter Progress Notes RubiHyacinth M - 01/29/2008 7:04 PM CDT SUBJECTIVE: Chief Complaint Patient presents with ??? Trauma Pt injured his L 2nd finger with a hammer today. ??? Urgent Care Leatha Baker is a 32 year old male presents with a chief complaint of left hand swelling, tenderness and decreased ROM and inability to fully extend. The injury occurred 5 hours(s) ago. The injury happened while at home. How: trauma: hit left hand at base of 2nd finger with a hammer. Broke the skin very slightly. Cougar immediate pain at base of left finger, delayed swelling, became more painful throughout the day with decreasing ROM. Pain now radiates up through wrist and forearm withtwisting motions and extension. Notes weakness in hand grasp and reports slight tingling in fingers with certain movements. The patient complained of moderate pain: 6 on scale of 1-10 and has had decreased ROM. Pain exacerbated by twisting, flexion/extension and traction. Relieved by nothing. He treated it initially with no therapy. This is not the first time this type of injury has occurred to this patient. Had tetanus shot few years ago. Past Medical History Diagnosis Date ??? HYPERSOMNI W SLEEP APNEA 2004 cpap AT 5CM Current outpatient prescriptions Medication Sig ??? AZITHROMYCIN 250 MG OR TABS 2 TABLETS TODAY, THEN 1 TABLET DAILY THEREAFTER ??? ASPIRIN 81 MG OR TABS 1 tab po QD (Once per day) History Substance Use Topics ??? Tobacco Use: Yes -- 0.5 packs/day for 16 years ??? Alcohol Use: Yes 2 beers a day ROS: CONSTITUTIONAL:NEGATIVE for fever, chills, change in weight INTEGUMENTARY/SKIN: slight break in the skin over base of left 2nd finger where hit with hammer MUSCULOSKELETAL: as above NEURO: slight tingling in fingers with specific movements EXAM: BP 120/80 Pulse 68 Wt 210 lb (95.255 kg) Gen: healthy, alert and healthy,alert,no distress Extremity: hand and finger Tenderness to palpation from base of 2nd finger to mid hand dorsal surface. Second finger has erythema, swelling, point tenderness at base, decreased ROM flexion and extension and pain with flexion and extension. Weakened left hand grasp, CMS intact. There is not compromise to the distal circulation. Pulses are +2 and TENTERING MACHINE FEEDER is brisk GENERAL APPEARANCE: healthy, alert and no distress EXTREMITIES: peripheral pulses normal SKIN: break in the skin NEURO: Normal strength and tone, sensory exam grossly normal, mentation intact and speech normal X-RAY was done. No evidence of fracture. Read with MD. Requested radiology read. ASSESSMENT: contusion of hand and finger second PLAN: 1) Rest, Ice, Compress, Elevate, Ibuprofen q 8 hrs for 3-5 days andfollow up with primary care physician. documented in this encounter Nursing Notes 01/29/2008 6:45 PM CDT >> MAIRA BARROS [facility] Jan 29, 2008 6:47 PM Patient presents with: Trauma - Pt injured his L 2nd finger with a hammer today. Urgent Care Initial BP 120/80 Pulse 68 Wt 210 lb (95.255 kg) Estimated Body mass index is 27.71 kg/(m^2) as calculated from: Height of 6' 1 (1.854 m) as of 08/06/07 Weight of 210 lb (95.255 kg) as of this encounter BP completed using cuff size: large Signed by JACK Ya documented in this encounter Plan of Treatment Not on filedocumented as of this encounter Procedures Procedure Name Priority Date/Time Associated Diagnosis Comme [facility] LT X-RAY HAND 3+ Routine 01/29/2008 Pain in Joint, Hand Results for this VW procedure are i n the results section . documented in this encounter Results LT X-RAY HAND 3+ VW (01/29/2008) Anatomical Region Laterality Modality Other Impressions 01/29/2008 REPORT OF OUTSIDE FILMS FROM [facility] LEATHA BAKER ?: 73 LEFT HAND: ??01/29/08 FINDINGS: ??Negative, no fractures are i dentified on these images. The 2nd finger in particular appears nor mal. ??No fracture identified. Nithin Lee M.D./franc D/T: ??01/30/08 Electronically filed by Marisa Gill ??01/30/2008 ??12:44 PM Hyacinth Valente Rubi CLINICAL NURSE EDUCATOR IMPLEMENTATION PROJECT COORDINATOR GENERAL IMAGING documented in this encounter Visit Diagnoses Diagnosis Pain in joint, hand - Primary documented in this encounter Care Teams Pigskin Trimmer Relationship Specialty Start Date End Date Harvinder Michelle MD PCP - General 12/26/01 11/16/13 [address] [id number] documented as of this encounter
--- OUTSIDE RECORDS SUMMARY | 2022-03-20 14:31 | XMS_ITS | Encounter Summary ---
:1975 Author Organization [facility] Address [address] [place] [address] Care Team Providers Name Role Phone Harvinder Michelle MD Primary Care Provider Encounter Details Date Type Department Care Team Description 07/16/2005 Historic Organizational Development Specialist INTERFACED REPORT Vania White MD [facility] [address] [place] [address] (Wo rk) Social History Tobacco Use Types Packs/Day Years Used Date Current Every Day Smoker 1 12 Alcohol Use Standard Drinks/Week Comments Yes 0 (1 standard drink = 0.6 oz pure alcoho l) 2 beers a day Sex Assigned at Date Recorded Not on file documented as of this encounter Progress Notes Toi White MD - 05/22/2011 11:43 PM TELEPHONE SURVEYOR PRELIMINARY INDICATIONS: Snoring, excessive daytime sleepiness. REMARKS: Leatha Baker slept 167 minutes. Sleep efficiency was 89%, sleep latency 6 minutes. REM latency mildly reduced at 74 minutes. Sleep architecture revealed moderate sleep fragmentation and mild reduction in REM sleep. During the diagnostic portion of the study the patient was documented to have obstructive sleep apnea with respiratory disturbance index of 12, saturation tracy was 87%. CPAP was applied and titrated. Most effective pressure appears to be 9 cm H2O with improvement in sleep architecture, resolution of REM related hypoxemia with respiratory disturbances. There were no significant leg movements noted. Cardiac rhythm revealed sinus arrhythmia. AXIS A: Obstructive sleep apnea. AXIS B: Comprehensive polysomnography with CPAP titration. CLINICAL CORRELTION RECOMMENDATIONS: The patient's findings indicate treatment for obstructive sleep apnea is likely to improve symptomatology with excessive daytime sleepiness given improvement in sleep architecture. Follow up in [facility] is advised. TOI WHITE MD MT: nile Name: LEATHA BAEKR MRN: [id number] Account: [id number] : 1975 Visit Date: 07/16/2005 Document: [id number] cc: Harvinder Michelle MD PHONE SURVEYOR documented in this encounter Plan of Treatment Not on filedocumented as of this encounter Visit Diagnoses Not on filedocumented in this encounter Care Teams Reject Opener Relationship Specialty Start Date End Date Harvinder Michelle MD PCP - General 12/26/01 11/16/13 [address] [id number] documented as of this encounter
--- OUTSIDE RECORDS SUMMARY | 2022-03-20 14:31 | XMS_ITS | Encounter Summary ---
:1975 Author Organization [facility] Address [address] [place] [address] Care Team Providers Name Role Phone Harvinder Michelle MD Primary Care Provider Encounter Details Date Type Department Care Team Description 01/30/2005 Orders Only [facility] Harvinder Michelle MD DIAGNOSIS NOT YET Clinic [address] DEFINED (Primary Dx) [address] [place] [address] [phone] Social History Tobacco Use Types Packs/Day Years [...] Name Priority Date/Time Associated Diagnosis Comme nts ABSTRACT LABCARE Routine 01/30/2005 DIAGNOSIS NOT YET REPORT DEFINED HCL POTASSIUM Routine 01/30/2005 DIAGNOSIS NOT YET Results f or this DEFINED procedure are i n the results section . HCL GLUCOSE Routine 01/30/2005 DIAGNOSIS NOT YET Results fo r this DEFINED procedure are i n the results section . HCL CREATININE Routine 01/30/2005 DIAGNOSIS NOT YET Results for this DEFINED procedure are i n the results section . documented in this encounter Results ABSTRACT LABCARE REPORT (01/30/2005) Specimen (Source) Anatomical Location Collection Method / Collectio n Time Received Time / Laterality Volume 01/30/2005 Narrative This result has an attachment that is no t available. Harvinder Michelle MD LABORATORY Performing Organization Address [facility] Phon e Number MISYS CREATININE [[phone]] (01/30/2005) P athologist Signature Creatinine 1.10@ mg/dL MISYS Harvinder Michelle MD LABORATORY Performing Organization Address [facility] Phon e Number MISYS POTASSIUM [[phone]] (01/30/2005) athologist Signature Potassium 4.2@ mmol/L MISYS Harvinder Michelle MD LABORATORY Performing Organization Address [facility] Phon e Number MISYS GLUCOSE [[phone]] (01/30/2005) P athologist Signature Glucose 66@ mg/dL MISYS Harvinder Michelle MD LABORATORY Performing Organization Address [facility] Phon e Number MISYS documented in this encounter Visit Diagnoses Diagnosis DIAGNOSIS NOT YET DEFINED - Primary documented in this encounter Care Teams Textile Worker Relationship Specialty Start Date End Date Harvinder Michelle MD PCP - General 12/26/01 11/16/13 [address] [id number] documented as of this encounter
--- OUTSIDE RECORDS SUMMARY | 2022-03-20 14:31 | XMS_ITS | Encounter Summary ---
:1975 Author Organization [place] Address [address] [place] [address]. [place] [address] Care Team Providers Name Role Phone Harvinder Michelle MD Primary Care Provider Encounter Details Date Type Department Care Team Description 01/30/2005 Historic Supervisor Tank Storage INTERFACED REPORT Alexis Francois MD [facility] MD [address] [facility] [address] [place], [place] [address] (Wo rk) Social History Tobacco Use Types Packs/Day Years Used Date Current Every Day Smoker 1 12 Alcohol Use Standard Drinks/Week Comments Yes 0 (1 standard drink = 0.6 oz pure alcoho l) 2 beers a day Sex Assigned at Date Recorded Not on file documented as of this encounter Progress Notes Xochitl Francois MD - 05/23/2011 2:00 AM SCHEDULER MAINTENANCE : CHIEF COMPLAINT: Abdominal chest pain. HISTORY OF PRESENT ILLNESS: This is a 29-year-old male who says for the last three days he has been having some abdominal pain and chest pain. He says it starts in the epigastric region and goes up to his neck. Says it is usually there when he is eating or after he has eaten. Says it is kind of like a pressure or burning. He has not taken any medications for this. He is on Wellbutrin to help him stop smoking. He has only been on that for about the last week. He has a little nausea with it. No shortness of breath. Denies feeling diaphoretic. Does have a family history of heart disease. His father at 47 with an WA. Patient says that he has a little bit of the feeling now in his chest, kind of some aching in the middle of his chest. No pain when he urinates, urgency, or frequency. No lower abdominal pain. Denies any cold or cough symptoms. No recent travel, pain in the legs, swelling, in the calves, or fever. REVIEW OF SYSTEMS: Rest of the systems reviewed and are negative. PAST MEDICAL HISTORY: Past medical history significant for hypercholesterolemia. He is a smoker. No history of hypertension or diabetes. FAMILY HISTORY: Family history is significant for his father of an WA at age 47. SOCIAL HISTORY: Patient is a smoker, one pack a day, but he is trying to quit and is on Wellbutrin. ALLERGIES: None. MEDICATIONS: Medications include wellbutrin. PHYSICAL EXAMINATION: VITAL SIGNS: Blood pressure is 127/85, pulse 105, respiratory rate 16. Temperature 97.8. Pulse oximetry 97%. HEAD, EYES, EARS, NOSE, THROAT: Pupils are round, equal, and reactive. Extraocular movements intact. Nares are clear. Mouth has no erythema to the pharynx. NECK supple, no lymphadenopathy. LUNGS have equal breath sounds bilaterally. No crackles or wheezes. HEART regular rate and rhythm without murmur. ABDOMEN soft. Bowel sounds present. Nontender to palpation. There is no rebound or guarding. BACK is nontender in the CVA region and thoracic and lumbar spine. There are good pulses in the EXTREMITIES. No cyanosis or rashes. HOSPITAL COURSE: We did an EKG here which showed a normal sinus rhythm. No ST elevation or T wave inversion. Did received a GI cocktail. Said the pain with improve with this. He still was having some of them. He did have other blood work done which was essentially negative including troponin, CK, CBC, and electrolytes which were all negative. Chest x-ray showed normal heart size. Lungs were clear. Due to his risk factors, family history, smoking, and hypercholesterolemia, we did a stress echocardiogram to rule out cardiac disease even though the pain seemed a little bit more GI and epigastric. The stress echocardiogram was done which was read as negative by the assembler camper. At this point I think that the patient's symptoms are more related to gastrointestinal or gastroesophageal reflux disease. PLAN: We will put him on Protonix to use once a day for his stomach and follow up with his family doctor. He should return here with increasing pain, shortness of breath, or vomiting. ASSESSMENT: 1. Atypical chest pain. 2. Gastroesophageal reflux disease. [id number] XOCHITL FRANCOIS MD MT: Document: [id number] CC: XOCHITL FRANCOIS MD [place], [place] Name: MR#: LEATHA BAKER P -[id number] EMERGENCY ROOM ENCOUNTER Page 2 of 2 LCN: ERA DSC: 01/30/2005 [place], [place] Name: MR#: LEATHA BAKER [id number] : Admit Date: Account #: 1975 01/30/2005 [id number] Doctor: XOCHITL FRANCOIS MD EMERGENCY ROOM ENCOUNTER Page 1 of 2 DULER MAINTENANCE documented in this encounter Plan of Treatment Not on filedocumented as of this encounter Visit Diagnoses Not on filedocumented in this encounter Care Teams Booky Relationship Specialty Start Date End Date Harvinder Michelle MD PCP - General 12/26/01 11/16/13 [address] [id number] documented as of this encounter
--- OUTSIDE RECORDS SUMMARY | 2022-03-20 14:31 | XMS_ITS | Encounter Summary ---
:1975 Author Organization [facility] Address [address] [place] [address] Care Team Providers Name Role Phone Harvinder Michelle MD Primary Care Provider Reason for Visit Reason Comments Pharyngitis Sore throat x 2 days Encounter Details Date Type Department Care Team Description 05/03/2003 Office Visit [facility] Harvinder Michelle MD ACUTE PHARYNGITIS Clinic [address] (Primary Dx) [address] [place] [address] [phone] Social History Tobacco Use Types Packs/Day Years Used Date Current Every Day Smoker 1 12 Alcohol Use Standard Drinks/Week Comments Yes 0 (1 standard drink = 0.6 oz pure alcoho l) 2 beers a day Sex Assigned at Date Recorded Not on file documented as of this encounter Last Filed Vital Signs Vital Sign Reading Time Taken Comments Blood Pressure 112/82 05/03/2003 2:45 PM JUNIOR LOAN PROCESSOR Pulse - - Temperature 37 ??C (98.6 ??F) 05/03/2003 2:45 PM JUNIOR LOAN PROCESSOR Respiratory Rate - - Oxygen Saturation - - Inhaled Oxygen Concentration - - Weight 94.8 kg (209 lb) 05/03/2003 2:45 PM JUNIOR LOAN PROCESSOR Height - - Body Mass Index 4081.75 11/26/2002 9:00 AM CDT documented in this encounter Progress Notes 05/03/2003 2:45 PM JUNIOR LOAN PROCESSOR SUBJECTIVE: 27 year old male with sore throat, myalgias, swollen glands, headache and fever for 2 day s. No history of rheumatic fever. Other symptoms: dry cough. Pt is a smoker (6 cigs a day) OBJECTIVE : Vitals as noted above. Appears healthy. Ears: normal Oropharynx: mild erythema Neck: normal, suppl e and no adenopathy Lungs: clear to IPPA Rapid Strep test is negative ASSESSMENT: Viral pharyngitis PLAN: Per orders. Gargle, use acetaminophen or other OTC analgesic, and take Rx fully as prescribed.Call if other family members develop similar symptoms. See prn. documented in this encounter Nursing Notes 05/03/2003 2:45 PM CST >> MICHAEL RAMIREZ 05/03/2003 2:28 pm BP cuff size: large left arm Michael Ramirez LPN documented in this encounter Plan of Treatment Not on filedocumented as of this encounter Procedures Procedure Name Priority Date/Time Associated Diagnosis Comme nts HCL BETA STREP Routine 05/03/2003 2:36 PM Results for this CONFIRM JUNIOR LOAN PROCESSOR procedure are i n the results section. HCL STREP GROUP A Routine 05/03/2003 2:36 PM Acute Pharyngitis Results for this AG (RAPID) JUNIOR LOAN PROCESSOR procedure are i n the results section. documented in this encounter Results BETA STREP CONFIRM (05/03/2003 2:36 PM JUNIOR LOAN PROCESSOR) Component Value Ref Test Analysis Performed At [facility] g[facility] Range Method Time Signature Specimen Throat [facility] Culture Micro No Beta LATTY Streptococcus [facility] Report status FINAL [id number] [facility] Specimen Anatomical Collection Method Collection Time Receive d Time (Source) Location / / Volume Laterality 05/03/2003 2:36 PM 3 2:37 JUNIOR LOAN PROCESSOR PM JUNIOR LOAN PROCESSOR Harvinder Michelle MD LABORATORY Performing Organization Address City/State/ZIP Code Phon e Number [facility] [address] [place] [address] [facility] STREP GROUP A AG (RAPID) (05/03/2003 2:36 PM JUNIOR LOAN PROCESSOR) Component Value Ref Test Analysis Performed At [facility] gist Range Method Time Signature Specimen Throat [facility] Rapid Strep A NEGATIVE: No Group A strepto coccal antigen detected by immunoassay, await LATTY Screen culture report. [facility] Report status FINAL [id number] [facility] Specimen Anatomical Collection Method Collection Time Receive d Time (Source) Location / / Volume Laterality 05/03/2003 2:36 PM 3 2:37 JUNIOR LOAN PROCESSOR PM JUNIOR LOAN PROCESSOR Harvinder Michelle MD LABORATORY Performing Organization Address City/State/ZIP Code Phon e Number [facility] [address] [place] [address] [facility] documented in this encounter Visit Diagnoses Diagnosis Acute pharyngitis - Primary documented in this encounter Care Teams Fermentation Operator Relationship Specialty Start Date End Date Harvinder Michelle MD PCP - General 12/26/01 11/16/13 [address] [id number] documented as of this encounter
--- OUTSIDE RECORDS SUMMARY | 2022-03-20 14:31 | XMS_ITS | Encounter Summary ---
:1975 Author Organization [facility] Address [address] [place] [address] Care Team Providers Name Role Phone Harvinder Michelle MD Primary Care Provider Reason for Visit Reason Comments Physical Encounter Details Date Type Department Care Team Description 11/26/2002 Office Visit [facility] Harvinder Michelle MD ROUTINE MEDICAL EXAM; Clinic [address] ACUTE STRESS REACT NOS; [id number] [facility] TOBACCO USE DISORDER; [place], [place] PRASANNAEFRAIN ND FAMILY HX -CARDIOVAS DIS NEC; [id number] FAMILY HX-DIABETES MELLITUS; [phone] CHRONIC RHINITI S (Work) Social History Tobacco Use Types Packs/Day Years Used Date Current Every Day Smoker 1 12 Alcohol Use Standard Drinks/Week Comments Yes 0 (1 standard drink = 0.6 oz pure alcoho l) 2 beers a day Sex Assigned at Date Recorded Not on file documented as of this encounter Last Filed Vital Signs Vital Sign Reading Time Taken Comments Blood Pressure 112/80 11/26/2002 9:00 AM CDT Pulse - - Temperature - - Respiratory Rate - - Oxygen Saturation - - Inhaled Oxygen Concentration - - Weight 93.9 kg (207 lb) 11/26/2002 9:00 AM CDT Height 15.2 cm (6) 11/26/2002 9:00 AM CDT Body Mass Index 4042.69 11/26/2002 9:00 AM CDT documented in this encounter Progress Notes 11/26/2002 9:00 AM CDT SUBJECTIVE: Antelmo Farias 27 year old male presents for complete physical. In addition, he wishes to di scuss smoking cessation. He is a new father (x 8months, daughter) and wishes to be there for her as h is father dies at the age of 48yrs old (when pt was 17yr old). The pt. has done relatively well since his sinus surgery. There is no previous medical history on file. ALLERGIC RHINITIS Review of patient's past surgical history indicates: WINDOWS MAXILL SINUS,INTRANASAL Comment: Dr. Shea Review of patient's family history indicates: Heart Father Comment: [place] in 1997 Family History Negative Mother Family History Negative Brother Social History Marital Sta tus: Single Spouse Name: Years of Education: Number of children: One Social History Main Topics Tobacco Use: Yes Packs/Day: 1 Years: 12 Alcohol Use: Yes Comment: 2 beers a day Drug Use: Not Asked S exually Active: Not Asked Meds as of 11/26/2002: NONE Review of patient's allergies indicates : No Known Drug ALLERGIES ROS: TRAUMA: Denies any recent history of trauma PULMONARY: Denies dyspn ea. Denies waking up feeling fatigued. Denies daytime somnolence CV: Denies angina. Denies chest pain . Vascular: Denies claudication GI: Denies dysphagia. Denies dyspepsia. Denies postprandial abdominal pain. Denies changes in bowel movements or quality of stool from regular daily well- formed baseline. NEURO: Denies any change of vision. Denies paresthesia. Denies any back pain. Denies any sciatic pain to either lower extremity. Denies bowel or bladder incontinence. : Denies polyuria, nocturia, al ss hematuria, or dysuria ENDOC: Denies excessive weight gain, inappropriate weight loss, heat intoler ance, or cold intolerance SKIN: Denies any rash, ulceration or change in color, size or symmetry of a known mole PSYCH: Denies any mood swings. Denies anhedonia. Denies insomnia. Denies violent ideation . HEME: Denies any bleeding tendancies LYMPH: Denies any palpable lymph nodes ID: Denies any illness exposures or recent travel history OBJECTIVE: HEENT: Normocephalic & atraumatic. PERRLA with EOMI. O ptic discs sharp. Tympanic membranes withwell-defined light reflexes bilaterally. Nasal turbinates w ithin normal limits. Posterior oropharynx is clear and widely patent. No visible tonsils. Thyroid min imally palpable when pt asked to swallow. LYMPH: No adenopathy noted of the neck. In addition, there is no supraclavicular, infraclavicular oraxillary adenopathy. LUNGS: Clear to auscultation bilatera lly. No derangement in the inspiratory to expiratory ratio. Nowheezes or rales. No egophony. CV: NSR . No murmur. No rub. No gallop. Normal s1 and S2 heart sounds without appreciable S3 or S4. No jugula r venous distension. ABD: Abdomen is soft, nontender and nondistended. No hepatosplenomegaly. No rebo und tenderness. No costavetebral angle tenderness. No suprapubic fullness/discomfort. : Normal. SKI N: No rash or unusual lesions. NEURO: Aware + Oriented x 3. 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 Nonfocal exam. EXTREMITIES: No clubbing, cyanosis, or edema. Capillary refill excellent at less than 2 seconds throughout. PSYCH: Euthymic. No delusions or hallucinations. Normal speech. Denies any suicidal or homici neeru ideation. Mild anxiety manifested as atypical (nonexertinal) chest discomfort (not well-localized nor reproducible) when thinking about father relative to his own new status as father. ASSESSMENT/P GISELA: 1- Normal CPE. 2- Fam H/O Diabetes and Cornonary Artery Disease 3- Allergic Rhinitis 4- Tobacco ABuse 5- Mild Anxiety Disorder/Stress Reaction Labs per [facility]. After d/w pt regarding risk s and benefits as well as possible side effects, drug interactions and adverse reactions, pt accepts prescription for Wellbutrin SR as well as Nasonex (the latter as samples). Pt to f/u in 6 months. documented in this encounter Nursing Notes 11/26/2002 9:00 AM CDT >> MARISABEL KLINE 11/26/2002 9:19 am Pt is in for physical exam. Pt would also like to talk about Rx to quit smoking. TIERRA Gary documented in this encounter Plan of Treatment Not on filedocumented as of this encounter Procedures Procedure Name Priority Date/Time Associated Comments Diagnosis CL AFF CBC WITH Routine 11/26/2002 9:51 AM Routine Medical Res ults for this PLATELETS CDT Exam procedure are i n the results section. CL AFF HOMOCYSTEINE Routine 11/26/2002 9:51 AM Routine Medical Results for this CDT Exam procedure are in Family Hx-Cardiovas the resu lts Dis Nec section. HCL BASIC METABOLIC Routine 11/26/2002 9:51 AM Routine Medical Results for this PANEL CDT Exam procedure are in Family Hx-Cardiovas the resu lts Dis Nec section. HCL TSH W/FREE T4 Routine 11/26/2002 9:51 AM Routine Medical R esults for this REFLEX CDT Exam procedure are i n the results section. HCL GLYCATED Routine 11/26/2002 9:51 AM Family Hx-Diabetes Res ults for this HEMOGLOBIN CDT Mellitus procedure are i n the results section. HCL ALT Routine 11/26/2002 9:51 AM Routine Medical Result s for this CDT Exam procedure are in Family Hx-Cardiovas the resu lts Dis Nec section. Tobacco Use Disorder HCL AST Routine 11/26/2002 9:51 AM Routine Medical Result s for this CDT Exam procedure are in Family Hx-Cardiovas the resu lts Dis Nec section. Tobacco Use Disorder CL AFF A.M.A. LIPID Routine 11/26/2002 9:51 AM Routine Medical Results for this PANEL CDT Exam procedure are in Family Hx-Cardiovas the resu lts Dis Nec section. documented in this encounter Results HOMOCYSTEINE ASSAY (11/26/2002 9:51 AM CDT) Analysis Performed At Patho logist Time Signature Homocysteine 9.8 4.0 - 12.0 [facility] umol/L umol/L [facility] Comment: A normal plasma homocysteine level rules out homocystinuria homozygote and defects involving the remethylation of homocysteine. ??The heterozygous state for cystathionine betasynthase (CBS) is best tested by methionine loading. Maynor Arciniega, Ph.D. Specimen Anatomical Collection Method Collection Time Receive d Time (Source) Location / / Volume Laterality 11/26/2002 9:51 AM 3 9:57 CDT AM CDT Harvinder Michelle MD LABORATORY Performing Organization Address City/State/ZIP Code Phon e Number [facility] [address] [place], [place] [id number] [place] [address] LABS CBC WITH PLATELETS (11/26/2002 9:51 AM CDT) athologist Signature WBC 6.4 4.0 - 11.0 [place] 10e9/L [facility] RBC Count 4.85 4.4 - 5.9 [place] 10e12/L [facility] Hemoglobin 15.0 13.3 - [place] 17.7 g/dL [facility] Hematocrit 42.4 40.0 - [place] 53.0 % [facility] MCV 87 78 - 100 [place] [address] [facility] MCH 30.9 26.5 - [place] 33.[address] [facility] MCHC 35.4 32.0 - [place] 36.0 g/dL [facility] RDW 12.0 10.0 - [place] 15.0 % [facility] Platelet Count 254 150 - 450 [place] 10e9/L [facility] Specimen Anatomical Collection Method Collection Time Receive d Time (Source) Location / / Volume Laterality 11/26/2002 9:51 AM 3 9:57 CDT AM CDT Harvinder Michelle MD LABORATORY Performing Organization Address City/[facility]/ZIP Code Phon e Number [facility] [address] [place] [address] [facility] TSH W/FREE T4 REFLEX (11/26/2002 9:51 AM CDT) athologist Signature TSH 2.72 0.4 - 5.0 [place] mU/L [facility] Specimen Anatomical Collection Method Collection Time Receive d Time (Source) Location / / Volume Laterality 11/26/2002 9:51 AM 3 9:57 CDT AM CDT Harvinder Michelle MD LABORATORY Performing Organization Address City/[facility] Phon e Number [facility] [address] [place] [address] [facility] HEMOGLOBIN A1C (11/26/2002 9:51 AM CDT) athologist Signature Hemoglobin A1C 5.3 4.3 - 6.0 [facility] Specimen Anatomical Collection Method Collection Time Receive d Time (Source) Location / / Volume Laterality 11/26/2002 9:51 AM 3 9:57 CDT AM CDT Harvinder Michelle MD LABORATORY Performing Organization Address City/[facility]/ZIP Code Phon e Number [facility] [address] [place] [address] [facility] ALANINE AMINO (ALT) (SGPT) (11/26/2002 9:51 AM CDT) athologist Signature ALT 24 0 - 70 U/L [facility] Specimen Anatomical Collection Method Collection Time Receive d Time (Source) Location / / Volume Laterality 11/26/2002 9:51 AM 3 9:57 CDT AM CDT Harvinder Michelle MD LABORATORY Performing Organization Address City/[facility]/ZIP Code Phon e Number [address] [address] [facility] AST (11/26/2002 9:51 AM CDT) athologist Signature AST 23 0 - 55 U/L [facility] Specimen Anatomical Collection Method Collection Time Receive d Time (Source) Location / / Volume Laterality 11/26/2002 9:51 AM 3 9:57 CDT AM CDT Harvinder Michelle MD LABORATORY Performing Organization Address City/[facility]/ZIP Code Phon e Number [address] [address] [facility] A.M.A. LIPID PANEL (11/26/2002 9:51 AM CDT) athologist Signature Cholesterol 171 <200 mg/dL [facility] Comment: Cholesterol Reference Range: <200 ??The NCEP recommends further ? evaluation of: ? 1. ??Patients with cholesterol ? greater than 200 mg/dL ? if additional risk facto rs ? are present. ? 2. ??All patients with a ? cholesterol greater than ? 240 mg/dL. Triglycerides 78 <150 mg/dL [facility] HDL Cholesterol 53 >40 mg/dL [facility] LDL Cholesterol Calculated 102 <130 mg/dL [facility] VLDL-Cholesterol 16 0 - 30 mg/dL [facility] Cholesterol/HDL Ratio 3 0 - 5 [facility] Specimen Anatomical Collection Method Collection Time Receive d Time (Source) Location / / Volume Laterality 11/26/2002 9:51 AM 3 9:57 CDT AM CDT Harvinder Michelle MD LABORATORY Performing Organization Address City/[facility]/ZIP Code Phon e Number [facility] [address] [place] [address] [facility] A.M.A. BASIC METABOLIC PANEL (11/26/2002 9:51 AM CDT) P athologist Signature Sodium 143 133 - 144 [facility]/L [facility] Potassium 4.2 3.4 - 5.3 [facility] mmol/L [facility] Chloride 107 94 - 109 [facility] mmol/L [facility] Carbon Dioxide 27 20 - 32 [facility] mmol/L [facility] Anion Gap 10 6 - 17 [place] mmol/L [facility] Glucose 94 60 - 115 [place] mg/dL [facility] Urea Nitrogen 17 5 - 24 [place] mg/dL [facility] Creatinine 1.0 0.8 - 1.5 [place] mg/dL [facility] Calcium 9.0 8.5 - 10.4 [place] mg/dL [facility] Specimen Anatomical Collection Method Collection Time Receive d Time (Source) Location / / Volume Laterality 11/26/2002 9:51 AM 3 9:57 CDT AM CDT Harvinder Michelle MD LABORATORY Performing Organization Address City/[facility]/ZIP Code Phon e Number [facility] [address] [place] [address] [facility] LAB documented in this encounter Visit Diagnoses Diagnosis Routine general medical examination at a health care facility Unspecified acute reaction to stress Tobacco use disorder Fam hx-cardiovas dis NEC Family history of other cardiovascular d iseases Family history of diabetes mellitus Chronic rhinitis documented in this encounter 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
--- OUTSIDE RECORDS SUMMARY | 2022-03-20 14:31 | XMS_ITS | Encounter Summary ---
:1975 Author Organization [facility] Address [address] [place] [address] Care Team Providers Name Role Phone Harvinder Michelle MD Primary Care Provider Encounter Details Date Type Department Care Team Description 01/30/2005 Historic Results INTERFACED REPORT Alexis Francois MD SKIN REJUVENATIO N [facility] [address] [place], [place] [id number] (Wo rk) Social History Tobacco Use Types [...] Procedure Name Priority Date/Time Associated Comments Diagnosis TROPONIN I STAT 01/30/2005 12:55 Results for this PM CDT procedure are i n the results section. HEMOGRAM DIFFERENTIAL STAT 01/30/2005 12:55 Re sults for this AND PLATELET PM CDT procedure are i n the results section. MYOGLOBIN STAT 01/30/2005 12:55 Results for this PM CDT procedure are i n the results section. BASIC METABOLIC PANEL STAT 01/30/2005 12:55 Re sults for this PM CDT procedure are i n the results section. documented in this encounter Results Hemogram differential and platelet (01/30/2005 12:55 PM CDT) [facility] Method Time Signature MCV 89 78 - 100 [place] fl MCH 31.0 26.5 - [facility] 33.0 pg MCHC 34.7 32.0 - [facility] 36.0 g/dL RDW 10.7 10.0 - [facility] 15.0 % WBC 6.7 4.0 - [facility] 11.0 10e9/L RBC Count 5.29 4.4 - 5.9 [place] 10e12/L Hemoglobin 16.4 13.3 - [facility] 17.7 g/dL Hematocrit 47.3 40.0 - [facility] 53.0 % % Neutrophils 63 40 - 75 % [facility] % Lymphocytes 23 20 - 48 % [facility] % Monocytes 11 0 - 12 % [facility] % Eosinophils 3 0 - 6 % [facility] % Basophils 0 0 - 2 % [facility] Platelet Count 251 150 - 450 [facility] 10e9/L Absolute 4.2 1.6 - 8.3 [facility] Neutrophil 10e9/L Absolute 1.5 0.8 - 5.3 [facility] Lymphocytes 10e9/L Absolute 0.8 0.0 - 1.3 [facility] Monocytes 10e9/L Absolute 0.2 0.0 - 0.7 [facility] Eosinophils 10e9/L Absolute 0.0 0.0 - 0.2 [facility] Basophils 10e9/L Diff Method Automated [facility] Method Specimen Anatomical Collection Method Collection Time Receive d Time (Source) Location / / Volume Laterality 01/30/2005 12:55 01/30/2005 PM CDT 12:33 PM CDT Xochitl Francois MD LAB - BLOOD ORDERABLES Performing Organization Address City/State/ZIP Code Phon e Number [facility] Basic metabolic panel (01/30/2005 12:55 PM CDT) P athologist Signature Sodium 143 133 - 144 [place] mmol/L Potassium 4.2 3.4 - 5.3 [place] mmol/L Chloride 103 94 - 109 [place] mmol/L Carbon Dioxide 28 20 - 32 [place] mmol/L Glucose 66 60 - 110 [place] mg/dL Urea Nitrogen 16 5 - 24 [facility] mg/dL Creatinine 1.10 0.80 - [facility] 1.50 mg/dL GFR Estimate >80 >60 [facility] mL/min/1.7 m2 GFR Estimate If >80 >60 [facility] Black mL/min/1.7 m2 Calcium 9.5 8.5 - 10.4 [facility] mg/dL Anion Gap 12 6 - 17 [place] mmol/L Specimen Anatomical Collection Method Collection Time Receive d Time (Source) Location / / Volume Laterality 01/30/2005 12:55 01/30/2005 PM CDT 12:33 PM CDT Xochitl Francois MD LAB - BLOOD ORDERABLES Performing Organization Address [facility] Phon e Number [facility] Troponin I (01/30/2005 12:55 PM CDT) P athologist Signature Troponin I <0.07 0.00 - 0.40 [place] ug/L Specimen Anatomical Collection Method Collection Time Receive d Time (Source) Location / / Volume Laterality 01/30/2005 12:55 01/30/2005 PM CDT 12:33 PM CDT Xochitl Francois MD LAB - BLOOD ORDERABLES Performing Organization Address [facility] Phon e Number [facility] Myoglobin (01/30/2005 12:55 PM CDT) P athologist Signature Myoglobin 44 <120 ug/L [facility] Specimen Anatomical Collection Method Collection Time Receive d Time (Source) Location / / Volume Laterality 01/30/2005 12:55 01/30/2005 PM CDT 12:33 PM CDT Xochilt Francois MD LAB - BLOOD ORDERABLES Performing Organization Address [facility] Phon e Number [facility] documented in this encounter Visit Diagnoses Not on filedocumented in this encounter Care Teams Electrical High Tension Tester Relationship Specialty Start Date End Date Harvinder Michelle MD PCP - General 12/26/01 11/16/13 [address] [id number] documented as of this encounter
--- OUTSIDE RECORDS SUMMARY | 2022-03-20 14:31 | XMS_ITS | Encounter Summary ---
:1975 Author Organization [facility] Address [address] [place] [address] Care Team Providers Name Role Phone Harvinder Michelle MD Primary Care Provider Encounter Details Date Type Department Care Team Description 11/23/2002 Abstract [facility] Rashida Ho [address] [place] [address] [phone] Social History Tobacco Use Types Packs/Day Years Used Date Never Assessed Sex Assigned at Date Recorded Not on file documented as of this encounter Plan of Treatment Not on filedocumented as of this encounter Visit Diagnoses Not on filedocumented in this encounter Care Teams Promos Executive Producer Relationship Specialty Start Date End Date Harvinder Michelle MD PCP - General 12/26/01 11/16/13 [address] [id number] documented as of this encounter
--- OUTSIDE RECORDS SUMMARY | 2022-03-20 14:31 | XMS_ITS | Encounter Summary ---
:1975 Author Organization [place] Address [address] [place] [id number] Care Team Providers Name Role Phone Harvinder Michelle MD Primary Care Provider Reason for Visit Reason Comments Physical with fasting labs Encounter Details Date Type Department Care Team Description 08/01/2005 Office Visit [facility] Harvinder Michelle MD ROUTINE MEDICAL EXAM (Primary Dx); [facility] [address] [place] [address] HYPERSOMNI W SLEEP APNEA; [id number] [place] [address] [place] [address] [phone] Social History Tobacco Use Types Packs/Day Years Used Date Current Every Day Smoker 1 12 Alcohol Use Standard Drinks/Week Comments Yes 0 (1 standard drink = 0.6 oz pure alcoho l) 2 beers a day Sex Assigned at Date Recorded Not on file documented as of this encounter Last Filed Vital Signs Vital Sign Reading Time Taken Comments Blood Pressure 124/84 08/01/2005 10:00 AM FORENSIC PHOTOGRAPHER Pulse - - Temperature - - Respiratory Rate - - Oxygen Saturation - - Inhaled Oxygen Concentration - - Weight 98.9 kg (218 lb) 08/01/2005 10:00 AM FORENSIC PHOTOGRAPHER Height 185.4 cm (6' 1) 08/01/2005 10:00 AM FORENSIC PHOTOGRAPHER Body Mass Index 28.76 08/01/2005 10:00 AM FORENSIC PHOTOGRAPHER documented in this encounter Progress Notes Harvinder Michelle - 08/01/2005 10:49 AM CST SUBJECTIVE: Antelmo Farias 29 year old male presents for CPE. He is fasting. In the last year, he has been diagnosed with ANGELIKA by my referal and has been on CPAP for 3 weeks and has noticed a significant improvement in sleep quality. 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 He does have significant family hx (father) for premature CADz (AL at age 48yrs). Histories Updated through 08-01-2005: Past Medical History Diagnosis Date ??? HYPERSOMNI W SLEEP APNEA 2004 cpap AT 5CM Past Surgical History Procedure Date ??? Explor maxill sinus,intranasal 04/2002 Dr. Shea Family History Problem Relation ??? Heart Father [place] in 1997 ??? Family History Negative Mother ??? Family History Negative Brother History Social History ??? Marital Status: Single Spouse Name: N/A Number of Children: N/A ??? Years of Education: N/A Occupational History ??? Not on file. Social History Main Topics ??? Tobacco Use: Yes -- 1.0 packs/day for 12 years ??? Alcohol Use: Yes 2 beers a day ??? Drug Use: Not on file ??? Sexually Active: Yes -- Female partners Other Topics Concern ??? Not on file Social History Narrative ??? No narrative on file Current Outpatient Rx Name Route Sig Dispense Refill ??? ASPIRIN 81 MG OR TABS Oral 1 tab po QD (Once per day) 100 3 ??? WELLBUTRIN XL 300 MG OR TB24 Oral 1 TABLET DAILY 30 11 Allergies Allergen Reactions ??? No Known Drug [...] angle tenderness. No suprapubic fullness/discomfort. : Normal. SKIN: No rash or unusual lesions. NEURO: Aware + Oriented x 3. 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 Nonfocal exam. EXTREMITIES: No clubbing, cyanosis, or edema. Capillary refill excellent at less than 2 seconds throughout. PSYCH: Euthymic. No delusions or hallucinations. Normal speech. Denies any suicidal or homicidal ideation. ASSESSMENT/PLAN: 1- Normal CPE. Fasting labs per H Sorders. 2- ANGELIKA. Doing well. Has /u with Pulmonary. 3- Family hx of premature CADz. Will check CRP. May initate statin if lipids are even marginally eelevated. 4- HCM. After d/w pt regarding risks and benefits as well as possible side effects, drug interactions and adverse reactions, pt accepts suggestion for ASA per HS orders. NSIC PHOTOGRAPHER documented in this encounter Nursing Notes 08/01/2005 10:00 AM CST >> RAVEN PATINO 08/01/2005 9:01 am Patient presents with: Physical - with fasting labs Initial BP 124/84 Ht 6' 1 (1.85m) Wt 218 lbs (98.9kg) Body mass index is 28.77 kg/(m^2).. BP completed using cuff size: regular Raven Patino CMA documented in this encounter Plan of Treatment Not on filedocumented as of this encounter Procedures Procedure Name Priority Date/Time Associated Diagnosis Comme nts HCL CRP, CARDIAC Routine 08/01/2005 9:29 AM Family Hx Cardiova s Results for this RISK FORENSIC PHOTOGRAPHER Dis Nec procedure are i n the results section. CL AFF CBC WITH Routine 08/01/2005 9:29 AM Routine Medical Exa m Results for this PLATELETS FORENSIC PHOTOGRAPHER procedure are i n the results section. HCL BASIC METABOLIC Routine 08/01/2005 9:29 AM Routine Medical Exam Results for this PANEL FORENSIC PHOTOGRAPHER procedure are i n the results section. HCL TSH W/FREE T4 Routine 08/01/2005 9:29 AM Routine Medical E xam Results for this REFLEX FORENSIC PHOTOGRAPHER procedure are i n the results section. HCL ALT Routine 08/01/2005 9:29 AM Routine Medical Exam R esults for this FORENSIC PHOTOGRAPHER procedure are i n the results section. HCL AST Routine 08/01/2005 9:29 AM Routine Medical Exam R esults for this FORENSIC PHOTOGRAPHER procedure are i n the results section. CL AFF A.M.A. LIPID Routine 08/01/2005 9:29 AM Routine Medical Exam Results for this PANEL FORENSIC PHOTOGRAPHER procedure are i n the results section. documented in this encounter Results CRP, CARDIAC RISK (08/01/2005 9:29 AM FORENSIC PHOTOGRAPHER) P athologist Signature CRP Cardiac 4.5 mg/L [facility] LABS Comment: Reference Values: Low Risk: ? <1.0 mg/L Average Risk: ? 1.0-3.0 mg/L High Risk: ?>3.0 mg/L Acute Inflammation: >8.0 mg/L The result units for this test have bee n changed: mg/L = mg/dL x 10 Specimen Anatomical Collection Method Collection Time Receive d Time (Source) Location / / Volume Laterality 08/01/2005 9:29 AM 6 9:31 FORENSIC PHOTOGRAPHER AM FORENSIC PHOTOGRAPHER Harvinder Michelle MD LABORATORY Performing Organization Address City/State/ZIP Code Phon e Number [facility] [address] [place] [address] [facility] CBC WITH PLATELETS (08/01/2005 9:29 AM FORENSIC PHOTOGRAPHER) athologist Signature WBC 5.8 4.0 - 11.0 [place] 10e9/L [facility] RBC Count 4.99 4.4 - 5.9 [place] 10e12/L [facility] Hemoglobin 15.4 13.3 - [place] 17.7 g/dL [facility] Hematocrit 42.8 40.0 - [place] 53.0 % [facility] MCV 86 78 - 100 [place] fl [facility] MCH 30.9 26.5 - [place] 33.0 pg [facility] MCHC 36.0 32.0 - [place] 36.0 g/dL [facility] RDW 13.8 10.0 - [place] 15.0 % [facility] Platelet Count 251 150 - 450 [facility] 10e9/L [facility] Specimen Anatomical Collection Method Collection Time Receive d Time (Source) Location / / Volume Laterality 08/01/2005 9:29 AM 6 9:31 FORENSIC PHOTOGRAPHER AM FORENSIC PHOTOGRAPHER Harvinder Michelle MD LABORATORY Performing Organization Address City/State/ZIP Code Phon e Number [facility] [address] [place] [address] [facility] TSH W/FREE T4 REFLEX (08/01/2005 9:29 AM FORENSIC PHOTOGRAPHER) athologist Signature TSH 2.28 0.4 - 5.0 [facility] mU/L [facility] LAB Specimen Anatomical Collection Method Collection Time Receive d Time (Source) Location / / Volume Laterality 08/01/2005 9:29 AM 6 9:31 FORENSIC PHOTOGRAPHER AM FORENSIC PHOTOGRAPHER Harvinder Michelle MD LABORATORY Performing Organization Address City/State/ZIP Code Phon e Number [facility] [address] [place] [address] [facility] LAB AST (08/01/2005 9:29 AM FORENSIC PHOTOGRAPHER) athologist Signature AST 44 0 - 55 U/L [facility] Specimen Anatomical Collection Method Collection Time Receive d Time (Source) Location / / Volume Laterality 08/01/2005 9:29 AM 6 9:31 FORENSIC PHOTOGRAPHER AM FORENSIC PHOTOGRAPHER Harvinder Michelle MD LABORATORY Performing Organization Address City/[facility]/ZIP Code Phon e Number [facility] [address] [place] [address] [phone] [facility] A.M.A. LIPID PANEL (08/01/2005 9:29 AM FORENSIC PHOTOGRAPHER) athologist Signature Cholesterol 166 0 - 200 [facility] mg/dL CLINIC LAB Comment: LDL Cholesterol is the primary guide to therapy: LDL-cholesterol goal in high risk patients is <100 mg/dL and in very high risk patients is <70 mg/dL. The NCEP recommends further evaluation of: patients with cholesterol <200 mg/dL if additional risk factors are present, cholesterol >240 mg/dL, triglycerides >150 mg/dL, or HDL <40 mg/dL. Triglycerides 109 0 - 150 mg/dL [facility] LAB HDL Cholesterol 42 40 - 110 mg/dL [facility] LDL Cholesterol Calculated 103 0 - 129 mg/dL [facility] Comment: LDL Cholesterol is the primary guide to therapy: LDL-cholesterol goal in high risk patients is <100 mg/dL and in very high risk patients is <70 mg/dL. VLDL-Cholesterol 22 0 - 30 mg/dL [facility] LAB Cholesterol/HDL Ratio 4.0 0.0 - 5.0 [facility] LAB Specimen Anatomical Collection Method Collection Time Receive d Time (Source) Location / / Volume Laterality 08/01/2005 9:29 AM 6 9:31 FORENSIC PHOTOGRAPHER AM FORENSIC PHOTOGRAPHER Harvinder Michelle MD LABORATORY Performing Organization Address City/[facility]/ZIP Code Phon e Number [address] [address] [phone] [facility] ALANINE AMINO (ALT) (SGPT) (08/01/2005 9:29 AM FORENSIC PHOTOGRAPHER) athologist Signature ALT 59 0 - 70 U/L [facility] Specimen Anatomical Collection Method Collection Time Receive d Time (Source) Location / / Volume Laterality 08/01/2005 9:29 AM 6 9:31 FORENSIC PHOTOGRAPHER AM FORENSIC PHOTOGRAPHER Harvinder Michelle MD LABORATORY Performing Organization Address City/[facility]/ZIP Code Phon e Number [facility] [address] [place] [address] [phone] [facility] A.M.A. BASIC METABOLIC PANEL (08/01/2005 9:29 AM FORENSIC PHOTOGRAPHER) athologist Signature Sodium 141 133 - 144 [place] mmol/L CLINIC LAB Potassium 4.2 3.4 - 5.3 [place] mmol/L [facility]IC LAB Chloride 107 94 - 109 [place] mmol/L [facility]IC LAB Carbon Dioxide 28 20 - 32 [place] mmol/L [facility]IC LAB Anion Gap 7 6 - 17 [place] mmol/L [facility]IC LAB Glucose 97 60 - 110 [place] mg/dL CLINIC LAB Urea Nitrogen 15 5 - 24 [place] mg/dL CLINIC LAB Creatinine 1.00 0.80 - [place] 1.50 mg/dL CLINIC LAB GFR Estimate >90 >60 [place] mL/min/1.7 CLINIC LAB m2 GFR Estimate If >90 >60 [place] Black mL/min/1.7 CLINIC LAB m2 Calcium 9.0 8.5 - 10.4 [place] mg/dL CLINIC LAB Specimen Anatomical Collection Method Collection Time Receive d Time (Source) Location / / Volume Laterality 08/01/2005 9:29 AM 6 9:31 FORENSIC PHOTOGRAPHER AM FORENSIC PHOTOGRAPHER Harvinder Michelle MD LABORATORY Performing Organization Address City/State/ZIP Code Phon e Number [facility] [address] [place] [address] [place] [address] [phone] [facility] CLINIC LAB documented in this encounter Visit Diagnoses Diagnosis Routine general medical examination at a health care facility - Primary Hypersomnia with sleep apnea, unspecifie d Fam hx-cardiovas dis NEC Family history of other cardiovascular d iseases documented in this encounter Care Teams Personal Banking Assistant Relationship Specialty Start Date End Date Harvinder Michelle MD PCP - General 12/26/01 11/16/13 [address] [place] [address] documented as of this encounter
--- OUTSIDE RECORDS SUMMARY | 2022-03-20 14:31 | XMS_ITS | Encounter Summary ---
:1975 Author Organization [place] Address [address] [place] [address] Care Team Providers Name Role Phone Harvinder Michelle MD Primary Care Provider Reason for Referral - Closed Specialty Diagnoses / Procedures Referred By Contact Refer red To Contact Diagnoses Hypersomnia with sleep apnea, unspecified Harvinder Michelle MD [address] [place] [address] Referral ID Status Reason Start Date Expiration Date Visits Requ ested Visits Authorized [id number] Closed 01/24/2005 06/16/2011 1 1 - Closed Specialty Diagnoses / Procedures Referred By Contact Refer red To Contact Diagnoses Other general counseling and advice for contraceptive management Harvinder Michelle MD [address] [place] [address] Referral ID Status Reason Start Date Expiration Date Visits Requ ested Visits Authorized [id number] Closed 01/24/2005 06/16/2011 1 1 Reason for Visit Reason Comments Physical with fasting labs Refill Request Wellbutrin and Zyban Encounter Details Date Type Department Care Team Description 01/24/2005 Office Visit [facility] Harvinder Michelle MD ROUTINE MEDICAL EXAM; [facility] [place] [address] [place] [address] NEC; [id number] [facility] HYPERSOMNI W SLEEP APNEA [place], [place] [phone] Social History Tobacco Use Types Packs/Day Years Used Date Current Every Day Smoker 1 12 Alcohol Use Standard Drinks/Week Comments Yes 0 (1 standard drink = 0.6 oz pure alcoho l) 2 beers a day Sex Assigned at Date Recorded Not on file documented as of this encounter Last Filed Vital Signs Vital Sign Reading Time Taken Comments Blood Pressure 126/84 01/24/2005 1:00 PM CDT Pulse - - Temperature - - Respiratory Rate - - Oxygen Saturation - - Inhaled Oxygen Concentration - - Weight 97.5 kg (215 lb) 01/24/2005 1:00 PM CDT Height 185.4 cm (6' 1) 01/24/2005 1:00 PM CDT Body Mass Index 28.37 01/24/2005 1:00 PM CDT documented in this encounter Progress Notes Harvinder Michelle - 01/24/2005 1:30 PM CDT SUBJECTIVE: Antelmo Farias 29 year old male presents for CPE. He was unable to d/w Dr. Malloy for vasectomy when last seen for CPE and referred. He also has some concerns due to 's observations about dysrhythmic breathing while sleeping. Histories Updatesd through 01.24.2005: Previous Medical History: NO ACTIVE PROBLEMS Review of patient's past surgical history indicates: EXPLOR MAXILL SINUS,INTRANASAL 04/2002 Comment: Dr. Shea Family History: Heart Father Comment: AL in 1997 Family History Negative Mother Family History Negative Brother Social History Marital Status: Single Spouse Name: N/A Years of Education: N/A Number of Children: N/A Occupational History None on file Social History Main Topics Tobacco Use: Yes 1.0 Packs/Day For 12 Years Alcohol Use: Yes Comment: 2 beers a day Drug Use: Not on file Sexually Active: Yes Partners: Female Other Topics Concern Social History Narrative None on file No current outpatient prescriptions on file. No Known Drug Aller* ROS: TRAUMA: Denies any recent history of [...] within normal limits. Posterior oropharynx is clear but moderately narrow at baseline. No visible tonsils. Thyroid minimally palpable when [...] lesions. NEURO: Aware + Oriented x 3. 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 Nonfocal exam. EXTREMITIES: No clubbing, cyanosis, or edema. Capillary refill excellent at less than 2 seconds throughout. PSYCH: Euthymic. No delusions or hallucinations. Normal speech. Denies any suicidal or homicidal ideation. ASSESSMENT/PLAN: 1- Normal CPE. fasting labs per HS orders. 2- Suspected ANGELIKA. refer for sleep study. 3- Contraceptive management. Pt accepts referral faye Sleep Study. documented in this encounter Nursing Notes 01/24/2005 1:00 PM CDT >> RAVEN PATINO 01/24/2005 1:08 pm Antelmo Farias presents for male pe and fasting labs. Pt wanting refill on Wellbutrin and Zyban to help stop smoking. Initial BP 126/84 Ht 6' 1 (1.85m) Wt 215 lbs (97.5kg) Body Mass Index is 28.37 kg/(m^2).. BP completed using cuff size: regular Raven Patino CMA documented in this encounter Plan of Treatment Not on filedocumented as of this encounter Procedures Procedure Name Priority Date/Time Associated Comments Diagnosis ZZ CONSULT SLEEP Routine 02/01/2005 Hypersomni W Sleep CENTER Apnea CL AFF CBC WITH Routine 01/24/2005 1:31 PM Routine Medical Res ults for this PLATELETS CDT Exam procedure are i n the results section. HCL BASIC METABOLIC Routine 01/24/2005 1:31 PM Routine Medical Results for this PANEL CDT Exam procedure are i n the results section. HCL TSH W/FREE T4 Routine 01/24/2005 1:31 PM Routine Medical R esults for this REFLEX CDT Exam procedure are i n the results section. HCL GLYCATED Routine 01/24/2005 1:31 PM Routine Medical Result s for this HEMOGLOBIN CDT Exam procedure are i n the results section. HCL ALT Routine 01/24/2005 1:31 PM Routine Medical Result s for this CDT Exam procedure are i n the results section. HCL AST Routine 01/24/2005 1:31 PM Routine Medical Result s for this CDT Exam procedure are i n the results section. CL AFF A.M.A. LIPID Routine 01/24/2005 1:31 PM Routine Medical Results for this PANEL CDT Exam procedure are i n the results section. documented in this encounter Results CONSULT SLEEP CENTER (02/01/2005) Narrative This result has an attachment that is no t available. Harvinder Michelle MD REFERRAL CBC WITH PLATELETS (01/24/2005 1:31 PM CDT) P athologist Signature WBC 8.1 4.0 - 11.0 [place] 10e9/L [facility] LAB RBC Count 5.30 4.4 - 5.9 [place] 10e12/L [facility] Hemoglobin 16.6 13.3 - [place] 17.7 g/dL [facility] Hematocrit 47.1 40.0 - [place] 53.0 % [facility] MCV 89 78 - 100 [facility] [place] [facility] MCH 31.3 26.5 - [place] 33.0 pg [facility] MCHC 35.2 32.0 - [facility] 36.0 g/dL [facility] RDW 13.3 10.0 - [place] 15.0 % [facility] Platelet Count 262 150 - 450 [facility] 10e9/L [facility] Specimen Anatomical Collection Method Collection Time Receive d Time (Source) Location / / Volume Laterality 01/24/2005 1:31 PM 5 1:36 CDT PM CDT Harvinder Michelle MD LABORATORY Performing Organization Address City/[facility]/ZIP Code Phon e Number [facility] [address] [place] [address] [facility] TSH W/FREE T4 REFLEX (01/24/2005 1:31 PM CDT) athologist Signature TSH 1.73 0.4 - 5.0 [facility] mU/[facility] LAB Specimen Anatomical Collection Method Collection Time Receive d Time (Source) Location / / Volume Laterality 01/24/2005 1:31 PM 5 1:36 CDT PM CDT Harvinder Michelle MD LABORATORY Performing Organization Address City/[facility]/ZIP Code Phon e Number [facility] [address] [place] [address] [facility] HEMOGLOBIN A1C (01/24/2005 1:31 PM CDT) P athologist Signature Hemoglobin A1C 5.5 4.3 - 6.0 [place] [facility] LAB Specimen Anatomical Collection Method Collection Time Receive d Time (Source) Location / / Volume Laterality 01/24/2005 1:31 PM 5 1:36 CDT PM CDT Harvinder Michelle MD LABORATORY Performing Organization Address City/State/ZIP Code Phon e Number [facility] [address] [place] [address] [facility] AST (01/24/2005 1:31 PM CDT) P athologist Signature AST 38 0 - 55 U/L [facility] LAB Specimen Anatomical Collection Method Collection Time Receive d Time (Source) Location / / Volume Laterality 01/24/2005 1:31 PM 5 1:36 CDT PM CDT Harvinder Michelle MD LABORATORY Performing Organization Address City/[facility] Code Phon e Number [facility] [address] [place] [address] [facility] (ABNORMAL) A.M.A. LIPID PANEL (01/24/2005 1:31 PM CDT) athologist Signature Cholesterol 230 (H) 0 - 200 [facility] mg/dL CLINIC LAB Comment: Cholesterol Reference Range: <200 ??The NCEP recommends further ? evaluation of: ? 1. ??Patients with cholesterol ? greater than 200 mg/dL ? if additional risk facto rs ? are present. ? 2. ??All patients with a ? cholesterol greater than ? 240 mg/dL. Triglycerides 137 0 - 150 mg/dL [facility] LAB HDL Cholesterol 67 >40 mg/dL [facility] LDL Cholesterol Calculated 135 (H) 0 - 129 mg/dL [facility] VLDL-Cholesterol 27 0 - 30 mg/dL [facility] LAB Cholesterol/HDL Ratio 3.4 0.0 - 5.0 [facility] LAB Specimen Anatomical Collection Method Collection Time Receive d Time (Source) Location / / Volume Laterality 01/24/2005 1:31 PM 5 1:36 CDT PM CDT Harvinder Michelle MD LABORATORY Performing Organization Address City/[facility]/ZIP Code Phon e Number [facility] [address] [place] [address] [phone] [facility] ALANINE AMINO (ALT) (SGPT) (01/24/2005 1:31 PM CDT) athologist Signature ALT 54 0 - 70 U/L [facility] Specimen Anatomical Collection Method Collection Time Receive d Time (Source) Location / / Volume Laterality 01/24/2005 1:31 PM 5 1:36 CDT PM CDT Harvinder Michelle MD LABORATORY Performing Organization Address City/[facility]/ZIP Code Phon e Number [facility] [address] [place] [address] [phone] [facility] A.M.A. BASIC METABOLIC PANEL (01/24/2005 1:31 PM CDT) athologist Signature Sodium 142 133 - 144 [place] mmol/L CLINIC LAB Potassium 4.8 3.4 - 5.3 [place] mmol/L [facility] Chloride 104 94 - 109 [place] mmol/L [facility] LAB Carbon Dioxide 27 20 - 32 [place] mmol/L [facility] LAB Anion Gap 11 6 - 17 [place] mmol/L [facility] LAB Glucose 81 60 - 110 [place] mg/dL CLINIC LAB Urea Nitrogen 16 5 - 24 [place] mg/dL CL[facility]IC LAB Creatinine 1.10 0.80 - [place] 1.50 mg/dL CLINIC LAB GFR Estimate >80 >60 [place] mL/min/1.7 CLINIC LAB m2 GFR Estimate If >80 >60 [place] Black mL/min/1.7 CLINIC LAB m2 Calcium 9.8 8.5 - 10.4 [place] mg/dL CLINIC LAB Specimen Anatomical Collection Method Collection Time Receive d Time (Source) Location / / Volume Laterality 01/24/2005 1:31 PM 5 1:36 CDT PM CDT Harvinder Michelle MD LABORATORY Performing Organization Address City/[facility]/ZIP Code Phon e Number [facility] [address] [place] [address] [phone] [facility] documented in this encounter Visit Diagnoses Diagnosis Routine general medical examination at a health care facility Other general counseling and advice for contraceptive management Hypersomnia with sleep apnea, unspecifie d documented in this encounter Care Teams Pineapple Plantation Manager Relationship Specialty Start Date End Date Harvinder Michelle MD PCP - General 12/26/01 11/16/13 [address] [place] [address] [address] documented as of this encounter
--- OUTSIDE RECORDS SUMMARY | 2022-03-20 14:31 | XMS_ITS | Encounter Summary ---
:1975 Author Organization [place] Address [address] [place] [address] Care Team Providers Name Role Phone Harvinder Michelle MD Primary Care Provider Encounter Details Date Type Department Care Team Description 07/16/2005 Orders Only [facility] Harvinder Michelle MD DIAGNOSIS NOT YET Clinic [address] (Primary Dx) [address] [place], [place] [phone] Social History Tobacco Use Types Packs/Day Years [...] Procedure Name Priority Date/Time Associated Diagnosis Comme [facility] POLYSOMNOGRAPHY, 4 OR MORE Routine 07/16/2005 DIAGNOSIS NOT YET DEFINED documented in this encounter Results POLYSOMNOGRAPHY, 4 OR MORE (07/16/2005) Specimen (Source) Anatomical Location Collection Method / Collectio n Time Received Time / Laterality Volume 07/16/2005 Narrative This result has an attachment that is no t available. Harvinder Michelle MD PROCEDURES documented in this encounter Visit Diagnoses Diagnosis DIAGNOSIS NOT YET DEFINED - Primary documented in this encounter Care Teams Shop Teacher Relationship Specialty Start Date End Date Harvinder Michelle MD PCP - General 12/26/01 11/16/13 7907 [facility] [place] [address] documented as of this encounter
--- OUTSIDE RECORDS SUMMARY | 2022-03-20 14:31 | XMS_ITS | Encounter Summary ---
:1975 Author Organization [place] Address [address] [place] [address] Care Team Providers Name Role Phone Harvinder Michelle MD Primary Care Provider Reason for Visit Reason Onset Date Comments Patient Inquiry 02/13/2005 quit smoking med reg imen Encounter Details Date Type Department Care Team Description 02/13/2005 [facility] Harvinder Michelle MD Patient Inquiry (quit Clinic [place] [address] [place] smoking med regimen) [address] [place] [phone] (Wo rk) Social History Tobacco Use Types Packs/Day Years Used Date Current Every Day Smoker 1 12 Alcohol Use Standard Drinks/Week Comments Yes 0 (1 standard drink = 0.6 oz pure alcoho l) 2 beers a day Sex Assigned at Date Recorded Not on file documented as of this encounter Miscellaneous Notes Telephone Encounter - Raven Mendoza - 02/14/2005 9:57 AM CDT Pt notified. Raven Mendoza CMA Telephone Encounter - Harvinder Michelle - 02/13/2005 8:56 PM CDT one tab twice a day... should stop smoking now Telephone Encounter - Glenny Carter - 02/13/2005 1:24 PM CDT pt taking wellbutrin to quit smoking-started it two weeks ago -you had mentioned increasing dose to two per day after a couple of weeks--does he take two at one time on one twice a day? call back to [phone] Glenny Carter RN documented in this encounter Plan of Treatment Not on filedocumented as of this encounter Visit Diagnoses Not on filedocumented in this encounter Care Teams Director Regulatory Agency Relationship Specialty Start Date End Date Harvinder Michelle MD PCP - General 12/26/01 11/16/13 [address]907 [place] [id number] documented as of this encounter
--- OUTSIDE RECORDS SUMMARY | 2022-03-20 14:31 | XMS_ITS | Encounter Summary ---
:1975 Author Organization [place] Address [address] [place] [address] Care Team Providers Name Role Phone Harvinder Michelle MD Primary Care Provider Reason for Visit Reason Onset Date Comments Refill Request 01/25/2005 wellbutrin Encounter Details Date Type Department Care Team Description 01/25/2005 Refill [facility] Harvinder Michelle MD Refill Request Clinic [address] (wellbutrin) [address] [place] [phone] Social History Tobacco Use Types Packs/Day Years Used Date Current Every Day Smoker 1 12 Alcohol Use Standard Drinks/Week Comments Yes 0 (1 standard drink = 0.6 oz pure alcoho l) 2 beers a day Sex Assigned at Date Recorded Not on file documented as of this encounter Miscellaneous Notes Telephone Encounter - Ruma Kang - 01/25/2005 11:11 AM CDT Refill request for wellbutrin 300mg. last filled . last seen by pcp . Will send to to fill, due to last filled over 1 year ago, Saw yesterday no mention of wellbutrin. Ruma Kang RN documented in this encounter Plan of Treatment Not on filedocumented as of this encounter Visit Diagnoses Not on filedocumented in this encounter Care Teams Estimating Manager Relationship Specialty Start Date End Date Harvinder Michelle MD PCP - General 12/26/01 11/16/13 [address] [place] [address] documented as of this encounter
--- OUTSIDE RECORDS SUMMARY | 2022-03-20 14:31 | XMS_ITS | Encounter Summary ---
:1975 Author Organization [place] Address [address] [place] [address] Care Team Providers Name Role Phone Harvinder Michelle MD Primary Care Provider Reason for Visit Reason Comments Physical PE with fasting labs Encounter Details Date Type Department Care Team Description 10/27/2003 Office Visit [facility] Harvinder Michelle MD ROUTINE MEDICAL EXAM; Clinic [address] CONTRACEPTIVE [address] [place] [address] [phone] Social History Tobacco Use Types Packs/Day Years Used Date Current Every Day Smoker 1 12 Alcohol Use Standard Drinks/Week Comments Yes 0 (1 standard drink = 0.6 oz pure alcoho l) 2 beers a day Sex Assigned at Date Recorded Not on file documented as of this encounter Last Filed Vital Signs Vital Sign Reading Time Taken Comments Blood Pressure 104/76 10/27/2003 9:00 AM CDT Pulse - - Temperature - - Respiratory Rate 16 10/27/2003 9:00 AM CDT Oxygen Saturation - - Inhaled Oxygen Concentration - - Weight 93.4 kg (206 lb) 10/27/2003 9:00 AM CDT Height 182.9 cm (6') 10/27/2003 9:00 AM CDT Body Mass Index 27.94 10/27/2003 9:00 AM CDT documented in this encounter Progress Notes 10/27/2003 9:00 AM CDT SUBJECTIVE: Antelmo Farias 28 year old male presents for CPE. He also wishes to discuss contraception op tions, being a father of two (newest in 2 months old). There is no previous medical history on file. Review of patient's past surgical history indicates: EXPLOR MAXILL SINUS,INTRANASAL 04/2002 Comment: Dr. Shea Review of patient's family history indicates: Heart Father Comment: [place] in 1997 Family History Negative Mother Family History Negative Brother Social History M arital Status: Single Spouse Name: Years of Education: Number of children: Social History Main Topics Tobacco Use: Yes Packs/Day : 1 Years: 12 Alcohol Use: Yes Comment: 2 beers a day Drug Use: Not Asked Sexually Active: Yes Partners with: Female Other Topics Concern None o n file Social History Narrative None on file Meds as of 10/27/2003: WELLBUTRIN XL 300 MG OR TB24 1 TABLET DAILY NIZORAL 2 % EX CREA apply BID NASONEX 50 MCG/ACT NA SUSP 2 sprays each nostril Once d aily for allergies Review of the patient's allergies finds: No Known Drug Allergies ROS: TRAUMA: Denies any recent history of trauma PULMONARY: Denies dyspnea. Zion es waking up feeling fatigued. Denies daytime somnolence CV: Denies angina. Denies chest pain. Vascul ar: Denies claudication GI: Denies dysphagia. Denies dyspepsia. Denies postprandial abdominal pain. D enies changes in bowelmovements or quality of stool from regular daily well- formed baseline. NEURO: Denies any change of vision. Denies paresthesia. Denies any back pain. Denies any sciatic pain to eit her lower extremity. Denies bowel or bladder incontinence. : Denies polyuria, nocturia, gross hemat uria, or dysuria ENDOC: Denies excessive weight gain, inappropriate weight loss, heat intolerance, or cold intolerance SKIN: Denies any rash, ulceration or change in color, size or symmetry of a known m ole PSYCH: Denies any mood swings. Denies anhedonia. Denies insomnia. Denies violent ideation. HEME: Denies any bleeding tendancies LYMPH: Denies any palpable lymph nodes ID: Denies any illness exposure s or recent travel history OBJECTIVE: HEENT: Normocephalic & atraumatic. PERRLA with EOMI. Optic dis cs sharp. Tympanic membranes withwell-defined light reflexes bilaterally. Nasal turbinates within no rmal limits. Posterior oropharynx is clear and widely patent. No visible tonsils. Thyroid minimally p alpable when pt asked to swallow. LYMPH: No adenopathy noted of the neck. In addition, there is no s upraclavicular, infraclavicular or axillary adenopathy. LUNGS: Clear to auscultation bilaterally. No derangement in the inspiratory to expiratory ratio. No wheezes or rales. No egophony. CV: NSR. No mur mur. No rub. No gallop. Normal s1 and S2 heart sounds without appreciable S3 or S4. No jugular venous distension. ABD: Abdomen is soft, nontender and nondistended. No hepatosplenomegaly. No rebound tend erness. No costavetebral angle tenderness. No suprapubic fullness/discomfort. : Normal. SKIN: No ra sh or unusual lesions. NEURO: Aware + Oriented x 3. 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 Nonfocal exam. EXTREMI TIES: No clubbing, cyanosis, or edema. Capillary refill excellent at less than 2 seconds throughout. PSYCH: Euthymic. No delusions or hallucinations. Normal speech. Denies any suicidal or homicidal idea tion. ASSESSMENT/PLAN: 1- Normal exam. fasting labs per EPicAre. 2- Discuss options for contraceptio ns with pt over a 15 minute period. He accepts advice for referral to Dr. Malloy for Vasectomy COnsulta tion. documented in this encounter Nursing Notes 10/27/2003 9:00 AM CDT >> MICHAEL HAMEED 10/27/2003 8:53 am PE with fasting labs. BP cuff size: large left arm Michael Hameed LPN documented in this encounter Plan of Treatment Not on filedocumented as of this encounter Procedures Procedure Name Priority Date/Time Associated Comments Diagnosis HCL HEMOGLOBIN Routine 10/27/2003 9:14 AM Routine Medical Resu lts for this NONLAB CDT Exam procedure are i n the results section. HCL BASIC METABOLIC Routine 10/27/2003 9:14 AM Routine Medical Results for this PANEL CDT Exam procedure are i n the results section. HCL ALT Routine 10/27/2003 9:14 AM Routine Medical Result s for this CDT Exam procedure are i n the results section. HCL AST Routine 10/27/2003 9:14 AM Routine Medical Result s for this CDT Exam procedure are i n the results section. CL AFF A.M.A. LIPID Routine 10/27/2003 9:14 AM Routine Medical Results for this PANEL CDT Exam procedure are i n the results section. documented in this encounter Results HGB (10/27/2003 9:14 AM CDT) athologist Signature Hemoglobin 16.2 13.3 - 17.7 [facility] g/dL [facility] Specimen Anatomical Collection Method Collection Time Receive d Time (Source) Location / / Volume Laterality 10/27/2003 9:14 AM 200 4 9:17 CDT AM CDT Harvinder Michelle MD LABORATORY Performing Organization Address [facility]/ZIP Code Phon e Number [facility] [address] [place] [address] [facility] AST (10/27/2003 9:14 AM CDT) athologist Signature AST 23 0 - 55 U/L [facility] Specimen Anatomical Collection Method Collection Time Receive d Time (Source) Location / / Volume Laterality 10/27/2003 9:14 AM 4 9:17 CDT AM CDT Harvinder Michelle MD LABORATORY Performing Organization Address City/[facility]/ZIP Code Phon e Number [facility] [address] [place] [address] [facility] A.M.A. LIPID PANEL (10/27/2003 9:14 AM CDT) athologist Signature Cholesterol 172 <200 mg/dL [facility] Comment: Cholesterol Reference Range: <200 ??The NCEP recommends further ? evaluation of: ? 1. ??Patients with cholesterol ? greater than 200 mg/dL ? if additional risk facto rs ? are present. ? 2. ??All patients with a ? cholesterol greater than ? 240 mg/dL. Triglycerides 141 <150 mg/dL [facility] HDL Cholesterol 44 >40 mg/dL [facility] LDL Cholesterol Calculated 99 <130 mg/dL [facility] VLDL-Cholesterol 28 0 - 30 mg/dL [facility] Cholesterol/HDL Ratio 3.9 0.0 - 5.0 [facility] Specimen Anatomical Collection Method Collection Time Receive d Time (Source) Location / / Volume Laterality 10/27/2003 9:14 AM 4 9:17 CDT AM CDT Harvinder Michelle MD LABORATORY Performing Organization Address City/[facility]/ZIP Code Phon e Number [facility] [address] [place] [address] [phone] [facility] ALANINE AMINO (ALT) (SGPT) (10/27/2003 9:14 AM CDT) athologist Signature ALT 34 0 - 70 U/L [facility] Specimen Anatomical Collection Method Collection Time Receive d Time (Source) Location / / Volume Laterality 10/27/2003 9:14 AM 4 9:17 CDT AM CDT Harvinder Michelle MD LABORATORY Performing Organization Address City/[facility]/ZIP Code Phon e Number [facility] [address] [place] [address] [phone] [facility] A.M.A. BASIC METABOLIC PANEL (10/27/2003 9:14 AM CDT) P athologist Signature Sodium 141 133 - 144 [facility] mmol/L [facility] Potassium 4.5 3.4 - 5.3 [facility] mmol/L [facility] Chloride 106 94 - 109 [facility] mmol/L [facility] Carbon Dioxide 29 20 - 32 [facility] mmol/L [facility] Anion Gap 7 6 - 17 [facility] mmol/L [facility] Glucose 93 60 - 115 [facility] mg/dL [facility] Urea Nitrogen 16 5 - 24 [facility] mg/dL [facility] Creatinine 1.20 0.80 - [facility] 1.50 mg/dL [facility] GFR Estimate 76 >60 [facility] mL/min/1.7 [facility] m2 GFR Estimate If >80 >60 [facility] Black mL/min/1.7 [facility] LAB m2 Calcium 9.6 8.5 - 10.4 [facility] mg/dL [facility] Specimen Anatomical Collection Method Collection Time Receive d Time (Source) Location / / Volume Laterality 10/27/2003 9:14 AM 9:17 CDT AM CDT Harvinder Michelle MD LABORATORY Performing Organization Address City/State/ZIP Code Phon e Number [address] [place] [address] [facility] documented in this encounter Visit Diagnoses Diagnosis Routine general medical examination at a health care facility Other general counseling and advice for contraceptive management documented in this encounter Care Teams Crusher Relationship Specialty Start Date End Date Harvinder Michelle MD PCP - General 12/26/01 11/16/13 [address] [place] [address] documented as of this encounter
--- OUTSIDE RECORDS SUMMARY | 2022-03-20 14:32 | XMS_ITS | Clinical Summary ---
:1975 Author Organization [employer] [facility] Affiliates [place] [address] Care Team Providers Name Role Phone Jose De Jesus Lambert MD Primary Care Provider Allergies No known active allergies Medications Medication Sig Dispensed Refills Start Date End Date Status nicotine (NICOTROL) Inhale 10 mg by 1 cartridge 3 04/11/2015 Active 10 mg mouth every hour inhalerIndications: if needed for Cigarette nicotine Nicotine Craving. dependence without complication Active Problems Problem Noted Date Gastroesophageal reflux disease without esophagitis IFG (impaired fasting glucose) 12/22/2015 Abdominal discomfort 12/22/2015 Tobacco consumption 12/22/2015 Obesity (BMI 30-39.9) 12/22/2015 ANGELIKA on CPAP Immunizations Name Administration Dates Next Due COVID-19 vaccine (Snehta 30mcg/0.3mL) PF, 1, 11/02/2020 MDV Tdap 04/11/2015 Family History Medical History Relation Name Comments Premature CHD (under age 60) Father [place] @ 48 Relation Name Status Comments Father Social History Tobacco Use Types Packs/Day Years Used Date Light Tobacco Smoker Cigarettes Smokeless Tobacco: Never Used Tobacco Cessation: Ready to Quit: No; Co unseling Given: Yes Alcohol Use Standard Drinks/Week Comments Yes 0 (1 standard drink = 0.6 oz pure alcoho l) Sex Assigned at Date Recorded Not on file Obstetrics History Last Filed Vital Signs Vital Sign Reading Time Taken Comments Blood Pressure 130/80 12/22/2015 10:55 AM CDT Pulse 63 12/22/2015 10:55 AM CDT Temperature 36.7 ??C (98 ??F) 12/22/2015 10:55 AM CDT Respiratory Rate - - Oxygen Saturation 99% 12/22/2015 10:55 AM CDT Inhaled Oxygen Concentration - - Weight 108.6 kg (239 lb 8 oz) 12/22/2015 10:55 AM CDT Height 182.9 cm (6' 0.01) 12/22/2015 10:55 AM CDT Body Mass Index 32.47 12/22/2015 10:55 AM CDT Plan of Treatment Health Maintenance Due Date Last Done Comments Hepatitis C screening for age 18-79 1992 BMI (ht and wt on same day) for age 0712/21/2016 12/22/2015, 11/02/2015, 18+ 06/23/2015 Colonoscopy through age 75 2019 Lipids for age 45-75 04/11/2020 04/11/2015 COVID-19 vaccine series (3 - Booster 01/23/2021 11/28/2020, 11/02/2020 for Pfizer series) Influenza for age 9-49 02/15/2022 Depression screening for age 12+ 11/29/2022 11/29/2021, Tetanus booster 04/11/2025 04/11/2015 Tdap Completed 04/11/2015 Goals Goal Patient Goal Associated Recent Patient-Stated? Author Type Problems Progress BLOOD PRESSURE Blood Pressure No [place], - MAINTAINS BP Carlee less than 140/90 Results Not on filefrom Last 3 Months Insurance Payer Benefit Plan / Subscriber ID Effective Dates Phone Addre ss Type Group [facility] [id number] 2018-Present [address] [address] [place] [address] Care Teams Assistant Professor Surgical Technology Relationship Specialty Start Date End Date Jose De Jesus Lambert MD PCP - General Family Practice 06/23/[address] [place] [address]
[2022-03-20 16:24] LABS: Albumin* 4.5 g/dL (3.3-5.0); Chloride* 100 mmol/L (96-114); Potassium* 4.5 mmol/L (3.6-5.1); Sodium* 135 mmol/L (135-149)
[2022-03-20 16:27] LABS: Alanine Aminotransferase* 23 U/L (4-50); Alkaline Phosphatase* 70 U/L (40-150); Aspartate Amino Transferase* 24 U/L (12-35); Bilirubin Total* 0.5 mg/dL (0.1-1.5); Blood Urea Nitrogen* 16 mg/dL (5-24); Carbon Dioxide* 26 mmol/L (20-32); Creatinine* 1.1 mg/dL (0.5-1.5); Estimated Glomerular Filt Rate 83 ml/min; Glucose* 91 mg/dL (60-115); Total Protein* 7.3 g/dL (6.0-8.3)
[2022-03-20 16:28] LABS: Calcium* 9.5 mg/dL (8.4-10.6)
== END 2022-03-20 14:25 | disposition home or self-care (01) ==
PROVIDERS: PCP Family Medicine; Visit Provider Family Medicine
DX: R10.9 Unspecified abdominal pain (principal)
CPT/HCPCS: 80053; 87086

== ENCOUNTER 2022-11-08 10:40 | Emergency (ER) | payer OTHER, SELFPAY ==
[2022-11-08] VITALS (7 sets, daily range): BP systolic 138–146; BP diastolic 92–109; PULSE 81–94; RESP 16–18; TEMP 36.1–36.3; O2SAT 97–99
--- NOTE | 2022-11-08 12:53 | CRLHL7_ITS ---
For Patients: As a result of the Century Cures Act, medical imaging exams and procedure reports are released immediately into your electronic medical record. You may view this report before your referring provider. If you have questions, please contact your health care provider. INDICATION: Dyspnea on exertion TECHNIQUE: Chest 2 views COMPARISON: 09/14/2021 FINDINGS: Cardiovascular and mediastinum: Heart size and vasculature are normal in caliber and appearance. Lungs and pleural spaces: Lungs are clear. No sign of infiltrate or mass. No sign of pleural effusion. No pneumothorax. Bones and soft tissues: No significant findings. IMPRESSION: No acute findings. Dictated by Sanchez Cerda MD @ 11/08/2022 1:29:33 PM (Electronically Signed)
--- NOTE | 2022-11-08 13:19 | ED_ITS ---
HPI - General Adult General Date Seen: 11/08/22 Chief complaint: Shortness of Breath/Dyspnea Stated complaint: Difficulty breathing Time Seen by Provider: 11/08/22 12:45 Source: patient Mode of arrival: ambulatory Limitations: no limitations History of Present Illness HPI narrative: Patient is a 39-year-old male who presents for evaluation of dyspnea on exertion which she has been noticing for the past couple of days. He says at rest he feels okay, but when he goes upstairs or goes do more activity or he says also when he goes down stairs, he feels like he can not get a full breath. He does not have any chest pain or pressure. His dad had a heart attack at age 48, so he is followed by Cardiology, takes a statin, but has never had any diagnosed coronary artery disease. He has not had fever cough, has not had lower extremity swelling or pain. Does have history of seasonal allergies and wonders if symptoms are related to an exacerbation of allergies. He does have an inhaler which he uses sometimes, he has tried that over the past couple of days and it helps a little bit but not as much as he might expect. He does continue to smoke, he drinks daily, a few drinks. He has never had problems with withdrawal although he does acknowledge he probably drinks more than he should. Related Data Home Medications Medication Instructions Recorded Confirmed dextroamphetamine-amphetamine 10 10 mg PO BID 03/20/22 03/20/22 mg tablet (Adderall) Previous Rx's Medication Instructions Recorded albuterol sulfate 90 mcg/actuation 2 puff inhalation Q4-6H PRN 02/14/22 aerosol inhaler shortness of breath or wheezing #8.5 grams amlodipine 5 mg tablet 5 mg PO QDAY #90 tabs 02/14/22 atorvastatin 10 mg tablet 10 mg PO QDAY #90 tabs 02/14/22 Allergies Allergy/AdvReac Type Severity Reaction Status Date / Time No Known Allergies Allergy Unverified 03/20/22 13:40 Review of Systems Status of ROS: Reports: 10 or more systems reviewed and unremarkable except as noted in History and below [facility] Surgical History S/P nasal surgery ?Z98.890 - Other specified postprocedural states (ICD-10) History of lumbar discectomy ?Z98.890 - Other specified postprocedural states (ICD-10) Family History Father Family history of early CAD Social History Smoking Status: Current every day smoker Little interest or pleasure in doing things: not at all Feeling down, depressed, or hopeless: not at all Exam Const: Vital Signs, click to edit/add: Vital Signs - 24 hr 11/08/22 10:43 11/08/22 13:49 11/08/22 13:50 Temperature 97 F L Pulse Rate 88 85 Pulse Rate [Pulse Oximeter] 81 Respiratory Rate 18 Blood Pressure 138/109 H Blood Pressure [Ri ght Upper Arm] 146/92 H Pulse Oximetry 99 99 98 Oxygen Delivery Me thod Room Air Course Course Hospital Course: On arrival, patient had an EKG which shows a normal sinus rhythm, ventricular rate of 72 beats per minute. He has an S-wave in lead 1, Q-wave in lead 3. Slightly widened QRS in V2 and V3 with a little notching of the QRS segment, I think this is unlikely to be true ST depression. A chest x-ray by my review is negative, waiting final radiology read. Diagnostic considerations include bronchospasm, pneumonia, pleural effusion, pulmonary edema/congestive heart failure, atypical angina, pulmonary embolism, anemia among others. Workup here is reassuring. His troponin is 0, with a couple of days of symptoms I think a single troponin is adequate. X-ray read by Radiology as negative. His white count is normal at 9, hemoglobin is 16.2. D-dimer was less than 0.27, electrolytes normal, LFTs normal, CRP less than point 5. BNP was less than 20. COVID is negative. Overall, have discussed with him I am not finding anything acute to account for his symptoms. It is possible the related to allergies and a component of bronchospasm and I think it is reasonable to try a course of prednisone to see if he feels better. We also discussed however that in angina can sometimes present with shortness of breath without chest pain. He did have a stress test last year he tells me that was unremarkable as well as an echo, but as I discussed with him if symptoms are not improving an additional stress test may be indicated normal. If at any time he acutely worsens, has severe shortness of breath, new symptoms such as fever, chest pain, fainting etcetera return to the emergency department. Vital Signs Vital signs: Initial Vital Signs Temperature 97 F L 11/08/22 10:43 Temperature Source Temporal Artery Scan 11/08/22 10:43 Pulse Rate 81 11/08/22 10:43 Pulse Rhythm Regular 11/08/22 10:43 Respiratory Rate 18 11/08/22 10:43 Blood Pressure 146/92 H 11/08/22 10:43 Blood Pressure Mean 110 H 11/08/22 10:43 Blood Pressure Position Sitting 11/08/22 10:43 Pulse Oximetry 99 11/08/22 10:43 Oxygen Delivery Method Room Air 11/08/22 10:43 Vital Signs Temperature 97 F L 11/08/22 10:43 Pulse Rate 81 11/08/22 10:43 Respiratory Rate 18 11/08/22 10:43 Blood Pressure 146/92 H 11/08/22 10:43 Pulse Oximetry 99 11/08/22 10:43 Oxygen Delivery Method Room Air 11/08/22 10:43 Temperature 97 F L 11/08/22 10:43 Pulse Rate 85 11/08/22 13:50 Respiratory Rate 18 11/08/22 10:43 Blood Pressure 138/109 H 11/08/22 13:49 Pulse Oximetry 98 11/08/22 13:50 Oxygen Delivery Method Room Air 11/08/22 10:43 Medical Decision Making Lab Data Labs: Lab Results 11/08/22 11/08/22 Range/Units 12:59 13:28 WBC 9.31 (4.50-11.00) K/uL RBC 5.20 (4.30-5.90) m/uL Hgb 16.2 (13.5-17.5) gm/dL Hct 46.5 (37.0-53.0) % MCV 89 (80-100) fL MCH 31 (26-34) pg MCHC 35 (32-36) gm/dL RDW Coeff of Aly 11.4 L (11.5-15.5) % Plt Count 268 (140-440) K/uL Neut % (Auto) 73.6 H (42.0-72.0) % Lymph % (Auto) 17.4 L (20-44) % [place] % (Auto) 7.0 (0.0-11.0) % Eos % (Auto) 1.4 (0.0-7.0) % Baso % (Auto) 0.4 (0.0-3.0) % Neut # (Auto) 6.90 (1.7-7.0) K/uL Lymph # (Auto) 1.60 (0.90-2.90) K/uL [place] # (Auto) 0.70 (0.00-0.90) K/UL Eos # (Auto) 0.13 (0.00-0.50) K/uL Baso # (Auto) 0.04 (0.00-0.30) K/uL D-Dimer Quant (PE/DVT) < 0.27 (0.00-0.50) ug/ml Sodium 137 (135-149) mmol/L Potassium 4.8 (3.6-5.1) mmol/L Chloride 103 (96-114) mmol/L Carbon Dioxide 27 (20-32) mmol/L BUN 15 (5-24) mg/dL Creatinine 0.9 (0.5-1.5) mg/dL Estimated GFR 105 ml/min Glucose 105 (60-115) mg/dL Calcium 9.4 (8.4-10.6) mg/dL Total Bilirubin 0.9 (0.1-1.5) mg/dL Direct Bilirubin 0.3 (0.0-0.5) mg/dL AST 31 (12-35) U/L ALT 28 (4-50) U/L Alkaline Phosphatase 59 (40-150) U/L C-Reactive Protein < 0.5 L (0.5-1.0) mg/dL NT-Pro-B Natriuret Pep < 20 pg/mL Total Protein 8.0 (6.0-8.3) g/dL Albumin 4.8 (3.3-5.0) g/dL SARS-CoV-2 (PCR) Negative SARS-CoV-2 (Negative) POC Troponin I 0.00 L (0.01-0.04) ng/ml Discharge Plan Discharge Clinical Impression: LOZA (dyspnea on exertion) Patient Disposition: Home, Self-Care Condition: Stable Instructions: Dyspnea (ED) Additional Instructions: Continue with inhalers as needed, prednisone as prescribed. I would recommend primary care follow-up in the next week for re-evaluation and decision as to whether a stress test is needed to evaluate symptoms if persistent. If you have acute worsening, severe shortness of breath, chest pain, fainting, or other significant changes, return for re-evaluation in the ER. Prescriptions: No Action dextroamphetamine-amphetamine [Adderall] 10 mg tablet 10 mg PO BID Rx Instructions: administer doses at least 4-6 hours apart atorvastatin 10 mg tablet 10 mg PO QDAY Qty: 90 3RF amlodipine 5 mg tablet 5 mg PO QDAY Qty: 90 3RF albuterol sulfate 90 mcg/actuation HFA aerosol inhaler 2 puff inhalation Q4-6H PRN (Reason: shortness of breath or wheezing) Qty: 8.5 2RF Follow Up/Referrals: Hal Painter MD [Primary Care Provider] - Stand Alone Forms: [facility] Info Instructions
[2022-11-08 13:40] LABS: Basophils Absolute Auto 0.04 K/uL (0.00-0.30); Basophils Percent Auto 0.4 % (0.0-3.0); Eosinophils Absolute Auto 0.13 K/uL (0.00-0.50); Eosinophils Percent Auto 1.4 % (0.0-7.0); Hematocrit 46.5 % (37.0-53.0); Hemoglobin* 16.2 gm/dL (13.5-17.5); Immature Granulocytes Abs Auto 0.02 K/uL (0.00-0.30); Immature Granulocytes Pct Auto 0.2 %; Lymphocytes Percent Auto 17.4 % (20-44); Mean Corpuscular HGB Conc 35 gm/dL (32-36); Mean Corpuscular Hemoglobin 31 pg (26-34); Mean Corpuscular Volume 89 fL (80-100); Neutrophils Percent Auto 73.6 % (42.0-72.0); Platelet Count* 268 K/uL (140-440); RDW Coefficient of Variation % 11.4 % (11.5-15.5); White Blood Count* 9.31 K/uL (4.50-11.00)
[2022-11-08 13:41] LABS: Slide Review Reflex No
[2022-11-08 13:49] LABS: Chloride* 103 mmol/L (96-114); Potassium* 4.8 mmol/L (3.6-5.1); Sodium* 137 mmol/L (135-149)
[2022-11-08 13:50] LABS: Albumin* 4.8 g/dL (3.3-5.0)
[2022-11-08 13:52] LABS: Creatinine* 0.9 mg/dL (0.5-1.5); Estimated Glomerular Filt Rate 105 ml/min
[2022-11-08 13:53] LABS: Bilirubin Direct* 0.3 mg/dL (0.0-0.5); Bilirubin Total* 0.9 mg/dL (0.1-1.5); Blood Urea Nitrogen* 15 mg/dL (5-24); Calcium* 9.4 mg/dL (8.4-10.6); Carbon Dioxide* 27 mmol/L (20-32); Glucose* 105 mg/dL (60-115)
[2022-11-08 13:54] LABS: Alanine Aminotransferase* 28 U/L (4-50); Alkaline Phosphatase* 59 U/L (40-150); Aspartate Amino Transferase* 31 U/L (12-35)
[2022-11-08 13:57] LABS: C Reactive Protein* < 0.5 mg/dL (0.5-1.0)
[2022-11-08 14:14] LABS: NT Pro B Type NatriureticPept* < 20 pg/mL
[2022-11-08 14:20] LABS: D Dimer Quantitative* < 0.27 ug/ml (0.00-0.50)
[2022-11-08 14:23] LABS: SARS PCR* Negative SARS-CoV-2 (Negative)
== END 2022-11-08 14:45 | disposition home or self-care (01) ==
PROVIDERS: Emergency Provider Emergency Medicine; PCP Family Medicine
DX: R06.09 Other forms of dyspnea (principal)
CPT/HCPCS: 36415; 71046; 80048; 80076; 83880; 84484; 85025; 85379; 86140; 87635; 93005; 99284; 99285